=== PATIENT | male | born 1960 | race Caucasian/White ===

== ENCOUNTER → 2017-12-31 11:10 | Outpatient (POV) | payer OTHER, SELFPAY | PROVIDERS: Visit Provider Otolaryngology | DX: Z00.00 Encounter for general adult medical examination without abnormal findings (principal) ==

== ENCOUNTER → 2018-02-12 11:27 | Outpatient (CLI) | payer OTHER, SELFPAY ==
--- NOTE | 2018-02-12 11:32 | US_ITS ---
US abdomen limited History:Right upper quadrant pain with diarrhea Ordering Physician:Jerrell oRyal MD Patient Age: 57 years Comparison:None Findings: Pancreas:Unremarkable. No obvious mass or abnormal fluid collection. No ductal dilatation Liver:No focal liver lesions demonstrated. Homogeneous echogenicity. No intrahepatic biliary ductal dilatation evident Right Kidney:Unremarkable. Normal size and echogenicity. No hydronephrosis Gallbladder:No gallstones, gallbladder wall thickening, pericholecystic fluid, or biliary dilatation. Impression:Negative gallbladder/right upper quadrant ultrasound
== END ==
PROVIDERS: PCP Family Medicine; Visit Provider Family Medicine
DX: R10.11 Right upper quadrant pain (principal)
CPT/HCPCS: 76705

== ENCOUNTER → 2018-02-19 10:22 | Outpatient (CLI) | payer OTHER, SELFPAY ==
--- NOTE | 2018-02-19 10:26 | NM_ITS ---
NM hepatobiliary w pharm HISTORY: ITS.REASON: RUQ PAIN ORDERING PHYSICIAN: Jerrell Royal MD PATIENT AGE: 57 years COMPARISON: None DOSE: 8.25 MCI TC Choletec 2MCG CCK FINDINGS: Homogeneous activity is present within the hepatic parenchyma. Activity is present in the gallbladder by 10 minutes. Activity is present in the small bowel during CCK infusion. The gallbladder ejection fraction is calculated to be 92% The patient did not report pain or other symptoms during CCK infusion. IMPRESSION: Unremarkable hepatobiliary scan and gallbladder ejection fraction. No evidence of common or cystic duct obstruction with normal gallbladder ejection fraction
== END ==
PROVIDERS: PCP Family Medicine; Visit Provider Family Medicine
DX: R10.11 Right upper quadrant pain (principal)
CPT/HCPCS: 78227; A9537; J2805

== ENCOUNTER → 2020-05-16 16:15 | Outpatient (CLI) | payer OTHER, SELFPAY ==
--- NOTE | 2020-05-16 | XR_ITS ---
PROCEDURE: XR CHEST 2V CLINICAL HISTORY: Chest pain COMPARISON: CR CXR CHEST(2 VIEWS-NOT PORTABLE) from 04/20/2017 FINDINGS: The cardiomediastinal silhouette and pulmonary vascularity are within normal limits. The lungs are clear without infiltrates, suspicious nodules, or pleural effusions. No acute bony abnormalities. IMPRESSION: No acute findings. Dictated by: Eloy Gómez MD 05/16/2020 17:34 Eloy Gómez MD in [place] 05/16/2020 17:34
[2020-05-16 16:58] LABS: Basophils # 0.1 K/mm3 (0-0.2); Basophils % 0.5 % (0.1-2.0); Eosinophils # 0.3 K/mm3 (0.0-0.4); Eosinophils % 3.3 % (0.1-12.0); Hematocrit 41.1 % (42.0-52.0); Hemoglobin 14.5 g/dL (14.1-18.0); Lymphocytes # 2.6 K/mm3 (0.7-4.5); Lymphocytes % 28.6 % (10-50); Mean Corpuscular HGB Conc 35.2 g/dL (31.8-35.4); Mean Corpuscular Hemoglobin 29.3 pg (27.0-31.2); Mean Corpuscular Volume 83.3 fl (80-94); Mean Platelet Volume 7.5 fl (7.4-10.4); Monocytes # 0.4 K/mm3 (0.1-1.0); Monocytes % 4.9 % (1.7-9.3); Neutrophils # 5.7 K/mm3 (1.8-7.8); Neutrophils % 62.7 % (37.0-80.0); Platelet Count 295 K/mm3 (142-424); Red Blood Count 4.94 M/mm3 (4.60-6.20); Red Cell Distribution Width 14.3 % (11.5-17.5); White Blood Count 9.1 K/mm3 (4.8-10.8)
[2020-05-16 17:13] LABS: Chloride 102 mmol/L (98-107)
[2020-05-16 17:14] LABS: Potassium 4.2 mmoL/L (3.5-5.1); Sodium 134 mmol/L (136-145)
[2020-05-16 17:16] LABS: Alanine Aminotransferase 30 U/L (12-78); Alkaline Phosphatase 67 U/L (38-126); Anion Gap 8.2 mEq/L (5-15); Aspartate Amino Transferase 27 U/L (17-59); Bilirubin,Total 0.3 mg/dl (0.2-1.3); Blood Urea Nitrogen 20 mg/dl (9-20); Carbon Dioxide 28 mmol/L (22.0-30.0); Cholesterol 291 mg/dl (140-200); Estimated Glomerular Filt Rate 115 ml/min (>60); GFR (African American) 139 ML/MIN (>60)
[2020-05-16 17:17] LABS: Albumin Level 3.3 g/dl (3.5-5.0); Calcium 8.9 mg/dl (8.4-10.2); Chol/HDL Ratio 9.7 (1-3.5); Globulin 3.3 g/dL (1.3-3.2); Glucose 281 mg/dl (74-100); HDL Cholesterol 30 mg/dl (40-60); Magnesium 1.5 mg/dl (1.6-2.3); Total Protein,Serum 6.6 g/dl (6.3-8.2)
[2020-05-16 17:29] LABS: Troponin I 0.03 ng/ml (0.00-0.034)
[2020-05-16 17:32] LABS: Direct LDL Cholesterol < 30.00 mg/dL (100-129)
[2020-05-16 17:47] LABS: Thyroid Stimulating Hormone 1.89 uIU/mL (0.465-4.68)
[2020-05-16 17:58] LABS: Triglycerides 1861 mg/dl (30-150)
== END ==
PROVIDERS: PCP Nurse Practitioner Family; Visit Provider Nurse Practitioner Family
DX: R07.9 Chest pain, unspecified (principal)
CPT/HCPCS: 36415; 71046; 80053; 80061; 83735; 84443; 84484; 85025

== ENCOUNTER 2020-05-27 08:07 | Day surgery (SDC) | payer OTHER, SELFPAY ==
[2020-05-27] VITALS (10 sets, daily range): BP systolic 107–150; BP diastolic 65–104; PULSE 80–91; RESP 16–18; TEMP 36.8; O2SAT 90–97; BMI 37.4
--- NOTE | 2020-05-27 | CA_ITS ---
APPROVED REPORT EXAM: Comprehensive 2D, Doppler, and color-flow Echocardiogram Hoop Expander: Collette Junior, RT(R) Ht: 5 ft 4 in Wt: 218lbs BSA: 2.03 BP: 144/91 mmHg Indications: CP, COPD, smoker, edema, SOB, GUZMÁN, obesity, angina, ABN EKG 2D Dimensions LVOT 2.14 cm (M/F) 1.5-2.5 M-Mode Dimensions RVDd 1.95 cm (0.9-2.6) LVDd 6.41 cm (3.5-5.7) LVDs 5.22 cm (3.5-5.7) IVSd 0.81 cm (0.6-1.1) PWd 0.85 cm (0.6-1.1) EF (Teich) 37.60% FS 18.60% EDV (Teich) 209.30 mL ESV (Teich) 130.70 mL LV Diastology E/A Ratio 1.10 Aortic Valve LVOT Max 107.00 (70-110 cm/s) LVOT VTI 20.76 cm Mitral Valve MV A Velocity 94.00 (40-130 cm/s) Left Ventricle Left atrium is mildly enlarged, left ventricle is normal size, left ventricle wall thickness is upper limit of the normal, visually estimated ejection fraction 50% with no regional wall motion abnormality, diastolic parameters are inconclusive. Right Ventricle Right atrium and right ventricle are relatively normal size and function. Aortic Valve Aortic valve is thickened and calcified, leaflet continue to display mobility, Doppler is not indicated above significant aortic stenosis, there is no aortic insufficiency. Mitral Valve Mitral valve is minimally thickened, there is mild mitral regurgitation. Tricuspid Valve Tricuspid valve grossly normal, there is mild tricuspid regurgitation, tricuspid regurgitation jet velocity is inadequate for calculation of the right ventricular systolic pressure. Pulmonic Valve Pulmonic valve is poorly visualized. Great Vessels Aortic root is normal size. Pericardium No significant pericardial effusion noted. Conclusion 1. Left atrium is mildly enlarged, left ventricle is normal size, visually estimated ejection fraction 50% with no regional wall motion abnormality, diastolic parameters are inconclusive. 2. Thickened and calcified aortic valve without Doppler evidence of aortic stenosis or aortic insufficiency. 3. Mild mitral and tricuspid regurgitation. 4. No significant pericardial effusion noted. Electronically signed by : Elias Scanlon, 05/27/2020 13:45:02
--- NOTE | 2020-05-27 09:00 | IR_ITS ---
APPROVED REPORT Patient Location: Outpatient PROCEDURES Left heart catheterization Left ventriculogram Selective coronary angiogram INDICATION Unstable angina Informed consent was obtained prior to the procedure. COMPLICATIONS NONE Estimated Blood Loss: LESS THAN 10 ML TECHNIQUE One percent lidocaine used to anesthetize the right anterior aspect of the wrist. The right radial artery was accessed via the Seldinger technique. A 6 Vietnamese sheath was placed in the right radial artery. 2.5 mg of verapamil, 800 mcg of nitroglycerin, 1mg Lidocaine and 5000 U Heparin were given through the arterial sheath. The trap catheter was also used to perform left heart catheterization, left ventriculogram and selective coronary angiogram. At the end of the procedure the sheath was removed good hemostasis was achieved using Traclet band, patient was transferred to the postop holding area in stable condition. ANGIOGRAPHIC RESULTS The left main artery Has a distal concentric 50% stenosis The left anterior descending artery Has proximal 70 to 80% stenosis large first diagonal artery has a proximal 70% stenosis The circumflex artery Nondominant with mild luminal irregularities of 10% The right coronary artery Is a very large dominant vessel which supplies the apex and a portion of the anterior wall. This vessel has proximal 30% stenoses mid vessel 40% stenoses and then is subtotally occluded in its distal segment. The majority of the distal vessel fills via [id number] collaterals The GAXIOLA ventriculogram reveals Dilated ventricle ejection fraction 45% The left ventricular end-diastolic pressure 15 mmHg IMPRESSION Severe diffuse coronary disease as described above Dilated ventricle with reduced ejection fraction Mildly elevated LVEDP PLAN 1. Bisoprolol 10 mg daily will be started 2. Imdur 30 mg will be started 3. Patient will be referred to [facility] for bypass surgery 4. LDL less than 55 to be achieved with high intensity statin 5. Avoidance of all tobacco products Electronically signed by : Graham Royal, 05/27/2020 12:39:19
[2020-05-27 09:04] LABS: Chloride 103 mmol/L (98-107); Potassium 4.3 mmoL/L (3.5-5.1); Sodium 136 mmol/L (136-145)
[2020-05-27 09:05] LABS: Basophils % 0.5 % (0.1-2.0); Eosinophils # 0.3 K/mm3 (0.0-0.4); Eosinophils % 2.9 % (0.1-12.0); Hematocrit 44.3 % (42.0-52.0); Hemoglobin 15.4 g/dL (14.1-18.0); Lymphocytes # 2.2 K/mm3 (0.7-4.5); Lymphocytes % 24.6 % (10-50); Mean Corpuscular HGB Conc 34.7 g/dL (31.8-35.4); Mean Corpuscular Hemoglobin 28.8 pg (27.0-31.2); Mean Corpuscular Volume 82.9 fl (80-94); Mean Platelet Volume 7.1 fl (7.4-10.4); Monocytes # 0.5 K/mm3 (0.1-1.0); Monocytes % 5.2 % (1.7-9.3); Neutrophils # 6.1 K/mm3 (1.8-7.8); Neutrophils % 66.8 % (37.0-80.0); Platelet Count 292 K/mm3 (142-424); Red Blood Count 5.35 M/mm3 (4.60-6.20); Red Cell Distribution Width 14.5 % (11.5-17.5); White Blood Count 9.1 K/mm3 (4.8-10.8)
[2020-05-27 09:07] LABS: Anion Gap 10.3 mEq/L (5-15); Blood Urea Nitrogen 19 mg/dl (9-20); Calcium 8.6 mg/dl (8.4-10.2); Carbon Dioxide 27 mmol/L (22.0-30.0); Creatinine Clearance Estimated 157 mL/min (50-200); Estimated Glomerular Filt Rate 115 ml/min (>60); GFR (African American) 139 ML/MIN (>60); Glucose 211 mg/dl (74-100)
[2020-05-27 09:32] LABS: Coronavirus 19 IgG Antibody Negative (Negative); Coronavirus 19 IgM Antibody Negative (Negative)
== END 2020-05-27 13:56 | disposition home or self-care (01) ==
LOC: CATHLAB 08:08
PROVIDERS: PCP Nurse Practitioner Family; Visit Provider Internal Medicine
DX: I25.110 Atherosclerotic heart disease of native coronary artery with unstable angina pectoris (principal); R06.00 Dyspnea, unspecified; R94.31 Abnormal electrocardiogram [ECG] [EKG]; Z72.0 Tobacco use; Z82.49 Family history of ischemic heart disease and other diseases of the circulatory system
CPT/HCPCS: 80048; 85025; 86328; 93306; 93458; 99152; C1725; C1760; C1769; J1644; Q9967

== ENCOUNTER 2020-07-13 10:00 | Emergency (ER) | payer OTHER, SELFPAY ==
--- NOTE | 2020-07-13 10:03 | XR_ITS ---
PROCEDURE: XR HIP RT 2-3V W/PELVIS CLINICAL INDICATION: pain COMPARISON: No exams were available for comparison FINDINGS: No fracture or dislocation is evident. No significant degenerative change. No lytic or blastic change. Unremarkable soft tissues. There are 2 small calcifications or ossifications adjacent to the greater trochanter and calcific bursitis is a possibility though these could be posttraumatic in etiology as well. The SI joints and symphysis pubis appear normal. IMPRESSION: No acute findings. Dictated by: Dr. Andreas Uribe MD 07/13/2020 11:09 Dr. Andreas Uribe MD in [place] 07/13/2020 11:09
[2020-07-13 10:08] VITALS: BP 134/88; PULSE 82; RESP 16; TEMP 36.9; O2SAT 98; BMI 39.1
--- NOTE | 2020-07-13 10:10 | PC.NURSE ---
notified radiology of xray order, spoke with Gertrudis
--- NOTE | 2020-07-13 10:10 | HMH.EDEXTP ---
ED Disposition Clinical Impression: Iliotibial band syndrome, right leg Disposition: Home, Self-Care Condition on Discharge: Good Instructions: DI for Iliotibial Band Syndrome Prescriptions: Naproxen 500 mg PO BID PRN #20 tab PRN Reason: pain Transmission Status: Pending to [facility] Referrals: Cindy Diaz APRN [Primary Care Provider] - 3 days - Critical Care Critical Care Time: No Attestation: On , the high probability of a clinically significant, sudden or life threatening deterioration of the following system(s) required my full and direct attention, intervention and personal management. The time I documented below is in addition to time spent performing reported procedures but includes the following listed in this critical care notation. Medical Decision Making - Medical Records Medical records reviewed: Yes: I reviewed the patient's medical records. - Scott Inquiry Pt receiving controlled substance: No Vital Signs: 07/13/20 10:08 07/13/20 10:30 Temperature 98.4 F 98.4 F Temperature Source Oral Oral Pulse Rate 79 Pulse Rate [Right Brachial] 82 Respiratory Rate 16 17 Blood Pressure 138/95 H Blood Pressure [Right Arm] 134/88 Blood Pressure Mean [Right Arm] 103 Blood Pressure Source [Right Arm] Automatic Cuff Blood Pressure Position [Right Arm] Sitting 02 Sat by Pulse Oximetry 98 Oxygen Delivery Method Room Air Room Air Orders (Tests/Meds): ORDERS Category Date Time Status Hip XR right minimum 2 views [XR hip RT 2-3V w/pelvis] Exams 07/13/20 10:03 Taken Stat - Radiology Data #1 Image(s): Hip Image Reviewed: Yes I reviewed the patient's radiology image Preliminary Findings: Normal/NAD Medical Decision Narrative: Patient here with painful iliotibial band tract. X-ray shows no acute fracture or dislocation. No signs of septic joint, septic bursitis/joint, though a septic bursitis would be a consideration as well. I discussed this with the patient, in either case anti-inflammatories, stretching and physical therapy would be of assistance and we discussed these measures. Given prescription for naproxen and advised to follow-up outpatient with PCP. Extremity Problem HPI - General Stated complaint: rt hip pain, no ao Time Seen by Provider: 07/13/20 10:10 Source of Information: Patient Limitations: No Limitations - History of Present Illness HPI Narrative: This is a 60-year-old male who presents to the emergency department for 4 days of right hip pain. Patient states that he is about 1 month out from CABG and has been sitting on the couch a lot on his right hip. He states the pain is on the outside and radiates down the outside of his leg towards his knee. No back pain. No falls or trauma. No fevers. The only thing that makes it better is lying perfectly still. He has been using naproxen at home and this helps and he is requesting another prescription for naproxen. - Related Data Home Medications Medication Instructions Recorded Confirmed albuterol sulfate 90 mcg/actuation 1 puff INHALATION Q4-6H PRN 02/24/18 05/27/20 aerosol inhaler Previous Rx's Medication Instructions Recorded Naproxen 500 mg PO BID PRN #20 tab 07/13/20 Allergies Allergy/AdvReac Type Severity Reaction Status Date / Time No Known Allergies Allergy Verified 07/13/20 10:13 [facility] History - Hepatitis A Screen Attestation statement:: This patient has been screened for Hepatitis A risk factors. I have reviewed the patient's past medical history: Yes Medical History: Reports:: Coronary Artery Disease, Hyperlipidemia, Hypertension Denies:: Diabetes Mellitus Type 2 Other Surgeries: Yes: No Previous Surgery - Social History Smoking Status: Current every day smoker Tobacco Type: cigarettes # Packs/Day (cigarettes): 3 Alcohol Intake: never Occupational Status: employed Housing: house Household Members: spouse Family Hx:: Diabetes, Cor
[2020-07-13 10:30] VITALS: BP 138/95; PULSE 79; RESP 17; TEMP 36.9; O2SAT 98
== END 2020-07-13 10:36 | disposition home or self-care (01) ==
PROVIDERS: Emergency Provider Emergency Medicine; PCP Nurse Practitioner Family
DX: M76.31 Iliotibial band syndrome, right leg (principal); I10 Essential (primary) hypertension; E78.5 Hyperlipidemia, unspecified; I25.10 Atherosclerotic heart disease of native coronary artery without angina pectoris; F17.210 Nicotine dependence, cigarettes, uncomplicated
CPT/HCPCS: 73502; 99282

== ENCOUNTER → 2020-08-03 13:31 | Outpatient (CLI) | payer OTHER, SELFPAY ==
[2020-08-03 16:27] LABS: Anion Gap 11.9 mEq/L (5-15); Blood Urea Nitrogen 21 mg/dl (9-20); Calcium 9.4 mg/dl (8.4-10.2); Carbon Dioxide 29 mmol/L (22.0-30.0); Chloride 100 mmol/L (98-107); Estimated Glomerular Filt Rate 76 ml/min (>60); GFR (African American) 92 ML/MIN (>60); Glucose 103 mg/dl (74-100); Potassium 4.9 mmoL/L (3.5-5.1); Sodium 136 mmol/L (136-145)
== END ==
PROVIDERS: Visit Provider Nurse Practitioner Family
DX: I10 Essential (primary) hypertension (principal); E78.5 Hyperlipidemia, unspecified; I25.10 Atherosclerotic heart disease of native coronary artery without angina pectoris; F17.200 Nicotine dependence, unspecified, uncomplicated; Z95.1 Presence of aortocoronary bypass graft
CPT/HCPCS: 36415; 80048

== ENCOUNTER 2020-08-16 13:45 | Outpatient (RCR) | payer OTHER, SELFPAY | END 2020-11-16 13:51 | disposition home or self-care (01) | LOC: PT 13:45 | PROVIDERS: Visit Provider Nurse Practitioner Family | DX: I25.10 Atherosclerotic heart disease of native coronary artery without angina pectoris (principal) | CPT/HCPCS: 93798 ==

== ENCOUNTER → 2020-10-05 14:11 | Outpatient (CLI) | payer OTHER, SELFPAY ==
--- NOTE | 2020-10-05 14:11 | CA_ITS ---
APPROVED REPORT EXAM: Comprehensive 2D, Doppler, and color-flow Echocardiogram Prop Drawer: Laury King RCS, RVS Ht: 5 ft 4 in Wt: 205lbs BSA: 1.98 BP: 144/91 mmHg Indications: CAD s/p CABG x5-05/2020 follow up exam for work physical, COPD, HTN, HLD, smoker 2D Dimensions IVSd 0.91 cm LVEF (Visual) 56.60 % PWd 1.02 cm LVDd 4.85 cm LVDs 3.41 cm LVOT 2.01 cm (M/F) 1.5-2.5 M-Mode Dimensions RVDd 3.11 cm (0.9-2.6) LA Diam 3.37 cm (1.9-4.0) LVDd 4.96 cm (3.5-5.7) Ao Diam 3.48 cm (2.0-3.7) LVDs 3.50 cm (3.5-5.7) IVSd 1.29 cm (0.6-1.1) PWd 1.11 cm (0.6-1.1) EF (Teich) 55.60% EPSs 0.75 cm FS 29.10% EDV (Teich) 117.70 mL TAPSE 1.41 (<1.7) ESV (Teich) 52.30 mL LV Diastology E Decel Time 237.00 (160-240 msec) E/A Ratio 1.05 MED E' 6.90 (< 7 cm/sec) MED A' 10.90 cm/s E'/MED E' Ratio 11.54 (>14) LAT E' 14.30 (<10 cm/sec) LAT A' 10.50 cm/s E/LAT E' Ratio 5.57 (>14) Aortic Valve LVOT Max 101.00 (70-110 cm/s) LVOT VTI 17.39 cm AoV Peak Parveen. 217.00 (50-130 cm/s) AO Peak GR. 18.80 mmHg AO Mean GR. 10.10 (<5 mmHg) AO VTI 39.61 (18-25 cm) ALISON (VTI) 1.39 (2.5-4.5 cm2) Mitral Valve MV E Max Parveen. 80.00 (40-130 cm/s) MV A Velocity 75.00 (40-130 cm/s) E/A Ratio 1.05 MV Decel. Time 237.00 (160-240 ms) MV PHT 69.00 ms Pulmonary Valve PV Peak Velocity 118.00 (50-150 cm/s) NY End VMAX 206.00 cm/s Tricuspid Valve TR P. Velocity 192.00 cm/s RAP Estimate 10.00 mmHg RVSP 24.70 mmHg Left Ventricle Left atrium is mildly enlarged, left ventricle is normal size, mild concentric left ventricular hypertrophy, visually estimated ejection fraction 50% with no regional wall motion abnormality, grade 1 diastolic dysfunction seen without tissue Doppler evidence of raise left atrial pressure. Right Ventricle Right atrium and right ventricle are mildly enlarged with normal contractility. Aortic Valve Aortic valve is thickened and calcified leaflet chordae display mobility, mean gradient across valve is 18 mmHg, valve area 1.5 cm??? represents mild aortic stenosis, there is no significant aortic insufficiency. Mitral Valve Mitral valve is grossly normal, there is mild mitral regurgitation. Tricuspid Valve Tricuspid valve is grossly normal, there is mild tricuspid regurgitation, tricuspid regurgitation jet velocity is inadequate for calculation of the right ventricular systolic pressure. Pulmonic Valve Pulmonic valve is poorly visualized. Great Vessels Aortic root is normal size. Pericardium No significant pericardial effusion noted. Conclusion 1. Mild biatrial enlargement, normal left ventricular size, mild concentric left ventricular hypertrophy, visually estimated ejection fraction of 50% with no regional wall motion abnormality, grade 1 diastolic dysfunction seen without tissue Doppler evidence of raise left atrial pressure. 2. Mildly enlarged right ventricle with normal contractility. 3. Thickened and calcified aortic valve with mild aortic stenosis. 4. Mild mitral and tricuspid regurgitation. 5. No significant pericardial effusion noted. Electronically signed by : Elias Scanlon, 10/06/2020 15:52:39
== END ==
PROVIDERS: PCP Nurse Practitioner Family; Visit Provider Urology
DX: I25.10 Atherosclerotic heart disease of native coronary artery without angina pectoris (principal); I10 Essential (primary) hypertension; E78.5 Hyperlipidemia, unspecified; F17.200 Nicotine dependence, unspecified, uncomplicated; Z95.1 Presence of aortocoronary bypass graft
CPT/HCPCS: 93306

== ENCOUNTER → 2021-07-06 13:55 | Outpatient (CLI) | payer OTHER, SELFPAY ==
[2021-07-06 17:21] LABS: Alanine Aminotransferase 19 U/L (12-78); Albumin Level 3.6 g/dl (3.5-5.0); Alkaline Phosphatase 74 U/L (38-126); Aspartate Amino Transferase 26 U/L (17-59); Chol/HDL Ratio 7.9 (1-3.5); Cholesterol 181 mg/dl (140-200); HDL Cholesterol 23 mg/dl (40-60); Total Protein,Serum 6.4 g/dl (6.3-8.2)
[2021-07-06 17:32] LABS: Direct LDL Cholesterol 53.33 mg/dL (100-129)
[2021-07-06 17:47] LABS: Bilirubin,Total < 0.1 mg/dl (0.2-1.3); Triglycerides 683 mg/dl (30-150)
[2021-07-06 20:17] LABS: Bilirubin,Indirect 0.1 mg/dL (0.0-0.9)
== END ==
PROVIDERS: Visit Provider Physician Assistant
DX: E78.2 Mixed hyperlipidemia (principal); F17.200 Nicotine dependence, unspecified, uncomplicated; I10 Essential (primary) hypertension; I25.10 Atherosclerotic heart disease of native coronary artery without angina pectoris; Z95.1 Presence of aortocoronary bypass graft
CPT/HCPCS: 36415; 80061; 80076

== ENCOUNTER 2023-08-25 19:16 | Observation (INO) | payer OTHER, SELFPAY ==
[2023-08-25] VITALS (12 sets, daily range): BP systolic 131–175; BP diastolic 69–101; PULSE 90–110; RESP 16–30; TEMP 36.8–37.1; O2SAT 90–99; BMI 36.0
--- NOTE | 2023-08-25 19:23 | ECG_ITS ---
APPROVED REPORT Exam: Resting ECG HR:105 bpm ECG Measurements Heart Rate 105 AXES RI 177 P 73 QRSd 145 QRS -65 QT 361 T 83 QTc 422 Conclusion SINUS TACHYCARDIA LEFT AXIS DEVIATION [QRS AXIS < -30] RIGHT BUNDLE BRANCH BLOCK [120+ ms QRS DURATION, UPRIGHT V1, 40+ ms S IN I/aVL/V4/V5/V6] ABNORMAL ECG UNCONFIRMED REPORT Electronically signed by : Orion Abrams MD 08/26/2023 19:18:59
--- NOTE | 2023-08-25 19:30 | HMH.EDGENADL ---
Discharge Plan Disposition Patient Disposition: Admitted Clinical Impressions Clinical Impression: Acute exacerbation of chronic obstructive pulmonary disease, RUSH (acute kidney injury) Discharge ED Provider: Tejinder Moseley General Adult HPI General Chief complaint: Shortness of Breath/Dyspnea Stated complaint: trouble breathing Time Seen by Provider: 08/25/23 19:18 History of Present Illness HPI narrative: 63-year-old male, history of coronary artery disease status post CABG, hypertension, hyperlipidemia, COPD presents with worsening shortness of breath. He reports has been short of breath for the last month initially multiple doses of antibiotics with PCP without improvement. Reports shortness of breath has been worsening. He reports he has been taking high-dose Advil at home due to right-sided chest wall pain, worse with coughing. Denies fever at home. Reports he recently ran out of a inhaler and it has worsened his breathing. Related Data Home Medications Medication Instructions Recorded Confirmed metformin 500 mg tablet 500 mg PO BID 07/12/22 08/26/23 atorvastatin 80 mg tablet 80 mg PO HS 08/26/23 08/26/23 losartan 50 mg-hydrochlorothiazide 1 tab PO DAILY 08/26/23 08/26/23 12.5 mg tablet metoprolol tartrate 25 mg tablet 37.5 mg PO BID 08/26/23 08/26/23 Previous Rx's Medication Instructions Recorded aspirin 81 mg tablet,delayed 81 mg PO DAILY 30 days #30 tabs 07/15/23 release (Adult Low Dose Aspirin) albuterol sulfate 90 mcg/actuation 2 puff inhalation Q4-6H PRN 07/26/23 aerosol inhaler shortness of breath or wheezing 30 days #8.5 grams insulin degludec 100 unit/mL (3 10 unit (0.1 mL) SQ HS 30 days #3 07/26/23 mL) subcutaneous pen (Tresiba mL FlexTouch U-100 insulin) ipratropium 0.5 mg-albuterol 3 mg 3 ml inhalation Q6H PRN shortness 07/26/23 (2.5 mg base)/3 mL nebulization of breath or wheezing 30 days #360 soln mL pen needle, diabetic 32 gauge x #100 ea 07/26/23 3/16 (Comfort EZ Pen [place]) Allergies Allergy/AdvReac Type Severity Reaction Status Date / Time No Known Allergies Allergy Verified 07/26/23 09:24 [facility] Disclaimer: The information contained in this section may have been updated after the patient was seen, as this information can be updated by other users. Medical History Abnormal EKG Chest pain COPD (chronic obstructive pulmonary disease) Dyspnea Edema Family history of heart disease Tobacco dependence syndrome Unstable angina Surgical History History of open heart surgery Family History (Updated 08/26/23 @ 00:03 by Nicol Cabello RN) Mother CHF (congestive heart failure) Brother Lung nodules Social History (Updated 08/26/23 @ 00:05 by Nicol Cabello RN) Smoking Status: Current every day smoker tobacco type: cigarettes packs per day: 4 alcohol intake: never current occupational status: employed Travel in the last 8 weeks: Inside the [place] household members: spouse housing: house caffeine: Yes ROS Obtained: Yes All systems reviewed & no additional complaints except as documented Physical Exam General General appearance: alert and in no apparent distress Head Head exam: atraumatic and normocephalic Eye Eye exam: Present normal appearance, PERRL and EOMI ENT ENT exam: Present normal oropharynx and normal external ear exam Neck Neck exam: Present normal inspection and full ROM Chest Chest inspection: Present normal inspection, symmetric chest wall rise and tenderness (Right lateral chest wall tenderness) Respiratory Respiratory exam: Present respiratory distress (Tachypneic) and wheezes (Diffuse wheezing and prolonged expiratory phase) Cardiovascular Cardiovascular exam: Present normal rhythm and tachycardia Abdominal Exam Abdominal exam: Present soft; Absent distention, tenderness or guar
--- NOTE | 2023-08-25 19:52 | PC.NURSE ---
in room, talking with patient at this time.
--- NOTE | 2023-08-25 19:55 | XR_ITS ---
PROCEDURE INFORMATION: Exam: XR Chest Exam date and time: 08/25/2023 7:54 PM Age: 63 years old Clinical indication: Shortness of breath; Additional info: SOA, cough TECHNIQUE: Imaging protocol: Radiologic exam of the chest. Views: 1 view. COMPARISON: CR XR CHEST 2V 05/16/2020 4:25 PM FINDINGS: Lungs: Normal. Pleural spaces: Normal No pleural effusion. No pneumothorax. Heart/Mediastinum: Normal. No cardiomegaly. Vasculature: Tortuous atherosclerotic thoracic aorta. Bones/joints: Status post sternotomy. Moderate degenerative change of the bilateral acromioclavicular joints. IMPRESSION: No acute findings.
[2023-08-25 20:03] LABS: Basophils # 0.1 K/mm3 (0-0.2); Basophils % 0.7 % (0.1-2.0); Eosinophils # 1.1 K/mm3 (0.0-0.4); Eosinophils % 10.7 % (0.1-12.0); Hematocrit 38.7 % (42.0-52.0); Hemoglobin 12.8 g/dL (14.1-18.0); Lymphocytes # 2.2 K/mm3 (0.7-4.5); Lymphocytes % 21.8 % (10-50); Mean Corpuscular HGB Conc 33.1 g/dL (31.8-35.4); Mean Corpuscular Volume 84.8 fl (80-94); Mean Platelet Volume 7.5 fl (7.4-10.4); Monocytes # 0.4 K/mm3 (0.1-1.0); Monocytes % 4.3 % (1.7-9.3); Neutrophils # 6.5 K/mm3 (1.8-7.8); Neutrophils % 62.6 % (37.0-80.0); Platelet Count 362 K/mm3 (142-424); Red Blood Count 4.56 M/mm3 (4.60-6.20); Red Cell Distribution Width 14.6 % (11.5-17.5); White Blood Count 10.3 K/mm3 (4.8-10.8)
[2023-08-25 20:07] LABS: Alanine Aminotransferase 33 U/L (12-78); Albumin Level 4.1 g/dl (3.5-5.0); Albumin/Globulin Ratio 1.1 (1.1-1.8); Alkaline Phosphatase 65 U/L (38-126); Anion Gap 10.3 mEq/L (5-15); Aspartate Amino Transferase 38 U/L (17-59); Bilirubin,Total 0.3 mg/dl (0.2-1.3); Blood Urea Nitrogen 35 mg/dl (9-20); Calcium 7.9 mg/dl (8.4-10.2); Carbon Dioxide 24 mmol/L (22.0-30.0); Chloride 107 mmol/L (98-107); Creatinine Clearance Estimated 54 mL/min (50-200); Estimated Glomerular Filt Rate 36 ml/min (>60); GFR (African American) 44 ML/MIN (>60); Globulin 3.6 g/dL (1.3-3.2); Glucose 193 mg/dl (74-100); Potassium 4.3 mmoL/L (3.5-5.1); Sodium 137 mmol/L (136-145); Total Protein,Serum 7.7 g/dl (6.3-8.2)
[2023-08-25 20:12] LABS: D-Dimer 1.11 ug/mL (0.0-0.5)
[2023-08-25 20:20] LABS: NT Pro Brain Natriuretic Pep. 113 pg/mL (0-125); Troponin I 0.02 ng/ml (0.00-0.034)
--- NOTE | 2023-08-25 20:30 | CT_ITS ---
PROCEDURE INFORMATION: Exam: CTA Chest With Contrast Exam date and time: 08/25/2023 9:22 PM Age: 63 years old Clinical indication: Shortness of breath; Additional info: SOA, postive dimer, tachy TECHNIQUE: Imaging protocol: Computed tomographic angiography of the chest with contrast. Exam focused on the arteries. 3D rendering (Not supervised by radiologist): MIP and/or 3D reconstructed images were created by the technologist. Radiation optimization: All CT scans at this facility use at least one of these dose optimization techniques: automated exposure control; mA and/or kV adjustment per patient size (includes targeted exams where dose is matched to clinical indication); or iterative reconstruction. Contrast material: ISOVUE; Contrast volume: 70 ml; Contrast route: INTRAVENOUS (IV); REPORTING DATA: Count of CT and Cardiac NM exams in prior 12 months: This patient has received 0 known CTs and 0 known cardiac nuclear medicine studies in the 12 months prior to the current study. COMPARISON: CR XR CHEST PORTABLE 08/25/2023 7:54 PM FINDINGS: Limitations: Significant motion artifact could obscure segmental or subsegmental pulmonary emboli. Pulmonary arteries: Caliber pulmonary arteries. No visible pulmonary emboli. Aorta: Unremarkable. No aortic aneurysm. No aortic dissection. Other arteries: Mild atherosclerotic disease without aneurysm. Lungs: Focal opacity in the posterior left lower lobe is likely atelectasis but cannot exclude pneumonia. Minimal linear scar versus atelectasis in the lingula. Mild emphysema. Pleural spaces: Unremarkable. No pneumothorax. No pleural effusion. Heart: No cardiomegaly or pericardial effusion. Coronary arteries: Status post CABG. Lymph nodes: Unremarkable. No enlarged lymph nodes. Bones/joints: Status post sternotomy. Hupe-[id number] thoracic spine degenerative change. No acute fracture. Soft tissues: Unremarkable. IMPRESSION: 1. Significant motion artifact could obscure segmental or subsegmental pulmonary emboli. 2. No visible pulmonary emboli. 3. Focal opacity in the posterior left lower lobe is likely atelectasis but cannot exclude pneumonia.
--- NOTE | 2023-08-25 23:06 | PC.NURSE ---
Attempted to call report to received RN; did not answer will call back
--- NOTE | 2023-08-25 23:34 | PC.NURSE ---
pt being admitted, head of stretcher lowered for comfort no other needs
--- NOTE | 2023-08-25 23:48 | PC.NURSE ---
pt arrived to floor via wheelchair @23:47
[2023-08-26] VITALS (10 sets, daily range): BP systolic 136–160; BP diastolic 74–91; PULSE 70–98; RESP 16–20; TEMP 36.4–36.8; O2SAT 91–97; BMI 35.2
--- NOTE | 2023-08-26 00:15 | PC.NURSE ---
Pt arrives to floor via wheelchair at this time. Pt states he has been feeling SOA for the past month or so and has been to his PCP 2x since this started but has continued to feel bad despite finishing medications prescribed. Stated tonight he became very SOA so he decided to come to ER. Pt states he feels slightly SOA all the time but it becomes severe with exertion. Pt states he has had a severe cough, phlegm has been clear. Pt states he is a current smoker. He states he has smoked for 50 years and has smoked up to 4 packs/day for the majority of that time. Pt is a poor historian and only health hx he remembers at this time is HTN, COPD, and an open heart surgery 4 years ago.
[2023-08-26 00:34] LABS: Troponin I 0.02 ng/ml (0.00-0.034)
--- NOTE | 2023-08-26 00:54 | EXP.HP ---
History of Present Illness *Admission Date: 08/25/23 *Reason for visit:: Shortness of breath *History of present illness: This is a very pleasant 63-year-old male with a past medical history of CAD, hypertension, hyperlipidemia, T2DM, tobacco dependence who presents to the emergency department today with complaints of shortness of breath. He reports approximately 3 weeks of increased shortness of breath and mild cough. He denies any sick contacts otherwise. He reports having to increase his use of nebulizers. He saw his primary care doctor who prescribed him a steroid pack initially, with little relief. He returned back to his PCP and they gave him 10-day supply of antibiotics. He reports no improvement in symptoms. He denies chest pain, fever, productive sputum Emergency department workup notable for diffuse wheezing upon arrival with oxygen saturations in the 90s. He was medicated with steroids and nebulizers in the emergency department with minimal relief. Laboratory evaluation notable for an RUSH with a creatinine of 1.9 with baseline of 1.0. D-dimer elevated so CT of the chest was obtained and notable for possible left lower lobe pneumonia versus atelectasis. Negative for PE. Given his worsening shortness of breath and RUSH he was admitted to the hospital service for further evaluation. [facility] Disclaimer: The information contained in this section may have been updated after the patient was seen, as this information can be updated by other users. Medical History (Updated 08/26/23 @ 00:58 by INDIA Ryan) Abnormal EKG Chest pain COPD (chronic obstructive pulmonary disease) Dyspnea Edema Family history of heart disease Tobacco dependence syndrome Unstable angina Surgical History History of open heart surgery Family History (Updated 08/26/23 @ 00:03 by Nicol Cabello RN) Mother CHF (congestive heart failure) Brother Lung nodules Social History (Updated 08/26/23 @ 00:05 by Nicol Cabello RN) Smoking Status: Current every day smoker tobacco type: cigarettes packs per day: 4 alcohol intake: never current occupational status: employed Travel in the last 8 weeks: Inside the [place] household members: spouse housing: house caffeine: Yes Review of Systems Constitutional Constitutional: Reports system reviewed and no additional complaints, except as documented Eyes Eyes: Reports system reviewed and no additional complaints, except as documented ENT Ears, Nose, Mouth, and Throat: Reports system reviewed and no additional complaints, except as documented *Cardiovascular Cardiovascular: Reports system reviewed and no additional complaints, except as documented *Respiratory Respiratory: Reports system reviewed and no additional complaints, except as documented *Gastrointestinal Gastrointestinal: Reports system reviewed and no additional complaints, except as documented *Genitourinary Genitourinary: Reports system reviewed and no additional complaints, except as documented *Musculoskeletal Musculoskeletal: Reports system reviewed and no additional complaints, except as documented *Neurologic Neurologic: Reports system reviewed and no additional complaints, except as documented Meds Home Medications and Allergies Home Medications Medication Instructions Recorded Confirmed Type metformin 500 mg tablet 500 mg PO BID 07/12/22 08/26/23 History aspirin 81 mg tablet,delayed 81 mg PO DAILY 30 days #30 tabs 07/15/23 08/26/23 Rx release (Adult Low Dose Aspirin) albuterol sulfate 90 mcg/actuation 2 puff inhalation Q4-6H PRN 07/26/23 08/26/23 Rx aerosol inhaler shortness of breath or wheezing 30 days #8.5 grams insulin degludec 100 unit/mL (3 10 unit (0.1 mL) SQ HS 30 days #3 07/26/23 08/26/23 Rx mL) subcutaneous pen (Tresiba mL FlexTouch U-100 insulin) ipratropium 0.5 mg-albuterol 3 mg 3 ml inhalation Q6H PRN peter
--- NOTE | 2023-08-26 02:43 | PC.NURSE ---
Patient arrived to unit at 2347 from ED via wheelchair. Staff oriented patient to room, patient is alert and orient X4. Patient educated director medical economics light, bed controller and tv remote with a voice of understanding. Patient denies pain or SOB upon arrival to unit. Full assessment to follow.
[2023-08-26 06:00] LABS: Basophils % 0.4 % (0.1-2.0); Eosinophils # 0.1 K/mm3 (0.0-0.4); Eosinophils % 0.7 % (0.1-12.0); Hematocrit 37.9 % (42.0-52.0); Hemoglobin 12.3 g/dL (14.1-18.0); Lymphocytes % 8.7 % (10-50); Mean Corpuscular HGB Conc 32.6 g/dL (31.8-35.4); Mean Corpuscular Hemoglobin 28.2 pg (27.0-31.2); Mean Corpuscular Volume 86.7 fl (80-94); Mean Platelet Volume 7.8 fl (7.4-10.4); Monocytes # 0.2 K/mm3 (0.1-1.0); Monocytes % 1.6 % (1.7-9.3); Neutrophils # 9.8 K/mm3 (1.8-7.8); Neutrophils % 88.6 % (37.0-80.0); Platelet Count 352 K/mm3 (142-424); Red Blood Count 4.37 M/mm3 (4.60-6.20); Red Cell Distribution Width 14.6 % (11.5-17.5); White Blood Count 11.1 K/mm3 (4.8-10.8)
[2023-08-26 06:01] LABS: MANUAL DIFFERENTIAL MANUAL DIFFERENTIAL (MANUAL DIFF)
[2023-08-26 06:08] LABS: Chloride 107 mmol/L (98-107); Sodium 137 mmol/L (136-145)
[2023-08-26 06:09] LABS: Potassium 5.3 mmoL/L (3.5-5.1)
[2023-08-26 06:11] LABS: Blood Urea Nitrogen 33 mg/dl (9-20); Creatinine Clearance Estimated 53 mL/min (50-200); Estimated Glomerular Filt Rate 36 ml/min (>60); GFR (African American) 44 ML/MIN (>60)
[2023-08-26 06:12] LABS: Anion Gap 13.3 mEq/L (5-15); Calcium 8.1 mg/dl (8.4-10.2); Carbon Dioxide 22 mmol/L (22.0-30.0); Glucose 224 mg/dl (74-100)
[2023-08-26 06:18] LABS: Lymphocytes % 11 % (10-50); Monocytes % 3 % (2-9); Neutrophils % 86 % (42-76); Total Cells Counted 100
[2023-08-26 06:19] LABS: Platelet Estimate Normal; RBC Morphology Normal
[2023-08-26 07:15] LABS: POC Glucose,Bedside 216 (70-110)
[2023-08-26 07:27] LABS: Adenovirus,PCR Not Detected (NotDetected); Coronavirus 19, PCR Not Detected (NotDetected); Coronavirus 229E Not Detected (NotDetected); Coronavirus NL63 Not Detected (NotDetected); Coronavirus OC43 Not Detected (NotDetected); Coronovirus HKU1,PCR Not Detected (NotDetected); Human Metapneumovirus Not Detected (NotDetected); Influenza A, PCR Not Detected (NotDetected); Influenza AH1, 2009 Not Detected (NotDetected); Influenza AH1, PCR Not Detected (NotDetected); Influenza AH3,PCR Not Detected (NotDetected); Influenza B, PCR Not Detected (NotDetected); Parainfluenza 1, PCR Not Detected (NotDetected); Parainfluenza 2, PCR Not Detected (NotDetected); Parainfluenza 3, PCR Not Detected (NotDetected); Parainfluenza 4, PCR Not Detected (NotDetected); Respiratory Syncytial Virus Not Detected (NotDetected); Rhinovirus/Enterovirus Not Detected (NotDetected)
--- NOTE | 2023-08-26 07:44 | HMH.PHAINT1 ---
Pharmacy Intervention Comments: Med reconciliation completed using external fill history and patient interview. Mr Mcdowell states that he uses his metformin once daily rather than BID as stated on the Rx.
--- NOTE | 2023-08-26 11:16 | EXP.DC.SUM ---
General Admission date:: 08/25/23 Discharge date: 08/26/23 HPI HPI HPI: This is a very pleasant 63-year-old male with a past medical history of CAD, hypertension, hyperlipidemia, T2DM, tobacco dependence who presents to the emergency department today with complaints of shortness of breath. He reports approximately 3 weeks of increased shortness of breath and mild cough. He denies any sick contacts otherwise. He reports having to increase his use of nebulizers. He saw his primary care doctor who prescribed him a steroid pack initially, with little relief. He returned back to his PCP and they gave him 10-day supply of antibiotics. He reports no improvement in symptoms. He denies chest pain, fever, productive sputum Emergency department workup notable for diffuse wheezing upon arrival with oxygen saturations in the 90s. He was medicated with steroids and nebulizers in the emergency department with minimal relief. Laboratory evaluation notable for an RUHS with a creatinine of 1.9 with baseline of 1.0. D-dimer elevated so CT of the chest was obtained and notable for possible left lower lobe pneumonia versus atelectasis. Negative for PE. Given his worsening shortness of breath and RUSH he was admitted to the hospital service for further evaluation. Hospital Course Hospital Course Hospital Course: Patient was seen and evaluated at the bedside on the day of discharge. Patient is stable for discharge. Patient wishes to be discharged. All patient questions were answered and patient was given time to ask questions. Patient was discharged in stable condition. Patient understands that she can return to ER in case of any sudden changes in health. Total time spent on DC - 38 mins COPD exacerbation - improved, DC on PO prednisone and doxycyline RUSH s/p IV fluids, awaiting repeat BMP, patient wishes to go home - ordered 1L BOLUS AND repeat BMP before dc, hold lisinopril and HCTZ at DC and f/u with PCP T2DM - stable HLD Continue home statin medication CAD Continue home antiplatelets DVT PPx SQH Full code Exam Data for Last 24 hours Vital signs and Labs for Last 24 Hours: Temp Pulse Resp BP Pulse Ox O2 Del Method 97.9 F 85 18 156/80 H 93 L Room Air 08/26/23 07:37 08/26/23 07:37 08/26/23 07:37 08/26/23 07:37 08/26/23 07:37 08/26/23 09:00 Laboratory Results - last 24 hr 08/25/23 19:23: WBC 10.3, RBC 4.56 L, Hgb 12.8 L, Hct 38.7 L, MCV 84.8, MCH 28.0, MCHC 33.1, RDW 14.6, Plt Count 362, MPV 7.5, Neut % (Auto) 62.6, Lymph % (Auto) 21.8, [place] % (Auto) 4.3, Eos % (Auto) 10.7, Baso % (Auto) 0.7, Neut # (Auto) 6.5, Lymph # (Auto) 2.2, [place] # (Auto) 0.4, Eos # (Auto) 1.1 H, Baso # (Auto) 0.1, D-Dimer 1.11 H, Sodium 137, Potassium 4.3, Chloride 107, Carbon Dioxide 24, Anion Gap 10.3, BUN 35 H, Creatinine 1.90 H, Estimated Creat Clear 54, Estimated GFR 36 L, Est GFR ( Amer) 44 L, Glucose 193 H, Calcium 7.9 L, Total Bilirubin 0.3, AST 38, ALT 33, Alkaline Phosphatase 65, Troponin I 0.02, NT-Pro-B Natriuret Pep 113, Total Protein 7.7, Albumin 4.1, Globulin 3.6 H, Albumin/Globulin Ratio 1.1 08/25/23 23:35: Troponin I 0.02 08/26/23 05:19: WBC 11.1 H, RBC 4.37 L, Hgb 12.3 L, Hct 37.9 L, MCV 86.7, MCH 28.2, MCHC 32.6, RDW 14.6, Plt Count 352, MPV 7.8, Neut % (Auto) 88.6 H, Lymph % (Auto) 8.7 L, [place] % (Auto) 1.6 L, Eos % (Auto) 0.7, Baso % (Auto) 0.4, Neut # (Auto) 9.8 H, Lymph # (Auto) 1.0, [place] # (Auto) 0.2, Eos # (Auto) 0.1, Baso # (Auto) 0.0, Total Counted 100, Neutrophils % (Manual) 86 H, Lymphocytes % (Manual) 11, Monocytes % (Manual) 3, Platelet Estimate Normal, RBC Morphology Normal, Sodium 137, Potassium 5.3 H D, Chloride 107, Carbon Dioxide 22, Anion Gap 13.3, BUN 33 H, Creatinine 1.90 H, Estimated Creat Clear 53, Estimated GFR 36 L, Est GFR ( Amer) 44 L, Glucose 224 H, Calcium 8.1 L 08/26/23 06:52: POC Glucose 216 H 08/26/23 07:00: Chlamy pneumoniae PCR TNP, Adenovirus (PCR) Not detected, B. pertussis DNA (PCR) TNP,
[2023-08-26 13:07] LABS: Chloride 106 mmol/L (98-107); Sodium 135 mmol/L (136-145)
[2023-08-26 13:10] LABS: Blood Urea Nitrogen 34 mg/dl (9-20); Creatinine Clearance Estimated 53 mL/min (50-200); Estimated Glomerular Filt Rate 36 ml/min (>60); GFR (African American) 44 ML/MIN (>60)
[2023-08-26 13:11] LABS: Carbon Dioxide 20 mmol/L (22.0-30.0); Glucose 224 mg/dl (74-100)
--- NOTE | 2023-08-26 16:14 | PC.NURSE ---
No acute changes. Vitals signs stable, patient remained on room air. Patient remained alert and oriented times 4. Kidney function levels unchanged from admission, continuing to give iv fluids.
[2023-08-26 17:11] LABS: POC Glucose,Bedside 243 (70-110)
[2023-08-26 20:52] LABS: POC Glucose,Bedside 348 (70-110)
[2023-08-27] VITALS: BP 138/73; PULSE 83; RESP 20; TEMP 36.7; O2SAT 95
[2023-08-27 04:00] VITALS: BP 112/61; PULSE 66; RESP 18; TEMP 36.6; O2SAT 96; BMI 35.9
--- NOTE | 2023-08-27 05:15 | PC.NURSE ---
Patient has had a great night. Patient has been able to rest. Patient is independent and been up to the bathroom multiple times this shift with no issues. Patient is alittle swollen in the upper and lower extremities. Lung sounds were clear. No other issue noted
[2023-08-27 05:50] LABS: POC Glucose,Bedside 153 (70-110)
[2023-08-27 06:10] VITALS: PULSE 61; PULSE 66
[2023-08-27 06:20] LABS: Basophils % 0.2 % (0.1-2.0); Eosinophils # 0.1 K/mm3 (0.0-0.4); Eosinophils % 0.4 % (0.1-12.0); Hematocrit 33.2 % (42.0-52.0); Hemoglobin 11.1 g/dL (14.1-18.0); Lymphocytes % 13.3 % (10-50); Mean Corpuscular HGB Conc 33.4 g/dL (31.8-35.4); Mean Corpuscular Hemoglobin 28.3 pg (27.0-31.2); Mean Corpuscular Volume 84.6 fl (80-94); Mean Platelet Volume 7.3 fl (7.4-10.4); Monocytes # 0.7 K/mm3 (0.1-1.0); Monocytes % 4.5 % (1.7-9.3); Neutrophils % 81.6 % (37.0-80.0); Platelet Count 335 K/mm3 (142-424); Red Blood Count 3.93 M/mm3 (4.60-6.20); Red Cell Distribution Width 14.4 % (11.5-17.5); White Blood Count 14.7 K/mm3 (4.8-10.8)
[2023-08-27 06:24] LABS: Chloride 110 mmol/L (98-107); Potassium 4.7 mmoL/L (3.5-5.1); Sodium 137 mmol/L (136-145)
[2023-08-27 06:27] LABS: Anion Gap 9.7 mEq/L (5-15); Blood Urea Nitrogen 36 mg/dl (9-20); Carbon Dioxide 22 mmol/L (22.0-30.0); Creatinine Clearance Estimated 51 mL/min (50-200); Estimated Glomerular Filt Rate 34 ml/min (>60); GFR (African American) 41 ML/MIN (>60)
[2023-08-27 06:28] LABS: Glucose 145 mg/dl (74-100)
[2023-08-27 07:58] VITALS: BP 148/84; PULSE 72; RESP 20; TEMP 36.4; O2SAT 94
--- NOTE | 2023-08-27 08:13 | PC.NURSE ---
COURTESY NOTE: morning round completed on pt. pt denies needing assistance at this time. call stu within reach. Jade SRNA
--- NOTE | 2023-08-27 10:05 | PC.NURSE ---
Rounded on pt. He denied any questions or concerns at this time. Only request was a cup of coffee. Also verified that he did not want to utilize meds to beds. He stated he preferred to use his own pharmacy.
--- NOTE | 2023-08-27 10:38 | EXP.DC.SUM ---
General Admission date:: 08/25/23 Discharge date: 08/27/23 HPI HPI HPI: This is a very pleasant 63-year-old male with a past medical history of CAD, hypertension, hyperlipidemia, T2DM, tobacco dependence who presents to the emergency department today with complaints of shortness of breath. He reports approximately 3 weeks of increased shortness of breath and mild cough. He denies any sick contacts otherwise. He reports having to increase his use of nebulizers. He saw his primary care doctor who prescribed him a steroid pack initially, with little relief. He returned back to his PCP and they gave him 10-day supply of antibiotics. He reports no improvement in symptoms. He denies chest pain, fever, productive sputum Emergency department workup notable for diffuse wheezing upon arrival with oxygen saturations in the 90s. He was medicated with steroids and nebulizers in the emergency department with minimal relief. Laboratory evaluation notable for an RUSH with a creatinine of 1.9 with baseline of 1.0. D-dimer elevated so CT of the chest was obtained and notable for possible left lower lobe pneumonia versus atelectasis. Negative for PE. Given his worsening shortness of breath and RUSH he was admitted to the hospital service for further evaluation. Hospital Course Hospital Course Hospital Course: 63-year-old male admitted for COPD exacerbation. Showed improvement with symptomatic treatment. Stable for discharge home with close follow-up and repeat labs tomorrow to monitor kidney function. Problems addressed as follows: COPD exacerbation - improved, with symptomatic treatment, nebs, prednisone and doxycycline. Will complete 5 days of steroids and doxycycline. Stable on room air. RUSH: Creatinine elevated during admission. 2.0 on day of discharge. Making adequate urine however. In light of his urine output, adequate p.o. intake, and otherwise clinical stability, will discharge home with close follow-up and labs tomorrow. Recommend following up in 2 to 3 days for further management with his PCP. Hold lisinopril-HCTZ at time of discharge. T2DM - stable, continue home regimen HLD: Continue home statin medication CAD: Continue home antiplatelets, beta-rema, and aspirin Exam Data for Last 24 hours Vital signs and Labs for Last 24 Hours: Temp Pulse Resp BP Pulse Ox O2 Del Method 97.6 F 72 20 148/84 H 94 L Room Air 08/27/23 07:58 08/27/23 07:58 08/27/23 07:58 08/27/23 07:58 08/27/23 07:58 08/27/23 09:00 Laboratory Results - last 24 hr 08/26/23 12:46: Sodium 135 L, Potassium 5.0, Chloride 106, Carbon Dioxide 20 L, Anion Gap 14.0, BUN 34 H, Creatinine 1.90 H, Estimated Creat Clear 53, Estimated GFR 36 L, Est GFR ( Amer) 44 L, Glucose 224 H, Calcium 8.0 L 08/26/23 16:59: POC Glucose 243 H 08/26/23 20:19: POC Glucose 348 H* 08/27/23 05:38: WBC 14.7 H D, RBC 3.93 L, Hgb 11.1 L, Hct 33.2 L, MCV 84.6, MCH 28.3, MCHC 33.4, RDW 14.4, Plt Count 335, MPV 7.3 L, Neut % (Auto) 81.6 H, Lymph % (Auto) 13.3, [place] % (Auto) 4.5, Eos % (Auto) 0.4, Baso % (Auto) 0.2, Neut # (Auto) 12.0 H, Lymph # (Auto) 2.0, [place] # (Auto) 0.7, Eos # (Auto) 0.1, Baso # (Auto) 0.0, Sodium 137, Potassium 4.7, Chloride 110 H, Carbon Dioxide 22, Anion Gap 9.7, BUN 36 H, Creatinine 2.00 H, Estimated Creat Clear 51, Estimated GFR 34 L, Est GFR ( Amer) 41 L, Glucose 145 H D, POC Glucose 153 H, Calcium 8.0 L I & O for Last 24 hours: Intake & Output 08/24/23 08/25/23 08/26/23 08/27/23 23:59 23:59 23:59 23:59 Intake Total 2466 / 2616 630 / 630 Output Total 0 / 0 0 / 0 Balance 2466 / 2616 630 / 630 Weight 95.254 kg 93.39 kg 95.339 kg Constitutional Constitutional: no acute distress, obese and chronically ill appearing *Routine HEENT Exam Head: Present normocephalic Eye: Present EOMI and PERRL ENT: Present mucous membranes moist *Routine Neck Exam Neck: Present supple; Absent lymphadenopathy *Routine Respiratory Exam Respirat
[2023-08-27 10:59] LABS: POC Glucose,Bedside 172 (70-110)
[2023-08-27 11:19] VITALS: PULSE 77; PULSE 78
--- NOTE | 2023-08-27 11:58 | PC.NURSE ---
COURTESY NOTE: afternoon round completed on pt. pt denies needing assistance at this time. call stu within reach. Hiram SRNA
[2023-08-27 12:00] VITALS: BP 154/88; PULSE 59; RESP 20; TEMP 36.6; O2SAT 97
[2023-08-28 11:24] LABS: POC Glucose,Bedside 322 (70-110)
--- NOTE | 2023-08-29 12:50 | CARE MANAGER ---
Attempted to contact patient x2 related to hospital discharge. Left VM. DULCE Arias
== END 2023-08-27 13:05 | disposition home or self-care (01) ==
LOC: ER 21:59 → 2ND 22:50
PROVIDERS: Internal Medicine Adolescent Medicine; Nurse Practitioner Acute Care; Admitting Provider Internal Medicine; Emergency Provider Emergency Medicine; PCP Nurse Practitioner Family; Visit Provider Internal Medicine
DX: J44.1 Chronic obstructive pulmonary disease with (acute) exacerbation (principal); I25.110 Atherosclerotic heart disease of native coronary artery with unstable angina pectoris; I10 Essential (primary) hypertension; E78.2 Mixed hyperlipidemia; E11.9 Type 2 diabetes mellitus without complications; N17.9 Acute kidney failure, unspecified; F17.210 Nicotine dependence, cigarettes, uncomplicated; Z79.4 Long term (current) use of insulin; Z95.1 Presence of aortocoronary bypass graft; Z79.02 Long term (current) use of antithrombotics/antiplatelets
CPT/HCPCS: 36415; 71045; 71275; 80048; 80053; 82962; 83880; 84484; 85007; 85025; 85378; 87632; 87635; 93005; 94640; 99291; G0378; J3475; Q9967

== ENCOUNTER → 2023-08-28 08:59 | Outpatient (CLI) | payer OTHER, SELFPAY ==
[2023-08-28 10:20] LABS: Chloride 108 mmol/L (98-107); Sodium 138 mmol/L (136-145)
[2023-08-28 10:21] LABS: Potassium 4.5 mmoL/L (3.5-5.1)
[2023-08-28 10:23] LABS: Blood Urea Nitrogen 37 mg/dl (9-20); Estimated Glomerular Filt Rate 34 ml/min (>60); GFR (African American) 41 ML/MIN (>60)
[2023-08-28 10:24] LABS: Anion Gap 11.5 mEq/L (5-15); Calcium 8.1 mg/dl (8.4-10.2); Carbon Dioxide 23 mmol/L (22.0-30.0); Glucose 199 mg/dl (74-100)
== END ==
LOC: LAB 09:00
PROVIDERS: PCP Nurse Practitioner Family; Visit Provider Internal Medicine Adolescent Medicine
DX: N17.9 Acute kidney failure, unspecified (principal)
CPT/HCPCS: 36415; 80048

== ENCOUNTER → 2023-09-03 09:18 | Outpatient (CLI) | payer OTHER, SELFPAY ==
--- NOTE | 2023-09-03 09:22 | XR_ITS ---
FINAL REPORT TECHNIQUE: Chest PA & Lateral CLINICAL HISTORY: Acute cough, COPD exacerbation COMPARISON: 08/25/2023 FINDINGS: 2 views of the chest were performed. Mild cardiomegaly is present as well as sternotomy wires. The mediastinum is within normal limits. There is no acute cardiopulmonary process. There are no pleural effusions. There is no pneumothorax. The bony thorax appears intact. IMPRESSION: No acute cardiopulmonary process. Reviewed, Interpreted and Dictated by Yosef Mann MD Transcribed by Rosalva Obregon Authenticated and [facility]
[2023-09-03 11:27] LABS: Basophils # 0.1 K/mm3 (0-0.2); Basophils % 0.4 % (0.1-2.0); Eosinophils # 1.3 K/mm3 (0.0-0.4); Eosinophils % 9.4 % (0.1-12.0); Hematocrit 37.9 % (42.0-52.0); Hemoglobin 12.8 g/dL (14.1-18.0); Lymphocytes # 2.2 K/mm3 (0.7-4.5); Lymphocytes % 15.9 % (10-50); Mean Corpuscular HGB Conc 33.7 g/dL (31.8-35.4); Mean Corpuscular Hemoglobin 28.8 pg (27.0-31.2); Mean Corpuscular Volume 85.4 fl (80-94); Monocytes # 0.7 K/mm3 (0.1-1.0); Neutrophils # 9.7 K/mm3 (1.8-7.8); Neutrophils % 69.3 % (37.0-80.0); Platelet Count 347 K/mm3 (142-424); Red Blood Count 4.44 M/mm3 (4.60-6.20); Red Cell Distribution Width 14.4 % (11.5-17.5); White Blood Count 13.9 K/mm3 (4.8-10.8)
[2023-09-03 12:16] LABS: Chloride 104 mmol/L (98-107); Potassium 4.4 mmoL/L (3.5-5.1); Sodium 136 mmol/L (136-145)
[2023-09-03 12:19] LABS: Alanine Aminotransferase 32 U/L (12-78); Albumin Level 3.7 g/dl (3.5-5.0); Albumin/Globulin Ratio 1.3 (1.1-1.8); Alkaline Phosphatase 73 U/L (38-126); Anion Gap 15.4 mEq/L (5-15); Aspartate Amino Transferase 27 U/L (17-59); Bilirubin,Total 0.3 mg/dl (0.2-1.3); Blood Urea Nitrogen 41 mg/dl (9-20); Carbon Dioxide 21 mmol/L (22.0-30.0); Estimated Glomerular Filt Rate 32 ml/min (>60); GFR (African American) 39 ML/MIN (>60); Globulin 2.8 g/dL (1.3-3.2); Total Protein,Serum 6.5 g/dl (6.3-8.2)
[2023-09-03 12:20] LABS: Calcium 8.5 mg/dl (8.4-10.2); Glucose 188 mg/dl (74-100)
== END ==
PROVIDERS: PCP Nurse Practitioner Family; Visit Provider Nurse Practitioner Family
DX: J44.1 Chronic obstructive pulmonary disease with (acute) exacerbation (principal); R05.1 Acute cough; N17.9 Acute kidney failure, unspecified; B96.89 Other specified bacterial agents as the cause of diseases classified elsewhere
CPT/HCPCS: 71046; 80053; 85025; 87070; 87205

== ENCOUNTER 2023-09-18 13:19 | Outpatient (CLI) | payer OTHER, SELFPAY ==
[2023-09-18 12:54] LABS: Basophils # 0.1 K/mm3 (0-0.2); Basophils % 0.5 % (0.1-2.0); Eosinophils # 1.6 K/mm3 (0.0-0.4); Eosinophils % 12.5 % (0.1-12.0); Hematocrit 25.2 % (42.0-52.0); Hemoglobin 8.6 g/dL (14.1-18.0); Mean Corpuscular Hemoglobin 29.3 pg (27.0-31.2); Mean Corpuscular Volume 86.1 fl (80-94); Mean Platelet Volume 8.6 fl (7.4-10.4); Monocytes # 0.6 K/mm3 (0.1-1.0); Monocytes % 4.7 % (1.7-9.3); Neutrophils # 8.4 K/mm3 (1.8-7.8); Neutrophils % 66.3 % (37.0-80.0); Platelet Count 364 K/mm3 (142-424); Red Blood Count 2.93 M/mm3 (4.60-6.20); Red Cell Distribution Width 14.9 % (11.5-17.5); White Blood Count 12.7 K/mm3 (4.8-10.8)
[2023-09-18 13:23] LABS: Alanine Aminotransferase 17 U/L (12-78); Albumin Level 3.1 g/dl (3.5-5.0); Albumin/Globulin Ratio 1.3 (1.1-1.8); Alkaline Phosphatase 55 U/L (38-126); Anion Gap 14.6 mEq/L (5-15); Aspartate Amino Transferase 23 U/L (17-59); Bilirubin,Total 0.2 mg/dl (0.2-1.3); Blood Urea Nitrogen 76 mg/dl (9-20); Calcium 7.5 mg/dl (8.4-10.2); Carbon Dioxide 21 mmol/L (22.0-30.0); Chloride 103 mmol/L (98-107); Chol/HDL Ratio 9.9 (1-3.5); Cholesterol 207 mg/dl (140-200); Estimated Glomerular Filt Rate 24 ml/min (>60); GFR (African American) 29 ML/MIN (>60); Globulin 2.4 g/dL (1.3-3.2); Glucose 110 mg/dl (74-100); HDL Cholesterol 21 mg/dl (40-60); Potassium 4.6 mmoL/L (3.5-5.1); Sodium 134 mmol/L (136-145); Total Protein,Serum 5.5 g/dl (6.3-8.2)
[2023-09-18 13:28] LABS: NT Pro Brain Natriuretic Pep. 436 pg/mL (0-125); Troponin I 0.02 ng/ml (0.00-0.034)
[2023-09-18 13:31] LABS: Triglycerides 520 mg/dl (30-150)
[2023-09-18 13:43] LABS: Direct LDL Cholesterol 80.88 mg/dL (100-129)
== END 2023-09-18 23:59 ==
LOC: LAB.DROPOF 13:20
PROVIDERS: PCP Nurse Practitioner Family; Visit Provider Nurse Practitioner Family
DX: I11.9 Hypertensive heart disease without heart failure (principal); I25.10 Atherosclerotic heart disease of native coronary artery without angina pectoris; R06.02 Shortness of breath; R07.9 Chest pain, unspecified; E11.9 Type 2 diabetes mellitus without complications; R60.0 Localized edema; E78.5 Hyperlipidemia, unspecified; N17.9 Acute kidney failure, unspecified; Z79.4 Long term (current) use of insulin; Z79.84 Long term (current) use of oral hypoglycemic drugs
CPT/HCPCS: 80053; 80061; 83036; 83880; 84484; 85025

== ENCOUNTER 2023-09-20 03:27 | Observation (INO) | payer OTHER, SELFPAY ==
[2023-09-20] VITALS (29 sets, daily range): BP systolic 97–146; BP diastolic 57–96; PULSE 68–105; RESP 16–26; TEMP 36.4–37.1; O2SAT 94–100; BMI 36.8; BMI 36.5; BMI 36.6
--- NOTE | 2023-09-20 03:44 | XR_ITS ---
PROCEDURE INFORMATION: Exam: XR Chest Exam date and time: 09/20/2023 4:01 AM Age: 63 years old Clinical indication: Pain; Chest pressure; Additional info: Chest pain/soa TECHNIQUE: Imaging protocol: Radiologic exam of the chest. Views: 1 view. COMPARISON: CR XR CHEST 2V 09/03/2023 9:28 AM FINDINGS: Lungs: Unremarkable. No consolidation. Pleural spaces: Unremarkable. No pleural effusion. No pneumothorax. Heart/Mediastinum: Unremarkable. No cardiomegaly. Bones/joints: Prior median sternotomy. No acute bony abnormalities detected IMPRESSION: No active disease.
--- NOTE | 2023-09-20 03:49 | ECG_ITS ---
APPROVED REPORT Exam: Resting ECG HR:102 bpm ECG Measurements Heart Rate 102 AXES NE 167 P 72 QRSd 144 QRS -45 QT 373 T 75 QTc 432 Conclusion SINUS TACHYCARDIA WITH OCCASIONAL VENTRICULAR PREMATURE COMPLEXES LEFT AXIS DEVIATION [QRS AXIS < -30] RIGHT BUNDLE BRANCH BLOCK [120+ ms QRS DURATION, UPRIGHT V1, 40+ ms S IN I/aVL/V4/V5/V6] ABNORMAL ECG UNCONFIRMED REPORT Electronically signed by : Orion Abrams MD 09/21/2023 10:09:07
[2023-09-20 03:53] LABS: Basophils # 0.1 K/mm3 (0-0.2); Basophils % 0.4 % (0.1-2.0); Hematocrit 22.6 % (42.0-52.0); Hemoglobin 7.5 g/dL (14.1-18.0); Lymphocytes # 1.9 K/mm3 (0.7-4.5); Lymphocytes % 14.7 % (10-50); Mean Corpuscular HGB Conc 33.4 g/dL (31.8-35.4); Mean Corpuscular Hemoglobin 28.7 pg (27.0-31.2); Mean Corpuscular Volume 85.9 fl (80-94); Mean Platelet Volume 7.9 fl (7.4-10.4); Monocytes # 0.4 K/mm3 (0.1-1.0); Monocytes % 3.3 % (1.7-9.3); Neutrophils # 8.8 K/mm3 (1.8-7.8); Neutrophils % 66.6 % (37.0-80.0); Platelet Count 389 K/mm3 (142-424); Red Blood Count 2.63 M/mm3 (4.60-6.20); Red Cell Distribution Width 15.2 % (11.5-17.5); White Blood Count 13.2 K/mm3 (4.8-10.8)
--- NOTE | 2023-09-20 03:53 | ED_ITS ---
Discharge Plan Disposition Patient Disposition: Admitted Clinical Impressions Clinical Impression: RUSH (acute kidney injury), Anemia Discharge ED Provider: Joana Diane General Adult HPI General Chief complaint: Recheck/Abnormal Lab/Rx Stated complaint: Abnormal blood test,kidney problems Time Seen by Provider: 09/20/23 03:33 Mode of Arrival: Ambulatory Source of Information: Patient Limitations: No Limitations Description of Symptoms (Recalled from ER Triage Doc. by RN): Patient states that he had lab work drawn, and his dr office called him today and told him that he was on the verge of kidney failure. History of Present Illness HPI narrative: This patient is a 63-year-old male with a history of CAD, hypertension, hyperlipidemia, CKD, previous admission for RUSH on CKD, and type 2 diabetes presenting to the emergency department with concern for abnormal labs. According the patient, he saw his primary care provider 2 days ago at which point they kristy labs. They called him yesterday around 4 PM and told him to get to the ER right away because his kidneys were failing. 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 He states he has been feeling fine except for quite some time now he has had chest pain with exertion that radiates down his left arm. He also notes that he feels short of air with exertion, beyond his usual amount. He denies any history of blood clots, clotting disorders, leg swelling, calf pain, or other concerns. He also denies any nausea, vomiting, changes in urination, changes in bowel movements, or other concerns. He notes he is trying to drink plenty of water. Related Data Home Medications Medication Instructions Recorded Confirmed metformin 500 mg tablet 500 mg PO DAILY 07/12/22 09/20/23 losartan 50 mg-hydrochlorothiazide 1 tab PO DAILY 08/26/23 09/20/23 12.5 mg tablet Previous Rx's Medication Instructions Recorded aspirin 81 mg tablet,delayed 81 mg PO DAILY 30 days #30 tabs 07/15/23 release (Adult Low Dose Aspirin) insulin degludec 100 unit/mL (3 10 unit (0.1 mL) SQ HS 30 days #3 07/26/23 mL) subcutaneous pen (Tresiba mL FlexTouch U-100 insulin) pen needle, diabetic 32 gauge x #100 ea 11/10/23 3/16 (Comfort EZ Pen [place]) albuterol sulfate 90 mcg/actuation 2 puff inhalation Q6H PRN 08/26/23 aerosol inhaler shortness of breath or wheezing 30 days #8.5 grams ipratropium 0.5 mg-albuterol 3 mg 3 ml inhalation BID 30 days #180 mL 08/26/23 (2.5 mg base)/3 mL nebulization soln budesonide 160 mcg-glycopyr 9 2 inh inhalation BID #10.7 grams 08/27/23 mcg-formot 4.8 mcg/actuation HFA inhaler (Breztri Aerosphere) pravastatin 20 mg tablet 20 mg PO DAILY #30 tabs 09/03/23 metoprolol tartrate 25 mg tablet See Rx Instructions .Route 09/19/23 .COMPLEX #90 tabs Allergies Allergy/AdvReac Type Severity Reaction Status Date / Time No Known Allergies Allergy Verified 09/18/23 08:46 [facility] Disclaimer: The information contained in this section may have been updated after the patient was seen, as this information can be updated by other users. Medical History Abnormal EKG Acute bronchitis Acute exacerbation of chronic obstructive pulmonary disease Chest pain COPD (chronic obstructive pulmonary disease) Dyspnea Edema Family history of heart disease Iliotibial band syndrome, right leg Right upper quadrant abdominal pain Tobacco dependence syndrome Unstable angina Surgical History History of coronary artery bypass graft History of open heart surgery Family History Mother CHF (congestive heart failure) Brother Lung nodules Other Chest pain Social History (Updated 09/20/23 @ 05:02 by Chasity Hilario RN) Smoking Status: Former smoker tobacco type: cigarettes packs per day: 4 years smoked: 43 alcohol intake: never substance use type: denies use current occupational status: employed Travel in the last 8 weeks: Inside the [place] household members: spouse housing: house caffeine: Yes ROS Obtained: Yes All systems reviewed & no additional complaints except as documented Physical Exam General General appearance: alert, in no apparent distress and obese Head Head exam: atraumatic and normocephalic Eye Eye exam: Present normal appearance, PERRL and EOMI ENT ENT exam: Present normal oropharynx, mucous membranes dry and normal external ear exam Neck Neck exam: Present normal inspection, full ROM and trachea midline; Absent tenderness Chest Chest inspection: Present normal inspection and symmetric chest wall rise; Absent tenderness Respiratory Respiratory exam: Present normal lung sounds bilaterally; Absent respiratory distress, wheezes, stridor or accessory muscle use Cardiovascular Cardiovascular exam: Present normal rhythm and tachycardia Abdominal Exam Abdominal exam: Present soft; Absent distention, tenderness or guarding Extremities Exam Extremities exam: Present normal inspection, full ROM and normal capillary refill; Absent tenderness or edema Back Exam Back exam: Present normal inspection and full ROM; Absent tenderness Neurological Exam Neurological exam: Present alert, oriented X3, CN II-XII intact and normal gait; Absent motor sensory deficit Psychiatric Psychiatric exam: Present normal affect and normal mood Skin Skin exam: Present warm and dry Medical Decision Making Medical Records Medical records reviewed: Yes I reviewed the patient's medical records. Scott Inquiry Pt receiving controlled substance: No Vital Signs: 09/20/23 03:29 09/20/23 04:49 Temperature 98.8 F 98.0 F Temperature Source Oral Oral Pulse Rate 98 H Pulse Rate [Radial] 105 H Respiratory Rate 20 26 H Blood Pressure 133/63 Blood Pressure [Right Arm] 146/75 H Blood Pressure Mean [Right Arm] 98 Blood Pressure Source Automatic Cuff Blood Pressure Source [Right Arm] Automatic Cuff Blood Pressure Position [Right Arm] Sitting 02 Sat by Pulse Oximetry 96 Oxygen Delivery Method Room Air Room Air Lab Data Lab results reviewed: Yes I reviewed the patient's lab results. Lab Results 09/20/23 03:46: WBC 13.2 H, RBC 2.63 L, Hgb 7.5 L, Hct 22.6 L, MCV 85.9, MCH 28.7, MCHC 33.4, RDW 15.2, Plt Count 389, MPV 7.9, Neut % (Auto) 66.6, Lymph % (Auto) 14.7, [place] % (Auto) 3.3, Eos % (Auto) 15.0 H, Baso % (Auto) 0.4, Neut # (Auto) 8.8 H, Lymph # (Auto) 1.9, [place] # (Auto) 0.4, Eos # (Auto) 2.0 H, Baso # (Auto) 0.1, D-Dimer 0.41, Sodium 133 L, Potassium 4.3, Chloride 101, Carbon Dioxide 24, Anion Gap 12.3, BUN 74 H, Creatinine 2.40 H, Estimated Creat Clear 43, Estimated GFR 27 L, Est GFR ( Amer) 33 L, Glucose 257 H, Calcium 7.4 L, Phosphorus 4.4, Magnesium 2.2, Total Bilirubin 0.3, AST 26, ALT 20, Alkaline Phosphatase 49, Troponin I 0.01, NT-Pro-B Natriuret Pep 581 H, Total Protein 6.1 L, Albumin 3.2 L, Globulin 2.9, Albumin/Globulin Ratio 1.1 09/20/23 03:55: VBG pH 7.38, VBG pCO2 40.0, VBG pO2 149.4 H, VBG HCO3 23.1, VBG Total CO2 24.4, VBG O2 Saturation 99.1 H, VBG Base Excess -2.0 09/20/23 04:07: Urine Color Yellow, Urine Appearance Clear, Urine pH 6.0, Ur Specific [place] 1.015, Urine Protein 1+, Urine Glucose (UA) Trace, Urine Ketones Negative, Urine Blood Trace-i, Urine Nitrate Negative, Urine Bilirubin Negative, Urine Urobilinogen 0.2, Ur Leukocyte Esterase Negative, Urine RBC 3-5, Urine WBC None, Ur Squamous Epith Cells Occasional, Urine Bacteria Trace 09/20/23 03:46 09/20/23 03:46 Orders (Tests/Meds): ED MEDICATIONS Generic Name Dose Route Start Last Admin Trade Name Freq PRN Reason Stop Dose Admin Acetaminophen 650 mg 09/20/23 04:40 Acetaminophen 325mg Tab PO 10/20/23 04:39 Q4HP PRN Fever or Mild Pain (1-3) Heparin Sodium (Porcine) 5,000 unit 09/20/23 04:45 09/20/23 04:54 Heparin Sodium 5,000 Unit/Ml Vial SQ 10/20/23 04:44 5,000 unit Q8H BAUTISTA Administration Sodium Chloride 1,000 mls @ 50 mls/hr 09/20/23 04:45 09/20/23 04:54 Sod Chlor 0.9% 1000ml Bag IV 10/20/23 04:44 50 mls/hr .Q20H BAUTISTA Administration Morphine Sulfate 2 mg 09/20/23 04:40 Morphine 2mg/Ml Syringe IV 10/20/23 04:39 Q2HP PRN Severe Pain (7-10) Nicotine 21 mg 09/20/23 04:40 Nicotine 21mg/24hr Patch TD 10/20/23 04:39 DAILYP PRN Nicotine Cravings Ondansetron HCl 4 mg 09/20/23 04:40 Ondansetron 4mg/2ml Vial IV 10/20/23 04:39 Q8HP PRN Nausea Pantoprazole Sodium 40 mg 09/20/23 09:00 Pantoprazole 40mg Tablet PO 10/20/23 08:59 DAILY BAUTISTA ORDERS Category Date Time Status Type and Screen Stat BBK 09/20/23 04:40 Received CXR --portable [XR chest portable] Stat Exams 09/20/23 03:44 Taken Brain Natriuretic Peptide Stat Lab 09/20/23 03:46 Completed Complete Blood Count Auto Diff AMLAB Lab 09/20/23 06:00 Ordered Complete Blood Count Auto Diff Stat Lab 09/20/23 03:46 Completed Comprehensive Metabolic Panel AMLAB Lab 09/20/23 06:00 Ordered Comprehensive Metabolic Panel Stat Lab 09/20/23 03:46 Completed D-Dimer Stat Lab 09/20/23 03:46 Completed Magnesium AMLAB Lab 09/20/23 06:00 Ordered Magnesium Stat Lab 09/20/23 03:46 Completed Phosphorous Stat Lab 09/20/23 03:46 Completed Troponin I Q3H Lab 09/20/23 06:45 Ordered Troponin I Q3H Lab 09/20/23 09:45 Ordered Troponin I Stat Lab 09/20/23 03:46 Completed Urinalysis and Microscopic Stat Lab 09/20/23 04:07 Completed Venous Blood Gas Stat RT 09/20/23 03:55 Completed ECG initial [place] Routine Y 09/20/23 03:49 Completed ECG Data Tracing #1: I reviewed this ECG and interpreted as documented below: Sinus tachycardia with a ventricular rate of 102 bpm. No significant changes noted from prior EKG. Left axis deviation noted. Right bundle branch block. No acute ST changes concerning for ischemia. ECG initial impression date: 09/20/23 ECG initial impression time: 03:55 Medical Decision Narrative: In summary, this patient is a 63-year-old male presenting to the Emergency Department for evaluation of abnormal labs. He also notes that he has had dyspnea and chest pain on exertion. Differential diagnoses considered include but are not limited to RUSH on CKD, acute renal failure, electrolyte derangements, dehydration, urinary outflow obstruction, ACS, unstable angina, CHF exacerbation. Ruling out the most morbid conditions drove assessment. It should be noted patient's history includes CAD, hypertension, hyperlipidemia, COPD, type 2 diabetes, and CKD which may or may not be at goal therapy. This complicates all aspects of care by increasing patient's risk for morbidity. I reviewed patient's past medical records and noted his evaluation by his PCP 2 days ago and creatinine that is up to 2.7 from 2.0. On exam, the patient appears clinically dry with dry mucous membranes and delayed capillary refill. He also has mild sinus tachycardia. Exam is otherwise reassuring. Workup included broad lab evaluation including cardiac workup, metabolic workup, as well as chest x-ray and EKG. I independently interpreted x-ray prior to the radiologist read and noted no acute focal consolidation. Please see their read for final interpretation. Labs were obtained that demonstrated creatinine of 2.4, from baseline of around 2 but down from labs 2 days ago which was 2.7. He also has worsening anemia with a hemoglobin that is currently 7.5. He also has mild leukocytosis. Otherwise, workup does not demonstrate any acute concerns at this time.. Given patient's worsening kidney function and worsening anemia without obvious source, as patient denies melena or stool changes, I feel he would benefit from admission for further evaluation and management. I called and had an interactive discussion with the hospitalist who graciously admitted the patient. He was admitted in stable condition. Critical Care Critical Care Time Critical Care Time: No
[2023-09-20 03:57] LABS: Chloride 101 mmol/L (98-107)
[2023-09-20 03:58] LABS: Potassium 4.3 mmoL/L (3.5-5.1); Sodium 133 mmol/L (136-145)
[2023-09-20 04:00] LABS: Blood Urea Nitrogen 74 mg/dl (9-20); Creatinine Clearance Estimated 43 mL/min (50-200); Estimated Glomerular Filt Rate 27 ml/min (>60); GFR (African American) 33 ML/MIN (>60)
[2023-09-20 04:01] LABS: Alanine Aminotransferase 20 U/L (12-78); Albumin Level 3.2 g/dl (3.5-5.0); Albumin/Globulin Ratio 1.1 (1.1-1.8); Alkaline Phosphatase 49 U/L (38-126); Anion Gap 12.3 mEq/L (5-15); Aspartate Amino Transferase 26 U/L (17-59); Bilirubin,Total 0.3 mg/dl (0.2-1.3); Calcium 7.4 mg/dl (8.4-10.2); Carbon Dioxide 24 mmol/L (22.0-30.0); Globulin 2.9 g/dL (1.3-3.2); Glucose 257 mg/dl (74-100); Phosphorous 4.4 mg/dl (2.5-4.5); Total Protein,Serum 6.1 g/dl (6.3-8.2)
[2023-09-20 04:02] LABS: Magnesium 2.2 mg/dl (1.6-2.3)
[2023-09-20 04:05] LABS: VBG HCO3 23.1 mmol/L (23-30); VBG Oxygen Saturation 99.1 % (50-70); VBG PH 7.38 mmol/L (7.31-7.41); VBG PO2 149.4 mmol/L (28-40); VBG Total CO2 24.4 mmol/L (23-27)
[2023-09-20 04:10] LABS: NT Pro Brain Natriuretic Pep. 581 pg/mL (0-125)
[2023-09-20 04:11] LABS: Microscopic, Urine URINE MICROSCOPIC (MICROSCOPIC)
[2023-09-20 04:11] LABS: D-Dimer 0.41 ug/mL (0.0-0.5)
[2023-09-20 04:13] LABS: Appearance,Urine CLEAR (Clear); Bilirubin,Urine Negative (Negative); Blood, Urine TRACE-I (Negative); Color,Urine YELLOW (Yellow); Glucose,Urine (UA) TRACE (Negative); Ketones,Urine Negative (Negative); Leukocyte Esterase,Urine Negative (Negative); Nitrate,Urine Negative (Negative); Protein,Urine 1+ (Negative); Specific Gravity, Urine 1.015 (1.005-1.030); Urobilinogen,Urine 0.2 EU/dl (0.2)
[2023-09-20 04:14] LABS: Troponin I 0.01 ng/ml (0.00-0.034)
--- NOTE | 2023-09-20 04:33 | PC.NURSE ---
called housekeeper head for admission to hospitalist for RUSH and anemia.
--- NOTE | 2023-09-20 04:41 | PC.NURSE ---
report called to DULCE Quezada
--- NOTE | 2023-09-20 04:42 | P.HP_ITS ---
History of Present Illness *Admission Date: 09/20/23 *Reason for visit:: abnormal labs *History of present illness: This is a 63-year-old male with a history of CAD, hypertension, hyperlipidemia, CKD, previous admission for RUSH on CKD, and type 2 diabetes presenting to the emergency department with concern for abnormal labs. According the patient, he saw his primary care provider 2 days ago at which point they kristy labs. They called him yesterday around 4 PM and told him to get to the ER for abnormal kidneys function. 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 Patient also c/o chest pain with exertion that radiates down his left arm. He also notes that he feels short of air with exertion, beyond his usual amount. He denies any history of blood clots, clotting disorders, leg swelling, calf pain, or other concerns. He also denies any nausea, vomiting, changes in urination, changes in bowel movements, or other concerns. Admitted for further work up and management. [facility] Disclaimer: The information contained in this section may have been updated after the patient was seen, as this information can be updated by other users. Medical History (Updated 09/20/23 @ 09:47 by PERRY Song) Abnormal EKG Acute bronchitis Acute exacerbation of chronic obstructive pulmonary disease Chest pain COPD (chronic obstructive pulmonary disease) Dyspnea Edema Family history of heart disease Iliotibial band syndrome, right leg Right upper quadrant abdominal pain Tobacco dependence syndrome Unstable angina Surgical History (Updated 09/20/23 @ 09:47 by PERRY Song) History of coronary artery bypass graft History of open heart surgery Family History Mother CHF (congestive heart failure) Brother Lung nodules Other Chest pain Social History Smoking Status: Former smoker tobacco type: cigarettes packs per day: 4 years smoked: 43 alcohol intake: never substance use type: denies use current occupational status: employed Travel in the last 8 weeks: [place] household members: spouse housing: house caffeine: Yes Review of Systems Review of Systems Review of systems:: pertinent systems reviewed and negative unless documented below Meds Home Medications and Allergies Home Medications Medication Instructions Recorded Confirmed Type aspirin 81 mg tablet,delayed 81 mg PO DAILY 30 days #30 tabs 07/15/23 09/20/23 Rx release (Adult Low Dose Aspirin) insulin degludec 100 unit/mL (3 10 unit (0.1 mL) SQ HS 30 days #3 07/26/23 09/20/23 Rx mL) subcutaneous pen (Tresiba mL FlexTouch U-100 insulin) pen needle, diabetic 32 gauge x #100 ea 07/26/23 09/20/23 Rx 3/16 (Comfort EZ Pen [place]) ipratropium 0.5 mg-albuterol 3 mg 3 ml inhalation BID 30 days #180 mL 08/26/23 09/20/23 Rx (2.5 mg base)/3 mL nebulization soln losartan 50 mg-hydrochlorothiazide 1 tab PO DAILY 08/26/23 09/20/23 History 12.5 mg tablet budesonide 160 mcg-glycopyr 9 2 inh inhalation BID #10.7 grams 08/27/23 09/20/23 Rx mcg-formot 4.8 mcg/actuation HFA inhaler (Breztri Aerosphere) pravastatin 20 mg tablet 20 mg PO DAILY #30 tabs 09/03/23 09/20/23 Rx albuterol sulfate 90 mcg/actuation 2 puff inhalation Q6HP PRN 09/20/23 09/20/23 History aerosol inhaler Shortness of breath and Wheezing isosorbide mononitrate 60 mg 60 mg PO DAILY #30 tabs 09/20/23 Rx tablet,extended release 24 hr metformin 500 mg tablet 500 mg PO BID 30 days #60 tabs 09/20/23 09/20/23 Rx metoprolol tartrate 25 mg tablet 37.5 mg PO BID 09/20/23 09/20/23 History nitroglycerin 0.4 mg sublingual 0.4 mg sublingual Q5M PRN chest 09/20/23 Rx tablet pain #25 tabs New Prescriptions to Start Prescriptions: Allergies Allergy/AdvReac Type Severity Reaction Status Date / Time No Known Allergies Allergy Verified 09/18/23 08:46 Exam Data for Last 24 hours Vital signs and Labs for Last 24 Hours: Temp Pulse Resp BP Pulse Ox O2 Del Method 98.8 F 105 H 20 146/75 H 96 Room Air 09/20/23 03:29 09/20/23 03:29 09/20/23 03:29 09/20/23 03:29 09/20/23 03:29 09/20/23 03:29 Laboratory Results - last 24 hr 09/20/23 03:46: WBC 13.2 H, RBC 2.63 L, Hgb 7.5 L, Hct 22.6 L, MCV 85.9, MCH 28.7, MCHC 33.4, RDW 15.2, Plt Count 389, MPV 7.9, Neut % (Auto) 66.6, Lymph % (Auto) 14.7, [place] % (Auto) 3.3, Eos % (Auto) 15.0 H, Baso % (Auto) 0.4, Neut # (Auto) 8.8 H, Lymph # (Auto) 1.9, [place] # (Auto) 0.4, Eos # (Auto) 2.0 H, Baso # (Auto) 0.1, D-Dimer 0.41, Sodium 133 L, Potassium 4.3, Chloride 101, Carbon Dioxide 24, Anion Gap 12.3, BUN 74 H, Creatinine 2.40 H, Estimated Creat Clear 43, Estimated GFR 27 L, Est GFR ( Amer) 33 L, Glucose 257 H, Calcium 7.4 L, Phosphorus 4.4, Magnesium 2.2, Total Bilirubin 0.3, AST 26, ALT 20, Alkaline Phosphatase 49, Troponin I 0.01, NT-Pro-B Natriuret Pep 581 H, Total Protein 6.1 L, Albumin 3.2 L, Globulin 2.9, Albumin/Globulin Ratio 1.1 09/20/23 03:55: VBG pH 7.38, VBG pCO2 40.0, VBG pO2 149.4 H, VBG HCO3 23.1, VBG Total CO2 24.4, VBG O2 Saturation 99.1 H, VBG Base Excess -2.0 09/20/23 04:07: Urine Color Yellow, Urine Appearance Clear, Urine pH 6.0, Ur Specific [place] 1.015, Urine Protein 1+, Urine Glucose (UA) Trace, Urine Ketones Negative, Urine Blood Trace-i, Urine Nitrate Negative, Urine Bilirubin Negative, Urine Urobilinogen 0.2, Ur Leukocyte Esterase Negative I & O for Last 24 hours: Intake & Output 01/02/24 01/03/24 01/04/24 01/05/24 23:59 23:59 23:59 23:59 Weight 97.522 kg Constitutional Constitutional: no acute distress *Routine HEENT Exam Head: Present normocephalic Eye: Present EOMI and PERRL ENT: Present mucous membranes moist *Routine Neck Exam Neck: Present supple; Absent lymphadenopathy *Routine Respiratory Exam Respiratory: Present wheezes, crackles and normal respiratory effort *Routine Cardiovascular Exam Cardiovascular: Present RRR *Routine Abdominal Exam Abdominal: Present soft and normoactive bowel sounds; Absent tenderness *Routine Rectal Exam Rectal:: deferred *Routine Genitalia Exam Genitalia:: deferred *Routine Extremities Exam Extremities: Present edema and full ROM; Absent cyanosis or clubbing *Routine Skin Exam Skin: Present warm; Absent rash *Routine Neurological Exam Neurological: Present alert and oriented X3 H&P: Result Imaging and Cardiology EKG: Status: image reviewed by me and Preliminary report Chest x-ray: Status: image reviewed by me and Preliminary report Assessment and Plan *Assessment and plan (1) RUSH (acute kidney injury): Status: Acute Category: Medical Code(s): N17.9 - Acute kidney failure, unspecified (2) Chest pain: Status: Acute Qualifiers: Chest pain type: other chest pain Qualified Code(s): R07.89 - Other chest pain Category: Medical Code(s): R07.9 - Chest pain, unspecified (3) Edema of lower extremity: Status: Acute Category: Medical Code(s): R60.0 - Localized edema (4) Diabetes mellitus: Status: Acute Qualifiers: Diabetes mellitus complication status: with other specified complication Diabetes mellitus nursing home insulin use: with nursing home use Diabetes mellitus type: type 2 Qualified Code(s): E11.69 - Type 2 diabetes mellitus with other specified complication; Z79.4 - intermediate (current) use of insulin Category: Medical Code(s): E11.9 - Type 2 diabetes mellitus without complications (5) CAD (coronary artery disease): Status: Chronic Qualifiers: Associated angina: without angina Coronary Disease-Associated Artery/Lesion type: [place] artery [place] vs. transplanted heart: [place] heart Qualified Code(s): I25.10 - Atherosclerotic heart disease of [place] coronary artery without angina pectoris Category: Medical Code(s): I25.10 - Atherosclerotic heart disease of [place] coronary artery without angina pectoris (6) HTN (hypertension): Status: Chronic Qualifiers: Hypertension type: essential hypertension Qualified Code(s): I10 - Essential (primary) hypertension Category: Medical Code(s): I10 - Essential (primary) hypertension (7) HLD (hyperlipidemia): Status: Chronic Qualifiers: Hyperlipidemia type: mixed hyperlipidemia Qualified Code(s): E78.2 - Mixed hyperlipidemia Category: Medical Code(s): E78.5 - Hyperlipidemia, unspecified Plan 63-year-old male with a history of CAD, hypertension, hyperlipidemia, CKD, previous admission for RUSH on CKD, and type 2 diabetes presenting to the emergency department with concern for abnormal labs. According the patient, he saw his primary care provider 2 days ago at which point they kristy labs. On arrival patient presented slightly tachycardic. EKG was obtained and reviewed. right bundle block, with some PVCs. Labs was obtained. Grossly unremarkable. Troponins are negative. However creatinine is elevated but trending down from previous office visit. Findings discussed with the ER provider for admission. -Worsening acute kidney injury: We have started gentle hydration by brief fluid Monitor for fluid overload. Repeat CMP CBC Watch for electrolyte imbalance Encouraged to increase p.o. avoid nephrotoxic medication -Intermittent chest pain: Patient 1 no history of coronary artery disease Will get him on cardiac monitoring. EKGs showed right bundle branch block with some PVCs Cardiac consult Troponins are negative Monitor for heart rate chest pain and vital signs per unit -Insulin-dependent diabetes with hyperglycemia: Last A1c 8.0 Resume home insulin Hold metformin Sliding scale Accu-Chek before -CAD hypertension hyperlipidemia, COPD: Continue monitor Records review home meds. Patient on statin aspirin Albuterol Lovenox for DVT prophylaxis. On Protonix for GI bleeding Full code Attending attestation Patient was seen and evaluated at the bedside myself, agree with PERIANESTHESIA MANAGER note.
[2023-09-20 04:44] LABS: Bacteria,Urine Trace /lpf; Squamous Epithelial Cell,Urine Occasional #/hpf (0-5)
[2023-09-20] MEDS: 0.9 % SODIUM CHLORIDE 1000ML 1,000 ML 50 ML IV (04:54)
[2023-09-20] MEDS: HEPARIN SODIUM 5,000 UNIT/ML VIAL 5000 UNIT SQ ×3 (04:54→20:07)
[2023-09-20 06:53] LABS: Basophils % 0.4 % (0.1-2.0); Hematocrit 22.1 % (42.0-52.0); Hemoglobin 7.3 g/dL (14.1-18.0); Lymphocytes # 2.3 K/mm3 (0.7-4.5); Lymphocytes % 18.8 % (10-50); Mean Corpuscular Hemoglobin 28.4 pg (27.0-31.2); Mean Platelet Volume 7.4 fl (7.4-10.4); Monocytes # 0.5 K/mm3 (0.1-1.0); Monocytes % 3.9 % (1.7-9.3); Neutrophils # 7.5 K/mm3 (1.8-7.8); Neutrophils % 60.9 % (37.0-80.0); Platelet Count 385 K/mm3 (142-424); Red Blood Count 2.57 M/mm3 (4.60-6.20); Red Cell Distribution Width 15.1 % (11.5-17.5); White Blood Count 12.3 K/mm3 (4.8-10.8)
[2023-09-20 07:01] LABS: Alanine Aminotransferase 21 U/L (12-78); Alkaline Phosphatase 49 U/L (38-126); Anion Gap 9.9 mEq/L (5-15); Aspartate Amino Transferase 25 U/L (17-59); Bilirubin,Total 0.2 mg/dl (0.2-1.3); Blood Urea Nitrogen 65 mg/dl (9-20); Calcium 7.4 mg/dl (8.4-10.2); Carbon Dioxide 23 mmol/L (22.0-30.0); Chloride 104 mmol/L (98-107); Creatinine Clearance Estimated 42 mL/min (50-200); Estimated Glomerular Filt Rate 26 ml/min (>60); GFR (African American) 32 ML/MIN (>60); Globulin 2.9 g/dL (1.3-3.2); Glucose 152 mg/dl (74-100); Magnesium 2.3 mg/dl (1.6-2.3); Potassium 3.9 mmoL/L (3.5-5.1); Sodium 133 mmol/L (136-145); Total Protein,Serum 5.9 g/dl (6.3-8.2)
--- NOTE | 2023-09-20 07:11 | CA_ITS ---
APPROVED REPORT EXAM: Comprehensive 2D, Doppler, and color-flow Echocardiogram [employer] Maker: Collette Junior RT(R) Ht: 5 ft 4 in Wt: 215lbs BSA: 2.02 BP: 133/63 mmHg Indications: CP, CAD, CABG X 5, COPD, smoker, HTN, hyperlipidemia, SOB, anemia, RUSH, DM, mild . 2D Dimensions EF AP4 62.20 % GL Strain -14.5 % M-Mode Dimensions RVDd 3.65 cm (0.9-2.6) LA Diam 3.37 cm (1.9-4.0) LVDd 4.79 cm (3.5-5.7) LVDs 3.65 cm (3.5-5.7) IVSd 1.06 cm (0.6-1.1) PWd 1.02 cm (0.6-1.1) EF (Teich) 47.40% FS 23.80% EDV (Teich) 107.00 mL ESV (Teich) 56.30 mL LV Diastology E Decel Time 177 (160-240 msec) E/A Ratio 1.0 Aortic Valve ALISON Index 0.97 cm2/m2 AoV Peak Parveen. 296.0 (50-130 cm/s) AO Peak GR. 35.10 mmHg AO Mean GR. 17.20 (<5 mmHg) AO VTI 46.2 (18-25 cm) ALISON (VTI) 2.01 (2.5-4.5 cm2) Mitral Valve MV E Max Parveen. 97.0 (40-130 cm/s) MV A Velocity 102.0 (40-130 cm/s) E/A Ratio 0.96 MV PHT 52.0 ms Tricuspid Valve TR P. Velocity 159.00 cm/s RAP Estimate 10.00 mmHg RVSP 20.10 mmHg Left Ventricle The left ventricle is normal size. The left ventricular systolic function is normal. The left ventricular ejection fraction is within the normal range. There is increased LV wall thickness. There is normal LV segmental wall motion. The left ventricular diastolic function is normal. LVEF is 55%. Right Ventricle The right ventricle is mildly dilated. The right ventricular systolic function is normal. Atria The left atrium size is normal. The right atrium size is normal. There is no Doppler evidence of interatrial shunt. Aortic Valve The aortic valve is mildly thickened. Mild aortic stenosis. Peak velocity 2.8 m/s. Mean AV gradient 16 mmHg. Max AV gradient 33 mmHg. ALISON by continuity equation is 1.7 cm2. Trace aortic regurgitation. Mitral Valve The mitral valve is mildly thickened. No evidence of mitral valve stenosis. Mild mitral regurgitation. Tricuspid Valve The tricuspid valve leaflets are thin and pliable. Trace tricuspid regurgitation. There is insufficient TR jet to estimate RVSP. Pulmonic Valve The pulmonary valve is normal in structure. Trace pulmonic regurgitation. Great Vessels The aortic root is normal in size. The ascending aorta is normal in size. IVC is normal in size and collapses >50% with inspiration. Pericardium There is no pericardial effusion. Other Information Study Quality: Fair Conclusion Normal biventricular systolic function. Mild RV dilation. Mild . Mild MR. Compared to prior study from 2020, there are overall no significant changes. The severity of and the transaortic gradients are unchanged. Electronically signed by : Tasha Rosario MD 09/20/2023 13:38:11
[2023-09-20 07:14] LABS: Troponin I 0.02 ng/ml (0.00-0.034)
[2023-09-20] MEDS: AEROCHAMBER/OPTIHALER 1 UNIT MC (09:02)
[2023-09-20] MEDS: PRAVASTATIN 20MG TAB 20 MG PO (09:03)
[2023-09-20] MEDS: METOPROLOL TARTRATE 25MG TABLET 37.5 MG PO ×2 (09:03→20:07)
[2023-09-20] MEDS: ASPIRIN EC 81MG TABLET 81 MG PO (09:03)
[2023-09-20] MEDS: BREZTRI AEROSPHERE 2 EACH IH ×2 (09:04→18:45)
--- NOTE | 2023-09-20 09:40 | EXP.CARD.CON ---
History of Present Illness History of Present Illness Consult date: 09/20/23 Requesting physician: Ana Jacobs Chief complaint: RUSH Additional Medical History:: 1. CAD A. History of CABG in 2019 2. Diabetes mellitus A. On metformin and insulin 3. Hypertension A. Echocardiogram, 2020, mild biatrial enlargement, normal LV size, mild concentric LVH, EF 50% with no regional WMA. Grade 1 DD. Mild RV enlargement with normal contractility. Thickened and calcified aortic valve with mild stenosis. Mild MR and TR. 4. Hyperlipidemia A. Statin therapy 5. Obesity 6. Tobacco use x 45 years with history of up to 4 packs/day History of present illness: This is a 63-year-old male with a history of CAD, hypertension, hyperlipidemia, CKD, previous admission for RUSH on CKD, and type 2 diabetes presenting to the emergency department with concern for abnormal labs. According the patient, he saw his primary care provider 2 days ago at which point they kristy labs. They called him yesterday around 4 PM and told him to get to the ER for abnormal kidneys function. 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 Patient also c/o chest pain with exertion that radiates down his left arm. He also notes that he feels short of air with exertion, beyond his usual amount. He denies any history of blood clots, clotting disorders, leg swelling, calf pain, or other concerns. He also denies any nausea, vomiting, changes in urination, changes in bowel movements, or other concerns. Admitted for further work up and management. The above per Yariel Bradley APRN for the hospitalist service Events above confirmed with the patient. Patient relates exertional shortness of breath and chest discomfort recently for which she was anticipating coming to see us in the office next week for evaluation. Symptoms have been ongoing for several weeks now. Lab review reveals a drop in hemoglobin from 12.8 on 09/03/23 to 7.3 this admission. Baseline creatinine is 1.9-2.1 in August 2023 currently on this admission 2.7 down to 2.5 this morning. Patient denies any history of nausea, vomiting or diarrhea. Troponins this admission within normal limits. [facility] Disclaimer: The information contained in this section may have been updated after the patient was seen, as this information can be updated by other users. Medical History (Updated 09/20/23 @ 09:47 by PERRY Song) Abnormal EKG Acute bronchitis Acute exacerbation of chronic obstructive pulmonary disease Chest pain COPD (chronic obstructive pulmonary disease) Dyspnea Edema Family history of heart disease Iliotibial band syndrome, right leg Right upper quadrant abdominal pain Tobacco dependence syndrome Unstable angina Surgical History (Updated 09/20/23 @ 09:47 by PERRY Song) History of coronary artery bypass graft History of open heart surgery Family History Mother CHF (congestive heart failure) Brother Lung nodules Other Chest pain Social History Smoking Status: Former smoker tobacco type: cigarettes packs per day: 4 years smoked: 43 alcohol intake: never substance use type: denies use current occupational status: employed Travel in the last 8 weeks: Inside the [place] household members: spouse housing: house caffeine: Yes Review of Systems Review of Systems Review of systems:: pertinent systems reviewed and negative unless documented below *Cardiovascular Cardiovascular: Reports chest pain and Reports dyspnea on exertion *Respiratory Respiratory: Reports dyspnea on exertion Exam Data for Last 24 hours Vital signs and Labs for Last 24 Hours: Temp Pulse Resp BP Pulse Ox O2 Del Method 98.0 F 101 H 16 111/63 95 Room Air 09/20/23 08:00 09/20/23 08:00 09/20/23 08:00 09/20/23 08:00 09/20/23 08:00 09/20/23 08:00 Laboratory Results - last 24 hr 09/20/23 03:46: WBC 13.2 H, RBC 2.63 L, Hgb 7.5 L, Hct 22.6 L, MCV 85.9, MCH 28.7, MCHC 33.4, RDW 15.2, Plt Count 389, MPV 7.9, Neut % (Auto) 66.6, Lymph % (Auto) 14.7, [place] % (Auto) 3.3, Eos % (Auto) 15.0 H, Baso % (Auto) 0.4, Neut # (Auto) 8.8 H, Lymph # (Auto) 1.9, [place] # (Auto) 0.4, Eos # (Auto) 2.0 H, Baso # (Auto) 0.1, D-Dimer 0.41, Sodium 133 L, Potassium 4.3, Chloride 101, Carbon Dioxide 24, Anion Gap 12.3, BUN 74 H, Creatinine 2.40 H, Estimated Creat Clear 43, Estimated GFR 27 L, Est GFR ( Amer) 33 L, Glucose 257 H, Calcium 7.4 L, Phosphorus 4.4, Magnesium 2.2, Total Bilirubin 0.3, AST 26, ALT 20, Alkaline Phosphatase 49, Troponin I 0.01, NT-Pro-B Natriuret Pep 581 H, Total Protein 6.1 L, Albumin 3.2 L, Globulin 2.9, Albumin/Globulin Ratio 1.1 09/20/23 03:55: VBG pH 7.38, VBG pCO2 40.0, VBG pO2 149.4 H, VBG HCO3 23.1, VBG Total CO2 24.4, VBG O2 Saturation 99.1 H, VBG Base Excess -2.0 09/20/23 04:07: Urine Color Yellow, Urine Appearance Clear, Urine pH 6.0, Ur Specific [place] 1.015, Urine Protein 1+, Urine Glucose (UA) Trace, Urine Ketones Negative, Urine Blood Trace-i, Urine Nitrate Negative, Urine Bilirubin Negative, Urine Urobilinogen 0.2, Ur Leukocyte Esterase Negative, Urine RBC 3-5, Urine WBC None, Ur Squamous Epith Cells Occasional, Urine Bacteria Trace 09/20/23 04:40: Blood Type A Positive, Antibody Screen Negative 09/20/23 05:55: WBC 12.3 H, RBC 2.57 L, Hgb 7.3 L, Hct 22.1 L, MCV 86.0, MCH 28.4, MCHC 33.0, RDW 15.1, Plt Count 385, MPV 7.4, Neut % (Auto) 60.9, Lymph % (Auto) 18.8, [place] % (Auto) 3.9, Eos % (Auto) 16.0 H, Baso % (Auto) 0.4, Neut # (Auto) 7.5, Lymph # (Auto) 2.3, [place] # (Auto) 0.5, Eos # (Auto) 2.0 H, Baso # (Auto) 0.0, Sodium 133 L, Potassium 3.9, Chloride 104, Carbon Dioxide 23, Anion Gap 9.9, BUN 65 H, Creatinine 2.50 H, Estimated Creat Clear 42, Estimated GFR 26 L, Est GFR ( Amer) 32 L, Glucose 152 H D, Calcium 7.4 L, Magnesium 2.3, Total Bilirubin 0.2, AST 25, ALT 21, Alkaline Phosphatase 49, Troponin I 0.02, Total Protein 5.9 L, Albumin 3.0 L, Globulin 2.9, Albumin/Globulin Ratio 1.0 L I & O for Last 24 hours: Intake & Output 09/17/23 09/18/23 09/19/23 09/20/23 11:59 11:59 11:59 11:59 Intake Total 500 / 500 Balance 500 / 500 Weight 214 lb Constitutional Constitutional: no acute distress *Routine Respiratory Exam Respiratory: Present CTA bilaterally *Routine Cardiovascular Exam Cardiovascular: Present RRR; Absent murmur, gallop or rubs *Routine Extremities Exam Extremities: Absent edema *Routine Neurological Exam Neurological: Present alert, oriented X3 and CN II-XII intact Meds Home Medications and Allergies Home Medications Medication Instructions Recorded Confirmed Type aspirin 81 mg tablet,delayed 81 mg PO DAILY 30 days #30 tabs 07/15/23 09/20/23 Rx release (Adult Low Dose Aspirin) insulin degludec 100 unit/mL (3 10 unit (0.1 mL) SQ HS 30 days #3 07/26/23 09/20/23 Rx mL) subcutaneous pen (Tresiba mL FlexTouch U-100 insulin) pen needle, diabetic 32 gauge x #100 ea 07/26/23 09/20/23 Rx 3/16 (Comfort EZ Pen [place]) ipratropium 0.5 mg-albuterol 3 mg 3 ml inhalation BID 30 days #180 mL 08/26/23 09/20/23 Rx (2.5 mg base)/3 mL nebulization soln losartan 50 mg-hydrochlorothiazide 1 tab PO DAILY 08/26/23 09/20/23 History 12.5 mg tablet budesonide 160 mcg-glycopyr 9 2 inh inhalation BID #10.7 grams 08/27/23 09/20/23 Rx mcg-formot 4.8 mcg/actuation HFA inhaler (Breztri Aerosphere) pravastatin 20 mg tablet 20 mg PO DAILY #30 tabs 09/03/23 09/20/23 Rx albuterol sulfate 90 mcg/actuation 2 puff inhalation Q6HP PRN 09/20/23 09/20/23 History aerosol inhaler Shortness of breath and Wheezing isosorbide mononitrate 60 mg 60 mg PO DAILY #30 tabs 09/20/23 Rx tablet,extended release 24 hr metformin 500 mg tablet 500 mg PO BID 30 days #60 tabs 09/20/23 09/20/23 Rx metoprolol tartrate 25 mg tablet 37.5 mg PO BID 09/20/23 09/20/23 History nitroglycerin 0.4 mg sublingual 0.4 mg sublingual Q5M PRN chest 09/20/23 Rx tablet pain #25 tabs New Prescriptions to Start Prescriptions: Allergies Allergy/AdvReac Type Severity Reaction Status Date / Time No Known Allergies Allergy Verified 09/18/23 08:46 Assessment and Plan *Assessment and plan (1) Chest pain: Status: Acute Qualifiers: Chest pain type: other chest pain Qualified Code(s): R07.89 - Other chest pain Category: Medical Code(s): R07.9 - Chest pain, unspecified (2) RUSH (acute kidney injury): Status: Acute Category: Medical Code(s): N17.9 - Acute kidney failure, unspecified (3) Anemia: Status: Acute Qualifiers: Anemia type: unspecified type Qualified Code(s): D64.9 - Anemia, unspecified Category: Medical Code(s): D64.9 - Anemia, unspecified (4) Diabetes mellitus: Status: Acute Qualifiers: Diabetes mellitus complication status: with other specified complication Diabetes mellitus 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 transplanted heart: [place] heart Qualified Code(s): I25.10 - Atherosclerotic heart disease of [place] coronary artery without angina pectoris Category: Medical Code(s): I25.10 - Atherosclerotic heart disease of [place] coronary artery without angina pectoris (6) COPD exacerbation: Status: Acute Category: Medical Code(s): J44.1 - Chronic obstructive pulmonary disease with (acute) exacerbation (7) History of coronary artery bypass graft: Status: Acute Category: Surgical Code(s): Z95.1 - Presence of aortocoronary bypass graft Plan 1. Acute on chronic renal insufficiency -Slightly improved with gentle hydration 2. Anemia with recent drop from 12.8 down to 7.3 this admission -Recommend transfusion in light of patient's coronary artery disease and complaint of chest pain 3. CAD with history of CABG -Complaint of chest pain recently -Troponins normal -Likely secondary to anemia exacerbation 4. Hypertension, blood pressure controlled current -continue metoprolol -Holding losartan due to RUSH 5. Hyperlipidemia -continue statin therapy -LDL 80 last month 6. COPD with history of tobacco use 7. Diabetes mellitus type 2 -check Hgb A1c Unable to recommend cardiac catheterization due to acute on chronic renal insufficiency. Will add isosorbide 30 mg daily for complaint of chest pain. Recommend blood transfusion and further evaluation of anemia. Echo today is unchanged from 2020 with normal biventricular systolic function, mild RV dilatation, mild and mild MR.
--- NOTE | 2023-09-20 09:43 | HMH.PHAINT1 ---
Pharmacy Intervention Comments: Home med list verified with patient at bedside and with external pharmacy list.
[2023-09-20] MEDS: ISOSORBIDE MONO 30MG TAB.ER.24H 30 MG PO (10:18)
[2023-09-20] MEDS: PANTOPRAZOLE 40MG TABLET 40 MG PO (10:18)
[2023-09-20 10:26] LABS: Hemoglobin A1C 8.2 % (4.0-6.0)
[2023-09-20] MEDS: IPRATROPIUM/ALBUTEROL 3 ML NEB IH ×2 (10:40→18:25)
[2023-09-20 12:08] LABS: POC Glucose,Bedside 190 (70-110)
[2023-09-20 12:33] LABS: Troponin I 0.01 ng/ml (0.00-0.034)
--- NOTE | 2023-09-20 14:01 | P.PN_ITS ---
Subjective *Date: 09/20/23 *Time: 14:01 Interval history: seen at bedside, denied CP, SOB, N/V, he denied SOB Exam Data for Last 24 hours Vital signs and Labs for Last 24 Hours: Temp Pulse Resp BP Pulse Ox O2 Del Method 98.0 F 80 16 111/63 94 L Room Air 09/20/23 08:00 09/20/23 12:00 09/20/23 08:00 09/20/23 08:00 09/20/23 08:00 09/20/23 12:58 Laboratory Results - last 24 hr 09/20/23 03:46: WBC 13.2 H, RBC 2.63 L, Hgb 7.5 L, Hct 22.6 L, MCV 85.9, MCH 28.7, MCHC 33.4, RDW 15.2, Plt Count 389, MPV 7.9, Neut % (Auto) 66.6, Lymph % (Auto) 14.7, [place] % (Auto) 3.3, Eos % (Auto) 15.0 H, Baso % (Auto) 0.4, Neut # (Auto) 8.8 H, Lymph # (Auto) 1.9, [place] # (Auto) 0.4, Eos # (Auto) 2.0 H, Baso # (Auto) 0.1, D-Dimer 0.41, Sodium 133 L, Potassium 4.3, Chloride 101, Carbon Dioxide 24, Anion Gap 12.3, BUN 74 H, Creatinine 2.40 H, Estimated Creat Clear 43, Estimated GFR 27 L, Est GFR ( Amer) 33 L, Glucose 257 H, Calcium 7.4 L, Phosphorus 4.4, Magnesium 2.2, Total Bilirubin 0.3, AST 26, ALT 20, Alkaline Phosphatase 49, Troponin I 0.01, NT-Pro-B Natriuret Pep 581 H, Total Protein 6.1 L, Albumin 3.2 L, Globulin 2.9, Albumin/Globulin Ratio 1.1 09/20/23 03:55: VBG pH 7.38, VBG pCO2 40.0, VBG pO2 149.4 H, VBG HCO3 23.1, VBG Total CO2 24.4, VBG O2 Saturation 99.1 H, VBG Base Excess -2.0 09/20/23 04:07: Urine Color Yellow, Urine Appearance Clear, Urine pH 6.0, Ur Specific [place] 1.015, Urine Protein 1+, Urine Glucose (UA) Trace, Urine Ketones Negative, Urine Blood Trace-i, Urine Nitrate Negative, Urine Bilirubin Negative, Urine Urobilinogen 0.2, Ur Leukocyte Esterase Negative, Urine RBC 3-5, Urine WBC None, Ur Squamous Epith Cells Occasional, Urine Bacteria Trace 09/20/23 04:40: Blood Type A Positive, Antibody Screen Negative 09/20/23 05:55: WBC 12.3 H, RBC 2.57 L, Hgb 7.3 L, Hct 22.1 L, MCV 86.0, MCH 28.4, MCHC 33.0, RDW 15.1, Plt Count 385, MPV 7.4, Neut % (Auto) 60.9, Lymph % (Auto) 18.8, [place] % (Auto) 3.9, Eos % (Auto) 16.0 H, Baso % (Auto) 0.4, Neut # (Auto) 7.5, Lymph # (Auto) 2.3, [place] # (Auto) 0.5, Eos # (Auto) 2.0 H, Baso # (Auto) 0.0, Sodium 133 L, Potassium 3.9, Chloride 104, Carbon Dioxide 23, Anion Gap 9.9, BUN 65 H, Creatinine 2.50 H, Estimated Creat Clear 42, Estimated GFR 26 L, Est GFR ( Amer) 32 L, Glucose 152 H D, Calcium 7.4 L, Magnesium 2.3, Total Bilirubin 0.2, AST 25, ALT 21, Alkaline Phosphatase 49, Troponin I 0.02, Total Protein 5.9 L, Albumin 3.0 L, Globulin 2.9, Albumin/Globulin Ratio 1.0 L 09/20/23 09:52: Hemoglobin A1c 8.2 H 09/20/23 11:54: Troponin I 0.01 09/20/23 12:00: POC Glucose 190 H I & O for Last 24 hours: Intake & Output 09/17/23 09/18/23 09/19/23 09/20/23 23:59 23:59 23:59 23:59 Intake Total 980 / 980 Output Total 0 / 0 Balance 980 / 980 Weight 97.069 kg Constitutional Constitutional: no acute distress *Routine HEENT Exam Head: Present normocephalic Eye: Present EOMI and PERRL ENT: Present mucous membranes moist *Routine Neck Exam Neck: Present supple; Absent lymphadenopathy *Routine Respiratory Exam Respiratory: Present distant breath sounds and diminished air movement *Routine Cardiovascular Exam Cardiovascular: Present RRR *Routine Abdominal Exam Abdominal: Present soft and normoactive bowel sounds; Absent tenderness *Routine Extremities Exam Extremities: Absent cyanosis, clubbing or edema *Routine Skin Exam Skin: Present warm; Absent rash *Routine Neurological Exam Neurological: Present alert and oriented X3
[2023-09-20 16:51] LABS: POC Glucose,Bedside 153 (70-110)
[2023-09-20] MEDS: 0.9 % SODIUM CHLORIDE 250 ML 25 ML IV (20:06)
[2023-09-20] MEDS: INSULIN DEGLUDEC 100 UNIT/ML 10 EACH SQ (20:08)
[2023-09-20 20:50] LABS: POC Glucose,Bedside 296 (70-110)
[2023-09-20 21:53] LABS: POC Glucose,Bedside 171 (70-110)
[2023-09-20 23:41] LABS: Hematocrit 25.2 % (42.0-52.0)
[2023-09-20 23:47] LABS: Hemoglobin 8.5 g/dL (14.1-18.0)
[2023-09-21] VITALS (11 sets, daily range): BP systolic 109–128; BP diastolic 61–85; PULSE 60–90; RESP 16–18; TEMP 36.6–36.7; O2SAT 92–98; BMI 36.1
[2023-09-21] MEDS: 0.9 % SODIUM CHLORIDE 1000ML 1,000 ML 50 ML IV ×2 (04:11→20:00)
[2023-09-21] MEDS: HEPARIN SODIUM 5,000 UNIT/ML VIAL 5000 UNIT SQ ×3 (04:11→20:00)
[2023-09-21 06:19] LABS: POC Glucose,Bedside 114 (70-110)
[2023-09-21] MEDS: BREZTRI AEROSPHERE 2 EACH IH ×2 (06:20→18:53)
[2023-09-21] MEDS: IPRATROPIUM/ALBUTEROL 3 ML NEB IH ×2 (06:20→18:53)
[2023-09-21] MEDS: ISOSORBIDE MONO 30MG TAB.ER.24H 30 MG PO (08:26)
[2023-09-21] MEDS: PRAVASTATIN 20MG TAB 20 MG PO (08:26)
[2023-09-21] MEDS: METOPROLOL TARTRATE 25MG TABLET 37.5 MG PO ×2 (08:27→20:00)
[2023-09-21] MEDS: PANTOPRAZOLE 40MG TABLET 40 MG PO (08:27)
[2023-09-21] MEDS: ASPIRIN EC 81MG TABLET 81 MG PO (08:27)
[2023-09-21 10:21] LABS: Basophils % 0.2 % (0.1-2.0); Eosinophils # 2.1 K/mm3 (0.0-0.4); Eosinophils % 19.9 % (0.1-12.0); Hemoglobin 8.3 g/dL (14.1-18.0); Lymphocytes # 1.8 K/mm3 (0.7-4.5); Mean Corpuscular HGB Conc 34.5 g/dL (31.8-35.4); Mean Corpuscular Hemoglobin 29.4 pg (27.0-31.2); Mean Corpuscular Volume 85.3 fl (80-94); Mean Platelet Volume 6.4 fl (7.4-10.4); Monocytes # 0.4 K/mm3 (0.1-1.0); Monocytes % 3.8 % (1.7-9.3); Neutrophils # 6.3 K/mm3 (1.8-7.8); Neutrophils % 58.9 % (37.0-80.0); Platelet Count 328 K/mm3 (142-424); Red Blood Count 2.81 M/mm3 (4.60-6.20); Red Cell Distribution Width 15.2 % (11.5-17.5); White Blood Count 10.8 K/mm3 (4.8-10.8)
[2023-09-21 10:28] LABS: Chloride 105 mmol/L (98-107)
[2023-09-21 10:29] LABS: Potassium 4.7 mmoL/L (3.5-5.1); Sodium 136 mmol/L (136-145)
[2023-09-21 10:31] LABS: Blood Urea Nitrogen 54 mg/dl (9-20); Creatinine Clearance Estimated 51 mL/min (50-200); Estimated Glomerular Filt Rate 34 ml/min (>60); GFR (African American) 41 ML/MIN (>60)
[2023-09-21 10:32] LABS: Anion Gap 11.7 mEq/L (5-15); Calcium 7.8 mg/dl (8.4-10.2); Carbon Dioxide 24 mmol/L (22.0-30.0); Glucose 204 mg/dl (74-100)
--- NOTE | 2023-09-21 16:35 | P.PN_ITS ---
Subjective *Date: 09/21/23 *Time: 16:35 Interval history: patient was seen and evaluated at the bedside. No reported acute events overnight, denies chest pain, shortness of breath, nausea, vomiting, abdominal pain. Exam Data for Last 24 hours Vital signs and Labs for Last 24 Hours: Temp Pulse Resp BP Pulse Ox O2 Del Method 97.8 F 70 18 128/72 98 Room Air 09/21/23 15:18 09/21/23 16:00 09/21/23 15:18 09/21/23 15:18 09/21/23 16:00 09/21/23 16:00 Laboratory Results - last 24 hr 09/20/23 04:40: Blood Type A Positive, Antibody Screen Negative, Crossmatch (AHG) See Detail 09/20/23 05:54: POC Glucose 171 H 09/20/23 16:44: POC Glucose 153 H 09/20/23 20:06: POC Glucose 296 H 09/20/23 23:33: Hgb 8.5 L D, Hct 25.2 L 09/21/23 06:12: POC Glucose 114 H 09/21/23 09:55: WBC 10.8, RBC 2.81 L, Hgb 8.3 L, Hct 24.0 L, MCV 85.3, MCH 29.4, MCHC 34.5, RDW 15.2, Plt Count 328, MPV 6.4 L, Neut % (Auto) 58.9, Lymph % (Auto) 17.0, [place] % (Auto) 3.8, Eos % (Auto) 19.9 H, Baso % (Auto) 0.2, Neut # (Auto) 6.3, Lymph # (Auto) 1.8, [place] # (Auto) 0.4, Eos # (Auto) 2.1 H, Baso # (Auto) 0.0, Sodium 136, Potassium 4.7 D, Chloride 105, Carbon Dioxide 24, Anion Gap 11.7, BUN 54 H, Creatinine 2.00 H, Estimated Creat Clear 51, Estimated GFR 34 L, Est GFR ( Amer) 41 L D, Glucose 204 H, Calcium 7.8 L I & O for Last 24 hours: Intake & Output 09/18/23 09/19/23 09/20/23 09/21/23 23:59 23:59 23:59 23:59 Intake Total 0 / 2410 940 / 940 Output Total 0 / 0 0 / 0 Balance 0 / 2410 940 / 940 Weight 97.069 kg 96.18 kg Constitutional Constitutional: no acute distress *Routine HEENT Exam Head: Present normocephalic Eye: Present EOMI and PERRL ENT: Present mucous membranes moist *Routine Neck Exam Neck: Present supple; Absent lymphadenopathy *Routine Respiratory Exam Respiratory: Present CTA bilaterally *Routine Cardiovascular Exam Cardiovascular: Present RRR *Routine Abdominal Exam Abdominal: Present soft and normoactive bowel sounds; Absent tenderness *Routine Extremities Exam Extremities: Absent cyanosis, clubbing or edema *Routine Skin Exam Skin: Present warm; Absent rash *Routine Neurological Exam Neurological: Present alert and oriented X3 Assessment and Plan *Assessment and plan (1) RUSH (acute kidney injury): Status: Acute Category: Medical Code(s): N17.9 - Acute kidney failure, unspecified (2) Chest pain: Status: Acute Qualifiers: Chest pain type: other chest pain Qualified Code(s): R07.89 - Other chest pain Category: Medical Code(s): R07.9 - Chest pain, unspecified (3) Edema of lower extremity: Status: Acute Category: Medical Code(s): R60.0 - Localized edema (4) Diabetes mellitus: Status: Acute Qualifiers: Diabetes mellitus type: type 2 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 transplanted heart: [place] heart Associated angina: without angina Qualified Code(s): I25.10 - Atherosclerotic heart disease of [place] coronary artery without angina pectoris Category: Medical Code(s): I25.10 - Atherosclerotic heart disease of [place] coronary artery without angina pectoris (6) HTN (hypertension): Status: Chronic Qualifiers: Hypertension type: essential hypertension Qualified Code(s): I10 - Essential (primary) hypertension Category: Medical Code(s): I10 - Essential (primary) hypertension (7) HLD (hyperlipidemia): Status: Chronic Qualifiers: Hyperlipidemia type: mixed hyperlipidemia Qualified Code(s): E78.2 - Mixed hyperlipidemia Category: Medical Code(s): E78.5 - Hyperlipidemia, unspecified Plan 63-year-old male with a history of CAD, hypertension, hyperlipidemia, CKD, previous admission for RUSH on CKD, and type 2 diabetes presenting to the emergency department with concern for abnormal labs. According the patient, he saw his primary care provider 2 days ago at which point they kristy labs. On arrival patient presented slightly tachycardic. EKG was obtained and reviewed. right bundle block, with some PVCs. Labs was obtained. Grossly unremarkable. Troponins are negative. However creatinine is elevated but trending down from previous office visit. Findings discussed with the ER provider for admission. -acute kidney injury: imprpved monitor Encouraged to increase p.o. avoid nephrotoxic medication -Intermittent chest pain: Patient 1 no history of coronary artery disease Will get him on cardiac monitoring. EKGs showed right bundle branch block with some PVCs Cardiac consult - recs cardiac cath and PRBC before transfusion -Insulin-dependent diabetes with hyperglycemia: ISS monitor -CAD hypertension hyperlipidemia COPD: Continue monitor Records review home meds. Patient on statin aspirin Albuterol Lovenox for DVT prophylaxis. On Protonix for GI bleeding Full code PRBC per cardiology before cardiac cath, Echo reviewed, cards recs noted
[2023-09-21 16:56] LABS: POC Glucose,Bedside 169 (70-110)
--- NOTE | 2023-09-21 17:03 | PC.NURSE ---
Pt has napped periodically this shift. when not lying in bed he is noted to be sitting on the side of the bed, using his cell phone. pt lung sounds are clear throughout. bowel sounds are active in all quads. pt states that he has had 3 small bm this shift. pt crea noted to have improved since previous draw. pt h/h remains stable following transfusion of 2 units PRBC's on previous day. nad noted.
[2023-09-21] MEDS: INSULIN DEGLUDEC 100 UNIT/ML 10 EACH SQ (19:59)
[2023-09-21 20:11] LABS: POC Glucose,Bedside 223 (70-110)
[2023-09-22] VITALS (10 sets, daily range): BP systolic 98–153; BP diastolic 46–85; PULSE 65–81; RESP 16–18; TEMP 36.6–36.8; O2SAT 92–100; BMI 36.6
[2023-09-22] MEDS: HEPARIN SODIUM 5,000 UNIT/ML VIAL 5000 UNIT SQ ×3 (05:52→20:50)
[2023-09-22] MEDS: BREZTRI AEROSPHERE 2 EACH IH ×2 (06:05→20:25)
[2023-09-22] MEDS: IPRATROPIUM/ALBUTEROL 3 ML NEB IH (06:05)
[2023-09-22 06:33] LABS: POC Glucose,Bedside 130 (70-110)
--- NOTE | 2023-09-22 06:38 | PC.NURSE ---
Shift summary: Pt AOx4, awake for most of shift, independent. VSS, RA, NS @ 50 mL/hr infusing. No acute events or issues overnight. Call light within reach, fall precautions in place.
[2023-09-22 07:30] LABS: Anion Gap 8.6 mEq/L (5-15); Blood Urea Nitrogen 40 mg/dl (9-20); Calcium 7.9 mg/dl (8.4-10.2); Carbon Dioxide 23 mmol/L (22.0-30.0); Chloride 108 mmol/L (98-107); Creatinine Clearance Estimated 55 mL/min (50-200); Estimated Glomerular Filt Rate 36 ml/min (>60); GFR (African American) 44 ML/MIN (>60); Glucose 116 mg/dl (74-100); Potassium 4.6 mmoL/L (3.5-5.1); Sodium 135 mmol/L (136-145)
[2023-09-22 07:33] LABS: Basophils % 0.3 % (0.1-2.0); Eosinophils # 1.9 K/mm3 (0.0-0.4); Hematocrit 26.5 % (42.0-52.0); Hemoglobin 8.8 g/dL (14.1-18.0); Lymphocytes # 2.5 K/mm3 (0.7-4.5); Lymphocytes % 22.5 % (10-50); Mean Corpuscular HGB Conc 33.4 g/dL (31.8-35.4); Mean Corpuscular Hemoglobin 28.6 pg (27.0-31.2); Mean Corpuscular Volume 85.6 fl (80-94); Mean Platelet Volume 7.7 fl (7.4-10.4); Monocytes # 0.5 K/mm3 (0.1-1.0); Monocytes % 4.7 % (1.7-9.3); Neutrophils # 6.2 K/mm3 (1.8-7.8); Neutrophils % 55.5 % (37.0-80.0); Platelet Count 408 K/mm3 (142-424); Red Blood Count 3.09 M/mm3 (4.60-6.20); Red Cell Distribution Width 15.5 % (11.5-17.5); White Blood Count 11.2 K/mm3 (4.8-10.8)
[2023-09-22] MEDS: ASPIRIN EC 81MG TABLET 81 MG PO (08:05)
[2023-09-22] MEDS: ISOSORBIDE MONO 30MG TAB.ER.24H 30 MG PO (08:05)
[2023-09-22] MEDS: PANTOPRAZOLE 40MG TABLET 40 MG PO (08:05)
[2023-09-22] MEDS: PRAVASTATIN 20MG TAB 20 MG PO (08:06)
[2023-09-22] MEDS: METOPROLOL TARTRATE 25MG TABLET 37.5 MG PO ×2 (08:06→20:50)
[2023-09-22 12:24] LABS: POC Glucose,Bedside 197 (70-110)
--- NOTE | 2023-09-22 17:03 | EXP.PN ---
Subjective *Date: 09/22/23 *Time: 17:03 Interval history: patient was seen and evaluated at the bedside. No reported acute events overnight, denies chest pain, shortness of breath, nausea, vomiting, abdominal pain. Exam Data for Last 24 hours Vital signs and Labs for Last 24 Hours: Temp Pulse Resp BP Pulse Ox O2 Del Method 98.2 F 65 17 98/46 L 97 Room Air 09/22/23 15:49 09/22/23 16:00 09/22/23 15:49 09/22/23 15:49 09/22/23 15:49 09/22/23 15:49 Laboratory Results - last 24 hr 09/20/23 04:40: Crossmatch (AHG) See Detail 09/21/23 19:56: POC Glucose 223 H 09/22/23 05:52: POC Glucose 130 H 09/22/23 06:40: WBC 11.2 H, RBC 3.09 L, Hgb 8.8 L, Hct 26.5 L, MCV 85.6, MCH 28.6, MCHC 33.4, RDW 15.5, Plt Count 408, MPV 7.7, Neut % (Auto) 55.5, Lymph % (Auto) 22.5, [place] % (Auto) 4.7, Eos % (Auto) 17.0 H, Baso % (Auto) 0.3, Neut # (Auto) 6.2, Lymph # (Auto) 2.5, [place] # (Auto) 0.5, Eos # (Auto) 1.9 H, Baso # (Auto) 0.0, Sodium 135 L, Potassium 4.6, Chloride 108 H, Carbon Dioxide 23, Anion Gap 8.6, BUN 40 H D, Creatinine 1.90 H, Estimated Creat Clear 55, Estimated GFR 36 L, Est GFR ( Amer) 44 L, Glucose 116 H D, Calcium 7.9 L 09/22/23 11:33: POC Glucose 197 H I & O for Last 24 hours: Intake & Output 09/19/23 09/20/23 09/21/23 09/22/23 23:59 23:59 23:59 23:59 Intake Total 2410 / 2410 1410 / 2648 2178 / 2178 Output Total 0 / 0 0 / 0 0 / 0 Balance 2410 / 2410 1410 / 2648 2178 / 2178 Weight 97.069 kg 96.18 kg 97.341 kg Assessment and Plan *Assessment and plan (1) RUSH (acute kidney injury): Status: Acute Category: Medical Code(s): N17.9 - Acute kidney failure, unspecified (2) Chest pain: Status: Acute Qualifiers: Chest pain type: other chest pain Qualified Code(s): R07.89 - Other chest pain Category: Medical Code(s): R07.9 - Chest pain, unspecified (3) Edema of lower extremity: Status: Acute Category: Medical Code(s): R60.0 - Localized edema (4) Diabetes mellitus: Status: Acute Qualifiers: Diabetes mellitus type: type 2 Diabetes mellitus intermediate manager insulin use: with intermediate manager use Diabetes mellitus complication status: with other specified complication Qualified Code(s): E11.69 - Type 2 diabetes mellitus with other specified complication; Z79.4 - terminal carman (current) use of insulin Category: Medical Code(s): E11.9 - Type 2 diabetes mellitus without complications (5) CAD (coronary artery disease): Status: Chronic Qualifiers: Coronary Disease-Associated Artery/Lesion type: [place] artery [place] vs. transplanted heart: [place] heart Associated angina: without angina Qualified Code(s): I25.10 - Atherosclerotic heart disease of [place] coronary artery without angina pectoris Category: Medical Code(s): I25.10 - Atherosclerotic heart disease of [place] coronary artery without angina pectoris (6) HTN (hypertension): Status: Chronic Qualifiers: Hypertension type: essential hypertension Qualified Code(s): I10 - Essential (primary) hypertension Category: Medical Code(s): I10 - Essential (primary) hypertension (7) HLD (hyperlipidemia): Status: Chronic Qualifiers: Hyperlipidemia type: mixed hyperlipidemia Qualified Code(s): E78.2 - Mixed hyperlipidemia Category: Medical Code(s): E78.5 - Hyperlipidemia, unspecified Plan 63-year-old male with a history of CAD, hypertension, hyperlipidemia, CKD, previous admission for RUSH on CKD, and type 2 diabetes presenting to the emergency department with concern for abnormal labs. According the patient, he saw his primary care provider 2 days ago at which point they kristy labs. On arrival patient presented slightly tachycardic. EKG was obtained and reviewed. right bundle block, with some PVCs. Labs was obtained. Grossly unremarkable. Troponins are negative. However creatinine is elevated but trending down from previous office visit. Findings discussed with the ER provider for admission. -acute kidney injury: improved monitor Encouraged to increase p.o. avoid nephrotoxic medication -Intermittent chest pain: Patient 1 no history of coronary artery disease Will get him on cardiac monitoring. EKGs showed right bundle branch block with some PVCs Cardiac consult - recs cardiac cath and PRBC before transfusion -Insulin-dependent diabetes with hyperglycemia: ISS monitor -CAD hypertension hyperlipidemia COPD: Continue monitor Records review home meds. Patient on statin aspirin Albuterol Lovenox for DVT prophylaxis. On Protonix for GI bleeding Full code PRBC per cardiology before cardiac cath, Echo reviewed, cards recs noted, NPO after MN, possible cardiac cath tomorrow AM
[2023-09-22 17:46] LABS: POC Glucose,Bedside 237 (70-110)
[2023-09-22] MEDS: INSULIN DEGLUDEC 100 UNIT/ML 10 EACH SQ (20:50)
[2023-09-22 22:15] LABS: POC Glucose,Bedside 216 (70-110)
[2023-09-23] VITALS (19 sets, daily range): BP systolic 98–133; BP diastolic 45–75; PULSE 60–84; RESP 16–20; TEMP 36.3–36.7; O2SAT 94–98; BMI 36.6
[2023-09-23 06:02] LABS: POC Glucose,Bedside 124 (70-110)
[2023-09-23] MEDS: HEPARIN SODIUM 5,000 UNIT/ML VIAL 5000 UNIT SQ ×2 (06:13→21:16)
[2023-09-23] MEDS: IPRATROPIUM/ALBUTEROL 3 ML NEB IH ×2 (06:27→18:20)
[2023-09-23] MEDS: BREZTRI AEROSPHERE 2 EACH IH ×2 (06:27→21:15)
[2023-09-23 07:01] LABS: Basophils % 0.4 % (0.1-2.0); Eosinophils # 1.8 K/mm3 (0.0-0.4); Eosinophils % 17.1 % (0.1-12.0); Hematocrit 25.8 % (42.0-52.0); Hemoglobin 8.6 g/dL (14.1-18.0); Lymphocytes # 2.2 K/mm3 (0.7-4.5); Lymphocytes % 21.7 % (10-50); Mean Corpuscular HGB Conc 33.5 g/dL (31.8-35.4); Mean Corpuscular Hemoglobin 28.6 pg (27.0-31.2); Mean Corpuscular Volume 85.6 fl (80-94); Mean Platelet Volume 7.6 fl (7.4-10.4); Monocytes # 0.4 K/mm3 (0.1-1.0); Monocytes % 3.8 % (1.7-9.3); Neutrophils # 5.8 K/mm3 (1.8-7.8); Neutrophils % 57.1 % (37.0-80.0); Platelet Count 434 K/mm3 (142-424); Red Blood Count 3.01 M/mm3 (4.60-6.20); Red Cell Distribution Width 15.4 % (11.5-17.5); White Blood Count 10.2 K/mm3 (4.8-10.8)
[2023-09-23 07:11] LABS: Anion Gap 5.5 mEq/L (5-15); Blood Urea Nitrogen 31 mg/dl (9-20); Calcium 8.3 mg/dl (8.4-10.2); Carbon Dioxide 25 mmol/L (22.0-30.0); Chloride 109 mmol/L (98-107); Creatinine Clearance Estimated 52 mL/min (50-200); Estimated Glomerular Filt Rate 34 ml/min (>60); GFR (African American) 41 ML/MIN (>60); Glucose 113 mg/dl (74-100); Potassium 4.5 mmoL/L (3.5-5.1); Sodium 135 mmol/L (136-145)
[2023-09-23] MEDS: METOPROLOL TARTRATE 25MG TABLET 37.5 MG PO ×2 (08:24→21:17)
[2023-09-23] MEDS: PRAVASTATIN 20MG TAB 20 MG PO ×2 (08:24→21:21)
[2023-09-23] MEDS: PANTOPRAZOLE 40MG TABLET 40 MG PO (08:25)
[2023-09-23] MEDS: ASPIRIN EC 81MG TABLET 81 MG PO (08:25)
[2023-09-23] MEDS: ISOSORBIDE MONO 30MG TAB.ER.24H 30 MG PO (08:25)
--- NOTE | 2023-09-23 12:39 | P.CONS_ITS ---
History of Present Illness *Admission Date: 09/20/23 *Reason for visit:: Acute anemia, concern GI bleed *History of present illness: Patient is a 63-year-old male from [facility] with history of coronary artery disease status post previous CABG, hypertension, hyperlipidemia, chronic kidney disease, type 2 diabetes, COPD, prior history of heavy tobacco use. He had smoked until relatively recently. He has been trying to quit over a couple of months. He had admission several weeks ago for COPD exacerbation and was treated medically including with steroids and antibiotics for some time. He was apparently seen by his primary care provider on 09/18/2022. Outpatient blood work was drawn. When this returned there was abnormality and apparent concern for progressive renal insufficiency as well as anemia. He was instructed to go to the emergency department. 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 He has described symptoms of chest pain with exertion, shortness of air with exertion. Evaluation in the emergency department revealed a hemoglobin of 7.5 with hematocrit 22.6. BUN 74 with creatinine of 2.4. Baseline hemoglobin in August prior to admission is greater than 12. He had been treated for iron deficiency anemia with iron supplementation previously as an outpatient. He did notice dark tarry stools while on oral iron supplementation. After patient was seen in the emergency department on 09/20/2023 the patient was admitted to the hospitalist service on for inpatient management. He was transfused a couple units of packed red blood cells with suboptimal posttransfusion hemoglobin in the mid 8 range. Patient was seen by cardiology. Transfusion was recommended by cardiology as previously stated given his history of coronary disease. Patient was started on proton pump inhibitors. Cardiology is apparently planning heart catheterization. Patient likely may need anticoagulation foll owing heart catheterization. Cardiology ordered General surgery consultation today for acute anemia/concern for GI bleed. [facility] Disclaimer: The information contained in this section may have been updated after the patient was seen, as this information can be updated by other users. Medical History (Updated 09/20/23 @ 09:47 by PERRY Song) Abnormal EKG Acute bronchitis Acute exacerbation of chronic obstructive pulmonary disease Chest pain COPD (chronic obstructive pulmonary disease) Dyspnea Edema Family history of heart disease Iliotibial band syndrome, right leg Right upper quadrant abdominal pain Tobacco dependence syndrome Unstable angina Surgical History (Updated 09/20/23 @ 09:47 by PERRY Song) History of coronary artery bypass graft History of open heart surgery Family History Mother CHF (congestive heart failure) Brother Lung nodules Other Chest pain Social History Smoking Status: Former smoker tobacco type: cigarettes packs per day: 4 years smoked: 43 alcohol intake: never substance use type: denies use current occupational status: employed Travel in the last 8 weeks: [place] the [place] household members: spouse housing: house caffeine: Yes Meds Home Medications and Allergies Home Medications Medication Instructions Recorded Confirmed Type aspirin 81 mg tablet,delayed 81 mg PO DAILY 30 days #30 tabs 07/15/23 09/20/23 Rx release (Adult Low Dose Aspirin) insulin degludec 100 unit/mL (3 10 unit (0.1 mL) SQ HS 30 days #3 07/26/23 09/20/23 Rx mL) subcutaneous pen (Tresiba mL FlexTouch U-100 insulin) pen needle, diabetic 32 gauge x #100 ea 07/26/23 09/20/23 Rx 3/16 (Comfort EZ Pen [place]) ipratropium 0.5 mg-albuterol 3 mg 3 ml inhalation BID 30 days #180 mL 08/26/23 09/20/23 Rx (2.5 mg base)/3 mL nebulization soln losartan 50 mg-hydrochlorothiazide 1 tab PO DAILY 08/26/23 09/20/23 History 12.5 mg tablet budesonide 160 mcg-glycopyr 9 2 inh inhalation BID #10.7 grams 08/27/23 09/20/23 Rx mcg-formot 4.8 mcg/actuation HFA inhaler (Breztri Aerosphere) pravastatin 20 mg tablet 20 mg PO DAILY #30 tabs 09/03/23 09/20/23 Rx albuterol sulfate 90 mcg/actuation 2 puff inhalation Q6HP PRN 09/20/23 09/20/23 History aerosol inhaler Shortness of breath and Wheezing isosorbide mononitrate 60 mg 60 mg PO DAILY #30 tabs 09/20/23 Rx tablet,extended release 24 hr metformin 500 mg tablet 500 mg PO BID 30 days #60 tabs 09/20/23 09/20/23 Rx metoprolol tartrate 25 mg tablet 37.5 mg PO BID 09/20/23 09/20/23 History nitroglycerin 0.4 mg sublingual 0.4 mg sublingual Q5M PRN chest 09/20/23 Rx tablet pain #25 tabs New Prescriptions to Start Prescriptions: Allergies Allergy/AdvReac Type Severity Reaction Status Date / Time No Known Allergies Allergy Verified 09/18/23 08:46 Exam (Inpt) Vital signs and Labs for Last 24 Hours: Temp Pulse Resp BP Pulse Ox O2 Del Method 97.9 F 75 17 102/60 L 94 L Room Air 09/23/23 08:00 09/23/23 08:00 09/23/23 08:00 09/23/23 08:00 09/23/23 08:00 09/23/23 11:00 Laboratory Results - last 24 hr 09/22/23 16:47: POC Glucose 237 H 09/22/23 20:25: POC Glucose 216 H 09/23/23 05:56: WBC 10.2, RBC 3.01 L, Hgb 8.6 L, Hct 25.8 L, MCV 85.6, MCH 28.6, MCHC 33.5, RDW 15.4, Plt Count 434 H, MPV 7.6, Neut % (Auto) 57.1, Lymph % (Auto) 21.7, [place] % (Auto) 3.8, Eos % (Auto) 17.1 H, Baso % (Auto) 0.4, Neut # (Auto) 5.8, Lymph # (Auto) 2.2, [place] # (Auto) 0.4, Eos # (Auto) 1.8 H, Baso # (Auto) 0.0, Sodium 135 L, Potassium 4.5, Chloride 109 H, Carbon Dioxide 25, Anion Gap 5.5, BUN 31 H, Creatinine 2.00 H, Estimated Creat Clear 52, Estimated GFR 34 L, Est GFR ( Amer) 41 L, Glucose 113 H, POC Glucose 124 H, Calcium 8.3 L I & O for Labs for Last 24 Hours: Intake & Output 09/21/23 09/22/23 09/23/23 09/24/23 11:59 11:59 11:59 11:59 Intake Total 2380 / 2380 2648 / 2648 710 / 710 Output Total 0 / 0 0 / 0 0 / 0 Balance 2380 / 2380 2648 / 2648 710 / 710 Weight 212 lb 0.649 oz 214 lb 9.6 oz 214 lb 9.603 oz Constitutional: no acute distress Head: Present normocephalic GI: Present soft; Absent tenderness Results Labs 09/23/23 05:56 09/23/23 05:56 Labs: Laboratory Results - last 24 hr 09/22/23 16:47: POC Glucose 237 H 09/22/23 20:25: POC Glucose 216 H 09/23/23 05:56: WBC 10.2, RBC 3.01 L, Hgb 8.6 L, Hct 25.8 L, MCV 85.6, MCH 28.6, MCHC 33.5, RDW 15.4, Plt Count 434 H, MPV 7.6, Neut % (Auto) 57.1, Lymph % (Auto) 21.7, [place] % (Auto) 3.8, Eos % (Auto) 17.1 H, Baso % (Auto) 0.4, Neut # (Auto) 5.8, Lymph # (Auto) 2.2, [place] # (Auto) 0.4, Eos # (Auto) 1.8 H, Baso # (Auto) 0.0, Sodium 135 L, Potassium 4.5, Chloride 109 H, Carbon Dioxide 25, Anio n Gap 5.5, BUN 31 H, Creatinine 2.00 H, Estimated Creat Clear 52, Estimated GFR 34 L, Est GFR ( Amer) 41 L, Glucose 113 H, POC Glucose 124 H, Calcium 8.3 L Assessment and Plan *Assessment and plan (1) Anemia: Status: Acute Qualifiers: Anemia type: unspecified type Qualified Code(s): D64.9 - Anemia, unspecified Category: Medical Code(s): D64.9 - Anemia, unspecified Plan Patient does have risk factors for upper GI blood loss. Clinical history concerning for potential upper GI blood loss. Plan will be to proceed with upper endoscopy.
--- NOTE | 2023-09-23 12:46 | EXP.PN ---
Subjective *Date: 09/23/23 *Time: 12:46 Interval history: patient was seen and evaluated at the bedside. no complaints today, No reported acute events overnight, denies chest pain, shortness of breath, nausea, vomiting, abdominal pain. Exam Data for Last 24 hours Vital signs and Labs for Last 24 Hours: Temp Pulse Resp BP Pulse Ox O2 Del Method 97.9 F 75 17 102/60 L 94 L Room Air 09/23/23 08:00 09/23/23 08:00 09/23/23 08:00 09/23/23 08:00 09/23/23 08:00 09/23/23 11:00 Laboratory Results - last 24 hr 09/22/23 16:47: POC Glucose 237 H 09/22/23 20:25: POC Glucose 216 H 09/23/23 05:56: WBC 10.2, RBC 3.01 L, Hgb 8.6 L, Hct 25.8 L, MCV 85.6, MCH 28.6, MCHC 33.5, RDW 15.4, Plt Count 434 H, MPV 7.6, Neut % (Auto) 57.1, Lymph % (Auto) 21.7, [place] % (Auto) 3.8, Eos % (Auto) 17.1 H, Baso % (Auto) 0.4, Neut # (Auto) 5.8, Lymph # (Auto) 2.2, [place] # (Auto) 0.4, Eos # (Auto) 1.8 H, Baso # (Auto) 0.0, Sodium 135 L, Potassium 4.5, Chloride 109 H, Carbon Dioxide 25, Anion Gap 5.5, BUN 31 H, Creatinine 2.00 H, Estimated Creat Clear 52, Estimated GFR 34 L, Est GFR ( Amer) 41 L, Glucose 113 H, POC Glucose 124 H, Calcium 8.3 L I & O for Last 24 hours: Intake & Output 09/20/23 09/21/23 09/22/23 09/23/23 23:59 23:59 23:59 23:59 Intake Total 2409 / 2410 1410 / 2648 2417 / 241 Output Total 0 / 0 0 / 0 0 / 0 0 / 0 Balance 2409 / 2409 1410 / 2648 2417 0 / 0 Weight 97.34 kg 96.18 kg 97.341 kg 97.341 kg Constitutional Constitutional: no acute distress *Routine HEENT Exam Head: Present normocephalic Eye: Present EOMI and PERRL ENT: Present mucous membranes moist *Routine Neck Exam Neck: Present supple; Absent lymphadenopathy *Routine Respiratory Exam Respiratory: Present CTA bilaterally *Routine Cardiovascular Exam Cardiovascular: Present RRR *Routine Abdominal Exam Abdominal: Present soft and normoactive bowel sounds; Absent tenderness *Routine Extremities Exam Extremities: Absent cyanosis, clubbing or edema *Routine Skin Exam Skin: Present warm; Absent rash *Routine Neurological Exam Neurological: Present alert and oriented X3 Assessment and Plan *Assessment and plan (1) RUSH (acute kidney injury): Status: Acute Category: Medical Code(s): N17.9 - Acute kidney failure, unspecified (2) Chest pain: Status: Acute Qualifiers: Chest pain type: other chest pain Qualified Code(s): R07.89 - Other chest pain Category: Medical Code(s): R07.9 - Chest pain, unspecified (3) Edema of lower extremity: Status: Acute Category: Medical Code(s): R60.0 - Localized edema (4) Diabetes mellitus: Status: Acute Qualifiers: Diabetes mellitus type: type 2 Diabetes mellitus terminal gauger insulin use: with terminal gauger use Diabetes mellitus complication status: with other specified complication Qualified Code(s): E11.69 - Type 2 diabetes mellitus with other specified complication; Z79.4 - correction (current) use of insulin Category: Medical Code(s): E11.9 - Type 2 diabetes mellitus without complications (5) CAD (coronary artery disease): Status: Chronic Qualifiers: Coronary Disease-Associated Artery/Lesion type: [place] artery [place] vs. transplanted heart: [place] heart Associated angina: without angina Qualified Code(s): I25.10 - Atherosclerotic heart disease of [place] coronary artery without angina pectoris Category: Medical Code(s): I25.10 - Atherosclerotic heart disease of [place] coronary artery without angina pectoris (6) HTN (hypertension): Status: Chronic Qualifiers: Hypertension type: essential hypertension Qualified Code(s): I10 - Essential (primary) hypertension Category: Medical Code(s): I10 - Essential (primary) hypertension (7) HLD (hyperlipidemia): Status: Chronic Qualifiers: Hyperlipidemia type: mixed hyperlipidemia Qualified Code(s): E78.2 - Mixed hyperlipidemia Category: Medical Code(s): E78.5 - Hyperlipidemia, unspecified Plan 63-year-old male with a history of CAD, hypertension, hyperlipidemia, CKD, previous admission for RUSH on CKD, and type 2 diabetes presenting to the emergency department with concern for abnormal labs. According the patient, he saw his primary care provider 2 days ago at which point they kristy labs. On arrival patient presented slightly tachycardic. EKG was obtained and reviewed. right bundle block, with some PVCs. Labs was obtained. Grossly unremarkable. Troponins are negative. However creatinine is elevated but trending down from previous office visit. Findings discussed with the ER provider for admission. -acute kidney injury: improved monitor Encouraged to increase p.o. avoid nephrotoxic medication -Intermittent chest pain: Patient 1 no history of coronary artery disease Will get him on cardiac monitoring. EKGs showed right bundle branch block with some PVCs Cardiac consult - recs cardiac cath and PRBC before transfusion -Insulin-dependent diabetes with hyperglycemia: ISS monitor -CAD hypertension hyperlipidemia COPD: Continue monitor Records review home meds. Patient on statin aspirin Albuterol Lovenox for DVT prophylaxis. On Protonix for GI bleeding Full code possible cardiac cath today and then DC
--- NOTE | 2023-09-23 13:20 | EXP.ANES.CKL ---
[facility] Disclaimer: The information contained in this section may have been updated after the patient was seen, as this information can be updated by other users. Medical History (Updated 09/20/23 @ 09:47 by PERRY Song) Abnormal EKG Acute bronchitis Acute exacerbation of chronic obstructive pulmonary disease Chest pain COPD (chronic obstructive pulmonary disease) Dyspnea Edema Family history of heart disease Iliotibial band syndrome, right leg Right upper quadrant abdominal pain Tobacco dependence syndrome Unstable angina Surgical History (Updated 09/20/23 @ 09:47 by PERRY Song) History of coronary artery bypass graft History of open heart surgery Family History Mother CHF (congestive heart failure) Brother Lung nodules Other Chest pain Social History Smoking Status: Former smoker tobacco type: cigarettes packs per day: 4 years smoked: 43 alcohol intake: never substance use type: denies use current occupational status: employed Travel in the last 8 weeks: Inside the [employer] [place] household members: spouse housing: house caffeine: Yes [facility] Anesthesia Checklist Patient Identification Patient Identification: Arm Band and Verbal (Name & ) Structural Data Admitted From: Inpatient (RM 200) Planned Operative Procedure/s: EGD Consent for Planned Operative Procedure(s) Verified: Yes Verified Documents: Surgical Consent and History and Physical NPO Status Verified Time NPO: 00:00 Chart Verification Results Verified: CBC, BMP, ECG and Chest Xray Additional verifications Fingerstick Blood Glucose: 124 Patient : No Anesthesia Reactions: No Cardiovascular Assessment Heart Sounds: S1 & S2 Pulse Rhythm: Irregular Peripheral Edema: Yes (2+ PHILLIP LE) Airway Assessment Mallampati Score:: Class II C-Spine Mobility Assessed: Yes (FROM) TMJ Mobility Assessed: Yes Dentition: Poor Dentition (Severely carried. Many missing. Nothing loose per pt.) Neurological Assessment Level of Consciousness: Awake, Alert, Appropriate and Follows Commands Hx Seizures: No Numbness or tingling in extremities: No Anesthesia Plan Anesthesia Risk discussed: Yes Anesthesia Plan: Verified ASA Class: III Anesthesia Type: MAC
--- NOTE | 2023-09-23 13:25 | P.PN_ITS ---
Subjective Subjective Date: 09/23/23 Time: 10:30 Principal diagnosis: angina, CAD, acute blood loss anemia Interval history: The patient reports feeling pretty well over the weekend. He denies any chest pain or pressure this morning. He does complain of shortness of breath with exertion. He states that this improves with rest. He does report when he is working he continues to have chest pain but since being in the hospital and not really exerting himself the chest pain has resolved. He denies any bilateral lower extremity edema. He denies any fever, chills, nausea, vomiting, diarrhea, PND or orthopnea. The patient was anemic on admission with a hemoglobin of 7.5. Status post 2 units packed red blood cells this admission and his hemoglobin is 8.6 today. He does have acute anemia and were concerned that he may have a GI bleed. The patient does need an ischemic evaluation because he does have a high pretest likelihood for worsening of his coronary artery disease. But we do not want to subject the patient to dual antiplatelet therapy while he is currently anemic until we have ruled out a GI bleed. Exam Data for Last 24 hours Vital signs and Labs for Last 24 Hours: Temp Pulse Resp BP Pulse Ox O2 Del Method 97.9 F 75 17 102/60 L 94 L Room Air 09/23/23 08:00 09/23/23 08:00 09/23/23 08:00 09/23/23 08:00 09/23/23 08:00 09/23/23 11:00 Laboratory Results - last 24 hr 09/22/23 16:47: POC Glucose 237 H 09/22/23 20:25: POC Glucose 216 H 09/23/23 05:56: WBC 10.2, RBC 3.01 L, Hgb 8.6 L, Hct 25.8 L, MCV 85.6, MCH 28.6, MCHC 33.5, RDW 15.4, Plt Count 434 H, MPV 7.6, Neut % (Auto) 57.1, Lymph % (Auto) 21.7, [place] % (Auto) 3.8, Eos % (Auto) 17.1 H, Baso % (Auto) 0.4, Neut # (Auto) 5.8, Lymph # (Auto) 2.2, [place] # (Auto) 0.4, Eos # (Auto) 1.8 H, Baso # (Auto) 0.0, Sodium 135 L, Potassium 4.5, Chloride 109 H, Carbon Dioxide 25, Anion Gap 5.5, BUN 31 H, Creatinine 2.00 H, Estimated Creat Clear 52, Estimated GFR 34 L, Est GFR ( Amer) 41 L, Glucose 113 H, POC Glucose 124 H, Calcium 8.3 L I & O for Last 24 hours: Intake & Output 09/20/23 09/21/23 09/22/23 09/23/23 23:59 23:59 23:59 23:59 Intake Total 2409 / 2410 1410 / 2648 2417 Output Total 0 / 0 0 / 0 0 / 0 0 / 0 Balance 2409 1410 / 2648 2417 0 / 0 Weight 214 lb 9.567 oz 212 lb 0.649 oz 214 lb 9.6 oz 214 lb 9.603 oz Constitutional Constitutional: no acute distress and average body habitus *Routine HEENT Exam Head: Present normocephalic and atraumatic ENT: Present mucous membranes moist *Routine Neck Exam Neck: Present supple, full ROM and normal carotid upstroke; Absent JVD, carotid bruit or lymphadenopathy *Routine Respiratory Exam Respiratory: Present CTA bilaterally, normal respiratory effort, able to speak in complete sentences and symmetric chest movement *Routine Cardiovascular Exam Cardiovascular: Present RRR, Normal S1 and Normal S2; Absent murmur or gallop *Routine Abdominal Exam Abdominal: Present soft and normoactive bowel sounds; Absent tenderness, distended or organomegaly *Routine Extremities Exam Extremities: Present full ROM, pulses intact and normal capillary refill; Absent cyanosis, clubbing or edema *Routine Skin Exam Skin: Present intact and warm; Absent erythema *Routine Neurological Exam Neurological: Present alert, oriented X3 and CN II-XII intact; Absent sensory deficit or motor deficit Routine Psychiatric Exam Psychiatric: Present normal affect Progress Note: A&P Assessment and plan (1) Angina pectoris: Status: Acute (2) Anemia: Status: Acute (3) CAD (coronary artery disease): Status: Chronic (4) HTN (hypertension): Status: Chronic (5) HLD (hyperlipidemia): Status: Chronic (6) Diabetes mellitus type 2, controlled, without complications: Status: Acute (7) RUSH (acute kidney injury): Status: Acute (8) Shortness of breath: Status: Acute (9) History of coronary artery bypass graft: Status: Acute Assessment and Plan Assessment and Plan for All Diagnoses:: Plan: 1. Coronary artery disease is present. The patient did rule out for an AL. He has had chest pain recently while working with exertion. It does improve with rest. The patient does have a high pretest likelihood for worsening of his coronary artery disease. He should undergo left cardiac catheterization in the near future but his anemia needs to be further evaluated before we subject him to dual antiplatelet therapy. 2. His blood pressure is well-controlled. 3. His LDL goal is less than 55. Will get a lipid panel in the morning. On a statin. 4. For near the patient does have acute anemia. His hemoglobin was down to 7.5 and after 2 units of packed red blood cells his hemoglobin is 8.6. We are concerned that he may have a GI bleed. We do recommend a surgery consult at this time to further evaluation of his anemia. 5. He would benefit from hematology consult on an outpatient basis as well. 6. The patient also has acute on chronic renal insufficiency. His creatinine was elevated on admission. It still remains elevated at 2.0 which is closer to his baseline. 7. The patient does have a history of COPD. Will defer management this to the hospitalist. 8. The patient is diabetic. He will need aggressive control of his diabetes. Will defer management this to the hospitalist. 9. Continue isosorbide for his angina. 10. Once the patient has been evaluated by general surgery for a GI bleed then we will consider proceeding with left cardiac catheterization at that time. 11. Further recommendations will be made pending the patient's response to treatment. Thank you for the opportunity to help participate in the care of this patient. All recommendations and orders are per Dr. Rosario.
--- NOTE | 2023-09-23 13:50 | P.PCN_ITS ---
Procedure: Date: 09/23/23 Patient Date of :: 1960 Procedure Performed:: Esophagogastroduodenoscopy Indications:: Patient is a 63-year-old male from [facility] with history of coronary artery disease status post previous CABG, hypertension, hyperlipidemia, chronic kidney disease, type 2 diabetes, COPD, prior history of heavy tobacco use. He had smoked until relatively recently. He has been trying to quit over a couple of months. He had admission several weeks ago for COPD exacerbation and was treated medically including with steroids and antibiotics for some time. He was apparently seen by his primary care provider on 09/18/2022. Outpatient blood work was drawn. When this returned there was abnormality and apparent concern for progressive renal insufficiency as well as anemia. He was instructed to go to the emergency department. 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 He has described symptoms of chest pain with exertion, shortness of air with exertion. Evaluation in the emergency department revealed a hemoglobin of 7.5 with hematocrit 22.6. BUN 74 with creatinine of 2.4. Baseline hemoglobin in August prior to admission is greater than 12. He had been treated for iron deficiency anemia with iron supplementation previously as an outpatient. He did notice dark tarry stools while on oral iron supplementation. After patient was seen in the emergency department on 09/20/2023 the patient was admitted to the hospitalist service on for inpatient management. He was transfused a couple units of packed red blood cells with suboptimal posttransfusion hemoglobin in the mid 8 range. Patient was seen by cardiology. Patient was started on proton pump inhibitors. Cardiology is apparently planning heart catheterization. Patient likely may need anticoagulation following heart catheterization. Cardiology ordered General surgery consultation today for acute anemia/concern for GI bleed. Performing Provider:: Sage Butts MD Referring Provider:: . Sedation:: MAC sedation Procedure:: Patient history was obtained and appropriate physical examination was performed. Patient's medications and allergies were reviewed. Informed consent was obtained after explaining the benefits, alternatives, and risks of the procedure including, but not limited to, bleeding, perforation, missed lesions, and adverse reaction to anesthesia medications. Patient was transported to endoscopy procedure room. Patient was connected to monitoring devices. Throughout the procedure the patient's blood pressure, pulse, and oxygen saturations were monitored continuously. Patient identification and planned procedure were verified by the staff. Patient was positioned in lateral decubitus position. After adequate intr avenous sedation Olympus endoscope was inserted via the oropharynx. Esophagus was cannulated. There was a possible minuscule island of Bonds's esophagus at approximately 20 cm. There is some minor tortuosity to the esophagus with very minimal chronic nonerosive esophagitis. At the gastroesophageal junction at approximately 38 cm there was possible focal Bonds's esophagus. Biopsy was not obtained due to the patient's anemia and uncertain GI etiology. Stomach was cannulated and insufflated. There is some diffuse moderate to gastropathy/gastritis. Retroflexion revealed no evidence of any hiatal hernia. In the antrum there is some linear gastritis but this appeared nonerosive with no evidence of recent bleeding. Pylorus was traversed. Duodenal bulb and duodenal sweep including second and third portions of the duodenum were carefully inspected and appeared unremarkable. Additional prolonged surveillance was carried out to identify any obscure ulcer of which none was noted. Stomach was desufflated and the endoscope was withdrawn. Findings:: Mild esophageal dysmotility Possible Bonds's esophagus Gastroesophageal junction at 38 cm Mild to moderate nonerosive gastropathy/gastritis Recommendations:: No source for potential acute GI blood loss on upper endoscopy. Patient may ultimately require thorough GI evaluation including possible small bowel capsule endoscopy and colonoscopy in the near future. I will send a stool Hemoccult. Complications:: None immediately apparent Estimated blood obtained (mL): 0 Colonoscopy Component Colonoscopy Component Was a colonoscopy performed during today's procedure?: No
--- NOTE | 2023-09-23 14:00 | EXP.ANES.I ---
[facility] Anesthesia Record Part I Anesthesia Record I Intake, IV Amount: 300 Hydration: Adequate Estimated blood loss (mL): 0 Urine output (mL): 0 Blood Products used (#): none Blood Pressure: 105/56 SaO2: 96 Pulse Rate: 68 Airway Patency: Patent Respiratory Rate: 18 Temperature: 97.4 F Patient is:: Awake (Talking) and Stable
--- NOTE | 2023-09-23 15:37 | P.PN_ITS ---
Subjective *Date: 09/23/23 *Time: 15:37 Interval history: patient was seen and evaluated at the bedside. no complaints today, No reported acute events overnight, denies chest pain, shortness of breath, nausea, vomiting, abdominal pain. Exam Data for Last 24 hours Vital signs and Labs for Last 24 Hours: Temp Pulse Resp BP Pulse Ox O2 Del Method O2 Flow Rate 97.4 F L 66 20 110/70 95 Room Air 4 09/23/23 14:01 09/23/23 15:00 09/23/23 15:00 09/23/23 15:00 09/23/23 15:00 09/23/23 15:00 09/23/23 13:39 Laboratory Results - last 24 hr 09/22/23 16:47: POC Glucose 237 H 09/22/23 20:25: POC Glucose 216 H 09/23/23 05:56: WBC 10.2, RBC 3.01 L, Hgb 8.6 L, Hct 25.8 L, MCV 85.6, MCH 28.6, MCHC 33.5, RDW 15.4, Plt Count 434 H, MPV 7.6, Neut % (Auto) 57.1, Lymph % (Auto) 21.7, [place] % (Auto) 3.8, Eos % (Auto) 17.1 H, Baso % (Auto) 0.4, Neut # (Auto) 5.8, Lymph # (Auto) 2.2, [place] # (Auto) 0.4, Eos # (Auto) 1.8 H, Baso # (Auto) 0.0, Sodium 135 L, Potassium 4.5, Chloride 109 H, Carbon Dioxide 25, Anion Gap 5.5, BUN 31 H, Creatinine 2.00 H, Estimated Creat Clear 52, Estimated GFR 34 L, Est GFR ( Amer) 41 L, Glucose 113 H, POC Glucose 124 H, Calcium 8.3 L I & O for Last 24 hours: Intake & Output 09/20/23 09/21/23 09/22/23 09/23/23 23:59 23:59 23:59 23:59 Intake Total 2410 / 2410 1410 / 2648 2418 / 2418 300 / 300 Output Total 0 / 0 0 / 0 0 / 0 0 / 0 Balance 2410 / 2410 1410 / 2648 2418 / 2418 300 / 300 Weight 97.34 kg 96.18 kg 97.341 kg 97.341 kg Constitutional Constitutional: no acute distress *Routine HEENT Exam Head: Present normocephalic Eye: Present EOMI and PERRL ENT: Present mucous membranes moist *Routine Neck Exam Neck: Present supple; Absent lymphadenopathy *Routine Respiratory Exam Respiratory: Present CTA bilaterally *Routine Cardiovascular Exam Cardiovascular: Present RRR *Routine Abdominal Exam Abdominal: Present soft and normoactive bowel sounds; Absent tenderness *Routine Extremities Exam Extremities: Absent cyanosis, clubbing or edema *Routine Skin Exam Skin: Present warm; Absent rash *Routine Neurological Exam Neurological: Present alert and oriented X3 Assessment and Plan *Assessment and plan (1) RUSH (acute kidney injury): Status: Acute Category: Medical Code(s): N17.9 - Acute kidney failure, unspecified (2) Chest pain: Status: Acute Qualifiers: Chest pain type: other chest pain Qualified Code(s): R07.89 - Other chest pain Category: Medical Code(s): R07.9 - Chest pain, unspecified (3) Edema of lower extremity: Status: Acute Category: Medical Code(s): R60.0 - Localized edema (4) Diabetes mellitus: Status: Acute Qualifiers: Diabetes mellitus type: type 2 Diabetes mellitus jail insulin use: with joint terminal attack controller use Diabetes mellitus complication status: with other specified complication Qualified Code(s): E11.69 - Type 2 diabetes mellitus with other specified complication; Z79.4 - shelter (current) use of insulin Category: Medical Code(s): E11.9 - Type 2 diabetes mellitus without complications (5) CAD (coronary artery disease): Status: Chronic Qualifiers: Coronary Disease-Associated Artery/Lesion type: [place] artery [place] vs. transplanted heart: [place] heart Associated angina: without angina Qualified Code(s): I25.10 - Atherosclerotic heart disease of [place] coronary artery without angina pectoris Category: Medical Code(s): I25.10 - Atherosclerotic heart disease of [place] coronary artery without angina pectoris (6) HTN (hypertension): Status: Chronic Qualifiers: Hypertension type: essential hypertension Qualified Code(s): I10 - Essential (primary) hypertension Category: Medical Code(s): I10 - Essential (primary) hypertension (7) HLD (hyperlipidemia): Status: Chronic Qualifiers: Hyperlipidemia type: mixed hyperlipidemia Qualified Code(s): E78.2 - Mixed hyperlipidemia Category: Medical Code(s): E78.5 - Hyperlipidemia, unspecified Plan 63-year-old male with a history of CAD, hypertension, hyperlipidemia, CKD, previous admission for RUSH on CKD, and type 2 diabetes presenting to the emergency department with concern for abnormal labs. According the patient, he saw his primary care provider 2 days ago at which point they kristy labs. On arrival patient presented slightly tachycardic. EKG was obtained and reviewed. right bundle block, with some PVCs. Labs was obtained. Grossly unremarkable. Troponins are negative. However creatinine is elevated but trending down from previous office visit. Findings discussed with the ER provider for admission. -acute kidney injury: improved monitor Encouraged to increase p.o. avoid nephrotoxic medication -Intermittent chest pain: Patient 1 no history of coronary artery disease Will get him on cardiac monitoring. EKGs showed right bundle branch block with some PVCs Cardiac consult - recs cardiac cath and PRBC before transfusion -Insulin-dependent diabetes with hyperglycemia: ISS monitor Anemia s/p PRBC to keep HB >8 per cardiology GS consulted per cardiology to r/o GIB, none noted stool occult sent -CAD hypertension hyperlipidemia COPD: Continue monitor Records review home meds. Patient on statin aspirin Albuterol Lovenox for DVT prophylaxis. On Protonix for GI bleeding Full code possible cardiac cath today and then DC, await final cardiology recs
[2023-09-23 16:43] LABS: POC Glucose,Bedside 120 (70-110)
[2023-09-23 17:58] LABS: POC Glucose,Bedside 106 (70-110)
[2023-09-23 21:00] LABS: POC Glucose,Bedside 275 (70-110)
[2023-09-23] MEDS: INSULIN DEGLUDEC 100 UNIT/ML 10 EACH SQ (21:27)
[2023-09-24] VITALS (24 sets, daily range): BP systolic 107–145; BP diastolic 48–83; PULSE 54–87; RESP 16–20; TEMP 36.5–36.9; O2SAT 90–99; BMI 35.6
--- NOTE | 2023-09-24 | IR_ITS ---
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) PROCEDURES Left heart catheterization Left ventriculogram Selective coronary angiogram Left internal mammary angiography Selective engagement of the saphenous vein graft to the right coronary artery Selective engagement of the saphenous vein graft to the obtuse marginal artery Bilateral selective renal angiography Drug-eluting stent deployment to the ostial proximal left renal artery with additional stenting of a bifurcating left renal artery off the main left renal artery INDICATION Coronary artery disease, Unstable angina, History of coronary bypass surgery, Chronic renal failure, Renovascular hypertension, Renal artery stenosis, Informed consent was obtained prior to the procedure. COMPLICATIONS None Estimated Blood Loss: Less than 10 mls TECHNIQUE One percent lidocaine used to anesthetize the right groin. The right femoral artery was accessed via the Seldinger technique and a 5 [place] sheath was placed in the right femoral artery. A JL 4, JR4 catheter were used to perform left heart catheterization, left ventriculogram selective coronary angiography as well as selective engagement of the 2 vein grafts and the left internal mammary artery. Patient had chronic renal failure with a creatinine of 2.0 and had extensive vascular disease identified on cardiac catheterization. Because of this the JR4 catheter was used to perform bilateral selective renal angiography. At the end the diagnostic angiogram therapeutic heparin was administered giving a therapeutic ACT and the 4 [place] sheath was exchanged for a 6 [place] sheath. A JR4 guide catheter was placed in the left renal artery followed by Choice PT extra-support wire. A 5 mm x 18 mm [place] frontier stent was placed in the ostial proximal and mid renal artery and deployed at 24 abigail reducing the stenosis to 0%. There was a large branch which also had a severe stenosis and was jailed by the drug-eluting stent therefore the wire was pulled back and placed into this branch and a 3 mm balloon was used to predilate and open the struts. Following this a 3.5 x 12 mm [place] frontier stent was deployed at 20 abigail reducing the stenosis to 0%. Excellent angiographic results were obtained. Drug-eluting stents were used due to the anticipated bifurcation required to completely revascularize the left kidney. Bare-metal stents would increase the likelihood of in-stent restenosis. After achieving excellent angiographic results the apparatus was removed the groin is reprepped closure change sheath was removed good hemostasis was achieved using Perclose device patient was transferred to the postop holding area in stable condition ANGIOGRAPHIC RESULTS The left main artery Has an ostial 30% stenosis and a distal 30% stenosis The left anterior descending artery Is proximally occluded The circumflex artery Gives rise to a small to moderate ramus intermedius which has an 80% proximal stenosis followed by mid vessel 40% concentric stenosis. The circumflex artery itself is occluded The right coronary artery Is dominant and has mid vessel subtotal occlusion with distal occlusion The GAXIOLA ventriculogram reveals Dilated ventricle global hypokinesis estimate ejection fraction 30 to 35% The left ventricular end-diastolic pressure 20 mmHg LARA to LAD patent Saphenous to OM patent Saphenous to PDA patent Right renal artery singular and has a proximal 10 to 20% stenosis Left renal artery singular and has an 80% stenosis which extends into a bifurcating vessel. The main vessel supplies 60% of the kidneys and is 5 mm in diameter and has an 80% stenosis while a superior branch supplying 40% of the kidney has an ostial 80% stenosis IMPRESSION Coronary disease as described above with a patent LARA to LAD and patent saphenous vein graft to posterior descending artery and patent saphenous vein graft to circumflex artery obtuse marginal artery Left ventricular dysfunction Elevated LVEDP Severe bifurcating renal artery stenosis as described above with successful stenting reducing the hemodynamically severe stenoses to 0% with 2 cardiac drug-eluting stents placed in a bifurcating manner as described above PLAN 1. Dual antiplatelet therapy while treating the renal artery stents as if the stents were placed in the coronary arteries 2. Standard therapy for systolic heart failure 3. Standard therapy for ischemic heart disease 4. Check chemistry in the morning monitor for possible contrast nephropathy Electronically signed by : Graham Royal MD 09/24/2023 16:35:11
[2023-09-24 00:54] LABS: Occult Blood,Stool Negative (Negative)
[2023-09-24] MEDS: HEPARIN SODIUM 5,000 UNIT/ML VIAL 5000 UNIT SQ ×2 (04:28→21:38)
[2023-09-24] MEDS: BREZTRI AEROSPHERE 2 EACH IH ×2 (05:53→21:55)
[2023-09-24] MEDS: IPRATROPIUM/ALBUTEROL 3 ML NEB IH ×2 (05:53→18:19)
[2023-09-24 06:12] LABS: POC Glucose,Bedside 113 (70-110)
--- NOTE | 2023-09-24 06:33 | PC.NURSE ---
Pt A&Ox4. Pt has had no complaints this shift. Rested well through the night. Pt showered and clipped. Ambulates in the room independently.
[2023-09-24 06:57] LABS: Basophils # 0.1 K/mm3 (0-0.2); Basophils % 0.6 % (0.1-2.0); Eosinophils # 1.4 K/mm3 (0.0-0.4); Hematocrit 25.2 % (42.0-52.0); Hemoglobin 8.8 g/dL (14.1-18.0); Lymphocytes # 2.3 K/mm3 (0.7-4.5); Lymphocytes % 25.6 % (10-50); Mean Corpuscular HGB Conc 34.9 g/dL (31.8-35.4); Mean Corpuscular Hemoglobin 30.1 pg (27.0-31.2); Mean Corpuscular Volume 86.4 fl (80-94); Mean Platelet Volume 7.4 fl (7.4-10.4); Monocytes # 0.3 K/mm3 (0.1-1.0); Monocytes % 3.5 % (1.7-9.3); Neutrophils # 4.8 K/mm3 (1.8-7.8); Neutrophils % 54.3 % (37.0-80.0); Platelet Count 411 K/mm3 (142-424); Red Blood Count 2.92 M/mm3 (4.60-6.20); Red Cell Distribution Width 15.5 % (11.5-17.5); White Blood Count 8.9 K/mm3 (4.8-10.8)
[2023-09-24 07:04] LABS: Alanine Aminotransferase 30 U/L (12-78); Albumin Level 3.2 g/dl (3.5-5.0); Alkaline Phosphatase 49 U/L (38-126); Aspartate Amino Transferase 40 U/L (17-59); Bilirubin,Direct 0.3 mg/dl (0.0-0.4); Bilirubin,Indirect 0.1 mg/dL (0.0-0.9); Bilirubin,Total 0.4 mg/dl (0.2-1.3); Bilirubin,Unconjugated 0.2 mg/dL (0.0-1.1); Chol/HDL Ratio 7.8 (1-3.5); Cholesterol 186 mg/dl (140-200); HDL Cholesterol 24 mg/dl (40-60); Total Protein,Serum 6.3 g/dl (6.3-8.2); Triglycerides 259 mg/dl (30-150); VLDL Cholesterol 52 mg/dL (0-40)
[2023-09-24 07:05] LABS: Anion Gap 10.6 mEq/L (5-15); Blood Urea Nitrogen 24 mg/dl (9-20); Calcium 8.4 mg/dl (8.4-10.2); Carbon Dioxide 24 mmol/L (22.0-30.0); Chloride 106 mmol/L (98-107); Creatinine Clearance Estimated 56 mL/min (50-200); Estimated Glomerular Filt Rate 38 ml/min (>60); GFR (African American) 46 ML/MIN (>60); Glucose 112 mg/dl (74-100); Potassium 4.6 mmoL/L (3.5-5.1); Sodium 136 mmol/L (136-145)
[2023-09-24 07:15] LABS: Direct LDL Cholesterol 94.66 mg/dL (100-129)
[2023-09-24] MEDS: ISOSORBIDE MONO 30MG TAB.ER.24H 30 MG PO (08:42)
[2023-09-24] MEDS: ASPIRIN EC 81MG TABLET 81 MG PO (08:42)
[2023-09-24] MEDS: METOPROLOL TARTRATE 25MG TABLET 37.5 MG PO ×2 (08:42→21:38)
[2023-09-24] MEDS: PANTOPRAZOLE 40MG TABLET 40 MG PO (08:42)
[2023-09-24 11:48] LABS: POC Glucose,Bedside 113 (70-110)
[2023-09-24 12:11] LABS: Basophils % 0.4 % (0.1-2.0); Eosinophils # 1.5 K/mm3 (0.0-0.4); Eosinophils % 16.8 % (0.1-12.0); Hematocrit 26.5 % (42.0-52.0); Hemoglobin 8.9 g/dL (14.1-18.0); Lymphocytes # 1.9 K/mm3 (0.7-4.5); Lymphocytes % 21.5 % (10-50); Mean Corpuscular HGB Conc 33.5 g/dL (31.8-35.4); Mean Corpuscular Hemoglobin 28.9 pg (27.0-31.2); Mean Platelet Volume 7.7 fl (7.4-10.4); Monocytes # 0.4 K/mm3 (0.1-1.0); Monocytes % 4.7 % (1.7-9.3); Neutrophils # 4.9 K/mm3 (1.8-7.8); Neutrophils % 56.7 % (37.0-80.0); Platelet Count 479 K/mm3 (142-424); Red Blood Count 3.09 M/mm3 (4.60-6.20); Red Cell Distribution Width 15.4 % (11.5-17.5); White Blood Count 8.7 K/mm3 (4.8-10.8)
[2023-09-24 12:16] LABS: Chloride 107 mmol/L (98-107)
[2023-09-24 12:17] LABS: Potassium 4.9 mmoL/L (3.5-5.1); Sodium 139 mmol/L (136-145)
[2023-09-24 12:19] LABS: Blood Urea Nitrogen 27 mg/dl (9-20); Creatinine Clearance Estimated 51 mL/min (50-200); Estimated Glomerular Filt Rate 34 ml/min (>60); GFR (African American) 41 ML/MIN (>60)
[2023-09-24 12:20] LABS: Anion Gap 11.9 mEq/L (5-15); Calcium 8.7 mg/dl (8.4-10.2); Carbon Dioxide 25 mmol/L (22.0-30.0); Glucose 107 mg/dl (74-100)
[2023-09-24] MEDS: HEPARIN 1,000 UNITS/500ML NS (CATH LAB) 3000 UNIT IV (13:31)
[2023-09-24] MEDS: LIDOCAINE 1% 10ML MDV 20 ML IJ (13:32)
[2023-09-24] MEDS: 0.9 % SODIUM CHLORIDE 500 ML 25 ML IV (13:32)
[2023-09-24] MEDS: diphenhydrAMINE 50MG/ML VIAL 50 MG IV (13:32)
[2023-09-24] MEDS: FENTANYL 100MCG/2ML VIAL 50 MCG IV (13:52)
[2023-09-24] MEDS: MIDAZOLAM HCL 1MG/1ML 5ML VIAL 1 MG IV (13:52)
--- NOTE | 2023-09-24 13:55 | P.PN_ITS ---
Subjective Subjective Date: 09/24/23 Time: 08:30 Principal diagnosis: angina, CAD, acute blood loss anemia Interval history: This is a 63-year-old white gentleman who was admitted to the hospital due to abnormal labs. The patient was found to be anemic and did get 2 units of packed red blood cells. He also underwent EGD yesterday which showed no active signs of bleeding. He was Hemoccult stool negative. The patient had been having an latanya with exertion. He states that anytime he exerts himself he is having pressure in his chest and associated shortness of breath. He states that while he is at rest he has no chest pain. Still having shortness of breath with exertion at this time. He denies any lower extremity edema. He denies any fever, chills, nausea, vomiting, diarrhea, PND or orthopnea. Exam Data for Last 24 hours Vital signs and Labs for Last 24 Hours: Temp Pulse Resp BP Pulse Ox O2 Del Method O2 Flow Rate 98.5 F 65 18 118/73 95 Room Air 4 09/24/23 11:37 09/24/23 11:37 09/24/23 11:37 09/24/23 11:37 09/24/23 11:37 09/24/23 11:37 09/23/23 13:39 Laboratory Results - last 24 hr 09/23/23 11:05: POC Glucose 120 H 09/23/23 17:49: POC Glucose 106 09/23/23 19:44: POC Glucose 275 H 09/23/23 22:50: Stool Occult Blood Negative 09/24/23 06:02: POC Glucose 113 H 09/24/23 06:43: WBC 8.9, RBC 2.92 L, Hgb 8.8 L, Hct 25.2 L, MCV 86.4, MCH 30.1, MCHC 34.9, RDW 15.5, Plt Count 411, MPV 7.4, Neut % (Auto) 54.3, Lymph % (Auto) 25.6, [place] % (Auto) 3.5, Eos % (Auto) 16.0 H, Baso % (Auto) 0.6, Neut # (Auto) 4.8, Lymph # (Auto) 2.3, [place] # (Auto) 0.3, Eos # (Auto) 1.4 H, Baso # (Auto) 0.1, Sodium 136, Potassium 4.6, Chloride 106, Carbon Dioxide 24, Anion Gap 10.6, BUN 24 H, Creatinine 1.80 H, Estimated Creat Clear 56, Estimated GFR 38 L, Est GFR ( Amer) 46 L, Glucose 112 H, Calcium 8.4, Total Bilirubin 0.4, Direct Bilirubin 0.3, Conjugated Bilirubin 0.0, Indirect Bilirubin 0.1, Unconjugated Bilirubin 0.2, AST 40, ALT 30, Alkaline Phosphatase 49, Total Protein 6.3, Albumin 3.2 L, Triglycerides 259 H, Cholesterol 186, LDL Cholesterol Direct 94.66 L, VLDL Cholesterol 52 H, HDL Cholesterol 24 L, Cholesterol/HDL Ratio 7.8 H 09/24/23 11:32: WBC 8.7, RBC 3.09 L, Hgb 8.9 L, Hct 26.5 L, MCV 86.0, MCH 28.9, MCHC 33.5, RDW 15.4, Plt Count 479 H, MPV 7.7, Neut % (Auto) 56.7, Lymph % (Auto) 21.5, [place] % (Auto) 4.7, Eos % (Auto) 16.8 H, Baso % (Auto) 0.4, Neut # (Auto) 4.9, Lymph # (Auto) 1.9, [place] # (Auto) 0.4, Eos # (Auto) 1.5 H, Baso # (Auto) 0.0, Sodium 139, Potassium 4.9, Chloride 107, Carbon Dioxide 25, Anion Gap 11.9, BUN 27 H, Creatinine 2.00 H, Estimated Creat Clear 51, Estimated GFR 34 L, Est GFR ( Amer) 41 L, Glucose 107 H, Calcium 8.7 09/24/23 11:42: POC Glucose 113 H I & O for Last 24 hours: Intake & Output 09/21/23 09/22/23 09/23/23 09/24/23 23:59 23:59 23:59 23:59 Intake Total 14098 2417 300 / 300 Output Total 0 / 0 0 / 0 0 / 0 0 / 0 Balance 1409 300 / 300 0 / 0 Weight 212 lb 0.649 oz 214 lb 9.6 oz 214 lb 9.603 oz 208 lb 6 oz Constitutional Constitutional: no acute distress and average body habitus *Routine HEENT Exam Head: Present normocephalic and atraumatic ENT: Present mucous membranes moist *Routine Neck Exam Neck: Present supple, full ROM and normal carotid upstroke; Absent JVD, carotid bruit or lymphadenopathy *Routine Respiratory Exam Respiratory: Present CTA bilaterally, normal respiratory effort, able to speak in complete sentences and symmetric chest movement *Routine Cardiovascular Exam Cardiovascular: Present RRR, Normal S1 and Normal S2; Absent murmur or gallop *Routine Abdominal Exam Abdominal: Present soft and normoactive bowel sounds; Absent tenderness, distended or organomegaly *Routine Extremities Exam Extremities: Present full ROM, pulses intact and normal capillary refill; Absent cyanosis, clubbing or edema *Routine Skin Exam Skin: Present intact and warm; Absent erythema *Routine Neurological Exam Neurological: Present alert, oriented X3 and CN II-XII intact; Absent sensory deficit or motor deficit Routine Psychiatric Exam Psychiatric: Present normal affect Progress Note: A&P Assessment and plan (1) Angina pectoris: Status: Acute (2) CAD (coronary artery disease): Status: Chronic (3) Diabetes mellitus: Status: Acute (4) HTN (hypertension): Status: Chronic (5) HLD (hyperlipidemia): Status: Chronic (6) History of coronary artery bypass graft: Status: Acute (7) COPD (chronic obstructive pulmonary disease): Status: Acute (8) RUSH (acute kidney injury): Status: Acute Assessment and Plan Assessment and Plan for All Diagnoses:: Plan: 1. The patient presented to the emergency department and was admitted to the hospital for abnormal labs. The patient was anemic with a hemoglobin of 7.5. He is status post 2 units of packed red blood cells and his hemoglobin is up to 8.8 today. We do recommend that the patient see hematology on an outpatient basis. Will defer management of his anemia to the hospitalist. 2. The patient does have angina and has been having angina with any amount of exertion that he is doing. The patient has a history of coronary artery disease and is status post coronary artery bypass grafting. Due to his angina and high pretest likelihood for worsening coronary artery disease we will plan to proceed with left cardiac catheterization today to evaluate his coronary artery disease. 3. The patient has been educated the risk and benefits of proceeding with left cardiac catheterization. The patient verbalizes understanding and is agreeable in proceeding with the procedure. 4. The patient will be n.p.o. in preparation for left cardiac catheterization. 5. Coronary artery disease is present. 6. His blood pressure is well-controlled. 7. His LDL goal is less than 55. His LDL is 94. Will stop Pravachol and start Lipitor 80 mg p.o. nightly. 8. The patient did have a general surgery consult. He underwent EGD which showed no active signs of bleeding. His Hemoccult stool was negative. General surgery does recommend a colonoscopy and capsule small bowel follow-through as an outpatient. 9. The patient does have a history of COPD. Will defer management this to the hospitalist. 10. The patient is diabetic. He needs aggressive control of his diabetes. Will defer to the hospitalist. 11. Continue isosorbide for his angina. 12. Further recommendations will be made pending the patient's response to treatment. Thank you for the opportunity to participate in the care of this patient. All recommendations and orders are per Dr. Rosario.
[2023-09-24] MEDS: HEPARIN 1,000 UNITS/ML 10ML VIAL (CATH LAB) 10000 UNIT IV (14:20)
[2023-09-24] MEDS: CLOPIDOGREL 300MG TABLET 600 MG PO (14:20)
--- NOTE | 2023-09-24 14:20 | P.PN_ITS ---
Subjective *Date: 09/24/23 *Time: 14:20 Interval history: Patient has no chest pain this morning. Stable on her mare function stable, creatinine 1.8. Cardiology evaluating for possible cath today. No nausea or vomiting. Medical Exam Vital signs and Labs for Last 24 Hours: Vital Signs Temp Pulse Pulse Resp BP Pulse Ox O2 Del Method 09/24/23 11:00 Room Air 09/24/23 11:37 98.5 F 65 18 118/73 95 Room Air 09/24/23 08:00 70 09/24/23 08:00 98.0 F 76 16 126/72 96 Room Air 09/24/23 06:47 Room Air 09/24/23 05:00 Room Air 09/24/23 05:53 61 09/24/23 05:53 64 09/24/23 04:00 60 09/24/23 04:00 98.4 F 65 18 110/61 99 09/24/23 03:00 Room Air 09/24/23 01:00 Room Air 09/24/23 00:00 54 L 09/23/23 20:00 84 09/24/23 00:00 97.7 F 64 18 143/83 H 97 Room Air 09/23/23 23:00 Room Air 09/23/23 21:00 Room Air 09/23/23 20:00 Room Air 09/23/23 20:00 98.0 F 81 16 132/74 96 09/23/23 18:34 Room Air 09/23/23 18:21 65 09/23/23 18:21 66 09/23/23 18:21 97 Room Air 09/23/23 17:00 Room Air 09/23/23 17:15 61 20 124/75 98 Room Air 09/23/23 16:00 62 09/23/23 16:00 Room Air 09/23/23 16:15 63 18 122/70 95 Room Air 09/23/23 15:45 62 18 101/72 L 96 Room Air 09/23/23 15:15 60 20 98/67 L 96 Room Air 09/23/23 15:00 66 20 110/70 95 Room Air 09/23/23 14:50 Room Air 09/23/23 14:45 60 16 100/58 L 96 Room Air 09/23/23 14:30 65 18 119/59 L 97 Room Air Intake and Output 09/23/23 09/24/23 09/24/23 23:59 07:59 15:59 Output Total 0 / 0 0 / 0 Balance 0 / 300 0 / 0 Output: Output, Urine Amount 0 / 0 0 / 0 Other: Number of Unmeasured Voids 1 1 Number of Bowel Movements 1 Weight 94.517 kg Patient Weight 09/24/23 23:59 Weight 94.517 kg Laboratory Results - last 24 hr 09/23/23 11:05: POC Glucose 120 H 09/23/23 17:49: POC Glucose 106 09/23/23 19:44: POC Glucose 275 H 09/23/23 22:50: Stool Occult Blood Negative 09/24/23 06:02: POC Glucose 113 H 09/24/23 06:43: WBC 8.9, RBC 2.92 L, Hgb 8.8 L, Hct 25.2 L, MCV 86.4, MCH 30.1, MCHC 34.9, RDW 15.5, Plt Count 411, MPV 7.4, Neut % (Auto) 54.3, Lymph % (Auto) 25.6, [place] % (Auto) 3.5, Eos % (Auto) 16.0 H, Baso % (Auto) 0.6, Neut # (Auto) 4.8, Lymph # (Auto) 2.3, [place] # (Auto) 0.3, Eos # (Auto) 1.4 H, Baso # (Auto) 0.1, Sodium 136, Potassium 4.6, Chloride 106, Carbon Dioxide 24, Anion Gap 10.6, BUN 24 H, Creatinine 1.80 H, Estimated Creat Clear 56, Estimated GFR 38 L, Est GFR ( Amer) 46 L, Glucose 112 H, Calcium 8.4, Total Bilirubin 0.4, Direct Bilirubin 0.3, Conjugated Bilirubin 0.0, Indirect Bilirubin 0.1, Unconjugated Bilirubin 0.2, AST 40, ALT 30, Alkaline Phosphatase 49, Total Protein 6.3, Albumin 3.2 L, Triglycerides 259 H, Cholesterol 186, LDL Cholesterol Direct 94.66 L, VLDL Cholesterol 52 H, HDL Cholesterol 24 L, Cholesterol/HDL Ratio 7.8 H 09/24/23 11:32: WBC 8.7, RBC 3.09 L, Hgb 8.9 L, Hct 26.5 L, MCV 86.0, MCH 28.9, MCHC 33.5, RDW 15.4, Plt Count 479 H, MPV 7.7, Neut % (Auto) 56.7, Lymph % (Auto) 21.5, [place] % (Auto) 4.7, Eos % (Auto) 16.8 H, Baso % (Auto) 0.4, Neut # (Auto) 4.9, Lymph # (Auto) 1.9, [place] # (Auto) 0.4, Eos # (Auto) 1.5 H, Baso # (Auto) 0.0, Sodium 139, Potassium 4.9, Chloride 107, Carbon Dioxide 25, Anion Gap 11.9, BUN 27 H, Creatinine 2.00 H, Estimated Creat Clear 51, Estimated GFR 34 L, Est GFR ( Amer) 41 L, Glucose 107 H, Calcium 8.7 09/24/23 11:42: POC Glucose 113 H I & O for Labs for Last 24 Hours: Intake & Output 09/21/23 09/22/23 09/23/23 09/24/23 23:59 23:59 23:59 23:59 Intake Total 1410 / 2648 2418 / 2418 300 / 300 Output Total 0 / 0 0 / 0 0 / 0 0 / 0 Balance 1410 / 2648 2418 / 2418 300 / 300 0 / 0 Weight 96.18 kg 97.341 kg 97.341 kg 94.517 kg Constitutional: Present no acute distress, obese and chronically ill appearing Head: Present atraumatic and normocephalic ENT: Present normal exam Respiratory: Present normal respiratory effort; Absent rhonchi, wheezes or crackles Cardiac: Present Reg Rate and Rhythm GI: Present normal bowel sounds; Absent tenderness Extremities: Present normal inspection and full ROM Skin: Present intact; Absent erythema Neuro: Present Grossly Intact, alert, awake, oriented x 3 and moves all extremities Assessment and Plan *Assessment and plan (1) RUSH (acute kidney injury): Status: Acute Category: Medical Code(s): N17.9 - Acute kidney failure, unspecified (2) Chest pain: Status: Acute Qualifiers: Chest pain type: other chest pain Qualified Code(s): R07.89 - Other chest pain Category: Medical Code(s): R07.9 - Chest pain, unspecified (3) Edema of lower extremity: Status: Acute Category: Medical Code(s): R60.0 - Localized edema (4) Diabetes mellitus: Status: Acute Qualifiers: Diabetes mellitus type: type 2 Diabetes mellitus prison insulin use: with prison use Diabetes mellitus complication status: with other specified complication Qualified Code(s): E11.69 - Type 2 diabetes mellitus with other specified complication; 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 transplanted heart: [place] heart Associated angina: without angina Qualified Code(s): I25.10 - Atherosclerotic heart disease of [place] coronary artery without angina pectoris Category: Medical Code(s): I25.10 - Atherosclerotic heart disease of [place] coronary artery without angina pectoris (6) HTN (hypertension): Status: Chronic Qualifiers: Hypertension type: essential hypertension Qualified Code(s): I10 - Essential (primary) hypertension Category: Medical Code(s): I10 - Essential (primary) hypertension (7) HLD (hyperlipidemia): Status: Chronic Qualifiers: Hyperlipidemia type: mixed hyperlipidemia Qualified Code(s): E78.2 - Mixed hyperlipidemia Category: Medical Code(s): E78.5 - Hyperlipidemia, unspecified Plan 63-year-old male with a history of CAD, hypertension, hyperlipidemia, CKD, previous admission for RUSH on CKD, and type 2 diabetes presenting to the emergency department with concern for abnormal labs. According the patient, he saw his primary care provider 2 days ago at which point they kristy labs. On arrival patient presented slightly tachycardic. EKG was obtained and reviewed. right bundle block, with some PVCs. Labs was obtained. Grossly unremarkable. Troponins are negative. However creatinine is elevated but trending down from previous office visit. Findings discussed with the ER provider for admission. Creatinine has remained stable, 1.8 this morning. Suspect this is likely his baseline. Hemoglobin stable but persistently anemic. Cardiology consulted and assisting with care. Taken for left heart cath today, appreciate their recommendations. Problems addressed as follows: -Intermittent chest pain: - CAD -Hypertension -Hyperlipidemia Cardiology consulted, appreciate recommendations. EKG with right bundle branch block and some PVCs. Planning for left heart cath today. Discussed case with cardiology, further recommendations pending findings during cath. Evaluated by surgery because of anemia, no overt signs of bleeding. Okay to proceed with heart cath Loaded with Plavix 600 mg x 1, continue isosorbide mononitrate 30 mg daily, continue metoprolol 37.5 mg twice daily. Continue aspirin 81 mg daily, continue Lipitor 80 mg nightly -Insulin-dependent diabetes with hyperglycemia: Continue fingersticks ACHS sliding insulin with his, continue insulin degludec 10 units nightly RUSH over CKD -Creatinine 1.8, BUN 24. Suspect kidney function is at baseline for patient and likely CKD 3-4. Will monitor overnight with repeat CMP and magnesium in the morning given contrast load above with heart cath Anemia Hemoglobin 8.8 this morning. No overt signs of bleeding. GS consulted per cardiology to r/o GIB, none noted Repeat CBC ordered for the morning Lovenox for DVT prophylaxis. On Protonix for GI bleeding Full code
[2023-09-24] MEDS: IOPAMIDOL-370 (76%);100ML BOTTLE 90 ML IV (14:41)
[2023-09-24 14:42] LABS: CATHL Activated Clotting Time 251 SEC (74-125)
[2023-09-24 17:10] LABS: POC Glucose,Bedside 171 (70-110)
--- NOTE | 2023-09-24 18:58 | PC.NURSE ---
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 Patient got 2 renal stents. Patient has had no c/o pain and vss.
[2023-09-24] MEDS: ATORVASTATIN 40MG TABLET 80 MG PO (21:38)
[2023-09-24] MEDS: INSULIN DEGLUDEC 100 UNIT/ML 10 EACH SQ (21:39)
[2023-09-25] VITALS: BP 138/95; PULSE 68; PULSE 69; RESP 18; TEMP 36.5; O2SAT 95
[2023-09-25 04:00] VITALS: BP 109/58; PULSE 64; RESP 16; TEMP 36.9; O2SAT 94; BMI 35.0
[2023-09-25] MEDS: HEPARIN SODIUM 5,000 UNIT/ML VIAL 5000 UNIT SQ (05:39)
[2023-09-25 05:48] LABS: POC Glucose,Bedside 134 (70-110)
[2023-09-25] MEDS: BREZTRI AEROSPHERE 2 EACH IH (06:23)
[2023-09-25] MEDS: IPRATROPIUM/ALBUTEROL 3 ML NEB IH (06:23)
[2023-09-25 06:24] VITALS: PULSE 71; PULSE 72; O2SAT 96
[2023-09-25 06:45] LABS: Alanine Aminotransferase 35 U/L (12-78); Albumin Level 3.1 g/dl (3.5-5.0); Alkaline Phosphatase 50 U/L (38-126); Anion Gap 7.9 mEq/L (5-15); Aspartate Amino Transferase 45 U/L (17-59); Basophils # 0.1 K/mm3 (0-0.2); Basophils % 0.6 % (0.1-2.0); Bilirubin,Total 0.2 mg/dl (0.2-1.3); Blood Urea Nitrogen 24 mg/dl (9-20); Calcium 8.5 mg/dl (8.4-10.2); Carbon Dioxide 26 mmol/L (22.0-30.0); Chloride 107 mmol/L (98-107); Creatinine Clearance Estimated 47 mL/min (50-200); Eosinophils % 12.6 % (0.1-12.0); Estimated Glomerular Filt Rate 32 ml/min (>60); GFR (African American) 39 ML/MIN (>60); Globulin 3.1 g/dL (1.3-3.2); Glucose 102 mg/dl (74-100); Hematocrit 27.4 % (42.0-52.0); Hemoglobin 8.9 g/dL (14.1-18.0); Lymphocytes # 1.9 K/mm3 (0.7-4.5); Lymphocytes % 22.8 % (10-50); Mean Corpuscular HGB Conc 32.5 g/dL (31.8-35.4); Mean Corpuscular Hemoglobin 28.1 pg (27.0-31.2); Mean Corpuscular Volume 86.5 fl (80-94); Mean Platelet Volume 7.7 fl (7.4-10.4); Monocytes # 0.3 K/mm3 (0.1-1.0); Monocytes % 3.7 % (1.7-9.3); Neutrophils # 4.9 K/mm3 (1.8-7.8); Neutrophils % 60.4 % (37.0-80.0); Platelet Count 440 K/mm3 (142-424); Potassium 4.9 mmoL/L (3.5-5.1); Red Blood Count 3.16 M/mm3 (4.60-6.20); Red Cell Distribution Width 15.4 % (11.5-17.5); Sodium 136 mmol/L (136-145); Total Protein,Serum 6.2 g/dl (6.3-8.2); White Blood Count 8.2 K/mm3 (4.8-10.8)
--- NOTE | 2023-09-25 07:39 | P.DS_ITS ---
General Admission date:: 09/20/23 Discharge date: 09/25/23 HPI HPI HPI: Patient is a 63-year-old male from [facility] with history of coronary artery disease status post previous CABG, hypertension, hyperlipidemia, chronic kidney disease, type 2 diabetes, COPD, prior history of heavy tobacco use. He had smoked until relatively recently. He has been trying to quit over a couple of months. He had admission several weeks ago for COPD exacerbation and was treated medically including with steroids and antibiotics for some time. He was apparently seen by his primary care provider on 09/18/2022. Outpatient blood work was drawn. When this returned there was abnormality and apparent concern for progressive renal insufficiency as well as anemia. He was instructed to go to the emergency department. He went to the emergency department and was seen and evaluated in the very research animal attendant hours of 09/20/2023. He has described symptoms of chest pain with exertion, shortness of air with exertion. Evaluat ion in the emergency department revealed a hemoglobin of 7.5 with hematocrit 22.6. BUN 74 with creatinine of 2.4. Baseline hemoglobin in August prior to admission is greater than 12. He had been treated for iron deficiency anemia with iron supplementation previously as an outpatient. He did notice dark tarry stools while on oral iron supplementation. After patient was seen in the emergency department on 09/20/2023 the patient was admitted to the hospitalist service on for inpatient management. He was transfused a couple units of packed red blood cells with suboptimal posttransfusion hemoglobin in the mid 8 range. Patient was seen by cardiology. Transfusion was recommended by cardiology as previously stated given his history of coronary disease. Patient was started on proton pump inhibitors. Cardiology is apparently planning heart catheterization. Patient likely may need anticoagulation following heart catheterization. Cardiology ordered General surgery consultation today for acute anemia/concern for GI bleed. Hospital Course Hospital Course Hospital Course: 63-year-old male with a history of CAD, hypertension, hyperlipidemia, CKD, previous admission for RUSH on CKD, and type 2 diabetes presenting to the emergency department with concern for abnormal labs. According the patient, he saw his primary care provider 2 days ago at which point they kristy labs. On arrival patient presented slightly tachycardic. EKG was obtained and reviewed. right bundle block, with some PVCs. Labs was obtained. Grossly unremarkable. Troponins are negative. Given his extensive disease, cardiology was consulted and he was taken for left heart cath. Coronaries found to be patent but renal angiogram showed severe stenosis. Problems addressed as follows below. Stable for discharge home. Follow-up with cardiology as an outpatient. -Intermittent chest pain: - CAD -Hypertension -Hyperlipidemia The patient did have angina and underwent left cardiac catheterization yesterday. His coronary artery disease is patent and no percutaneous intervention was required. During the left cardiac catheterization yesterday a renal angiogram was also performed. The patient was found to have severe left renal artery stenosis. He underwent bifurcating stents to the left renal artery. Cardiac stents were used. He will need to be on dual antiplatelet therapy with Plavix and aspirin for 1 year. His blood pressure is well- controlled. No further recommendations at this time from a cardiac standpoint. The patient will need to follow-up in cardiology clinic in 1 to 2 weeks on an outpatient basis. Continue Lipitor 80 mg daily, Plavix 75 mg daily, isosorbide 30 mg daily, aspirin 81 mg daily, and resume home losartan/HCTZ along with metoprolol 37.5 mg BID. Insulin-dependent diabetes with hyperglycemia: Managed with long acting and SSI during admission. Resume home regimen on discharge. A1c 8.2 on admission. CKD: Creatinine 1.8-2.1 during admisson with BUN in the 20s. consistent with CKD 3-4. stable after cath. making adequate urine. Anemia: Hemoglobin 7.5 on admission, received 2 units transfusion. Surgery was consulted to rule out GI bleed. No active signs of bleeding. CBC stable after transfusion. 8.9 on day of discharge. Initiated on pantoprazole 40 mg daily. Spent 30 minutes in discharge counseling, documentation, chart review, and direct care with patient. Exam Data for Last 24 hours Vital signs and Labs for Last 24 Hours: Temp Pulse Resp BP Pulse Ox O2 Del Method O2 Flow Rate 98.4 F 72 16 109/58 L 96 Room Air 4 09/25/23 04:00 09/25/23 06:24 09/25/23 04:00 09/25/23 04:00 09/25/23 06:24 09/25/23 06:48 09/23/23 13:39 Laboratory Results - last 24 hr 09/24/23 11:32: WBC 8.7, RBC 3.09 L, Hgb 8.9 L, Hct 26.5 L, MCV 86.0, MCH 28.9, MCHC 33.5, RDW 15.4, Plt Count 479 H, MPV 7.7, Neut % (Auto) 56.7, Lymph % (Auto) 21.5, [place] % (Auto) 4.7, Eos % (Auto) 16.8 H, Baso % (Auto) 0.4, Neut # (Auto) 4.9, Lymph # (Auto) 1.9, [place] # (Auto) 0.4, Eos # (Auto) 1.5 H, Baso # (Auto) 0.0, Sodium 139, Potassium 4.9, Chloride 107, Carbon Dioxide 25, Anion Gap 11.9, BUN 27 H, Creatinine 2.00 H, Estimated Creat Clear 51, Estimated GFR 34 L, Est GFR ( Amer) 41 L, Glucose 107 H, Calcium 8.7 09/24/23 11:42: POC Glucose 113 H 09/24/23 14:46: Activated Clotting Time 251 H* 09/24/23 17:03: POC Glucose 171 H 09/25/23 05:31: WBC 8.2, RBC 3.16 L, Hgb 8.9 L, Hct 27.4 L, MCV 86.5, MCH 28.1, MCHC 32.5, RDW 15.4, Plt Count 440 H, MPV 7.7, Neut % (Auto) 60.4, Lymph % (Auto) 22.8, [place] % (Auto) 3.7, Eos % (Auto) 12.6 H, Baso % (Auto) 0.6, Neut # (Auto) 4.9, Lymph # (Auto) 1.9, [place] # (Auto) 0.3, Eos # (Auto) 1.0 H, Baso # (Auto) 0.1, Sodium 136, Potassium 4.9, Chloride 107, Carbon Dioxide 26, Anion Gap 7.9, BUN 24 H, Creatinine 2.10 H, Estimated Creat Clear 47, Estimated GFR 32 L, Est GFR ( Amer) 39 L, Glucose 102 H, Calcium 8.5, Magnesium 2.0, Total Bilirubin 0.2, AST 45, ALT 35, Alkaline Phosphatase 50, Total Protein 6.2 L, Albumin 3.1 L, Globulin 3.1, Albumin/Globulin Ratio 1.0 L 09/25/23 05:39: POC Glucose 134 H I & O for Last 24 hours: Intake & Output 09/22/23 09/23/23 09/24/23 09/25/23 23:59 23:59 23:59 23:59 Intake Total 2418 / 2418 300 / 300 240 / 240 Output Total 0 / 0 0 / 0 600 / 600 0 / 0 Balance 2418 / 2418 300 / 300 -360 / -360 0 / 0 Weight 97.341 kg 97.341 kg 94.517 kg 93.168 kg Constitutional Constitutional: no acute distress, obese and chronically ill appearing *Routine HEENT Exam Head: Present normocephalic Eye: Present EOMI and PERRL ENT: Present mucous membranes moist *Routine Neck Exam Neck: Present supple; Absent lymphadenopathy *Routine Respiratory Exam Respiratory: Present CTA bilaterally *Routine Cardiovascular Exam Cardiovascular: Present RRR *Routine Abdominal Exam Abdominal: Present soft and normoactive bowel sounds; Absent tenderness *Routine Extremities Exam Extremities: Present edema (trace); Absent cyanosis or clubbing *Routine Skin Exam Skin: Present warm; Absent rash *Routine Neurological Exam Neurological: Present alert, oriented X3 and moving all extremities; Absent altered mental status Results Data Completed and Pending Labs on day of discharge: Labs from last 24 hours 09/25/23 09/25/23 09/24/23 05:39 05:31 17:03 WBC 8.2 RBC 3.16 L Hgb 8.9 L Hct 27.4 L MCV 86.5 MCH 28.1 MCHC 32.5 RDW 15.4 Plt Count 440 H MPV 7.7 Neut % (Auto) 60.4 Lymph % (Auto) 22.8 [place] % (Auto) 3.7 Eos % (Auto) 12.6 H Baso % (Auto) 0.6 Neut # (Auto) 4.9 Lymph # (Auto) 1.9 [place] # (Auto) 0.3 Eos # (Auto) 1.0 H Baso # (Auto) 0.1 Activated Clotting Time Sodium 136 Potassium 4.9 Chloride 107 Carbon Dioxide 26 Anion Gap 7.9 BUN 24 H Creatinine 2.10 H Estimated Creat Clear 47 Estimated GFR 32 L Est GFR ( Amer) 39 L Glucose 102 H POC Glucose 134 H 171 H Calcium 8.5 Magnesium 2.0 Total Bilirubin 0.2 AST 45 ALT 35 Alkaline Phosphatase 50 Total Protein 6.2 L Albumin 3.1 L Globulin 3.1 Albumin/Globulin Ratio 1.0 L 09/24/23 09/24/23 09/24/23 14:46 11:42 11:32 WBC 8.7 RBC 3.09 L Hgb 8.9 L Hct 26.5 L MCV 86.0 MCH 28.9 MCHC 33.5 RDW 15.4 Plt Count 479 H MPV 7.7 Neut % (Auto) 56.7 Lymph % (Auto) 21.5 [place] % (Auto) 4.7 Eos % (Auto) 16.8 H Baso % (Auto) 0.4 Neut # (Auto) 4.9 Lymph # (Auto) 1.9 [place] # (Auto) 0.4 Eos # (Auto) 1.5 H Baso # (Auto) 0.0 Activated Clotting Time 251 H* Sodium 139 Potassium 4.9 Chloride 107 Carbon Dioxide 25 Anion Gap 11.9 BUN 27 H Creatinine 2.00 H Estimated Creat Clear 51 Estimated GFR 34 L Est GFR ( Amer) 41 L Glucose 107 H POC Glucose 113 H Calcium 8.7 Magnesium Total Bilirubin AST ALT Alkaline Phosphatase Total Protein Albumin Globulin Albumin/Globulin Ratio DS: Diagnosis Discharge Diagnosis (1) RUSH (acute kidney injury): Status: Acute Code(s): N17.9 - Acute kidney failure, unspecified (2) Chest pain: Status: Resolved Code(s): R07.9 - Chest pain, unspecified Qualifiers: Chest pain type: other chest pain Qualified Code(s): R07.89 - Other chest pain (3) Edema of lower extremity: Status: Acute Code(s): R60.0 - Localized edema (4) Diabetes mellitus: Status: Acute Code(s): E11.9 - Type 2 diabetes mellitus without complications Qualifiers: Diabetes mellitus complication status: with other specified complication Diabetes mellitus manager digital insulin use: with manager digital use Diabetes mellitus type: type 2 Qualified Code(s): E11.69 - Type 2 diabetes mellitus with other specified complication; Z79.4 - care home (current) use of insulin (5) CAD (coronary artery disease): Status: Chronic Code(s): I25.10 - Atherosclerotic heart disease of [place] coronary artery without angina pectoris Qualifiers: Associated angina: without angina Coronary Disease-Associated Artery/Lesion type: [place] artery [place] vs. transplanted heart: [place] heart Qualified Code(s): I25.10 - Atherosclerotic heart disease of [place] coronary artery without angina pectoris (6) HTN (hypertension): Status: Chronic Code(s): I10 - Essential (primary) hypertension Qualifiers: Hypertension type: essential hypertension Qualified Code(s): I10 - Essential (primary) hypertension (7) HLD (hyperlipidemia): Status: Chronic Code(s): E78.5 - Hyperlipidemia, unspecified Qualifiers: Hyperlipidemia type: mixed hyperlipidemia Qualified Code(s): E78.2 - Mixed hyperlipidemia Meds Home Medications and Allergies Home Medications Medication Instructions Recorded Confirmed Type aspirin 81 mg tablet,delayed 81 mg PO DAILY 30 days #30 tabs 07/15/23 09/20/23 Rx release (Adult Low Dose Aspirin) insulin degludec 100 unit/mL (3 10 unit (0.1 mL) SQ HS 30 days #3 07/26/23 09/20/23 Rx mL) subcutaneous pen (Tresiba mL FlexTouch U-100 insulin) pen needle, diabetic 32 gauge x #100 ea 07/26/23 09/20/23 Rx 3/16 (Comfort EZ Pen Beeson) ipratropium 0.5 mg-albuterol 3 mg 3 ml inhalation BID 30 days #180 mL 08/26/23 09/20/23 Rx (2.5 mg base)/3 mL nebulization soln losartan 50 mg-hydrochlorothiazide 1 tab PO DAILY 08/26/23 09/20/23 History 12.5 mg tablet budesonide 160 mcg-glycopyr 9 2 inh inhalation BID #10.7 grams 08/27/23 09/20/23 Rx mcg-formot 4.8 mcg/actuation HFA inhaler (Breztri Aerosphere) albuterol sulfate 90 mcg/actuation 2 puff inhalation Q6HP PRN 09/20/23 09/20/23 History aerosol inhaler Shortness of breath and Wheezing metformin 500 mg tablet 500 mg PO BID 30 days #60 tabs 09/20/23 09/20/23 Rx metoprolol tartrate 25 mg tablet 37.5 mg PO BID 09/20/23 09/20/23 History nitroglycerin 0.4 mg sublingual 0.4 mg sublingual Q5M PRN chest 09/20/23 Rx tablet pain #25 tabs atorvastatin 80 mg tablet (Lipitor) 80 mg PO HS 30 days #30 tabs 09/25/23 Rx clopidogrel 75 mg tablet 75 mg PO DAILY 30 days #30 tabs 09/25/23 Rx isosorbide mononitrate 30 mg 30 mg PO DAILY 30 days #30 tabs 09/25/23 Rx tablet,extended release 24 hr pantoprazole 40 mg tablet,delayed 40 mg PO DAILY 30 days #30 tabs 09/25/23 Rx release New Prescriptions to Start Prescriptions: atorvastatin [Lipitor] Saqib Tucker clopidogrel Garrett,Saqib isosorbide mononitrate Saqib Tucker pantoprazole Saqib Tucker Allergies Allergy/AdvReac Type Severity Reaction Status Date / Time No Known Allergies Allergy Verified 09/18/23 08:46 Discharge Plan Disposition Patient Disposition: Home, Self-Care Condition: Fair Follow up Plan Follow up with: Sage Butts MD [Staff Physician] - 10/10/23 9:45 am Cindy Diaz APRN [Primary Care Provider] - 10/02/23 10:00 am Georges Rosario MD [Staff Physician] - 10/02/23 2:15 pm Prescriptions/Medication Reconciliation: New atorvastatin [Lipitor] 80 mg tablet 80 mg PO HS 30 Days Qty: 30 0RF isosorbide mononitrate 30 mg Tablet Extended Release 24 Hr 30 mg PO DAILY 30 Days Qty: 30 0RF clopidogrel 75 mg Tablet 75 mg PO DAILY 30 Days Qty: 30 0RF pantoprazole 40 mg Tablet,Delayed Release (Dr/Ec) 40 mg PO DAILY 30 Days Qty: 30 0RF Continued aspirin [Adult Low Dose Aspirin] 81 mg tablet,delayed release (DR/EC) 81 mg PO DAILY 30 Days Qty: 30 11RF Tresiba FlexTouch U-100 100 unit/mL (3 mL) insulin pen 10 unit SQ HS 30 Days Qty: 3 6RF (DME) pen needle, diabetic [Comfort EZ Pen Beeson] 32 gauge x 3/16 needle See Rx Instructions .Route Qty: 100 0RF Rx Instructions: As directed metformin 500 mg tablet 500 mg PO BID 30 Days Qty: 60 2RF nitroglycerin 0.4 mg tablet, sublingual 0.4 mg sublingual Q5M PRN (Reason: chest pain) Qty: 25 0RF Rx Instructions: do not exceed 3 doses per episode losartan-hydrochlorothiazide 50-12.5 mg tablet 1 tab PO DAILY Hold Instructions: Resume on 08/29/23. Resume after 3 days and follow up with your primary care for blood care ipratropium-albuterol 0.5 mg-3 mg(2.5 mg base)/3 mL solution for nebulization 3 ml inhalation BID 30 Days Qty: 180 0RF Breztri Aerosphere 160-9-4.8 mcg/actuation HFA aerosol inhaler 2 inh inhalation BID Qty: 10.7 0RF albuterol sulfate 90 mcg/actuation HFA aerosol inhaler 2 puff INHALATION Q6HP PRN (Reason: Shortness of breath and Wheezing) metoprolol tartrate 25 mg tablet 37.5 mg PO BID Discontinued pravastatin 20 mg tablet 20 mg PO DAILY Qty: 30 2RF isosorbide mononitrate 60 mg tablet extended release 24 hr 60 mg PO DAILY Qty: 30 3RF Problem Reconciliation Problems Reviewed?: Yes Patient Discharge Instructions ACTIVITY: Continue current activity DIET: continue same diet Stand Alone Forms: [facility] Work Release Patient Instructions: Anemia, Calorie-Counting Diet, DI for Surgical Site Infection, DI for Chest Pain, DI for Acute Kidney Injury Providers Primary Care Provider: Cindy Diaz Admit Provider: Ana Jacobs Attending Provider: Ana Jacobs
[2023-09-25 08:00] VITALS: BP 146/76; PULSE 70; PULSE 77; RESP 18; TEMP 36.6; O2SAT 97
[2023-09-25] MEDS: METOPROLOL TARTRATE 25MG TABLET 37.5 MG PO (08:02)
[2023-09-25] MEDS: ISOSORBIDE MONO 30MG TAB.ER.24H 30 MG PO (08:02)
[2023-09-25] MEDS: ASPIRIN EC 81MG TABLET 81 MG PO (08:02)
[2023-09-25] MEDS: PANTOPRAZOLE 40MG TABLET 40 MG PO (08:03)
[2023-09-25] MEDS: CLOPIDOGREL 75MG TAB 75 MG PO (08:05)
--- NOTE | 2023-09-25 09:51 | EXP.CARD.PN ---
Subjective Subjective Date: 09/25/23 Time: 08:30 Principal diagnosis: angina, CAD, acute blood loss anemia Interval history: This is a 63-year-old white gentleman who presented to the hospital with abnormal labs. Patient was found to be anemic and did get 2 units of packed red blood cells. He also underwent EGD which showed no active signs of bleeding and he was Hemoccult stool negative. The patient also underwent left cardiac catheterization during this hospitalization. He had stenting to the left renal artery. His coronary artery disease was patent. Today he denies any chest pain or pressure. He denies any shortness of breath or edema. He denies any fever, chills, nausea, vomiting, diarrhea, PND or orthopnea. His anemia is now stable. Exam Data for Last 24 hours Vital signs and Labs for Last 24 Hours: Temp Pulse Resp BP Pulse Ox O2 Del Method O2 Flow Rate 97.8 F 77 18 146/76 H 97 Room Air 4 09/25/23 08:00 09/25/23 08:00 09/25/23 08:00 09/25/23 08:00 09/25/23 08:00 09/25/23 08:45 09/23/23 13:39 Laboratory Results - last 24 hr 09/24/23 11:32: WBC 8.7, RBC 3.09 L, Hgb 8.9 L, Hct 26.5 L, MCV 86.0, MCH 28.9, MCHC 33.5, RDW 15.4, Plt Count 479 H, MPV 7.7, Neut % (Auto) 56.7, Lymph % (Auto) 21.5, [place] % (Auto) 4.7, Eos % (Auto) 16.8 H, Baso % (Auto) 0.4, Neut # (Auto) 4.9, Lymph # (Auto) 1.9, [place] # (Auto) 0.4, Eos # (Auto) 1.5 H, Baso # (Auto) 0.0, Sodium 139, Potassium 4.9, Chloride 107, Carbon Dioxide 25, Anion Gap 11.9, BUN 27 H, Creatinine 2.00 H, Estimated Creat Clear 51, Estimated GFR 34 L, Est GFR ( Amer) 41 L, Glucose 107 H, Calcium 8.7 09/24/23 11:42: POC Glucose 113 H 09/24/23 14:46: Activated Clotting Time 251 H* 09/24/23 17:03: POC Glucose 171 H 09/25/23 05:31: WBC 8.2, RBC 3.16 L, Hgb 8.9 L, Hct 27.4 L, MCV 86.5, MCH 28.1, MCHC 32.5, RDW 15.4, Plt Count 440 H, MPV 7.7, Neut % (Auto) 60.4, Lymph % (Auto) 22.8, [place] % (Auto) 3.7, Eos % (Auto) 12.6 H, Baso % (Auto) 0.6, Neut # (Auto) 4.9, Lymph # (Auto) 1.9, [place] # (Auto) 0.3, Eos # (Auto) 1.0 H, Baso # (Auto) 0.1, Sodium 136, Potassium 4.9, Chloride 107, Carbon Dioxide 26, Anion Gap 7.9, BUN 24 H, Creatinine 2.10 H, Estimated Creat Clear 47, Estimated GFR 32 L, Est GFR ( Amer) 39 L, Glucose 102 H, Calcium 8.5, Magnesium 2.0, Total Bilirubin 0.2, AST 45, ALT 35, Alkaline Phosphatase 50, Total Protein 6.2 L, Albumin 3.1 L, Globulin 3.1, Albumin/Globulin Ratio 1.0 L 09/25/23 05:39: POC Glucose 134 H I & O for Last 24 hours: Intake & Output 09/22/23 09/23/23 09/24/23 09/25/23 23:59 23:59 23:59 23:59 Intake Total 2418 / 2418 300 / 300 240 / 240 540 / 540 Output Total 0 / 0 0 / 0 600 / 600 0 / 0 Balance 2418 / 2418 300 / 300 -360 / -360 540 / 540 Weight 214 lb 9.6 oz 214 lb 9.603 oz 208 lb 6 oz 205 lb 6.4 oz Constitutional Constitutional: no acute distress and average body habitus *Routine HEENT Exam Head: Present normocephalic and atraumatic ENT: Present mucous membranes moist *Routine Neck Exam Neck: Present supple, full ROM and normal carotid upstroke; Absent JVD, carotid bruit or lymphadenopathy *Routine Respiratory Exam Respiratory: Present CTA bilaterally, normal respiratory effort, able to speak in complete sentences and symmetric chest movement *Routine Cardiovascular Exam Cardiovascular: Present RRR, Normal S1 and Normal S2; Absent murmur or gallop *Routine Abdominal Exam Abdominal: Present soft and normoactive bowel sounds; Absent tenderness, distended or organomegaly *Routine Extremities Exam Extremities: Present full ROM, pulses intact and normal capillary refill; Absent cyanosis, clubbing or edema *Routine Skin Exam Skin: Present intact and warm; Absent erythema *Routine Neurological Exam Neurological: Present alert, oriented X3 and CN II-XII intact; Absent sensory deficit or motor deficit Routine Psychiatric Exam Psychiatric: Present normal affect Progress Note: A&P Assessment and plan (1) CAD (coronary artery disease): Status: Chronic (2) RUSH (acute kidney injury): Status: Acute (3) Diabetes mellitus: Status: Acute (4) HTN (hypertension): Status: Chronic (5) HLD (hyperlipidemia): Status: Chronic (6) History of coronary artery bypass graft: Status: Acute (7) COPD (chronic obstructive pulmonary disease): Status: Acute (8) Renal artery stenosis: Status: Acute Assessment and Plan Assessment and Plan for All Diagnoses:: Plan: 1. The patient presented to the emergency department for abnormal labs. He had a hemoglobin of 7.5. He is status post 2 units of packed red blood cells. His hemoglobin today is 8.9. He has maintained a hemoglobin above 8 since being transfused. We do recommend that the patient see hematology on an outpatient basis. 2. The patient did have angina and underwent left cardiac catheterization yesterday. His coronary artery disease is patent and no percutaneous intervention was required. Continue isosorbide. 3. During the left cardiac catheterization yesterday a renal angiogram was also performed. The patient was found to have severe left renal artery stenosis. He underwent bifurcating stents to the left renal artery. Cardiac stents were used. He will need to be on dual antiplatelet therapy with Plavix and aspirin for 1 year. 4. His blood pressure is well-controlled. 5. His LDL goal is less than 55. He is on a statin. 6. The patient did have a general surgery consult. He underwent EGD which showed no active signs of bleeding. Hemoccult stool was negative. He will proceed with colonoscopy and capsule small bowel follow-through as an outpatient. 7. The patient does have COPD. This will be deferred to the hospitalist. 8. The patient will need aggressive control of his diabetes. Will defer this to the hospital as well. 9. No further recommendations at this time from a cardiac standpoint. The patient is stable for discharge home today from a cardiac standpoint. The patient will need to follow-up in cardiology clinic in 1 to 2 weeks on an outpatient basis. Thank you for the opportunity to help participate in the care of this patient. All recommendations and orders are per Dr. Rosario.
[2023-09-27 02:19] LABS: POC Glucose,Bedside 231 (70-110)
--- NOTE | 2023-09-27 14:36 | CARE MANAGER ---
Attempted to contact patient x2 related to hospital discharge. Left VM message. DULCE Arias
== END 2023-09-25 11:30 | disposition home or self-care (01) ==
LOC: ER 04:30 → 2ND 05:17
PROVIDERS: Internal Medicine; Internal Medicine Adolescent Medicine; Nurse Practitioner Family; Physician Assistant; Surgery; Admitting Provider Internal Medicine; Emergency Provider Emergency Medicine; PCP Nurse Practitioner Family; Visit Provider Internal Medicine
PROC: 0DJ08ZZ Inspection of Upper Intestinal Tract, Via Natural or Artificial Opening Endoscopic (ICD-10-PCS; CPT 43235; principal; 2023-09-23 14:00)
DX: N17.9 Acute kidney failure, unspecified (principal); I25.110 Atherosclerotic heart disease of native coronary artery with unstable angina pectoris; I70.1 Atherosclerosis of renal artery; N18.9 Chronic kidney disease, unspecified; Z95.1 Presence of aortocoronary bypass graft; E78.5 Hyperlipidemia, unspecified; J44.9 Chronic obstructive pulmonary disease, unspecified; I77.1 Stricture of artery; I12.9 Hypertensive chronic kidney disease with stage 1 through stage 4 chronic kidney disease, or unspecified chronic kidney disease; E11.22 Type 2 diabetes mellitus with diabetic chronic kidney disease; K22.70 Barrett's esophagus without dysplasia; K29.60 Other gastritis without bleeding; D64.9 Anemia, unspecified
CPT/HCPCS: 43235; 36415; 36430; 37236; 71045; 80048; 80053; 80061; 80076; 81001; 82272; 82803; 82962; 83036; 83735; 83880; 84100; 84484; 85014; 85018; 85025; 85347; 85378; 86850; 93005; 93306; 93459; 94640; 99152; 99153; 99285; C1725; C1760; C1769; C1876; C1894; G0328; G0378; J1644; P9016; Q9967

== ENCOUNTER 2023-10-02 13:15 | Outpatient (CLI) | payer OTHER, SELFPAY ==
[2023-10-02 13:29] LABS: Basophils # 0.1 K/mm3 (0-0.2); Basophils % 0.7 % (0.1-2.0); Eosinophils # 0.9 K/mm3 (0.0-0.4); Eosinophils % 11.9 % (0.1-12.0); Hematocrit 29.8 % (42.0-52.0); Lymphocytes # 2.2 K/mm3 (0.7-4.5); Lymphocytes % 28.5 % (10-50); Mean Corpuscular HGB Conc 33.5 g/dL (31.8-35.4); Mean Corpuscular Hemoglobin 28.9 pg (27.0-31.2); Mean Corpuscular Volume 86.1 fl (80-94); Mean Platelet Volume 8.3 fl (7.4-10.4); Monocytes # 0.4 K/mm3 (0.1-1.0); Monocytes % 5.7 % (1.7-9.3); Neutrophils # 4.1 K/mm3 (1.8-7.8); Neutrophils % 53.1 % (37.0-80.0); Platelet Count 500 K/mm3 (142-424); Red Blood Count 3.46 M/mm3 (4.60-6.20); Red Cell Distribution Width 15.4 % (11.5-17.5); White Blood Count 7.7 K/mm3 (4.8-10.8)
[2023-10-02 14:00] LABS: Alanine Aminotransferase 29 U/L (12-78); Albumin Level 3.8 g/dl (3.5-5.0); Albumin/Globulin Ratio 1.5 (1.1-1.8); Alkaline Phosphatase 52 U/L (38-126); Anion Gap 12.1 mEq/L (5-15); Aspartate Amino Transferase 27 U/L (17-59); Bilirubin,Total 0.2 mg/dl (0.2-1.3); Blood Urea Nitrogen 36 mg/dl (9-20); Carbon Dioxide 23 mmol/L (22.0-30.0); Chloride 106 mmol/L (98-107); Estimated Glomerular Filt Rate 25 ml/min (>60); GFR (African American) 30 ML/MIN (>60); Globulin 2.5 g/dL (1.3-3.2); Glucose 93 mg/dl (74-100); Potassium 5.1 mmoL/L (3.5-5.1); Sodium 136 mmol/L (136-145); Total Protein,Serum 6.3 g/dl (6.3-8.2)
[2023-10-02 17:07] LABS: Ferritin 22.4 ng/ml (17.9-464)
== END 2023-10-02 23:59 ==
LOC: LAB.DROPOF 13:16
PROVIDERS: PCP Nurse Practitioner Family; Visit Provider Nurse Practitioner Family
DX: E11.9 Type 2 diabetes mellitus without complications (principal); D50.9 Iron deficiency anemia, unspecified; I70.1 Atherosclerosis of renal artery; Z79.4 Long term (current) use of insulin; Z79.84 Long term (current) use of oral hypoglycemic drugs; Z87.891 Personal history of nicotine dependence
CPT/HCPCS: 80053; 82728; 85025

== ENCOUNTER 2023-10-16 13:52 | Outpatient (CLI) | payer OTHER, SELFPAY ==
[2023-10-16 14:55] LABS: Basophils # 0.1 K/mm3 (0-0.2); Basophils % 0.7 % (0.1-2.0); Eosinophils # 1.2 K/mm3 (0.0-0.4); Hematocrit 33.6 % (42.0-52.0); Hemoglobin 11.2 g/dL (14.1-18.0); Lymphocytes # 2.1 K/mm3 (0.7-4.5); Lymphocytes % 23.3 % (10-50); Mean Corpuscular HGB Conc 33.3 g/dL (31.8-35.4); Mean Corpuscular Hemoglobin 28.5 pg (27.0-31.2); Mean Corpuscular Volume 85.4 fl (80-94); Mean Platelet Volume 7.5 fl (7.4-10.4); Monocytes # 0.5 K/mm3 (0.1-1.0); Neutrophils # 5.2 K/mm3 (1.8-7.8); Platelet Count 376 K/mm3 (142-424); Red Blood Count 3.93 M/mm3 (4.60-6.20); Red Cell Distribution Width 15.2 % (11.5-17.5); White Blood Count 9.1 K/mm3 (4.8-10.8)
[2023-10-16 15:28] LABS: Alanine Aminotransferase 20 U/L (12-78); Albumin/Globulin Ratio 1.5 (1.1-1.8); Alkaline Phosphatase 57 U/L (38-126); Anion Gap 13.8 mEq/L (5-15); Aspartate Amino Transferase 24 U/L (17-59); Bilirubin,Total 0.2 mg/dl (0.2-1.3); Blood Urea Nitrogen 38 mg/dl (9-20); Calcium 9.8 mg/dl (8.4-10.2); Carbon Dioxide 21 mmol/L (22.0-30.0); Chloride 109 mmol/L (98-107); Estimated Glomerular Filt Rate 32 ml/min (>60); GFR (African American) 39 ML/MIN (>60); Globulin 2.7 g/dL (1.3-3.2); Glucose 100 mg/dl (74-100); Potassium 4.8 mmoL/L (3.5-5.1); Sodium 139 mmol/L (136-145); Total Protein,Serum 6.7 g/dl (6.3-8.2)
== END 2023-10-16 23:59 ==
LOC: LAB.DROPOF 13:52
PROVIDERS: PCP Internal Medicine; Visit Provider Internal Medicine
DX: N18.30 Chronic kidney disease, stage 3 unspecified (principal); D63.1 Anemia in chronic kidney disease; Z79.899 Other long term (current) drug therapy
CPT/HCPCS: 80053; 85025

== ENCOUNTER 2024-01-15 14:28 | Outpatient (CLI) | payer OTHER, SELFPAY ==
[2024-01-15 15:30] LABS: Basophils # 0.1 K/mm3 (0-0.2); Basophils % 0.7 % (0.1-2.0); Eosinophils # 0.7 K/mm3 (0.0-0.4); Eosinophils % 6.6 % (0.1-12.0); Hematocrit 39.4 % (42.0-52.0); Lymphocytes # 2.3 K/mm3 (0.7-4.5); Lymphocytes % 22.6 % (10-50); Mean Corpuscular HGB Conc 33.1 g/dL (31.8-35.4); Mean Corpuscular Hemoglobin 27.7 pg (27.0-31.2); Mean Corpuscular Volume 83.8 fl (80-94); Mean Platelet Volume 7.4 fl (7.4-10.4); Monocytes # 0.5 K/mm3 (0.1-1.0); Monocytes % 5.2 % (1.7-9.3); Neutrophils # 6.5 K/mm3 (1.8-7.8); Neutrophils % 64.9 % (37.0-80.0); Platelet Count 344 K/mm3 (142-424); Red Cell Distribution Width 15.6 % (11.5-17.5)
[2024-01-15 15:38] LABS: Alanine Aminotransferase 25 U/L (12-78); Albumin Level 3.9 g/dl (3.5-5.0); Alkaline Phosphatase 65 U/L (38-126); Anion Gap 12.9 mEq/L (5-15); Aspartate Amino Transferase 28 U/L (17-59); Bilirubin,Direct 0.2 mg/dl (0.0-0.4); Bilirubin,Indirect 0.2 mg/dL (0.0-0.9); Bilirubin,Total 0.4 mg/dl (0.2-1.3); Bilirubin,Unconjugated 0.2 mg/dL (0.0-1.1); Blood Urea Nitrogen 36 mg/dl (9-20); Calcium 9.9 mg/dl (8.4-10.2); Carbon Dioxide 23 mmol/L (22.0-30.0); Chloride 107 mmol/L (98-107); Estimated Glomerular Filt Rate 32 ml/min (>60); GFR (African American) 39 ML/MIN (>60); Glucose 172 mg/dl (74-100); HDL Cholesterol 33 mg/dl (40-60); Potassium 4.9 mmoL/L (3.5-5.1); Sodium 138 mmol/L (136-145); Total Protein,Serum 6.7 g/dl (6.3-8.2)
[2024-01-15 15:50] LABS: Direct LDL Cholesterol 78.02 mg/dL (100-129)
[2024-01-15 15:51] LABS: Cholesterol 363 mg/dl (140-200); Triglycerides 1120 mg/dl (30-150)
[2024-01-15 15:55] LABS: Free T4 (Free Thyroxine) 0.74 ng/dl (0.78-2.19)
[2024-01-15 18:57] LABS: Hemoglobin A1C 8.3 % (4.0-6.0)
== END 2024-01-15 23:59 | disposition home or self-care (01) ==
LOC: LAB 14:28
PROVIDERS: PCP Nurse Practitioner Family; Visit Provider Physician Assistant
DX: I11.9 Hypertensive heart disease without heart failure (principal); R06.00 Dyspnea, unspecified; D64.9 Anemia, unspecified; Z95.1 Presence of aortocoronary bypass graft; E78.2 Mixed hyperlipidemia; I25.10 Atherosclerotic heart disease of native coronary artery without angina pectoris; K21.9 Gastro-esophageal reflux disease without esophagitis; E11.9 Type 2 diabetes mellitus without complications; Z79.4 Long term (current) use of insulin
CPT/HCPCS: 36415; 80048; 80061; 80076; 83036; 84439; 84443; 85025

== ENCOUNTER 2024-03-11 09:48 | Outpatient (CLI) | payer OTHER, SELFPAY ==
[2024-03-11 09:58] LABS: Microscopic, Urine URINE MICROSCOPIC (MICROSCOPIC)
[2024-03-11 10:22] LABS: Hematocrit 37.5 % (42.0-52.0); Hemoglobin 12.6 g/dL (14.1-18.0); Mean Corpuscular HGB Conc 33.5 g/dL (31.8-35.4); Mean Corpuscular Hemoglobin 27.9 pg (27.0-31.2); Mean Corpuscular Volume 83.4 fl (80-94); Platelet Count 379 K/mm3 (142-424); Red Cell Distribution Width 15.7 % (11.5-17.5); White Blood Count 7.9 K/mm3 (4.8-10.8)
[2024-03-11 10:23] LABS: Appearance,Urine CLEAR (Clear); Bilirubin,Urine Negative (Negative); Blood, Urine TRACE-I (Negative); Color,Urine YELLOW (Yellow); Glucose,Urine (UA) 3+ (Negative); Ketones,Urine Negative (Negative); Leukocyte Esterase,Urine Negative (Negative); Nitrate,Urine Negative (Negative); Protein,Urine 2+ (Negative); Urobilinogen,Urine 0.2 EU/dl (0.2)
[2024-03-11 10:39] LABS: Creatinine,Urine Random 46 mg/dL (Not Estab.)
[2024-03-11 10:46] LABS: Albumin Level 3.7 g/dl (3.5-5.0); Anion Gap 17.6 mEq/L (5-15); Blood Urea Nitrogen 42 mg/dl (9-20); Calcium 9.1 mg/dl (8.4-10.2); Carbon Dioxide 20 mmol/L (22.0-30.0); Chloride 100 mmol/L (98-107); Estimated Glomerular Filt Rate 30 ml/min (>60); GFR (African American) 37 ML/MIN (>60); Glucose 253 mg/dl (74-100); Phosphorous 4.6 mg/dl (2.5-4.5); Potassium 4.6 mmoL/L (3.5-5.1); Sodium 133 mmol/L (136-145)
[2024-03-11 10:48] LABS: Bacteria,Urine Trace /lpf; Squamous Epithelial Cell,Urine Occasional #/hpf (0-5)
[2024-03-11 10:59] LABS: Intact Parathyroid Hormone 256.4 pg/mL (7.5-53.5)
[2024-03-11 11:03] LABS: 25-OH Vitamin D, Total 17.7 ng/mL (30-100)
== END 2024-03-11 23:59 | disposition home or self-care (01) ==
LOC: LAB 09:48
PROVIDERS: PCP Nurse Practitioner Family; Visit Provider Internal Medicine Nephrology
DX: N18.4 Chronic kidney disease, stage 4 (severe) (principal); I13.0 Hypertensive heart and chronic kidney disease with heart failure and stage 1 through stage 4 chronic kidney disease, or unspecified chronic kidney disease; E11.22 Type 2 diabetes mellitus with diabetic chronic kidney disease
CPT/HCPCS: 36415; 80069; 81001; 82306; 82570; 83970; 84156; 85014; 85018; 85048; 85049

== ENCOUNTER 2024-03-18 09:59 | Outpatient (CLI) | payer OTHER, SELFPAY ==
[2024-03-18] MEDS: INCLISIRAN SODIUM 284 MG/1.5 ML SYRINGE SQ (10:10)
[2024-03-18 10:25] VITALS: BP 151/79; PULSE 78; RESP 18; O2SAT 95
== END 2024-03-18 10:25 | disposition home or self-care (01) ==
LOC: INF 10:00
PROVIDERS: PCP Nurse Practitioner Family; Visit Provider Physician Assistant
DX: E78.5 Hyperlipidemia, unspecified (principal)
CPT/HCPCS: 96372; J1306

== ENCOUNTER 2024-03-30 10:30 | Outpatient (CLI) | payer OTHER, SELFPAY ==
[2024-03-30 11:24] LABS: Hemoglobin A1C 9.5 % (4.0-6.0)
[2024-03-30 11:40] LABS: Alanine Aminotransferase 32 U/L (12-78); Alkaline Phosphatase 81 U/L (38-126); Anion Gap 13.6 mEq/L (5-15); Aspartate Amino Transferase 31 U/L (17-59); Bilirubin,Indirect 0.4 mg/dL (0.0-0.9); Bilirubin,Total 0.4 mg/dl (0.2-1.3); Bilirubin,Unconjugated 0.4 mg/dL (0.0-1.1); Blood Urea Nitrogen 50 mg/dl (9-20); Calcium 9.5 mg/dl (8.4-10.2); Carbon Dioxide 24 mmol/L (22.0-30.0); Chloride 101 mmol/L (98-107); Chol/HDL Ratio 8.6 (1-3.5); Cholesterol 267 mg/dl (140-200); Estimated Glomerular Filt Rate 29 ml/min (>60); GFR (African American) 35 ML/MIN (>60); Glucose 304 mg/dl (74-100); HDL Cholesterol 31 mg/dl (40-60); Potassium 4.6 mmoL/L (3.5-5.1); Sodium 134 mmol/L (136-145); Total Protein,Serum 7.2 g/dl (6.3-8.2)
[2024-03-30 11:50] LABS: NT Pro Brain Natriuretic Pep. 219 pg/mL (0-125)
[2024-03-30 11:52] LABS: Direct LDL Cholesterol 31.39 mg/dL (100-129)
[2024-03-30 11:54] LABS: Triglycerides 1144 mg/dl (30-150)
[2024-03-30 11:55] LABS: Basophils # 0.1 K/mm3 (0-0.2); Basophils % 0.6 % (0.1-2.0); Eosinophils # 0.3 K/mm3 (0.0-0.4); Eosinophils % 3.1 % (0.1-12.0); Hematocrit 38.3 % (42.0-52.0); Hemoglobin 12.8 g/dL (14.1-18.0); Lymphocytes # 1.6 K/mm3 (0.7-4.5); Lymphocytes % 17.4 % (10-50); Mean Corpuscular HGB Conc 33.4 g/dL (31.8-35.4); Mean Corpuscular Hemoglobin 28.1 pg (27.0-31.2); Mean Corpuscular Volume 84.1 fl (80-94); Monocytes # 0.5 K/mm3 (0.1-1.0); Monocytes % 5.2 % (1.7-9.3); Neutrophils # 6.8 K/mm3 (1.8-7.8); Neutrophils % 73.7 % (37.0-80.0); Platelet Count 330 K/mm3 (142-424); Red Blood Count 4.56 M/mm3 (4.60-6.20); Red Cell Distribution Width 15.5 % (11.5-17.5); White Blood Count 9.2 K/mm3 (4.8-10.8)
[2024-03-30 12:01] LABS: Free T4 (Free Thyroxine) 0.92 ng/dl (0.78-2.19)
[2024-03-30 12:11] LABS: Thyroid Stimulating Hormone 1.29 uIU/mL (0.465-4.68)
== END 2024-03-30 23:59 | disposition home or self-care (01) ==
LOC: LAB 10:31
PROVIDERS: PCP Nurse Practitioner Family; Visit Provider Physician Assistant
DX: I11.0 Hypertensive heart disease with heart failure (principal); I25.10 Atherosclerotic heart disease of native coronary artery without angina pectoris; I50.9 Heart failure, unspecified; R06.00 Dyspnea, unspecified; Z95.1 Presence of aortocoronary bypass graft; D64.9 Anemia, unspecified; E11.9 Type 2 diabetes mellitus without complications; Z79.4 Long term (current) use of insulin; Z79.84 Long term (current) use of oral hypoglycemic drugs; Z87.891 Personal history of nicotine dependence
CPT/HCPCS: 36415; 80048; 80061; 80076; 83036; 83880; 84439; 84443; 85025

== ENCOUNTER 2024-04-27 22:15 | Emergency (ER) | payer OTHER, SELFPAY ==
[2024-04-27 22:16] VITALS: BP 152/91; PULSE 88; RESP 20; TEMP 36.8; O2SAT 97; BMI 36.0
--- NOTE | 2024-04-27 22:20 | ED_ITS ---
<Statement entered by Joana Diane DO - 04/27/24 23:34> I was consulted by the SINTIA, and we discussed the complexity of the problems being addressed. I approved the treatment and management plan for this patient's care in the emergency department, thus performing a substantive portion of the medical decision making. Joana Diane DO Discharge Plan Disposition Patient Disposition: Home, Self-Care Prescriptions Prescriptions: New clotrimazole 1 % cream 1 applic topical BID 14 Days Qty: 45 0RF sulfamethoxazole-trimethoprim 800-160 mg tablet 1 tab PO BID 7 Days Qty: 14 0RF No Action Tresiba FlexTouch U-100 100 unit/mL (3 mL) insulin pen 10 unit SQ HS 30 Days Qty: 3 6RF (DME) pen needle, diabetic [Comfort EZ Pen [place]] 32 gauge x 3/16 needle See Rx Instructions .Route Qty: 100 0RF Rx Instructions: As directed clopidogrel 75 mg tablet 75 mg PO DAILY Qty: 30 11RF aspirin [Adult Low Dose Aspirin] 81 mg tablet,delayed release (DR/EC) 81 mg PO DAILY Qty: 30 11RF metoprolol tartrate 25 mg tablet 37.5 mg PO BID Qty: 60 5RF isosorbide mononitrate 30 mg tablet extended release 24 hr 30 mg PO DAILY Qty: 30 5RF losartan-hydrochlorothiazide 50-12.5 mg tablet 1 tab PO DAILY Qty: 30 5RF icosapent ethyl [Vascepa] 1 gram capsule 2 g PO BID Qty: 120 2RF Leqvio 284 mg/1.5 mL syringe 284 mg SQ [id number] Qty: 1.5 2RF nitroglycerin 0.4 mg tablet, sublingual 0.4 mg sublingual Q5M PRN (Reason: chest pain) Qty: 25 0RF Rx Instructions: do not exceed 3 doses per episode metformin 500 mg tablet See Rx Instructions .ROUTE .COMPLEX Qty: 60 0RF Dose Instruction: TAKE ONE TABLET BY MOUTH 2 TIMES A DAY WITH MEALS Rx Instructions: TAKE ONE TABLET BY MOUTH 2 TIMES A DAY WITH MEALS Pro Fe 180 mg iron capsule See Rx Instructions .ROUTE .COMPLEX Qty: 30 0RF Dose Instruction: TAKE 1 CAPSULE BY MOUTH ONCE A DAY Rx Instructions: TAKE 1 CAPSULE BY MOUTH ONCE A DAY Jardiance 10 mg tablet 10 mg PO DAILY Qty: 30 5RF ipratropium-albuterol 0.5 mg-3 mg(2.5 mg base)/3 mL solution for nebulization 3 ml inhalation BID 30 Days Qty: 180 0RF albuterol sulfate 90 mcg/actuation HFA aerosol inhaler 2 puff INHALATION Q6HP PRN (Reason: Shortness of breath and Wheezing) Referrals Follow up/Referrals: Cindy Diaz APRN [Primary Care Provider] - See instructions Activity Restrictions/Add. Instructions Additional Instructions/Restrictions: Recommend discontinuing the Jardiance as I am worried it could be causing your penile symptoms. Please call and follow-up with your PCP as soon as possible for management of your sugar. Please use the cream and take the antibiotics as prescribed for treatment of possible yeast/bacterial infection of the penis and urine. Clinical Impressions Clinical Impression: Acute hyperglycemia, Candidal balanitis, Pseudohyponatremia Instructions Patient Instructions: DI for Hyperglycemia -- Adult Print Language Print Language: Indonesian Discharge ED Provider: Tejinder Moseley General Adult HPI <PERRY Reynaga - Last Filed: 04/27/24 23:24> General Chief complaint: Hyper/Hypoglycemia Stated complaint: blood sugar above 600 Time Seen by Provider: 04/27/24 22:20 History of Present Illness HPI narrative: Patient presents for evaluation of hyperglycemia. Patient states that his meter at home has been reading greater than 500 all day today. Patient also reports not feeling great but denies polyuria polydipsia. He actually took a increased dose of his long-acting insulin and attempt to treat it. Initially he told his evaluating nurse that he had no other complaints but at the time of my exam I asked him if he had any thing that might be infected and he mentioned that he had been treating infection with yeast in his groin for at least a month. He denies chest pain fever chills hemoptysis hematochezia melena nausea vomiting diarrhea Related Data Home Medications ?Medication ?Instructions ?Recorded ?Confirmed albuterol sulfate 90 mcg/actuation 2 puff inhalation Q6HP PRN 09/20/23 03/31/24 aerosol inhaler Shortness of breath and Wheezing Previous Rx's ?Medication ?Instructions ?Recorded insulin degludec 100 unit/mL (3 10 unit (0.1 mL) SQ HS 30 days #3 07/26/23 mL) subcutaneous pen (Tresiba mL FlexTouch U-100 insulin) pen needle, diabetic 32 gauge x #100 ea 07/26/23 3/16 (Comfort EZ Pen [place]) ipratropium 0.5 mg-albuterol 3 mg 3 ml inhalation BID 30 days #180 mL 08/26/23 (2.5 mg base)/3 mL nebulization soln nitroglycerin 0.4 mg sublingual 0.4 mg sublingual Q5M PRN chest 09/20/23 tablet pain #25 tabs aspirin 81 mg tablet,delayed 81 mg PO DAILY #30 tabs 10/02/23 release (Adult Low Dose Aspirin) clopidogrel 75 mg tablet 75 mg PO DAILY #30 tabs 10/02/23 isosorbide mononitrate 30 mg 30 mg PO DAILY #30 tabs 10/02/23 tablet,extended release 24 hr losartan 50 mg-hydrochlorothiazide 1 tab PO DAILY #30 tabs 10/02/23 12.5 mg tablet metoprolol tartrate 25 mg tablet 37.5 mg (1.5 x 25 mg) PO BID #60 10/02/23 tabs inclisiran 284 mg/1.5 mL 284 mg (1.5 mL) SQ [id number] #1.5 mL 02/04/24 subcutaneous syringe (Leqvio) metformin 500 mg tablet See Rx Instructions .Route 02/11/24 .COMPLEX #60 tabs polysaccharide iron complex 180 mg See Rx Instructions .Route 02/11/24 iron capsule (Pro Fe) .COMPLEX #30 caps icosapent ethyl 1 gram capsule 2 g (2 x 1 gram) PO BID #120 caps 03/31/24 (Vascepa) empagliflozin 10 mg tablet 10 mg PO DAILY #30 tabs 04/27/24 (Jardiance) clotrimazole 1 % topical cream 1 applic topical BID 14 days #45 04/28/24 grams sulfamethoxazole 800 1 tab PO BID 7 days #14 tabs 04/28/24 mg-trimethoprim 160 mg tablet Allergies Allergy/AdvReac Type Severity Reaction Status Date / Time [id number] Reductase AdvReac Severe Verified 03/31/24 09:47 Inhibitor [facility] <PERRY Reynaga - Last Filed: 04/27/24 23:24> [facility] Disclaimer: The information contained in this section may have been updated after the patient was seen, as this information can be updated by other users. Medical History Renal artery stenosis Angina pectoris COPD (chronic obstructive pulmonary disease) Acute exacerbation of chronic obstructive pulmonary disease Acute bronchitis Edema Iliotibial band syndrome, right leg Unstable angina Family history of heart disease Tobacco dependence syndrome Dyspnea Abnormal EKG Chest pain Right upper quadrant abdominal pain Surgical History History of open heart surgery History of coronary artery bypass graft Family History Mother CHF (congestive heart failure) Brother Lung nodules Other Chest pain Social History Smoking Status: Current every day smoker tobacco type: cigarettes packs per day: 4 years smoked: 43 alcohol intake: never substance use type: denies use current occupational status: employed Travel in the last 8 weeks: Inside the [place] household members: spouse housing: house caffeine: Yes <PERRY Reynaga - Last Filed: 04/27/24 23:24> ROS Obtained: Yes Systems reviewed as appropriate & no additional complaints except as documented Physical Exam <PERRY Reynaga - Last Filed: 04/27/24 23:24> General General appearance: alert and in no apparent distress Respiratory Respiratory exam: Present normal lung sounds bilaterally Cardiovascular Cardiovascular exam: Present regular rate and normal rhythm exam: Absent circumcised Expanded Exam exam: Present erythema, balanitis and other (Patient has erythema of the foreskin along with edema maceration and cracks all along the foreskin. I cannot retract the foreskin over the glans but the visible portion of the glans does not show any erythema or skin breakdown) Neurological Exam Neurological exam: Present alert and oriented X3 Medical Decision Making <PERRY Reynaga - Last Filed: 04/27/24 23:24> Medical Records Medical records reviewed: Yes I reviewed the patient's medical records. Scott Inquiry Pt receiving controlled substance: No Vital Signs: 04/27/24 22:16 Temperature 98.2 F Temperature Source Oral Pulse Rate [Left Radial] 88 Respiratory Rate 20 Blood Pressure [Right Arm] 152/91 H Blood Pressure Mean [Right Arm] 111 Blood Pressure Source [Right Arm] Automatic Cuff Blood Pressure Position [Right Arm] Sitting 02 Sat by Pulse Oximetry 97 Oxygen Delivery Method Room Air Lab Data Lab results reviewed: Yes I reviewed the patient's lab results. Lab Results 04/27/24 22:55: WBC 8.6, RBC 4.43 L, Hgb 12.5 L, Hct 38.1 L, MCV 86.0, MCH 28.1, MCHC 32.7, RDW 15.2, Plt Count 321, MPV 7.9, Neut % (Auto) 71.8, Lymph % (Auto) 19.8, [place] % (Auto) 4.3, Eos % (Auto) 3.4, Baso % (Auto) 0.7, Neut # (Auto) 6.2, Lymph # (Auto) 1.7, [place] # (Auto) 0.4, Eos # (Auto) 0.3, Baso # (Auto) 0.1, S odium 124 L, Potassium 4.5, Chloride 96 L, Carbon Dioxide 22, Anion Gap 10.5, B UN 47 H, Creatinine 2.20 H, Estimated Creat Clear 46, Estimated GFR 30 L, Est GFR ( Amer) 37 L, Glucose 549 H*, Hemoglobin A1c 13.5 H D, Calcium 8.6, Magnesium 1.9, Total Bilirubin 0.5, AST 26, ALT 24, Alkaline Phosphatase 90, Total Protein 7.2, Albumin 3.8, Globulin 3.4 H, Albumin/Globulin Ratio 1.1, Acetone Level None detected 04/28/24 00:18: Urine Color Yellow, Urine Appearance Clear, Urine pH 6.0, Ur Specific [place] 1.015, Urine Protein 2+, Urine Glucose (UA) Negative, Urine Ketones Negative, Urine Blood 1+, Urine Nitrate Negative, Urine Bilirubin Negative, Urine Urobilinogen 0.2, Ur Leukocyte Esterase Negative, Urine RBC 5- 10, Urine WBC 20-50, Ur Squamous Epith Cells Occasional, Urine Bacteria None 04/27/24 22:55 04/27/24 22:55 Orders (Tests/Meds): ED MEDICATIONS Generic Name Dose Route Start Last Admin Trade Name Freq PRN Reason Stop Dose Admin Clotrimazole 15 gm 04/28/24 09:00 Clotrimazole 1% Cream 15gm Tube TP 05/28/24 08:59 TID BAUTISTA Discontinued Medications Generic Name Dose Route Start Last Admin Trade Name Taryn PRN Reason Stop Dose Admin Acetaminophen 1,000 mg 04/27/24 22:37 04/27/24 23:01 Acetaminophen 1,000mg/100ml Vial IV 04/27/24 22:38 1,000 mg ONCE ONE Administration Sodium Chloride 1,000 mls @ 999 mls/hr 04/27/24 22:37 04/27/24 23:01 Sod Chlor 0.9% 1000ml Bag IV 04/27/24 23:37 999 mls/hr .Q1H1M ONE Administration Insulin Human Lispro 10 unit 04/28/24 01:05 04/28/24 01:15 Humalog 100 Units/Ml 10ml Vial (Ssi) SQ 04/28/24 01:06 10 unit ONCE ONE Administration Ketorolac Tromethamine 15 mg 04/27/24 22:42 04/27/24 23:00 Ketorolac 30mg/Ml Vial IV 04/27/24 22:43 15 mg ONCE ONE Administration Ondansetron HCl 4 mg 04/27/24 22:42 04/27/24 23:01 Ondansetron 4mg/2ml Vial IV 04/27/24 22:43 4 mg ONCE ONE Administration Trimethoprim/Sulfamethoxazole 1 each 04/28/24 01:05 04/28/24 01:16 Sulfa/Trimethoprim 1 Tablet PO 04/28/24 01:06 1 each ONCE ONE Administration ORDERS Category Date Time Status Acetone, Serum (Rapid) Stat Lab 04/27/24 22:55 Completed CBC w/Auto Diff [Complete Blood Count Auto Diff] Stat Lab 04/27/24 22:55 Completed CMP [Comprehensive Metabolic Panel] Stat Lab 04/27/24 22:55 Completed Hemoglobin A1C Stat Lab 04/27/24 22:55 Completed Magnesium Stat Lab 04/27/24 22:55 Completed UA [Urinalysis and Microscopic] Stat Lab 04/28/24 00:18 Completed Urine Culture Stat Micro 04/28/24 00:18 Received Medical Decision Narrative: In summary patient is a 63-year-old male who presents to the emergency department for evaluation of high blood sugar. Patient is hemodynamically stable upon arrival, afebrile. Patient is a insulin-dependent type 2 diabetic he gives a history of for skin infection for at least a month. I am not exactly sure what he has been doing to treat it however when he noticed that his blood sugar was high and feeling poorly he attempted to correct it with additional dose of long-acting insulin that unfortunately did not work. On arrival patient has a physical exam that is remarkable for foreskin edema erythema cracked macerated skin and swollen to the point that I cannot comfortably expose the glans for fear of further injury.. Differential diagnosis includes DKA versus sepsis versus balanitis versus uncontrolled hyper glycemia etc. Initial workup will be conducted with hematologic labs. Initial interventions include crystalloid bolus acetaminophen Toradol oral Diflucan and topical clotrimazole. Initial workup started and pending at the time of handoff to Dr. Moseley at 2300 hrs. <Tejinder Moseley MD - Last Filed: 04/28/24 01:38> Vital Signs: 04/27/24 22:16 Temperature 98.2 F Temperature Source Oral Pulse Rate [Left Radial] 88 Respiratory Rate 20 Blood Pressure [Right Arm] 152/91 H Blood Pressure Mean [Right Arm] 111 Blood Pressure Source [Right Arm] Automatic Cuff Blood Pressure Position [Right Arm] Sitting 02 Sat by Pulse Oximetry 97 Oxygen Delivery Method Room Air Lab Data Lab Results 04/27/24 22:55: WBC 8.6, RBC 4.43 L, Hgb 12.5 L, Hct 38.1 L, MCV 86.0, MCH 28.1, MCHC 32.7, RDW 15.2, Plt Count 321, MPV 7.9, Neut % (Auto) 71.8, Lymph % (Auto) 19.8, [place] % (Auto) 4.3, Eos % (Auto) 3.4, Baso % (Auto) 0.7, Neut # (Auto) 6.2, Lymph # (Auto) 1.7, [place] # (Auto) 0.4, Eos # (Auto) 0.3, Baso # (Auto) 0.1, S odium 124 L, Potassium 4.5, Chloride 96 L, Carbon Dioxide 22, Anion Gap 10.5, B UN 47 H, Creatinine 2.20 H, Estimated Creat Clear 46, Estimated GFR 30 L, Est GFR ( Amer) 37 L, Glucose 549 H*, Hemoglobin A1c 13.5 H D, Calcium 8.6, Magnesium 1.9, Total Bilirubin 0.5, AST 26, ALT 24, Alkaline Phosphatase 90, Total Protein 7.2, Albumin 3.8, Globulin 3.4 H, Albumin/Globulin Ratio 1.1, Acetone Level None detected 04/28/24 00:18: Urine Color Yellow, Urine Appearance Clear, Urine pH 6.0, Ur Specific [place] 1.015, Urine Protein 2+, Urine Glucose (UA) Negative, Urine Ketones Negative, Urine Blood 1+, Urine Nitrate Negative, Urine Bilirubin Negative, Urine Urobilinogen 0.2, Ur Leukocyte Esterase Negative, Urine RBC 5- 10, Urine WBC 20-50, Ur Squamous Epith Cells Occasional, Urine Bacteria None Orders (Tests/Meds): ED MEDICATIONS Generic Name Dose Route Start Last Admin Trade Name Freq PRN Reason Stop Dose Admin Clotrimazole 15 gm 04/28/24 09:00 Clotrimazole 1% Cream 15gm Tube TP 05/28/24 08:59 TID BAUTISTA Discontinued Medications Generic Name Dose Route Start Last Admin Trade Name Freq PRN Reason Stop Dose Admin Acetaminophen 1,000 mg 04/27/24 22:37 04/27/24 23:01 Acetaminophen 1,000mg/100ml Vial IV 04/27/24 22:38 1,000 mg ONCE ONE Administration Sodium Chloride 1,000 mls @ 999 mls/hr 04/27/24 22:37 04/27/24 23:01 Sod Chlor 0.9% 1000ml Bag IV 04/27/24 23:37 999 mls/hr .Q1H1M ONE Administration Insulin Human Lispro 10 unit 04/28/24 01:05 04/28/24 01:15 Humalog 100 Units/Ml 10ml Vial (Ssi) SQ 04/28/24 01:06 10 unit ONCE ONE Administration Ketorolac Tromethamine 15 mg 04/27/24 22:42 04/27/24 23:00 Ketorolac 30mg/Ml Vial IV 04/27/24 22:43 15 mg ONCE ONE Administration Ondansetron HCl 4 mg 04/27/24 22:42 04/27/24 23:01 Ondansetron 4mg/2ml Vial IV 04/27/24 22:43 4 mg ONCE ONE Administration Trimethoprim/Sulfamethoxazole 1 each 04/28/24 01:05 04/28/24 01:16 Sulfa/Trimethoprim 1 Tablet PO 04/28/24 01:06 1 each ONCE ONE Administration ORDERS Category Date Time Status Acetone, Serum (Rapid) Stat Lab 04/27/24 22:55 Completed CBC w/Auto Diff [Complete Blood Count Auto Diff] Stat Lab 04/27/24 22:55 Completed CMP [Comprehensive Metabolic Panel] Stat Lab 04/27/24 22:55 Completed Hemoglobin A1C Stat Lab 04/27/24 22:55 Completed Magnesium Stat Lab 04/27/24 22:55 Completed UA [Urinalysis and Microscopic] Stat Lab 04/28/24 00:18 Completed Urine Culture Stat Micro 04/28/24 00:18 Received Medical Decision Narrative: In summary patient is a 63-year-old male who presents to the emergency department for evaluation of high blood sugar. Patient is hemodynamically stable upon arrival, afebrile. Patient is a insulin-dependent type 2 diabetic he gives a history of for skin infection for at least a month. I am not exactly sure what he has been doing to treat it however when he noticed that his blood sugar was high and feeling poorly he attempted to correct it with additional dose of long-acting insulin that unfortunately did not work. On arrival patient has a physical exam that is remarkable for foreskin edema erythema cracked macerated skin and swollen to the point that I cannot comfortably expose the glans for fear of further injury.. Differential diagnosis includes DKA versus sepsis versus balanitis versus uncontrolled hyper glycemia etc. Initial workup will be conducted with hematologic labs. Initial interventions include crystalloid bolus acetaminophen Toradol oral Diflucan and topical clotrimazole. Initial workup started and pending at the time of handoff to Dr. Moseley at 2300 hrs. Pradip MARRERO: I assumed care of the patient at the time of handoff from the prior provider. On reassessment patient remains asymptomatic. No evidence of DKA or HHS on blood work. Does show pseudohyponatremia. Corrected sodium is essentially normal when hyperglycemia taken into account. Urinalysis shows 20-30 WBCs which is concerning for UTI. Potentially reactive in the setting of candidal balanitis. After 1 L fluid bolus patient's blood sugar remains about 500. Patient was given 10 units of subcu insulin. I had extensive discussion with patient regarding his presentation. He reports that his penile symptoms started after he began taking Jardiance. This medication is almost certainly the cause of his symptoms. His balanitis/UTI may now be causing his hyperglycemia. I recommended he discontinue the Jardiance and call his primary care doctor in the morning as adjustments may be made to his medication regimen to treat his hyperglycemia. He reports he will call them first thing. I discharged him with Bactrim for treatment of possible urinary tract infection as well as topical antifungal cream to take for the next 2 weeks. I was consulted by the SINTIA, and we discussed the complexity of the problems being addressed. I approved the treatment and management plan for this patient?s care in the Emergency Department, thus performing a substantive portion of the medical decision making. Tejinder Moseley MD Critical Care <PERRY Reynaga - Last Filed: 04/27/24 23:24> Critical Care Time Critical Care Time: No
--- NOTE | 2024-04-27 22:23 | PC.NURSE ---
583 mL/dL BGL level
[2024-04-27] MEDS: KETOROLAC 30MG/ML VIAL 15 MG IV (23:00)
[2024-04-27] MEDS: ONDANSETRON 4MG/2ML VIAL 4 MG IV (23:01)
[2024-04-27] MEDS: ACETAMINOPHEN 1,000MG/100ML VIAL 1000 MG IV (23:01)
[2024-04-27] MEDS: 0.9 % SODIUM CHLORIDE 1000ML 1,000 ML 999 ML IV (23:01)
[2024-04-27 23:06] LABS: Basophils # 0.1 K/mm3 (0-0.2); Basophils % 0.7 % (0.1-2.0); Eosinophils # 0.3 K/mm3 (0.0-0.4); Eosinophils % 3.4 % (0.1-12.0); Hematocrit 38.1 % (42.0-52.0); Hemoglobin 12.5 g/dL (14.1-18.0); Lymphocytes # 1.7 K/mm3 (0.7-4.5); Lymphocytes % 19.8 % (10-50); Mean Corpuscular HGB Conc 32.7 g/dL (31.8-35.4); Mean Corpuscular Hemoglobin 28.1 pg (27.0-31.2); Mean Platelet Volume 7.9 fl (7.4-10.4); Monocytes # 0.4 K/mm3 (0.1-1.0); Monocytes % 4.3 % (1.7-9.3); Neutrophils # 6.2 K/mm3 (1.8-7.8); Neutrophils % 71.8 % (37.0-80.0); Platelet Count 321 K/mm3 (142-424); Red Blood Count 4.43 M/mm3 (4.60-6.20); Red Cell Distribution Width 15.2 % (11.5-17.5); White Blood Count 8.6 K/mm3 (4.8-10.8)
[2024-04-27 23:14] LABS: Albumin Level 3.8 g/dl (3.5-5.0); Chloride 96 mmol/L (98-107); Sodium 124 mmol/L (136-145)
[2024-04-27 23:15] LABS: Potassium 4.5 mmoL/L (3.5-5.1)
[2024-04-27 23:17] LABS: Alanine Aminotransferase 24 U/L (12-78); Albumin/Globulin Ratio 1.1 (1.1-1.8); Alkaline Phosphatase 90 U/L (38-126); Anion Gap 10.5 mEq/L (5-15); Aspartate Amino Transferase 26 U/L (17-59); Bilirubin,Total 0.5 mg/dl (0.2-1.3); Blood Urea Nitrogen 47 mg/dl (9-20); Carbon Dioxide 22 mmol/L (22.0-30.0); Creatinine Clearance Estimated 46 mL/min (50-200); Estimated Glomerular Filt Rate 30 ml/min (>60); GFR (African American) 37 ML/MIN (>60); Globulin 3.4 g/dL (1.3-3.2); Total Protein,Serum 7.2 g/dl (6.3-8.2)
[2024-04-27 23:18] LABS: Calcium 8.6 mg/dl (8.4-10.2); Magnesium 1.9 mg/dl (1.6-2.3)
[2024-04-27 23:19] LABS: Glucose 549 mg/dl (74-100); Hemoglobin A1C 13.5 % (4.0-6.0)
[2024-04-27 23:51] LABS: Acetone, Serum (Rapid) None Detected (None Detect)
[2024-04-28 00:22] LABS: Microscopic, Urine URINE MICROSCOPIC (MICROSCOPIC)
[2024-04-28 00:29] LABS: Appearance,Urine Clear (Clear); Bilirubin,Urine Negative (Negative); Blood, Urine 1+ (Negative); Color,Urine Yellow (Yellow); Glucose,Urine (UA) Negative (Negative); Ketones,Urine Negative (Negative); Nitrate,Urine Negative (Negative); Protein,Urine 2+ (Negative); Specific Gravity, Urine 1.015 (1.005-1.030); Urobilinogen,Urine 0.2 EU/dl (0.2)
[2024-04-28 00:30] LABS: Leukocyte Esterase,Urine Negative (Negative)
[2024-04-28 00:38] LABS: WBC,Urine 20-50 #/hpf (0-3)
[2024-04-28 00:39] LABS: Squamous Epithelial Cell,Urine Occasional #/hpf (0-5)
--- NOTE | 2024-04-28 00:48 | PC.NURSE ---
pt blood glucose 521 at this time
[2024-04-28] MEDS: humaLOG 100 UNITS/ML 10ML VIAL (SSI) 10 UNIT SQ (01:15)
[2024-04-28] MEDS: SULFA/TRIMETHOPRIM 1 TABLET 1 EACH PO (01:16)
[2024-04-28 01:33] VITALS: BP 120/67; PULSE 70; RESP 18; TEMP 36.8; O2SAT 95
== END 2024-04-28 01:38 | disposition home or self-care (01) ==
PROVIDERS: Physician Assistant; Emergency Provider Emergency Medicine; PCP Nurse Practitioner Family
DX: E11.65 Type 2 diabetes mellitus with hyperglycemia (principal); B37.42 Candidal balanitis; E87.1 Hypo-osmolality and hyponatremia; F17.210 Nicotine dependence, cigarettes, uncomplicated; J44.9 Chronic obstructive pulmonary disease, unspecified; I10 Essential (primary) hypertension; I20.9 Angina pectoris, unspecified; Z79.4 Long term (current) use of insulin; Z79.84 Long term (current) use of oral hypoglycemic drugs
CPT/HCPCS: 80053; 81001; 82009; 83036; 83735; 85025; 87086; 96361; 96374; 96375; 99284; J0131; J1885; J2405

== ENCOUNTER 2024-05-06 11:48 | Outpatient (CLI) | payer OTHER, SELFPAY | END 2024-05-06 23:59 | disposition home or self-care (01) | LOC: LAB.DROPOF 05-07 11:48 | PROVIDERS: PCP Nurse Practitioner Family; Visit Provider Nurse Practitioner Family | DX: E11.9 Type 2 diabetes mellitus without complications (principal); Z79.4 Long term (current) use of insulin | CPT/HCPCS: 87086 ==

== ENCOUNTER 2024-06-18 10:14 | Outpatient (CLI) | payer OTHER, SELFPAY ==
[2024-06-18 10:26] VITALS: BP 149/83; PULSE 71; RESP 17; O2SAT 96
[2024-06-18] MEDS: INCLISIRAN SODIUM 284 MG/1.5 ML SYRINGE SQ (10:26)
== END 2024-06-18 10:40 | disposition home or self-care (01) ==
LOC: INF 10:15
PROVIDERS: PCP Nurse Practitioner Family; Visit Provider Physician Assistant
DX: E78.5 Hyperlipidemia, unspecified (principal)
CPT/HCPCS: 96372; J1306

== ENCOUNTER 2024-06-24 09:55 | Outpatient (CLI) | payer OTHER, SELFPAY ==
[2024-06-24 10:03] LABS: Microscopic, Urine URINE MICROSCOPIC (MICROSCOPIC)
[2024-06-24 10:24] LABS: Basophils # 0.1 K/mm3 (0-0.2); Basophils % 1.3 % (0.1-2.0); Eosinophils # 0.4 K/mm3 (0.0-0.4); Eosinophils % 3.9 % (0.1-12.0); Hematocrit 39.9 % (42.0-52.0); Hemoglobin 13.3 g/dL (14.1-18.0); Lymphocytes # 1.8 K/mm3 (0.7-4.5); Lymphocytes % 20.4 % (10-50); Mean Corpuscular HGB Conc 33.4 g/dL (31.8-35.4); Mean Corpuscular Hemoglobin 27.3 pg (27.0-31.2); Mean Corpuscular Volume 81.6 fl (80-94); Mean Platelet Volume 6.8 fl (7.4-10.4); Monocytes # 0.6 K/mm3 (0.1-1.0); Monocytes % 6.2 % (1.7-9.3); Neutrophils # 6.2 K/mm3 (1.8-7.8); Neutrophils % 68.3 % (37.0-80.0); Platelet Count 385 K/mm3 (142-424); Red Blood Count 4.88 M/mm3 (4.60-6.20); Red Cell Distribution Width 15.4 % (11.5-17.5)
[2024-06-24 10:48] LABS: Albumin Level 3.9 g/dl (3.5-5.0); Chloride 102 mmol/L (98-107)
[2024-06-24 10:49] LABS: Potassium 4.8 mmoL/L (3.5-5.1); Sodium 136 mmol/L (136-145)
[2024-06-24 10:51] LABS: Alanine Aminotransferase 21 U/L (12-78); Albumin/Globulin Ratio 1.3 (1.1-1.8); Alkaline Phosphatase 55 U/L (38-126); Anion Gap 13.8 mEq/L (5-15); Aspartate Amino Transferase 24 U/L (17-59); Bilirubin,Total 0.4 mg/dl (0.2-1.3); Blood Urea Nitrogen 43 mg/dl (9-20); Carbon Dioxide 25 mmol/L (22.0-30.0); Cholesterol 222 mg/dl (140-200); Estimated Glomerular Filt Rate 30 ml/min (>60); GFR (African American) 37 ML/MIN (>60); Total Protein,Serum 6.9 g/dl (6.3-8.2)
[2024-06-24 10:52] LABS: Calcium 9.5 mg/dl (8.4-10.2); Chol/HDL Ratio 9.3 (1-3.5); Glucose 150 mg/dl (74-100); HDL Cholesterol 24 mg/dl (40-60); Magnesium 1.8 mg/dl (1.6-2.3)
[2024-06-24 11:03] LABS: Direct LDL Cholesterol 32.61 mg/dL (100-129)
[2024-06-24 11:09] LABS: 25-OH Vitamin D, Total 23.1 ng/mL (30-100)
[2024-06-24 11:19] LABS: Appearance,Urine CLEAR (Clear); Bilirubin,Urine Negative (Negative); Blood, Urine TRACE-I (Negative); Color,Urine YELLOW (Yellow); Glucose,Urine (UA) TRACE (Negative); Ketones,Urine Negative (Negative); Leukocyte Esterase,Urine Negative (Negative); Nitrate,Urine Negative (Negative); Protein,Urine 2+ (Negative); Specific Gravity, Urine 1.025 (1.005-1.030); Urobilinogen,Urine 0.2 EU/dl (0.2)
[2024-06-24 11:23] LABS: Thyroid Stimulating Hormone 1.67 uIU/mL (0.465-4.68)
[2024-06-24 11:29] LABS: Ferritin 18.2 ng/ml (17.9-464)
[2024-06-24 11:44] LABS: Hemoglobin A1C 9.3 % (4.0-6.0)
[2024-06-24 11:55] LABS: RBC,Urine Occasional #/hpf (0-3); Squamous Epithelial Cell,Urine Occasional #/hpf (0-5)
[2024-06-24 12:16] LABS: Triglycerides 1152 mg/dl (30-150)
[2024-06-24 12:57] LABS: Vitamin B12 971 pg/mL (239-931)
[2024-06-25 08:19] LABS: DHEA-Sulfate 64.9 ug/dL (48.9-344.2)
[2024-07-03 00:08] LABS: Free Testosterone (Direct) 4.6 pg/mL (6.6-18.1); Testosterone, Total, LC/MS 215.7 ng/dL (264.0-916.0)
== END 2024-06-24 23:59 | disposition home or self-care (01) ==
LOC: LAB 09:56
PROVIDERS: PCP Nurse Practitioner Family; Visit Provider Nurse Practitioner Family
DX: E11.69 Type 2 diabetes mellitus with other specified complication (principal); Z79.4 Long term (current) use of insulin; I10 Essential (primary) hypertension; E78.2 Mixed hyperlipidemia; I25.10 Atherosclerotic heart disease of native coronary artery without angina pectoris; I70.1 Atherosclerosis of renal artery; N18.30 Chronic kidney disease, stage 3 unspecified; D50.9 Iron deficiency anemia, unspecified; R53.83 Other fatigue; D64.9 Anemia, unspecified; R79.89 Other specified abnormal findings of blood chemistry
CPT/HCPCS: 36415; 80050; 80053; 80061; 81001; 82306; 82607; 82626; 82728; 83036; 83735; 84443; 85025

== ENCOUNTER 2024-10-06 13:30 | Outpatient (CLI) | payer OTHER, SELFPAY ==
[2024-10-06 13:22] LABS: Basophils # 0.1 K/mm3 (0-0.2); Basophils % 0.8 % (0.1-2.0); Eosinophils # 0.3 K/mm3 (0.0-0.4); Eosinophils % 3.1 % (0.1-12.0); Hematocrit 44.6 % (42.0-52.0); Lymphocytes # 1.9 K/mm3 (0.7-4.5); Lymphocytes % 17.7 % (10-50); Mean Corpuscular HGB Conc 31.4 g/dL (31.8-35.4); Mean Corpuscular Hemoglobin 26.4 pg (27.0-31.2); Mean Platelet Volume 8.8 fl (7.4-10.4); Monocytes # 0.6 K/mm3 (0.1-1.0); Monocytes % 5.8 % (1.7-9.3); Neutrophils # 7.7 K/mm3 (1.8-7.8); Platelet Count 379 K/mm3 (142-424); Red Blood Count 5.31 M/mm3 (4.60-6.20); Red Cell Distribution Width 14.9 % (11.5-17.5); White Blood Count 10.7 K/mm3 (4.8-10.8)
[2024-10-06 13:35] LABS: Albumin Level 4.3 g/dl (3.5-5.0); Chloride 103 mmol/L (98-107); Potassium 5.5 mmoL/L (3.5-5.1); Sodium 134 mmol/L (136-145)
[2024-10-06 13:37] LABS: Blood Urea Nitrogen 50 mg/dl (9-20); Estimated Glomerular Filt Rate 32 ml/min (>60); GFR (African American) 39 ML/MIN (>60)
[2024-10-06 13:38] LABS: Alanine Aminotransferase 33 U/L (12-78); Albumin/Globulin Ratio 1.5 (1.1-1.8); Alkaline Phosphatase 66 U/L (38-126); Anion Gap 15.5 mEq/L (5-15); Aspartate Amino Transferase 37 U/L (17-59); Bilirubin,Total 0.3 mg/dl (0.2-1.3); Calcium 9.2 mg/dl (8.4-10.2); Carbon Dioxide 21 mmol/L (22.0-30.0); Cholesterol 240 mg/dl (140-200); Globulin 2.9 g/dL (1.3-3.2); Glucose 155 mg/dl (74-100); Magnesium 1.9 mg/dl (1.6-2.3); Total Protein,Serum 7.2 g/dl (6.3-8.2)
[2024-10-06 13:39] LABS: Chol/HDL Ratio 10.9 (1-3.5); HDL Cholesterol 22 mg/dl (40-60)
[2024-10-06 13:46] LABS: Triglycerides 1157 mg/dl (30-150)
[2024-10-06 13:49] LABS: Direct LDL Cholesterol 34.72 mg/dL (100-129)
[2024-10-06 14:13] LABS: Ferritin 29.3 ng/ml (17.9-464)
[2024-10-06 14:36] LABS: Hemoglobin A1C 7.4 % (4.0-6.0)
[2024-10-06 18:31] LABS: Creatinine,Urine Random 59 mg/dL (Not Estab.)
[2024-10-06 19:52] LABS: Microalbumin/Creatinine Ratio 2043.5
== END 2024-10-06 23:59 | disposition home or self-care (01) ==
LOC: LAB.DROPOF 13:30
PROVIDERS: PCP Nurse Practitioner Family; Visit Provider Nurse Practitioner Family
DX: D64.9 Anemia, unspecified (principal); I10 Essential (primary) hypertension; E78.2 Mixed hyperlipidemia; N18.30 Chronic kidney disease, stage 3 unspecified; E11.69 Type 2 diabetes mellitus with other specified complication; Z79.4 Long term (current) use of insulin
CPT/HCPCS: 80053; 80061; 82043; 82570; 82728; 83036; 83735; 85025

== ENCOUNTER 2024-10-16 13:03 | Outpatient (CLI) | payer OTHER, SELFPAY ==
[2024-10-16 17:55] LABS: Anion Gap 19.9 mEq/L (5-15); Blood Urea Nitrogen 57 mg/dl (9-20); Calcium 9.4 mg/dl (8.4-10.2); Carbon Dioxide 21 mmol/L (22.0-30.0); Chloride 103 mmol/L (98-107); Estimated Glomerular Filt Rate 29 ml/min (>60); GFR (African American) 35 ML/MIN (>60); Glucose 184 mg/dl (74-100); Potassium 5.9 mmoL/L (3.5-5.1); Sodium 138 mmol/L (136-145)
== END 2024-10-16 23:59 | disposition home or self-care (01) ==
LOC: LAB.DROPOF 10-17 08:58
PROVIDERS: PCP Nurse Practitioner Family; Visit Provider Nurse Practitioner Family
DX: E87.5 Hyperkalemia (principal)
CPT/HCPCS: 80048

== ENCOUNTER 2024-12-17 09:53 | Outpatient (CLI) | payer OTHER, SELFPAY ==
[2024-12-17] MEDS: INCLISIRAN SODIUM 284 MG/1.5 ML SYRINGE SUBCUT (10:00)
[2024-12-17 10:02] VITALS: BP 151/79; PULSE 69; RESP 18; O2SAT 100
== END 2024-12-17 10:02 ==
LOC: INF 09:53
PROVIDERS: PCP Nurse Practitioner Family; Visit Provider Physician Assistant
DX: E78.5 Hyperlipidemia, unspecified (principal)
CPT/HCPCS: 96372; J1306

== ENCOUNTER 2025-01-12 13:45 | Observation (INO) | payer OTHER, SELFPAY ==
[2025-01-12] VITALS (21 sets, daily range): BP systolic 98–147; BP diastolic 63–92; PULSE 60–100; RESP 16–20; TEMP 36.7–36.9; O2SAT 93–100; BMI 36.0
--- NOTE | 2025-01-12 07:03 | IR_ITS ---
APPROVED REPORT Patient Location: Outpatient PROCEDURES Left heart catheterization Selective coronary angiogram Left internal mammary angiography Selective engagement of the saphenous vein graft to the obtuse marginal artery Selective engagement of saphenous vein graft to the right coronary Intravascular lithotripsy to the proximal dominant right coronary Drug-eluting stent deployment to a chronically occluded right coronary artery into a posterior descending artery Drug-eluting stent deployment into a chronically occluded posterior descending artery INDICATION Coronary artery disease, History of coronary bypass surgery, Chronic occlusion of the right coronary artery, Dense calcification of the right coronary Informed consent was obtained prior to the procedure. COMPLICATIONS NONE Estimated Blood Loss: LESS THAN 10 ML TECHNIQUE One percent lidocaine used to anesthetize the right groin. The right femoral artery was accessed via the Seldinger technique and a 5 Polish sheath was placed in the right femoral artery. A JL 4, JR4 catheter were used to perform left heart catheterization, left ventriculogram selective coronary angiography as well as selective engagement of the 2 vein grafts and the left internal mammary artery. At the end of the diagnostic angiogram therapeutic heparin was administered giving a therapeutic ACT and the 5 Polish sheath was exchanged for a 6 Polish sheath. A 3 DRC guide catheter was placed in the right coronary artery followed by Choice PT extra-support wire placed distally in the right coronary artery. A 3 mm x 12 mm lithotripsy balloon was deployed at 3, 4 and then 5 abigail with a total of 40 pulsations delivered. This was followed by 3.5 x 15 mm balloon used to further dilate. Following this a 3.5 x 38 mm Murdock frontier stent was placed in the proximal to mid right coronary and deployed at 20 abigail reducing the stenosis. An additional 3.5 mm x 22 mm Murdock frontier stent was placed proximal to this and then deployed at 20 abigail. The wire was used to push through the chronic occlusion into the posterior descending artery and a 2.5 mm balloon was used to dilate the stenosis. A 2.25 x 22 mm Murdock frontier stent was deployed at 20 abigail in the posterior descending artery extending back into the right coronary artery. Following this a 3 mm x 18 mm Bryan frontier stent was placed distal to the 3.5 mm stent and into the proximal portion of the 2.25 mm stent and deployed at 20 abigail. The balloon was brought back and deployed at 24 abigail throughout the mid and proximal ostial segment. A guide liner was used for support in order to push through the occlusion. At the end of the procedure the apparatus was removed the groin is reprepped closure change sheath was removed and hemostasis was achieved using TR banding patient was transferred to the postop putting in stable condition ANGIOGRAPHIC RESULTS The left main artery Patent The left anterior descending artery Has a proximal 90% stenosis immediately proximal to a bifurcating medium sized 1st and 2nd diagonal artery. Both diagonal arteries have ostial 80% stenosis. The LAD gives rise to a large septal figure refinisher and repairer which is patent and then collateralizes the chronically occluded right coronary The circumflex artery Is proximally occluded The right coronary artery Is dominant and has proximal concentric greater than 90% stenosis and then occluded. The posterior lateral branch is chronically occluded The GAXIOLA ventriculogram reveals Not performed The left ventricular end-diastolic pressure 25 mmHg LARA to LAD is patent and the LAD then occludes throughout the mid and distal segment and then reconstitutes distally at the apical level via scant left to left collaterals Saphenous to circumflex artery ostially occluded Saphenous to right coronary artery ostially occluded IMPRESSION Interval loss of the saphenous vein graft to the circumflex artery and saphenous vein graft to the right coronary artery since last cardiac catheterization Patent LARA to a chronically occluded mid and distal LAD which fills scantly via left to left collaterals Chronically occluded right coronary artery which fills via [id number] collaterals through a large septal figure refinisher and repairer Successful opening of a chronically occluded right coronary artery 100% occlusion reduced to 0% with 3 drug-eluting stents in the right coronary artery followed by an additional drug-eluting stent extending into the posterior descending artery Successful opening of a chronically occluded posterior descending artery PLAN 1. Plavix and aspirin 2. Absolute tobacco cessation 3. Patient has triglycerides over 1000 and needs tighter diabetes control and compliance 4. Limited echo to determine if ejection fraction is less than 35%. If so patient should be considered for a LifeVest 5. Reevaluate ejection fraction in 90 days and consider AICD placement 6. Cardiac rehabilitation 7. GDMT for heart failure 8. GDMT for ischemic heart disease 9. Patient requires admission due to the complexity of the procedure and the chronic renal failure with a creatinine of 2.3. Patient needs to be given IV fluids monitored for heart failure as well as given fluids to reduce the risk of contrast nephropathy 10. Check labs in the morning Electronically signed by : Graham Royal MD 01/12/2025 14:01:56
[2025-01-12 08:41] LABS: Basophils # 0.1 K/mm3 (0-0.2); Basophils % 0.7 % (0.1-2.0); Eosinophils # 0.3 Kmm3 (0.0-0.4); Eosinophils % 3.1 % (0.1-12.0); Hematocrit 43.6 % (42.0-52.0); Hemoglobin 14.1 g/dL (14.1-18.0); Lymphocytes # 2.4 K/mm3 (0.7-4.5); Lymphocytes % 21.6 % (10-50); Mean Corpuscular HGB Conc 32.3 g/dL (31.8-35.4); Mean Corpuscular Hemoglobin 27.1 pg (27.0-31.2); Mean Corpuscular Volume 83.8 fl (80-94); Mean Platelet Volume 8.5 fl (7.4-10.4); Monocytes # 0.7 K/mm3 (0.1-1.0); Monocytes % 6.7 % (1.7-9.3); Neutrophils # 7.4 K/mm3 (1.8-7.8); Neutrophils % 67.2 % (37.0-80.0); Nucleated Red Blood Cells # 0 10^3/uL; Nucleated Red Blood Cells % 0 %; Platelet Count 348 K/mm3 (142-424); Red Cell Distribution Width 14.4 % (11.5-17.5)
[2025-01-12 09:03] LABS: Anion Gap 15.3 mEq/L (5-15); Blood Urea Nitrogen 45 mg/dl (9-20); Calcium 8.7 mg/dl (8.4-10.2); Carbon Dioxide 23 mmol/L (22.0-30.0); Chloride 106 mmol/L (98-107); Creatinine Clearance Estimated 44 mL/min (50-200); Estimated Glomerular Filt Rate 29 ml/min (>60); GFR (African American) 35 ML/MIN (>60); Glucose 177 mg/dl (74-100); Potassium 4.3 mmoL/L (3.5-5.1); Sodium 140 mmol/L (136-145)
[2025-01-12] MEDS: LIDOCAINE 1% 10ML MDV 10 ML IJ (11:10)
[2025-01-12] MEDS: HEPARIN 1,000 UNITS/500ML NS (CATH LAB) 3000 UNIT IV (11:10)
[2025-01-12] MEDS: 0.9 % SODIUM CHLORIDE 500 ML 25 ML IV (11:10)
[2025-01-12] MEDS: diphenhydrAMINE 50MG/ML VIAL 50 MG IV (11:10)
[2025-01-12] MEDS: MIDAZOLAM HCL 1MG/ML 5ML VIAL 1 MG IV (12:16)
[2025-01-12] MEDS: FENTANYL 100MCG/2ML VIAL 50 MCG IV (12:17)
[2025-01-12] MEDS: HEPARIN 1,000 UNITS/ML 10ML VIAL (CATH LAB) 5000 UNIT IV (12:17)
[2025-01-12] MEDS: CLOPIDOGREL 75MG TAB 75 MG PO (12:48)
--- NOTE | 2025-01-12 13:55 | CA_ITS ---
APPROVED REPORT EXAM: Comprehensive 2D, Doppler, and color-flow Echocardiogram [employer] Brand Ambassador: Deidra Hwang RVT Ht: 5 ft 4 in Wt: 210lbs BSA: 2.00 BP: 111/81 mmHg Indications: CAD,MILD ,COPD,ANGINA,CABG,EDEMA,DM 2D Dimensions IVSd 1.48 cm M: 0.6-1.2 LVEF (Visual) 43.70 % PWd 1.19 cm M: 0.6 - 1.2 LA Volume 25.20 mL LVDd 4.76 cm M: 4.2 - 5.9 LA Volume Index 12.60 mL/m2 (M/F) 16-34 LVDs 3.73 cm M: 2.5 - 4.0 M-Mode Dimensions LA Diam 3.21 cm (1.9-4.0) TAPSE 1.70 (<1.7) LV Diastology E Decel Time 150 (160-240 msec) E/A Ratio 0.8 Aortic Valve ALISON Index 0.70 cm2/m2 AoV Peak Parveen. 189.0 (50-130 cm/s) AO Peak GR. 14.40 mmHg AO Mean GR. 7.50 (<5 mmHg) AO VTI 34.8 (18-25 cm) ALISON (VTI) 1.43 (2.5-4.5 cm2) Mitral Valve MV E Max Parveen. 62.0 (40-130 cm/s) MV A Velocity 73.0 (40-130 cm/s) E/A Ratio 0.85 MV PHT 44.0 ms Pulmonary Valve PV Peak Velocity 82.0 (50-150 cm/s) Tricuspid Valve TR P. Velocity 213.00 cm/s RVSP 18.20 mmHg Left Ventricle The left ventricle is normal size. Left ventricular systolic function is mildly decreased. There is increased LV wall thickness. There is mild global hypokinesis present. The septum is asynchronous. Diastolic function is indeterminate. LVEF is 40-45%. Right Ventricle Right ventricle is mildly dilated. Right ventricle is mildly hypokinetic. Atria The left atrium size is normal. The right atrium size is normal. There is no Doppler evidence of interatrial shunt. Aortic Valve Aortic valve is mildly thickened. Mild aortic stenosis is present. Peak velocity 2.0 m/s. Mean AV gradient 10 mmHg. Max AV gradient 16 mmHg. ALISON by continuity equation is 1.6 cm???. Trace aortic regurgitation. Mitral Valve The mitral valve is normal in structure. No evidence of mitral valve stenosis. Trace mitral regurgitation. Tricuspid Valve Tricuspid valve is grossly normal in structure and function. Trace tricuspid regurgitation. There is insufficient TR jet to estimate RVSP. Pulmonic Valve The pulmonary valve is normal in structure. Trace pulmonic regurgitation. Great Vessels The aortic root is normal in size. IVC is normal in size and collapses >50% with inspiration. Pericardium There is no pericardial effusion. Other Information Study Quality: Fair Conclusion Mildly reduced LV systolic function (LVEF 40-45%). Mild RV dilation with mild in RV function. Mild (Peak velocity 2.0 m/s. Mean AV gradient 10 mmHg. Max AV gradient 16 mmHg. ALISON by continuity equation is 1.6 cm???). Compared to prior study from 09/20/2023, the reduction in LV systolic function is new. Electronically signed by : Tasha Rosario MD 01/12/2025 15:41:00
--- NOTE | 2025-01-12 13:56 | P.HP_ITS ---
History of Present Illness *Admission Date: 01/12/25 *Reason for visit:: Status post heart cath, RUSH/CKD *History of present illness: Mr. Mcdowell is a 64-year-old male with history of CAD status post CABG, CKD, hypertriglyceridemia, mild AI, diabetes, tobacco use disorder, and hypertension. He was brought in for elective heart cath today due to worsening anginal symptoms with referred symptoms to his neck and arm. During his heart cath, EF concern for being around 30%. Additionally noted to have creatinine above his baseline. Cardiology requested admission for monitoring of kidney function and further management of his heart failure with repeat echo and initiation of goal-directed therapy. On evaluation after arriving to the floor, patient denies any chest pain. Feels some mild discomfort in his right groin. Stable on room air. No nausea or vomiting. [facility] Disclaimer: The information contained in this section may have been updated after the patient was seen, as this information can be updated by other users. Medical History CHF (congestive heart failure) Renal artery stenosis Angina pectoris COPD (chronic obstructive pulmonary disease) Acute exacerbation of chronic obstructive pulmonary disease Diabetes mellitus type 2, controlled, without complications Acute bronchitis Edema Iliotibial band syndrome, right leg Unstable angina Family history of heart disease Tobacco dependence syndrome Dyspnea Abnormal EKG Chest pain Right upper quadrant abdominal pain Surgical History History of open heart surgery History of coronary artery bypass graft Family History Mother CHF (congestive heart failure) Brother Lung nodules Other Chest pain Social History Smoking Status: Current every day smoker tobacco type: cigarettes packs per day: 1 years smoked: 43 quit status: considering quitting alcohol intake: never substance use type: denies use current occupational status: employed Travel in the last 8 weeks?: Inside the [place] household members: spouse housing: house caffeine: Yes Have you lived/traveled outside US in past 30 days?: No Contact w/someone who lives/traveled outside US past 30 days?: No Exposure to someone with infectious disease in past 14 days?: No Do you have a fever (greater than 100.4 F or 38 C)?: No Have you tested positive for COVID-19?: No Exposed to someone with COVID-19 in past 14 days?: No Do you have a sore throat?: No Do you have a cough?: No Do you have any weakness?: No Are you experiencing any nausea/vomitting?: No Do you have any diarrhea?: No Are you experiencing any unusual bleeding?: No Do you have any muscle aches/pain?: No Do you have any abdominal pain?: No Are you experiencing loss of taste or smell?: No Other Medical History Have you received the Flu Vaccine for this season: No Have you received the Pneumonia Vaccine: No Review of Systems Review of Systems Review of systems (narrative): 14 point review of systems performed, pertinent positives and negatives as per [facility] Meds Home Medications and Allergies Home Medications ?Medication ?Instructions ?Recorded ?Confirmed ?Type ipratropium 0.5 mg-albuterol 3 mg 3 ml inhalation BID 30 days #180 mL 08/26/23 01/04/25 Rx (2.5 mg base)/3 mL nebulization soln albuterol sulfate 90 mcg/actuation 2 puff inhalation Q6HP PRN 09/20/23 01/04/25 History aerosol inhaler Shortness of breath and Wheezing nitroglycerin 0.4 mg sublingual 0.4 mg sublingual Q5M PRN chest 09/20/23 01/04/25 Rx tablet pain #25 tabs aspirin 81 mg tablet,delayed 81 mg PO DAILY #30 tabs 10/02/23 01/04/25 Rx release (Adult Low Dose Aspirin) insulin degludec 100 unit/mL (3 16 unit (0.16 mL) SQ HS 30 days 05/20/24 01/04/25 Rx mL) subcutaneous pen (Tresiba #4.8 mL FlexTouch U-100 insulin) pen needle, diabetic 32 gauge x #100 ea 07/28/24 01/04/25 Rx /32 (BD Philomena 2nd Gen Pen Needle) syringe with needle 3 mL 23 gauge #100 ea 10/06/24 01/04/25 History x 1 1/2 (BD Luer-Doron Syringe) clopidogrel 75 mg tablet 75 mg PO DAILY #30 tabs 10/19/24 01/04/25 Rx losartan 50 mg-hydrochlorothiazide 1 tab PO DAILY #30 tabs 02/03/25 04/21/25 Rx 12.5 mg tablet metoprolol tartrate 25 mg tablet 37.5 mg (1.5 x 25 mg) PO BID #60 10/19/24 01/04/25 Rx tabs aspirin 325 mg tablet 325 mg PO DAILY 01/04/25 01/04/25 History inclisiran 284 mg/1.5 mL 284 mg (1.5 mL) SQ [id number] #1.5 mL 01/04/25 01/04/25 Rx subcutaneous syringe (Leqvio) isosorbide mononitrate 60 mg 60 mg PO DAILY #30 tabs 01/04/25 01/04/25 Rx tablet,extended release 24 hr dapagliflozin propanediol 10 mg 10 mg PO DAILY 01/12/25 History tablet (Farxiga) metformin 500 mg tablet 500 mg PO BIDWMEAL 01/12/25 History New Prescriptions to Start Prescriptions: Allergies Allergy/AdvReac Type Severity Reaction Status Date / Time Ebdcspn-FHT-CsG Reductase AdvReac Severe Unknown Verified 01/12/25 08:36 Inhibitor allergy reaction Exam Data for Last 24 hours Vital signs and Labs for Last 24 Hours: Temp Pulse Resp BP Pulse Ox O2 Del Method 98.4 F 60 18 107/63 L 95 Room Air 01/12/25 08:41 01/12/25 13:55 01/12/25 13:55 01/12/25 13:55 01/12/25 13:55 01/12/25 13:55 Laboratory Results - last 24 hr 01/12/25 08:35: WBC 11.0 H, RBC 5.20, Hgb 14.1, Hct 43.6, MCV 83.8, MCH 27.1, MCHC 32.3, RDW 14.4, Plt Count 348, MPV 8.5, Neut % (Auto) 67.2, Lymph % (Auto) 21.6, [place] % (Auto) 6.7, Eos % (Auto) 3.1, Baso % (Auto) 0.7, Neut # (Auto) 7.4, Lymph # (Auto) 2.4, [place] # (Auto) 0.7, Eos # (Auto) 0.3, Baso # (Auto) 0.1, Sodium 140, Potassium 4.3, Chloride 106, Carbon Dioxide 23, Anion Gap 15.3 H, BUN 45 H, Creatinine 2.30 H, Estimated Creat Clear 44, Estimated GFR 29 L, Est GFR ( Amer) 35 L, Glucose 177 H, Calcium 8.7 I & O for Last 24 hours: Intake & Output 01/09/25 01/10/25 01/11/25 01/12/25 23:59 23:59 23:59 23:59 Weight 95.254 kg Constitutional Constitutional: no acute distress *Routine HEENT Exam Head: Present normocephalic Eye: Present EOMI and PERRL ENT: Present mucous membranes moist *Routine Neck Exam Neck: Present supple; Absent lymphadenopathy *Routine Respiratory Exam Respiratory: Present wheezes, crackles and normal respiratory effort *Routine Cardiovascular Exam Cardiovascular: Present RRR *Routine Abdominal Exam Abdominal: Present soft and normoactive bowel sounds; Absent tenderness *Routine Rectal Exam Rectal:: deferred *Routine Genitalia Exam Genitalia:: deferred *Routine Extremities Exam Extremities: Present edema and full ROM; Absent cyanosis or clubbing *Routine Skin Exam Skin: Present warm; Absent rash *Routine Neurological Exam Neurological: Present alert, oriented X3 and moving all extremities; Absent altered mental status Assessment and Plan *Assessment and plan (1) CAD (coronary artery disease): Status: Chronic Qualifiers: Coronary Disease-Associated Artery/Lesion type: [place] artery [place] vs. transplanted heart: [place] heart Associated angina: without angina Qualified Code(s): I25.10 - Atherosclerotic heart disease of [place] coronary artery without angina pectoris Category: Medical Code(s): I25.10 - Atherosclerotic heart disease of [place] coronary artery without angina pectoris (2) HTN (hypertension): Status: Chronic Qualifiers: Hypertension type: essential hypertension Qualified Code(s): I10 - Essential (primary) hypertension Category: Medical Code(s): I10 - Essential (primary) hypertension (3) Heart failure with reduced ejection fraction: Status: Acute Category: Medical Code(s): I50.20 - Unspecified systolic (congestive) heart failure (4) Type 2 diabetes, uncontrolled, with renal manifestation: Status: Acute Category: Medical (5) CKD (chronic kidney disease) stage 3, GFR 30-59 ml/min: Status: Acute Category: Medical Code(s): N18.30 - Chronic kidney disease, stage 3 unspecified (6) HLD (hyperlipidemia): Status: Chronic Qualifiers: Hyperlipidemia type: mixed hyperlipidemia Qualified Code(s): E78.2 - Mixed hyperlipidemia Category: Medical Code(s): E78.5 - Hyperlipidemia, unspecified (7) COPD (chronic obstructive pulmonary disease): Status: Acute Category: Medical Code(s): J44.9 - Chronic obstructive pulmonary disease, unspecified (8) History of coronary artery bypass graft: Status: Acute Category: Surgical Code(s): Z95.1 - Presence of aortocoronary bypass graft Plan 64-year-old male who presented for elective heart cath. Found to have 2 saphenous vein grafts that have gone down since last heart cath. In conjunction with his CKD, significant contrast, worsening EF on heart cath, cardiology requested admission for further management. Medicine agreed to admit for further care. Continue goal-directed therapy with anticoagulation. Echo pending. Problems addressed as follows: Coronary artery disease History of CABG Hypertension HFrEF, suspected new onset - Left heart cath that shows interval loss of saphenous vein graft to circumflex and saphenous graft to RCA. LARA patent. Chronically occluded mid and distal LAD. Successful stenting of chronically occluded RCA with 3 drug-eluting stents. Additional PATEL extended into the posterior descending artery. - Continue aspirin 81 mg daily and Plavix 75 mg daily. - echo pending, preliminary EF approximately 45%.; If EF less than 35% on formal read, will consider LifeVest - Continue metoprolol tartrate 37.5 mg twice daily - Initiate Entresto 24/26 mg twice daily - Initiate Aldactone 25 mg daily - Continue Jardiance 10 mg daily CKD 3:Kidney function at baseline with BUN 45, creatinine 2.3. Potassium 4.3. Repeat CBC, CMP, magnesium ordered for the morning Hemoglobin A1c at 7.4 in September, repeat level pending. TSH normal historically, 1.6 in September Hyperlipidemia Hypertriglyceridemia - Triglycerides 1157, HDL 22, and LDL in the 30s back in September. Repeat t riglyceride and direct LDL level ordered for the morning. - Continue Leqvio - Patient is awaiting referral to to see lipidologist Full code Diabetic diet Heparinized and
--- NOTE | 2025-01-12 14:02 | PC.NURSE ---
arrived by stefaner from [facility]
--- NOTE | 2025-01-12 15:36 | EXP.CARD.CON ---
History of Present Illness History of Present Illness Consult date: 01/12/25 Requesting physician: Saqib Tucker Chief complaint: New onset HFrEF, CAD History of present illness: This is a 64-year-old white male with past medical history of coronary artery disease status post CABG, chronic kidney disease with baseline creatinine of 2.2, hypertriglyceridemia, mild aortic stenosis, diabetes mellitus and tobacco user who was admitted after left heart catheterization today with stenting. Patient has had ongoing episodes of worsening chest tightness radiating to the left neck and down left arm for the past couple of months. Patient was set up for a left heart catheterization today and received 3 PATEL to RCA and a successful opening of a chronically occluded posterior descending artery. Please see cath report below for additional information. On left heart catheterization ejection fraction looked to be around 30%. Patient was admitted due to the complexity of the left heart catheterization procedure in the setting of chronic renal failure for monitoring of labs as well as further evaluation for suspected new onset cardiomyopathy. Preliminary echo report shows an ejection fraction of 45%. Left heart catheterization 01/12/2025: IMPRESSION Interval loss of the saphenous vein graft to the circumflex artery and saphenous vein graft to the right coronary artery since last cardiac catheterization Patent LARA to a chronically occluded mid and distal LAD which fills scantly via left to left collaterals Chronically occluded right coronary artery which fills via [id number] collaterals through a large septal technology sales representative Successful opening of a chronically occluded right coronary artery 100% occlusion reduced to 0% with 3 drug-eluting stents in the right coronary artery followed by an additional drug-eluting stent extending into the posterior descending artery Successful opening of a chronically occluded posterior descending artery PLAN 1. Plavix and aspirin 2. Absolute tobacco cessation 3. Patient has triglycerides over 1000 and needs tighter diabetes control and compliance 4. Limited echo to determine if ejection fraction is less than 35%. If so patient should be considered for a LifeVest 5. Reevaluate ejection fraction in 90 days and consider AICD placement 6. Cardiac rehabilitation 7. GDMT for heart failure 8. GDMT for ischemic heart disease 9. Patient requires admission due to the complexity of the procedure and the chronic renal failure with a creatinine of 2.3. Patient needs to be given IV fluids monitored for heart failure as well as given fluids to reduce the risk of contrast nephropathy 10. Check labs in the morning [facility] Disclaimer: The information contained in this section may have been updated after the patient was seen, as this information can be updated by other users. Medical History (Updated 01/12/25 @ 15:50 by Susu Michelle APRN) CHF (congestive heart failure) Renal artery stenosis Angina pectoris COPD (chronic obstructive pulmonary disease) Acute exacerbation of chronic obstructive pulmonary disease Diabetes mellitus type 2, controlled, without complications Acute bronchitis Edema Iliotibial band syndrome, right leg Unstable angina Family history of heart disease Tobacco dependence syndrome Dyspnea Abnormal EKG Chest pain Right upper quadrant abdominal pain Surgical History History of open heart surgery History of coronary artery bypass graft Family History Mother CHF (congestive heart failure) Brother Lung nodules Other Chest pain Social History (Updated 01/12/25 @ 14:42 by Sabrina Isaacs, DULCE) Smoking Status: Current every day smoker tobacco type: cigarettes packs per day: 1 years smoked: 43 quit status: considering quitting alcohol intake: never substance use type: denies use current occupational status: employed Travel in the last 8 weeks?: Inside the [place] household members: spouse housing: house caffeine: Yes Have you lived/traveled outside US in past 30 days?: No Contact w/someone who lives/traveled outside [place] past 30 days?: No Exposure to someone with infectious disease in past 14 days?: No Do you have a fever (greater than 100.4 F or 38 C)?: No Have you tested positive for COVID-19?: No Exposed to someone with COVID-19 in past 14 days?: No Do you have a sore throat?: No Do you have a cough?: No Do you have any weakness?: No Are you experiencing any nausea/vomitting?: No Do you have any diarrhea?: No Are you experiencing any unusual bleeding?: No Do you have any muscle aches/pain?: No Do you have any abdominal pain?: No Are you experiencing loss of taste or smell?: No Review of Systems Review of Systems Review of systems:: pertinent systems reviewed and negative unless documented below *Cardiovascular Cardiovascular: Reports chest pain Exam Data for Last 24 hours Vital signs and Labs for Last 24 Hours: Temp Pulse Resp BP Pulse Ox O2 Del Method 98.2 F 70 17 136/71 96 Room Air 01/12/25 14:15 01/12/25 14:26 01/12/25 14:15 01/12/25 14:15 01/12/25 14:15 01/12/25 14:55 Laboratory Results - last 24 hr 01/12/25 08:35: WBC 11.0 H, RBC 5.20, Hgb 14.1, Hct 43.6, MCV 83.8, MCH 27.1, MCHC 32.3, RDW 14.4, Plt Count 348, MPV 8.5, Neut % (Auto) 67.2, Lymph % (Auto) 21.6, [place] % (Auto) 6.7, Eos % (Auto) 3.1, Baso % (Auto) 0.7, Neut # (Auto) 7.4, Lymph # (Auto) 2.4, [place] # (Auto) 0.7, Eos # (Auto) 0.3, Baso # (Auto) 0.1, Sodium 140, Potassium 4.3, Chloride 106, Carbon Dioxide 23, Anion Gap 15.3 H, BUN 45 H, Creatinine 2.30 H, Estimated Creat Clear 44, Estimated GFR 29 L, Est GFR ( Amer) 35 L, Glucose 177 H, Calcium 8.7 I & O for Last 24 hours: Intake & Output 01/09/25 01/10/25 01/11/25 01/12/25 23:59 23:59 23:59 23:59 Weight 210 lb Constitutional Constitutional: no acute distress *Routine Respiratory Exam Respiratory: Present CTA bilaterally and symmetric chest movement *Routine Cardiovascular Exam Cardiovascular: Present RRR, Normal S1 and Normal S2 *Routine Abdominal Exam Abdominal: Present soft and normoactive bowel sounds; Absent tenderness *Routine Extremities Exam Extremities: Present full ROM and normal capillary refill; Absent edema *Routine Skin Exam Skin: Present intact, dry and warm Detailed Neck Exam: Thyroids Thyroid: Absent bruit Meds Home Medications and Allergies Home Medications ?Medication ?Instructions ?Recorded ?Confirmed ?Type ipratropium 0.5 mg-albuterol 3 mg 3 ml inhalation BID 30 days #180 mL 08/26/23 01/04/25 Rx (2.5 mg base)/3 mL nebulization soln albuterol sulfate 90 mcg/actuation 2 puff inhalation Q6HP PRN 09/20/23 01/04/25 History aerosol inhaler Shortness of breath and Wheezing nitroglycerin 0.4 mg sublingual 0.4 mg sublingual Q5M PRN chest 09/20/23 01/04/25 Rx tablet pain #25 tabs aspirin 81 mg tablet,delayed 81 mg PO DAILY #30 tabs 10/02/23 01/04/25 Rx release (Adult Low Dose Aspirin) insulin degludec 100 unit/mL (3 16 unit (0.16 mL) SQ HS 30 days 05/20/24 01/04/25 Rx mL) subcutaneous pen (Tresiba #4.8 mL FlexTouch U-100 insulin) pen needle, diabetic 32 gauge x #100 ea 07/28/24 01/04/25 Rx /32 (BD Philomena 2nd Gen Pen Needle) syringe with needle 3 mL 23 gauge #100 ea 10/06/24 01/04/25 History x 1 1/2 (BD Luer-Doron Syringe) clopidogrel 75 mg tablet 75 mg PO DAILY #30 tabs 10/19/24 01/04/25 Rx losartan 50 mg-hydrochlorothiazide 1 tab PO DAILY #30 tabs 10/19/24 01/04/25 Rx 12.5 mg tablet metoprolol tartrate 25 mg tablet 37.5 mg (1.5 x 25 mg) PO BID #60 10/19/24 01/04/25 Rx tabs metformin 500 mg tablet See Rx Instructions .Route 12/21/24 01/04/25 Rx .COMPLEX #60 tabs aspirin 325 mg tablet 325 mg PO DAILY 01/04/25 01/04/25 History inclisiran 284 mg/1.5 mL 284 mg (1.5 mL) SQ [id number] #1.5 mL 01/04/25 01/04/25 Rx subcutaneous syringe (Leqvio) isosorbide mononitrate 60 mg 60 mg PO DAILY #30 tabs 01/04/25 01/04/25 Rx tablet,extended release 24 hr dapagliflozin propanediol 10 mg See Rx Instructions .Route 01/11/25 Rx tablet (Farxiga) .COMPLEX #30 tabs New Prescriptions to Start Prescriptions: Allergies Allergy/AdvReac Type Severity Reaction Status Date / Time [id number] Reductase AdvReac Severe Unknown Verified 01/12/25 08:36 Inhibitor allergy reaction Assessment and Plan *Assessment and plan (1) CAD (coronary artery disease): Status: Chronic Qualifiers: Coronary Disease-Associated Artery/Lesion type: [place] artery [place] vs. transplanted heart: [place] heart Associated angina: without angina Qualified Code(s): I25.10 - Atherosclerotic heart disease of [place] coronary artery without angina pectoris Category: Medical Code(s): I25.10 - Atherosclerotic heart disease of [place] coronary artery without angina pectoris (2) HTN (hypertension): Status: Chronic Qualifiers: Hypertension type: essential hypertension Qualified Code(s): I10 - Essential (primary) hypertension Category: Medical Code(s): I10 - Essential (primary) hypertension (3) Heart failure with reduced ejection fraction: Status: Acute Category: Medical Code(s): I50.20 - Unspecified systolic (congestive) heart failure Plan Coronary artery disease s/p CABG Left heart cath 01/12/2025 shows interval loss of the saphenous vein graft to the circumflex artery and right coronary artery since last heart cath. Chronically occluded mid and distal LAD and RCA. Successful opening of a chronically occluded RCA with 3 PATEL followed by an additional PATEL to posterior descending artery. Successful opening of chronically occluded PDA Continue aspirin and Plavix Statin intolerant New onset HFrEF Mild Ejection fraction 40 to 45% Stop losartan and start Entresto 24/26 mg p.o. twice daily Continue Jardiance 10 mg p.o. daily Continue metoprolol tartrate 37.5 mg p.o. twice daily Add Aldactone 25 mg p.o. daily Chronic kidney disease Baseline creatinine 2.2, monitor Hyperlipidemia Hypertriglyceridemia LDL September 2024 34, triglycerides over 1000 Continue Leqvio Previously usually noncompliant with Vascepa Patient is awaiting referral to [facility] to see lipidologist Hypertension Stop losartan hydrochlorothiazide and start Entresto 24/26 mg p.o. twice daily and continue metoprolol tartrate 37.5 mg p.o. twice daily CV summary 01/12/2025: Ejection fraction 40 to 45%. Please see medications as outlined below Cardiac meds Aspirin 81 mg p.o. daily Plavix 75 mg p.o. daily Entresto 24/26 mg p.o. twice daily Jardiance 10 mg p.o. daily Metoprolol tartrate 37.5 mg p.o. twice daily Aldactone 25 mg p.o. daily
[2025-01-12 16:04] LABS: POC Glucose,Bedside 101 (70-110)
[2025-01-12] MEDS: IOPAMIDOL-370 (76%);100ML BOTTLE 110 ML IV (16:29)
[2025-01-12 16:32] LABS: CATHL Activated Clotting Time 248 SEC (74-125)
[2025-01-12] MEDS: SACUBITRIL/VALSARTAN 24-26MG TABLET 1 EACH PO (20:46)
[2025-01-12] MEDS: METOPROLOL TARTRATE 25MG TABLET 37.5 MG PO (20:46)
[2025-01-12] MEDS: humaLOG 100 UNITS/ML 10ML VIAL (SSI) SUBCUT (20:47)
[2025-01-12] MEDS: INSULIN GLARGINE 100 UNITS/ML 3ML FLEXPEN 15 UNIT SUBCUT (20:47)
[2025-01-13] VITALS: PULSE 60
[2025-01-13 03:33] LABS: POC Glucose,Bedside 187 (70-110)
[2025-01-13 04:00] VITALS: BP 107/60; PULSE 70; PULSE 74; RESP 16; TEMP 36.7; O2SAT 95; BMI 34.9
[2025-01-13 06:04] LABS: POC Glucose,Bedside 132 (70-110)
[2025-01-13 06:15] LABS: Basophils # 0.1 K/mm3 (0-0.2); Basophils % 0.5 % (0.1-2.0); Eosinophils # 0.3 Kmm3 (0.0-0.4); Hematocrit 40.9 % (42.0-52.0); Hemoglobin 13.2 g/dL (14.1-18.0); Lymphocytes # 1.3 K/mm3 (0.7-4.5); Lymphocytes % 13.1 % (10-50); Mean Corpuscular HGB Conc 32.3 g/dL (31.8-35.4); Mean Corpuscular Hemoglobin 26.9 pg (27.0-31.2); Mean Corpuscular Volume 83.5 fl (80-94); Mean Platelet Volume 8.5 fl (7.4-10.4); Monocytes # 0.6 K/mm3 (0.1-1.0); Monocytes % 6.4 % (1.7-9.3); Neutrophils # 7.5 K/mm3 (1.8-7.8); Neutrophils % 76.5 % (37.0-80.0); Nucleated Red Blood Cells # 0 10^3/uL; Nucleated Red Blood Cells % 0 %; Platelet Count 296 K/mm3 (142-424); Red Cell Distribution Width 14.1 % (11.5-17.5); Red Cell Distribution Width-SD 42.8 fL; White Blood Count 9.7 K/mm3 (4.8-10.8)
[2025-01-13 06:25] LABS: Chloride 106 mmol/L (98-107)
[2025-01-13 06:26] LABS: Potassium 4.5 mmoL/L (3.5-5.1); Sodium 135 mmol/L (136-145)
[2025-01-13 06:29] LABS: Anion Gap 8.5 mEq/L (5-15); Blood Urea Nitrogen 36 mg/dl (9-20); Calcium 8.8 mg/dl (8.4-10.2); Carbon Dioxide 25 mmol/L (22.0-30.0); Creatinine Clearance Estimated 47 mL/min (50-200); Estimated Glomerular Filt Rate 32 ml/min (>60); GFR (African American) 39 ML/MIN (>60); Glucose 129 mg/dl (74-100)
[2025-01-13 06:51] LABS: Direct LDL Cholesterol 34.97 mg/dL (100-129)
[2025-01-13 06:58] LABS: Hemoglobin A1C 7.7 % (4.0-6.0)
[2025-01-13 07:05] LABS: Triglycerides 851 mg/dl (30-150)
[2025-01-13 07:11] LABS: Thyroid Stimulating Hormone 0.64 uIU/mL (0.465-4.68)
--- NOTE | 2025-01-13 07:20 | P.DS_ITS ---
General Admission date:: 01/12/25 Discharge date: 01/13/25 HPI HPI HPI: Mr. Mcdowell is a 64-year-old male with history of CAD status post CABG, CKD, hypertriglyceridemia, mild AI, diabetes, tobacco use disorder, and hypertension. He was brought in for elective heart cath today due to worsening anginal symptoms with referred symptoms to his neck and arm. During his heart cath, EF concern for being around 30%. Additionally noted to have creatinine above his baseline. Cardiology requested admission for monitoring of kidney function and further management of his heart failure with repeat echo and initiation of goal- directed therapy. On evaluation after arriving to the floor, patient denies any chest pain. Feels some mild discomfort in his right groin. Stable on room air. No nausea or vomiting. Exam Data for Last 24 hours Vital signs and Labs for Last 24 Hours: Temp Pulse Resp BP Pulse Ox O2 Del Method 98.1 F 74 16 107/60 L 95 Room Air 01/13/25 04:00 01/13/25 04:00 01/13/25 04:00 01/13/25 04:00 01/13/25 04:00 01/13/25 06:25 Laboratory Results - last 24 hr 01/12/25 08:35: WBC 11.0 H, RBC 5.20, Hgb 14.1, Hct 43.6, MCV 83.8, MCH 27.1, MCHC 32.3, RDW 14.4, Plt Count 348, MPV 8.5, Neut % (Auto) 67.2, Lymph % (Auto) 21.6, [place] % (Auto) 6.7, Eos % (Auto) 3.1, Baso % (Auto) 0.7, Neut # (Auto) 7.4, Lymph # (Auto) 2.4, [place] # (Auto) 0.7, Eos # (Auto) 0.3, Baso # (Auto) 0.1, Sodium 140, Potassium 4.3, Chloride 106, Carbon Dioxide 23, Anion Gap 15.3 H, BUN 45 H, Creatinine 2.30 H, Estimated Creat Clear 44, Estimated GFR 29 L, Est GFR ( Amer) 35 L, Glucose 177 H, Calcium 8.7 01/12/25 12:16: Activated Clotting Time 248 H* 01/12/25 15:56: POC Glucose 101 01/12/25 20:03: POC Glucose 187 H 01/13/25 05:56: WBC 9.7, RBC 4.90, Hgb 13.2 L, Hct 40.9 L, MCV 83.5, MCH 26.9 L, MCHC 32.3, RDW 14.1, Plt Count 296, MPV 8.5, Neut % (Auto) 76.5, Lymph % (Auto) 13.1, [place] % (Auto) 6.4, Eos % (Auto) 3.0, Baso % (Auto) 0.5, Neut # (Auto) 7.5, Lymph # (Auto) 1.3, [place] # (Auto) 0.6, Eos # (Auto) 0.3, Baso # (Auto) 0.1, Sodium 135 L, Potassium 4.5, Chloride 106, Carbon Dioxide 25, Anion Gap 8.5, BUN 36 H, Creatinine 2.10 H, Estimated Creat Clear 47, Estimated GFR 32 L, Est GFR ( Amer) 39 L, Glucose 129 H D, POC Glucose 132 H, Hemoglobin A1c 7.7 H, Calcium 8.8, Triglycerides 851 H, LDL Cholesterol Direct 34.97 L I & O for Last 24 hours: Intake & Output 01/10/25 01/11/25 01/12/25 01/13/25 23:59 23:59 23:59 23:59 Intake Total 750 / 990 240 / 240 Output Total 650 / 650 0 / 0 Balance 100 / 340 240 / 240 Weight 95.254 kg 92.941 kg Results Data Completed and Pending Labs on day of discharge: Labs from last 24 hours 01/13/25 01/12/25 01/12/25 05:56 20:03 15:56 WBC 9.7 RBC 4.90 Hgb 13.2 L Hct 40.9 L MCV 83.5 MCH 26.9 L MCHC 32.3 RDW 14.1 Plt Count 296 MPV 8.5 Neut % (Auto) 76.5 Lymph % (Auto) 13.1 [place] % (Auto) 6.4 Eos % (Auto) 3.0 Baso % (Auto) 0.5 Neut # (Auto) 7.5 Lymph # (Auto) 1.3 [place] # (Auto) 0.6 Eos # (Auto) 0.3 Baso # (Auto) 0.1 Activated Clotting Time Sodium 135 L Potassium 4.5 Chloride 106 Carbon Dioxide 25 Anion Gap 8.5 BUN 36 H Creatinine 2.10 H Estimated Creat Clear 47 Estimated GFR 32 L Est GFR ( Amer) 39 L Glucose 129 H D POC Glucose 132 H 187 H 101 Hemoglobin A1c 7.7 H Calcium 8.8 Triglycerides 851 H LDL Cholesterol Direct 34.97 L 01/12/25 01/12/25 12:16 08:35 WBC 11.0 H RBC 5.20 Hgb 14.1 Hct 43.6 MCV 83.8 MCH 27.1 MCHC 32.3 RDW 14.4 Plt Count 348 MPV 8.5 Neut % (Auto) 67.2 Lymph % (Auto) 21.6 [place] % (Auto) 6.7 Eos % (Auto) 3.1 Baso % (Auto) 0.7 Neut # (Auto) 7.4 Lymph # (Auto) 2.4 [place] # (Auto) 0.7 Eos # (Auto) 0.3 Baso # (Auto) 0.1 Activated Clotting Time 248 H* Sodium 140 Potassium 4.3 Chloride 106 Carbon Dioxide 23 Anion Gap 15.3 H BUN 45 H Creatinine 2.30 H Estimated Creat Clear 44 Estimated GFR 29 L Est GFR ( Amer) 35 L Glucose 177 H POC Glucose Hemoglobin A1c Calcium 8.7 Triglycerides LDL Cholesterol Direct DS: Diagnosis Discharge Diagnosis (1) CAD (coronary artery disease): Status: Chronic Code(s): I25.10 - Atherosclerotic heart disease of [place] coronary artery without angina pectoris Qualifiers: Associated angina: without angina Coronary Disease-Associated Artery/Lesion type: [place] artery [place] vs. transplanted heart: [place] heart Qualified Code(s): I25.10 - Atherosclerotic heart disease of [place] coronary artery without angina pectoris (2) HTN (hypertension): Status: Chronic Code(s): I10 - Essential (primary) hypertension Qualifiers: Hypertension type: essential hypertension Qualified Code(s): I10 - Essential (primary) hypertension (3) Heart failure with reduced ejection fraction: Status: Acute Code(s): I50.20 - Unspecified systolic (congestive) heart failure (4) Type 2 diabetes, uncontrolled, with renal manifestation: Status: Acute (5) CKD (chronic kidney disease) stage 3, GFR 30-59 ml/min: Status: Acute Code(s): N18.30 - Chronic kidney disease, stage 3 unspecified (6) HLD (hyperlipidemia): Status: Chronic Code(s): E78.5 - Hyperlipidemia, unspecified Qualifiers: Hyperlipidemia type: mixed hyperlipidemia Qualified Code(s): E78.2 - Mixed hyperlipidemia (7) COPD (chronic obstructive pulmonary disease): Status: Acute Code(s): J44.9 - Chronic obstructive pulmonary disease, unspecified (8) History of coronary artery bypass graft: Status: Acute Code(s): Z95.1 - Presence of aortocoronary bypass graft Meds Home Medications and Allergies Home Medications ?Medication ?Instructions ?Recorded ?Confirmed ?Type albuterol sulfate 90 mcg/actuation 2 puff inhalation Q6HP PRN 09/20/23 01/13/25 History aerosol inhaler Shortness of breath and Wheezing nitroglycerin 0.4 mg sublingual 0.4 mg sublingual Q5M PRN chest 09/20/23 01/13/25 Rx tablet pain #25 tabs aspirin 81 mg tablet,delayed 81 mg PO DAILY #30 tabs 10/02/23 01/13/25 Rx release (Adult Low Dose Aspirin) insulin degludec 100 unit/mL (3 16 unit (0.16 mL) SQ HS 30 days 05/20/24 01/13/25 Rx mL) subcutaneous pen (Tresiba #4.8 mL FlexTouch U-100 insulin) pen needle, diabetic 32 gauge x #100 ea 07/28/24 01/13/25 Rx 5/32 (BD Philomena 2nd Gen Pen Needle) syringe with needle 3 mL 23 gauge #100 ea 10/06/24 01/13/25 History x 1 1/2 (BD Luer-Doron Syringe) clopidogrel 75 mg tablet 75 mg PO DAILY #30 tabs 10/19/24 01/13/25 Rx metoprolol tartrate 25 mg tablet 37.5 mg (1.5 x 25 mg) PO BID #60 10/19/24 01/13/25 Rx tabs inclisiran 284 mg/1.5 mL 284 mg (1.5 mL) SQ [id number] #1.5 mL 01/04/25 01/13/25 Rx subcutaneous syringe (Leqvio) isosorbide mononitrate 60 mg 60 mg PO DAILY #30 tabs 01/04/25 01/13/25 Rx tablet,extended release 24 hr metformin 500 mg tablet 500 mg PO BIDWMEAL 01/12/25 01/13/25 History dapagliflozin propanediol 10 mg 10 mg PO DAILY #30 tabs 01/13/25 Rx tablet (Farxiga) sacubitril 24 mg-valsartan 26 mg 1 tab PO BID 30 days #60 tabs 01/13/25 Rx tablet (Entresto) spironolactone 25 mg tablet 25 mg PO DAILY 30 days #30 tabs 01/13/25 Rx New Prescriptions to Start Prescriptions: dapagliflozin propanediol [Farxiga] Saqib Tucker sacubitril-valsartan [Entresto] Saqib Tucker spironolactone Saqib Tucker Allergies Allergy/AdvReac Type Severity Reaction Status Date / Time [id number] Reductase AdvReac Severe Unknown Verified 01/12/25 08:36 Inhibitor allergy reaction Discharge Plan Disposition Patient Disposition: Home, Self-Care Condition: Fair Follow up Plan Follow up with: Cindy Diaz APRN [Primary Care Provider] - 01/22/25 8:30 am Graham Royal MD [Staff Physician] - 01/20/25 10:15 am Prescriptions/Medication Reconciliation: New spironolactone 25 mg Tablet 25 mg PO DAILY 30 Days Qty: 30 0RF Entresto 24-26 mg Tablet 1 tab PO BID 30 Days Qty: 60 0RF dapagliflozin propanediol [Farxiga] 10 mg tablet 10 mg PO DAILY Qty: 30 0RF Continued aspirin [Adult Low Dose Aspirin] 81 mg tablet,delayed release (DR/EC) 81 mg PO DAILY Qty: 30 11RF Tresiba FlexTouch U-100 100 unit/mL (3 mL) insulin pen 16 unit SQ HS 30 Days Qty: 4.8 6RF Leqvio 284 mg/1.5 mL syringe 284 mg SQ [id number] Qty: 1.5 2RF Rx Instructions: initial 240 mg injection now, repeat 240 mg at 3 months, then repeat 240 mg every 6 months isosorbide mononitrate 60 mg tablet extended release 24 hr 60 mg PO DAILY Qty: 30 2RF (DME) syringe with needle [BD Luer-Doron Syringe] 3 mL 23 gauge x 1 1/2 syringe See Rx Instructions .ROUTE .MEDSUPPLY Qty: 100 Rx Instructions: As directed nitroglycerin 0.4 mg tablet, sublingual 0.4 mg sublingual Q5M PRN (Reason: chest pain) Qty: 25 0RF Rx Instructions: do not exceed 3 doses per episode (DME) pen needle, diabetic [BD Philomena 2nd Gen Pen Needle] 32 gauge x 5/32 needle See Rx Instructions .ROUTE .COMPLEX Qty: 100 1RF Dose Instruction: USE DIRECTED Rx Instructions: USE DIRECTED clopidogrel 75 mg tablet 75 mg PO DAILY Qty: 30 11RF metoprolol tartrate 25 mg tablet 37.5 mg PO BID Qty: 60 5RF metformin 500 mg tablet 500 mg PO BIDWMEAL albuterol sulfate 90 mcg/actuation HFA aerosol inhaler 2 puff INHALATION Q6HP PRN (Reason: Shortness of breath and Wheezing) Discontinued losartan-hydrochlorothiazide 50-12.5 mg tablet 1 tab PO DAILY Qty: 30 5RF Rx Instructions: 50/12.5MG dapagliflozin propanediol [Farxiga] 10 mg tablet 10 mg PO DAILY Problem Reconciliation Problems Reviewed?: Yes Patient Discharge Instructions ACTIVITY: Continue current activity DIET: continue same diet, diabetic diet and low fat, low cholesterol Stand Alone Forms: [facility] Work Release Patient Instructions: DI for Cardiac Catheterization, DI for Coronary Stenting, DI for Surgical Site Infection, DI for Moderate Sedation, Stop Light COPD, Stop Light Heart Failure Print Language: [place] Providers Primary Care Provider: Cindy Diaz Admit Provider: Saqib Tucker Attending Provider: Saqib Tucker
[2025-01-13 08:00] VITALS: BP 146/95; PULSE 80; PULSE 82; RESP 18; TEMP 36.6; O2SAT 95
[2025-01-13] MEDS: ASPIRIN EC 81MG TABLET 81 MG PO (09:01)
[2025-01-13] MEDS: EMPAGLIFLOZIN 25MG TABLET 25 MG PO (09:01)
[2025-01-13] MEDS: ISOSORBIDE MONO 60MG TAB.ER.24H 60 MG PO (09:01)
[2025-01-13] MEDS: METOPROLOL TARTRATE 25MG TABLET 37.5 MG PO (09:01)
[2025-01-13] MEDS: SACUBITRIL/VALSARTAN 24-26MG TABLET 1 EACH PO (09:01)
[2025-01-13] MEDS: SPIRONOLACTONE 25MG TABLET 25 MG PO (09:02)
[2025-01-13] MEDS: CLOPIDOGREL 75MG TAB 75 MG PO (09:04)
[2025-01-13 10:04] LABS: POC Glucose,Bedside 251 (70-110)
[2025-01-13] MEDS: humaLOG 100 UNITS/ML 10ML VIAL (SSI) SUBCUT (10:07)
--- NOTE | 2025-01-13 11:36 | P.PN_ITS ---
Subjective Subjective Date: 01/13/25 Time: 08:00 Principal diagnosis: CAD and HFrEF Interval history: Doing well this morning. Denies chest pain or soa. Vitals are stable. Morning labs reviewed, creatinine improved. Exam Data for Last 24 hours Vital signs and Labs for Last 24 Hours: Temp Pulse Resp BP Pulse Ox O2 Del Method 97.9 F 82 18 146/95 H 95 Room Air 01/13/25 08:00 01/13/25 08:00 01/13/25 08:00 01/13/25 08:00 01/13/25 08:00 01/13/25 10:00 Laboratory Results - last 24 hr 01/12/25 12:16: Activated Clotting Time 248 H* 01/12/25 15:56: POC Glucose 101 01/12/25 20:03: POC Glucose 187 H 01/13/25 05:56: WBC 9.7, RBC 4.90, Hgb 13.2 L, Hct 40.9 L, MCV 83.5, MCH 26.9 L, MCHC 32.3, RDW 14.1, Plt Count 296, MPV 8.5, Neut % (Auto) 76.5, Lymph % (Auto) 13.1, [place] % (Auto) 6.4, Eos % (Auto) 3.0, Baso % (Auto) 0.5, Neut # (Auto) 7.5, Lymph # (Auto) 1.3, [place] # (Auto) 0.6, Eos # (Auto) 0.3, Baso # (Auto) 0.1, Sodium 135 L, Potassium 4.5, Chloride 106, Carbon Dioxide 25, Anion Gap 8.5, BUN 36 H, Creatinine 2.10 H, Estimated Creat Clear 47, Estimated GFR 32 L, Est GFR ( Amer) 39 L, Glucose 129 H D, POC Glucose 132 H, Hemoglobin A1c 7.7 H, Calcium 8.8, Triglycerides 851 H, LDL Cholesterol Direct 34.97 L, TSH 0.64 01/13/25 09:57: POC Glucose 251 H I & O for Last 24 hours: Intake & Output 01/10/25 01/11/25 01/12/25 01/13/25 23:59 23:59 23:59 23:59 Intake Total 750 / 990 960 / 960 Output Total 650 / 650 0 / 0 Balance 100 / 340 960 / 960 Weight 210 lb 204 lb 14.4 oz Constitutional Constitutional: no acute distress *Routine Respiratory Exam Respiratory: Present CTA bilaterally and symmetric chest movement *Routine Cardiovascular Exam Cardiovascular: Present RRR, Normal S1 and Normal S2 *Routine Abdominal Exam Abdominal: Present soft and normoactive bowel sounds; Absent tenderness *Routine Extremities Exam Extremities: Present full ROM and normal capillary refill; Absent edema Comments: Right femoral access- no obvious swelling or bruising. Dressing dry and intact. Leg is pink and warm with strong pulses present. *Routine Skin Exam Skin: Present intact, dry and warm Detailed Neck Exam: Thyroids Thyroid: Absent bruit Progress Note: A&P Assessment and plan (1) CAD (coronary artery disease): Status: Chronic (2) HTN (hypertension): Status: Chronic (3) Heart failure with reduced ejection fraction: Status: Acute (4) Type 2 diabetes, uncontrolled, with renal manifestation: Status: Acute (5) CKD (chronic kidney disease) stage 3, GFR 30-59 ml/min: Status: Acute (6) HLD (hyperlipidemia): Status: Chronic (7) COPD (chronic obstructive pulmonary disease): Status: Acute (8) History of coronary artery bypass graft: Status: Acute Assessment and Plan Assessment and Plan for All Diagnoses:: Coronary artery disease s/p CABG Left heart cath 01/12/2025 shows interval loss of the saphenous vein graft to the circumflex artery and right coronary artery since last heart cath. Chronically occluded mid and distal LAD and RCA. Successful opening of a chronically occluded RCA with 3 PATEL followed by an additional PATEL to posterior descending artery. Successful opening of chronically occluded PDA Continue aspirin and Plavix Statin intolerant on Leqvio New onset HFrEF Mild Ejection fraction 40 to 45% Continue Entresto 24/26 mg p.o. twice daily Continue Jardiance 10 mg p.o. daily Continue metoprolol tartrate 37.5 mg p.o. twice daily Conetine Aldactone 25 mg p.o. daily Chronic kidney disease Baseline creatinine 2.2, monitor Hyperlipidemia Hypertriglyceridemia LDL September 2024 34, triglycerides over 1000 Continue Leqvio Previously usually noncompliant with Vascepa Patient is awaiting referral to [facility] to see lipidologist Hypertension Continue Entresto 24/26 mg p.o. twice daily and continue metoprolol tartrate 37.5 mg p.o. twice daily CV summary 01/13/2025: Patient is CV stable for discharge home. Please have patient continue below listed cardiac meds and follow-up in cardiology clinic in 1 week for reevaluation. Cardiac meds Aspirin 81 mg p.o. daily Plavix 75 mg p.o. daily Entresto 24/26 mg p.o. twice daily Jardiance 10 mg p.o. daily Metoprolol tartrate 37.5 mg p.o. twice daily Aldactone 25 mg p.o. daily
[2025-01-13 12:00] VITALS: PULSE 90
--- NOTE | 2025-01-14 11:17 | SW/DCPLANNER ---
Spoke with patient on the phone. Patient stated that he is doing well. Patient stated that he is aware of her upcoming appointments. Patient stated that he is going here in a bit to get his new medicine. Patient stated that he has no questions or concerns at this time. Vamshi Christianson
== END 2025-01-13 12:43 | disposition home or self-care (01) ==
LOC: 2ND 13:46
PROVIDERS: Internal Medicine; Admitting Provider Internal Medicine Adolescent Medicine; PCP Nurse Practitioner Family; Visit Provider Internal Medicine Adolescent Medicine
DX: I25.118 Atherosclerotic heart disease of native coronary artery with other forms of angina pectoris (principal); I50.20 Unspecified systolic (congestive) heart failure; I13.0 Hypertensive heart and chronic kidney disease with heart failure and stage 1 through stage 4 chronic kidney disease, or unspecified chronic kidney disease; N18.30 Chronic kidney disease, stage 3 unspecified; Z95.1 Presence of aortocoronary bypass graft; I25.82 Chronic total occlusion of coronary artery; I77.1 Stricture of artery; E11.22 Type 2 diabetes mellitus with diabetic chronic kidney disease; Z79.51 Long term (current) use of inhaled steroids; Z79.4 Long term (current) use of insulin; Z79.899 Other long term (current) drug therapy; Z82.49 Family history of ischemic heart disease and other diseases of the circulatory system; I70.1 Atherosclerosis of renal artery; F17.210 Nicotine dependence, cigarettes, uncomplicated; I35.0 Nonrheumatic aortic (valve) stenosis
CPT/HCPCS: 36415; 80048; 82962; 83036; 83722; 84443; 84478; 85025; 85347; 92929; 92943; 92972; 93306; 93459; 99152; 99153; C1725; C1760; C1761; C1769; C1874; C1894; C9601; C9607; G0378; J1200; J1644; J3010; Q9967

== ENCOUNTER 2025-01-22 09:11 | Outpatient (CLI) | payer OTHER, SELFPAY ==
[2025-01-22 15:18] LABS: Alanine Aminotransferase 24 U/L (12-78); Albumin Level 4.1 g/dl (3.5-5.0); Albumin/Globulin Ratio 1.5 (1.1-1.8); Alkaline Phosphatase 62 U/L (38-126); Anion Gap 11.6 mEq/L (5-15); Aspartate Amino Transferase 28 U/L (17-59); Bilirubin,Total 0.3 mg/dl (0.2-1.3); Blood Urea Nitrogen 33 mg/dl (9-20); Calcium 8.7 mg/dl (8.4-10.2); Carbon Dioxide 23 mmol/L (22.0-30.0); Chloride 109 mmol/L (98-107); Chol/HDL Ratio 7.5 (1-3.5); Cholesterol 173 mg/dl (140-200); Estimated Glomerular Filt Rate 36 ml/min (>60); GFR (African American) 43 ML/MIN (>60); Globulin 2.7 g/dL (1.3-3.2); Glucose 102 mg/dl (74-100); HDL Cholesterol 23 mg/dl (40-60); Potassium 5.6 mmoL/L (3.5-5.1); Sodium 138 mmol/L (136-145); Total Protein,Serum 6.8 g/dl (6.3-8.2)
[2025-01-22 15:27] LABS: NT Pro Brain Natriuretic Pep. 1700 pg/mL (0-125)
[2025-01-22 15:29] LABS: Triglycerides 977 mg/dl (30-150)
[2025-01-22 15:36] LABS: Direct LDL Cholesterol < 30.00 mg/dL (100-129)
== END 2025-01-22 23:59 | disposition home or self-care (01) ==
LOC: LAB.DROPOF 01-25 10:40
PROVIDERS: PCP Nurse Practitioner Family; Visit Provider Nurse Practitioner Family
DX: E78.2 Mixed hyperlipidemia (principal); I11.0 Hypertensive heart disease with heart failure; I50.20 Unspecified systolic (congestive) heart failure
CPT/HCPCS: 80053; 80061; 83880

== ENCOUNTER 2025-02-01 12:43 | Outpatient (CLI) | payer OTHER, SELFPAY ==
[2025-02-01 13:51] LABS: Chloride 109 mmol/L (98-107); Sodium 137 mmol/L (136-145)
[2025-02-01 13:52] LABS: Potassium 5.1 mmoL/L (3.5-5.1)
[2025-02-01 13:54] LABS: Alanine Aminotransferase 23 U/L (12-78); Albumin/Globulin Ratio 1.6 (1.1-1.8); Alkaline Phosphatase 65 U/L (38-126); Anion Gap 13.1 mEq/L (5-15); Aspartate Amino Transferase 26 U/L (17-59); Blood Urea Nitrogen 39 mg/dl (9-20); Carbon Dioxide 20 mmol/L (22.0-30.0); Estimated Glomerular Filt Rate 32 ml/min (>60); GFR (African American) 39 ML/MIN (>60); Globulin 2.5 g/dL (1.3-3.2); Total Protein,Serum 6.5 g/dl (6.3-8.2)
[2025-02-01 13:55] LABS: Calcium 8.9 mg/dl (8.4-10.2); Cholesterol 188 mg/dl (140-200); Glucose 268 mg/dl (74-100); HDL Cholesterol 27 mg/dl (40-60)
[2025-02-01 14:05] LABS: NT Pro Brain Natriuretic Pep. 1380 pg/mL (0-125)
[2025-02-01 14:12] LABS: Bilirubin,Total 0.1 mg/dl (0.2-1.3); Direct LDL Cholesterol < 30.00 mg/dL (100-129); Triglycerides 829 mg/dl (30-150)
== END 2025-02-01 23:59 | disposition home or self-care (01) ==
LOC: LAB.DROPOF 20:21
PROVIDERS: Nurse Practitioner Family; PCP Physician Assistant; Visit Provider Physician Assistant
DX: I11.0 Hypertensive heart disease with heart failure (principal); I25.10 Atherosclerotic heart disease of native coronary artery without angina pectoris; E78.5 Hyperlipidemia, unspecified; R79.89 Other specified abnormal findings of blood chemistry; I50.20 Unspecified systolic (congestive) heart failure; F17.210 Nicotine dependence, cigarettes, uncomplicated
CPT/HCPCS: 80053; 80061; 83880

== ENCOUNTER 2025-02-03 13:24 | Outpatient (CLI) | payer OTHER, SELFPAY ==
--- NOTE | 2025-02-03 13:30 | CA_ITS ---
FINAL REPORT CLINICAL HISTORY: HTN, HLD, DM, Smoker, CABG, Stent FINDINGS: RIGHT CAROTID: CCA PSV -69 cm/sec ICA PSV -124 cm/sec ICA/CCA PSV ratio -2.2. Comments: Mild plaque disease is noted. LEFTCAROTID: CCA PSV -85. cm/sec ICA PSV -88. cm/sec ICA/CCA PSV ratio -1.7. Comments: Mild plaque disease is noted. Antegrade flow is seen within the vertebral arteries. IMPRESSION: Carotid stenosis classified less than 50% Reviewed, Interpreted and Dictated by Amari Duncan MD Transcribed by Martina Hager Authenticated and [facility]
== END 2025-02-03 23:59 | disposition home or self-care (01) ==
LOC: RT 13:25
PROVIDERS: PCP Nurse Practitioner Family; Visit Provider Physician Assistant
DX: I65.23 Occlusion and stenosis of bilateral carotid arteries (principal); I25.119 Atherosclerotic heart disease of native coronary artery with unspecified angina pectoris; I10 Essential (primary) hypertension; E78.5 Hyperlipidemia, unspecified; E11.9 Type 2 diabetes mellitus without complications; F17.200 Nicotine dependence, unspecified, uncomplicated; Z95.1 Presence of aortocoronary bypass graft
CPT/HCPCS: 93880

== ENCOUNTER 2025-02-09 11:00 | Outpatient (CLI) | payer OTHER, SELFPAY ==
[2025-02-09 12:14] LABS: PHA INR Fingerstick 1.1 (0.9-1.1)
== END 2025-02-09 13:49 ==
LOC: ACC 11:01
PROVIDERS: PCP Nurse Practitioner Family; Visit Provider Physician Assistant
DX: I48.91 Unspecified atrial fibrillation (principal)
CPT/HCPCS: 85610; 99211; G0463

== ENCOUNTER 2025-02-12 10:48 | Outpatient (CLI) | payer OTHER, SELFPAY ==
[2025-02-12 13:33] LABS: PHA INR Fingerstick 1.1 (0.9-1.1)
== END 2025-02-12 13:45 ==
LOC: ACC 10:50
PROVIDERS: PCP Nurse Practitioner Family; Visit Provider Physician Assistant
DX: Z79.01 Long term (current) use of anticoagulants (principal); I48.91 Unspecified atrial fibrillation
CPT/HCPCS: 85610; 99211; G0463

== ENCOUNTER 2025-02-17 10:53 | Outpatient (CLI) | payer OTHER, SELFPAY ==
[2025-02-17 13:54] LABS: PHA INR Fingerstick 1.5 (0.9-1.1)
== END 2025-02-17 14:04 ==
LOC: ACC 10:53
PROVIDERS: PCP Nurse Practitioner Family; Visit Provider Physician Assistant
DX: I48.91 Unspecified atrial fibrillation (principal)
CPT/HCPCS: 85610; 99211; G0463

== ENCOUNTER 2025-02-26 11:01 | Outpatient (CLI) | payer OTHER, SELFPAY ==
--- OUTSIDE RECORDS SUMMARY | 2025-02-26 11:05 | XMS_ITS | Clinical Summary ---
Author Organization [facility] Address [facility] [address] [address] Care Team Providers Care Executive Wellness Programs Director Name Role Phone Unavailable Primary Care Provider Unavailabl e Social History Tobacco Use Types Packs/Day Years Used Date Smoking Tobacco: Never Assessed Sex and Gender Information Value Date Recorded Sex Assigned at Not on file Legal Sex Male 10:35 PM EDT Gender Identity Not on file Sexual Orientation Not on file Plan of Treatment Health Maintenance Due Date Last Done Comments Hepatitis C Screening 1960 DTap,Tdap,and Td (1 - Tdap) 1971 Colonoscopy 2005 PSA YEARLY 2010 Pneumococcal 50+ (1 of 1 - PCV) 2010 Shingrix (#1) 2010 Influenza Vaccine (Season Ended) 2025 RSV Vaccine (60+ or ) (1 - 1-dose 75+ series) 2035 HPV Aged Out No longer eligi ble based on patient's age to complete this topic Meningococcal conjugate joanne nt 4 (MCV4) Aged Out No longer eligible b ased on patient's age to complete this topic RSV Immunization (<20 months) Aged Out No longer eligible based on patient's age to complete this topic
--- OUTSIDE RECORDS SUMMARY | 2025-02-26 11:05 | XMS_ITS | Clinical Summary ---
Author Organization [facility] Address [address] [place] [address] Care Team Providers Care Hub Borer Name Role Phone DiazNaomiradha Baetman APRN Primary Care Provider [phone] Allergies Active Allergy Reactions Criticality Noted Date Comments Cholesterol Other - please docum ent in the comment field Low 03/16/2024 Unable to urinate Medications Aspirin Buf,CaCarb-MgCa rb-MgO, 81 MG tablet Take 1 tablet by mouth 1 (one) time each day. 0 Active albuterol 108 (90 Base) MCG/ACT inhaler Inhale 2 puffs 4 (four) times a day. Active BUDESON-GLYCOPY RROL-FORMOTEROL IN Inhale. Active clopidogrel (Plavix) 75 MG tablet Take 1 tablet (75 mg) by mouth 1 (one) time each day. Active insulin degludec (Tresiba) 100 UNIT/ML injection vial Inject 10 Units under the skin every night. Active ipratropium-alb uterol (Duo-Neb) 0.5-2.5 mg/3 mL nebulizer solution Take 3 mL by nebulization every 6 (six) hours if needed for wheezing. Active isosorbide mononitrate ER (Imdur) 30 MG 24 hr tablet Take 1 tablet (30 mg) by mouth 1 (one) time each day. Do not crush or chew. Active losartan-hydroC HLOROthiazide (Hyzaar) 50-12.5 MG tablet Take 1 tablet by mouth 1 (one) time each day. Active metFORMIN (Glucophage) 500 MG tablet Take 1 tablet (500 mg) by mouth 2 (two) times a day with meals. Active Metoprolol Tartrate 37.5 MG tablet Take by mouth 2 (two) times a day. Active nitroglycerin (Nitrostat) 0.[address] 1 tablet (0.4 mg) under the tongue every 5 (five) minutes if needed for chest pain. Active pantoprazole (Protonix) 40 MG EC tablet Take 1 tablet (40 mg) by mouth 1 (one) time each day. Do not crush, chew, or split. Active Jardiance 10 MG Take 1 tablet (10 mg) by mouth 1 (one) time each day. Active Active Problems No known active problems Encounters Date Type Department Care Team Description 01/05/2025 Orders Only [facility] [address] [place] [address] Jaylene Santo RN Mixed hyperlipidemia (Primary Dx) from Last 3 Months Immunizations Immunization Administration Dates Next Due Influenza, injectable, quadrivalent, preservativ e free 09/12/2021 Pneumococcal Polysaccharide PPV23 06/15/2020 TD (adult), 2 Lf tetanus tox oid, preservative free, adsorbed 11/18/1996 Family History Medical History Relation Name Comments Conversions - Other Father Accident Coronary artery disease Mother Other cancer Sister Relation Name Status Comments Father Mother Sister Social History Tobacco Use Types Packs/Day Years Used Date Smoking Tobacco: Former Cigarettes Smokeless Tobacco: Former Snuff Alcohol Use Standard Drinks/Week Comments Never 0 (1 standard drink = 0.6 oz pur e alcohol) Sex and Gender Information Value Date Recorded Sex Assigned at Not on file Legal Sex Male 7:56 PM EDT Gender Identity Not on file Sexual Orientation Not on file Last Filed Vital Signs Vital Sign Reading Time Taken Comments Blood Pressure 141/70 03/16/2024 12:30 PM EDT Pulse 96 03/16/2024 12:30 PM EDT Temperature - - Respiratory Rate - - Oxygen Saturation 94% 03/16/2024 12:30 PM EDT Inhaled Oxygen Concentration - - Weight 98.9 kg (218 lb) 03/16/2024 12:30 PM EDT Height 162.6 cm (5' 4 ) 03/16/2024 12:30 PM EDT Body Mass Index 37.42 03/16/2024 12:30 PM EDT Plan of Treatment Upcoming Encounters Date Type Department Care Team (Late st Contact Info) Description 03/24/2025 10:40 AM EDT Office Visit [facility] [place] [address], [address] [place] [address] Health Maintenance Due Date Last Done Comments [facility]-Depression Screening 1960 [facility]-HIV Screening 1960 [facility]-Hepatitis C Screening 1960 [facility]-/Child/Adol SDOH Screenings 1960 Diabetes: Dental Exam 1970 [facility]- SDOH Screenings 1978 [facility]-Adult SDOH Screenings 1978 [facility]-DTaP,Tdap,and Td Vaccine s (1 - Tdap) 11/19/1996 11/18/1996 CT Colonography 2005 Colonoscopy 2005 FIT-DNA 2005 FIT 2005 FOBT 2005 Sigmoidoscopy 2005 [facility]-Colorectal Cancer Screening 2005 [facility]-Zoster Vaccines (1 of 2) 2010 [facility]-RSV Vaccine: 60+ Years o r (1 - Risk 60-74 years 1-dose series) 2020 [facility]-Diabetes: Hemoglobin A1C 12/09/2020, 06/02/2020 [facility]-Pneumococcal Vaccine: 50 + Years (2 of 2 - PCV) 06/15/2021 06/15/2020 [id number] Vaccine ( - 2023- season) 2024 09/12/2021, 02/25/2021, 02/04/2021 [facility]-Influenza Vaccine ([place] n Ended) 2025 09/12/2021 [facility]-Obesity Intervention Completed 03/16/2024 HPV Vaccines Aged Out No longer eligi ble based on patient's age to complete this topic [facility]-HIB Vaccines Aged Out No longer e ligible based on patient's age to complete this topic [facility]-Hepatitis A Vaccines Aged Out No longer eligible based on patient's age to complete this topic [facility]-IPV Vaccines Aged Out No longer e ligible based on patient's age to complete this topic [facility]-Rotavirus Vaccines Aged Out No lo nger eligible based on patient's age to complete this topic Procedures Procedure Name Priority Date/Time Associated Diagnosis Comments HEMOGLOBIN A1C Routine 06/11/2020 12:31 AM EDT from Last 3 Months or Most Recently Relevant to Health Maintenance Results * (ABNORMAL) Hemoglobin A1c (06/11/2020 12:31 AM EDT) Hemoglobin A1c 9.6(H) 4.7 - 6.0 % [facility] Comment: Glycohemoglobin Reference Range, 0 years and up: 4.7 to 6.0% . HA1C Interpretive Data: Diagnosis of Diabetes: Diabetic > or = 6.5% Pre-diabetic 5.7 to 6.4% Non-diabetic < or = 5.6% . Glycemic Targets for Type I and Type II Diabetics: Non- Adults <7.0% Adults <6.0% Children and Adolescents <7.5% . Source: [place] [employer]. Standards of medical care in diabetes, 2017. Diabetes Care.2017:40 (suppl 1):S1-S135. . HbA1c assay performed by an ion-exchange chromatography method that is certified traceable to the DCCT. 06/11/2020 12:3 1 AM EDT 06/11/2020 12:50 AM EDT Leobardo Crow MD LAB BLOOD ORDERABLES Final R esult [facility]QUEST from Last 3 Months or Most Recently Relevant to Health Maintenance Insurance [facility] Care Teams Hub Borer Relationship Specialty Start Date End Date Cindy Diaz APRN [address] [place] [address] PCP - General 01/27/21
--- OUTSIDE RECORDS SUMMARY | 2025-02-26 11:05 | XMS_ITS | Encounter Summary ---
Author Organization Healthcare Address [address] [place] [address] Care Team Providers Care Facing Cutting Machine Operator Name Role Phone DiazCindy brooks Bhavana MCCRACKEN Primary Care Provider +1- [phone] Reason for Referral * Consultation (Routine) - Authorized Specialty Diagnoses / Procedures Referred By Contac t Referred To Contact Cardiology Diagnoses Mixed hyperlipidemia Jeff Martinez MD [address] [place] [address] Phone: tel: fax: Referral ID Status Reason Start Date Expiration Date Visits Requested Visits Authorized [id number] Authorized Specialty Services Required 01/05/2025 07/07/2026 1 1 Scheduling Instructions General Cardiology Lipid Management Encounter Details Date Type Department Care Team (Late st Contact Info) Description 01/05/2025 Orders Only [facility] [place] [address] [place] [address] Jaylene Santo RN [facility] - 6 [facility] Mixed hyperlipidemia (Primary Dx) Social History Tobacco Use Types Packs/Day Years Used Date Smoking Tobacco: Former Cigarettes Smokeless Tobacco: Former Snuff Alcohol Use Standard Drinks/Week Comments Never 0 (1 standard drink = 0.6 oz pur e alcohol) Sex and Gender Information Value Date Recorded Sex Assigned at Not on file Legal Sex Male 7:56 PM EDT Gender Identity Not on file Sexual Orientation Not on file documented as of this encounter Plan of Treatment Upcoming Encounters Date Type Department Care Team (Late st Contact Info) Description 03/24/2025 10:40 AM EDT Office Visit [facility] [place] [address] [facility], [address] [place] [address] Scheduled Referrals Name Type Priority Associated Diagnoses Orde r Schedule Ambulatory referral to Cardiology Outpatient Referral Routine Mixed hyperlipidemia Expected: 01/05/2025 (Approximate), Expires: 07/07/2026 documented as of this encounter Visit Diagnoses Diagnosis Mixed hyperlipidemia- Primary documented in this encounter Additional Health Concerns Assessment Noted Time A Body Mass Index follow-up plan has been documented for the patient 03/17/2024 2:50 PM EDT documented as of this encounter Care Teams Facing Cutting Machine Operator Relationship Specialty Start Date End Date Cindy Diaz APRN [address] [place] [address] PCP - General 01/27/21 documented as of this encounter
--- OUTSIDE RECORDS SUMMARY | 2025-02-26 11:05 | XMS_ITS | Referral Summary ---
Author Organization [facility] Address [address] [place] [address] [place] [address] Care Team Providers Care Tape Keller Operator Name Role Phone Unavailable Primary Care Provider Unavailabl e Social History Tobacco Use Types Packs/Day Years Used Date Smoking Tobacco: Never Assessed Sex and Gender Information Value Date Recorded Sex Assigned at Not on file Legal Sex Male 10:35 PM EDT Gender Identity Not on file Sexual Orientation Not on file Plan of Treatment Not on file
[2025-02-26 12:39] LABS: PHA INR Fingerstick 1.4 (0.9-1.1)
== END 2025-02-26 12:40 ==
LOC: ACC 11:02
PROVIDERS: PCP Nurse Practitioner Family; Visit Provider Physician Assistant
DX: I48.91 Unspecified atrial fibrillation (principal)
CPT/HCPCS: 85610; 99211; G0463

== ENCOUNTER 2025-03-12 11:02 | Outpatient (CLI) | payer OTHER, SELFPAY ==
--- OUTSIDE RECORDS SUMMARY | 2025-03-12 11:05 | XMS_ITS | Clinical Summary ---
Author Organization [facility] Address [facility] [place] [address] Care Team Providers Care Car Sander Name Role Phone Unavailable Primary Care Provider [...]
--- OUTSIDE RECORDS SUMMARY | 2025-03-12 11:06 | XMS_ITS | Referral Summary ---
Author Organization [facility] Address [address] [place] [address] [place] [address] Care Team Providers Care Fitting Room Associate Name Role Phone Unavailable Primary Care Provider [...]
--- OUTSIDE RECORDS SUMMARY | 2025-03-12 11:06 | XMS_ITS | Clinical Summary ---
Author Organization [facility] Address [address] [place] [address] Care Team Providers Care Geomorphology Teacher Name Role Phone Diaz Cindyradha Bateman APRN Primary Care Provider +1- [phone] Allergies Active Allergy Reactions Criticality Noted Date [...] Department Care Team Description 01/05/2025 Orders Only [facility] [place] [address] [place] [address] Jaylene Santo RN Mixed hyperlipidemia (Primary Dx) [...] Description 03/24/2025 10:40 AM EDT Office Visit [facility] [address] [facility], [address] [place] [address] Health Maintenance Due Date Last [...] (2 of 2 - PCV) 06/15/2021 06/15/2020 [id number] Vaccine ( - 2023- season) 2024 09/12/2021, [...] <6.0% Children and Adolescents <7.5% . Source: [place] [employer]. Standards of medical care in diabetes, 2017. Diabetes Care.2017:40 (suppl 1):S1-S135. . HbA1c assay performed by an ion-exchange chromatography method that is certified traceable to the DCCT. 06/11/2020 12:3 1 AM EDT 06/11/2020 12:50 AM EDT Leobardo Crow MD LAB BLOOD ORDERABLES Final R esult SUNQUEST from Last 3 Months or Most Recently Relevant to Health Maintenance Insurance [facility] DENTAL CLAIMS Care Teams Geomorphology Teacher Relationship Specialty Start Date End Date Cindy Diaz APRN [address] [place] [address] PCP - General 01/27/21
[2025-03-12 11:52] LABS: PHA INR Fingerstick 1.4 (0.9-1.1)
== END 2025-03-12 11:55 ==
LOC: ACC 11:03
PROVIDERS: PCP Nurse Practitioner Family; Visit Provider Physician Assistant
DX: I48.91 Unspecified atrial fibrillation (principal)
CPT/HCPCS: 85610; 99211; G0463

== ENCOUNTER 2025-03-24 13:11 | Outpatient (CLI) | payer OTHER, SELFPAY ==
--- OUTSIDE RECORDS SUMMARY | 2025-03-24 10:40 | XMS_ITS | Encounter Summary ---
Author Organization Healthcare Address [address] [place] [address] Care Team Providers Care Precision Grinder External Name Role Phone Cindy Diaz APRN Primary Care Provider +1- [phone] Reason for Referral * Consultation (Routine) - Authorized Specialty Diagnoses / Procedures Referred By Colton romo Referred To Contact Diagnoses Essential hypertension Maximo Guzman MD [address] [place] [address] Phone: tel: fax: Referral ID Status Reason Start Date Expiration Date V isits Requested Visits Authorized [id number] Authorized 03/24/2025 09/23/2026 1 1 Reason for Visit * Consultation (Routine) - Closed Specialty Diagnoses / Procedures Referred By Colton romo Referred To Contact Cardiology Diagnoses Mixed hyperlipidemia Jeff Martinez MD [address] [place] [address] Phone: tel: fax: Referral ID Status Reason Start Date Expiration Date V isits Requested Visits Authorized [id number] Closed Specialty Services Required 01/05/2025 07/07/2026 1 1 Encounter Details Date Type Department Care Team ([facility] st Contact Info) Description 03/24/2025 10:40 AM EDT Office Visit [facility] [place] [address], [address] [place] [address] Essential hypertension (Primary Dx) Social History Tobacco Use Types Packs/Day Years Used Date Smoking Tobacco: Former Cigarettes Smokeless Tobacco: Former Snuff Tobacco Cessation:Counseling Given: Not Answered Alcohol Use Standard Drinks/Week Comments Never 0 [...] down Not at all 03/24/2025 10:53 AM EDCathleen Wang Trouble concentrating on thi ngs, such as [...] Cathleen Topete documented as of this encounter Plan of Treatment Upcoming Encounters Date Type Department Care Team (Late st Contact Info) Description 06/30/2025 10:40 AM EDT Office Visit [facility] [place] [address], [address] [place] [address] Scheduled Orders Name Type Priority Associated Diagnoses [...] documented as of this encounter Care Teams Precision Grinder External Relationship Specialty Start Date End Date Cindy Diaz APRN [address] [place] [address] PCP - General 01/27/21 documented as of this encounter
--- OUTSIDE RECORDS SUMMARY | 2025-03-24 13:18 | XMS_ITS | Clinical Summary ---
Author Organization [facility] Address [facility] [place] [address] Care Team Providers Care Ballet Company Member Name Role Phone Unavailable Primary Care Provider [...]
--- OUTSIDE RECORDS SUMMARY | 2025-03-24 13:18 | XMS_ITS | Referral Summary ---
Author Organization [facility] Address [address] [place] [address] [place] [address] Care Team Providers Care Clinical Operations Manager Name Role Phone Unavailable Primary Care Provider [...]
--- OUTSIDE RECORDS SUMMARY | 2025-03-24 13:18 | XMS_ITS | Encounter Summary ---
Author Organization [facility] Address [address] [place] [address] Care Team Providers Care Traffic Engineering Technician Name Role Phone Cindy Diaz NAWAF Primary Care Provider +1- [phone] Encounter Details Date Type Department Care Team (Latest Contact Info) Description 03/24/2025 Travel Social History Tobacco Use Types Packs/Day Years [...] on file documented as of this encounter Functional Status * Over the [...] much Not at all 03/24/2025 10:53 AM [place] Topete Feeling tired or having porsche le [...] Description 06/30/2025 10:40 AM EDT Office Visit [facility] [place] [address], [address] [place] [address] documented as of this encounter Visit Diagnoses Not on filedocumented in this encounter Additional Health Concerns Assessment Noted Time PHQ-9 Depression Total Score: 0 03/24/20 25 10:53 AM EDT A fall risk assessment has been complete d for the patient 03/24/2025 10:53 AM EDT A Body Mass Index follow-up plan has been documented for the patient 03/24/2025 11:40 AM EDT documented as of this encounter Care Teams Traffic Engineering Technician Relationship Specialty Start Date End Date Cindy Diaz APRN [address] [place] [address] PCP - General 01/27/21 documented as of this encounter
--- OUTSIDE RECORDS SUMMARY | 2025-03-24 13:18 | XMS_ITS | Encounter Summary ---
Author Organization [facility] Address [address] [place] [address] Care Team Providers Care Clinical Mental Health Counselor Name Role Phone Cindy Diaz NAWAF Primary Care Provider +1- [phone] Encounter Details Date Type Department Care Team ([facility] Contact Info) Description 03/23/2025 Telephone [facility] [place] [address], [address] [place] [address] Darlene Benitez Social History Tobacco Use Types Packs/Day Years [...] Upcoming Encounters Date Type Department Care Team ([facility] Contact Info) Description 06/30/2025 10:40 AM EDT Office Visit [facility] [place] [facility] [employer] [address], [address] [place] [address] documented as of this encounter Visit Diagnoses Not on filedocumented in this encounter Additional Health Concerns Assessment Noted Time A Body Mass Index follow-up plan has been documented for the patient 03/17/2024 2:50 PM EDT documented as of this encounter Care Teams Clinical Mental Health Counselor Relationship Specialty Start Date End Date Cindy Diaz APRN [address] [place] [address] PCP - General 01/27/21 documented as of this encounter
--- OUTSIDE RECORDS SUMMARY | 2025-03-24 13:18 | XMS_ITS | Clinical Summary ---
Author Organization [facility] Address [address] [place] [address] Care Team Providers Care Fine Jewelry Sales Associate Name Role Phone DiazCindy brooks Bhavana MCCRACKEN Primary Care Provider +1- [phone] Allergies Active Allergy Reactions Criticality Noted Date Comments Cholesterol Other - please docum ent in the comment field Low 03/16/2024 Unable to urinate Statins Other - please docum ent in the comment field Low 03/24/2025 Pt cannot urinate Medications Aspirin Buf,CaCarb-MgCa rb-MgO, 81 MG [...] by mouth 1 (one) time each day. 4 Active warfarin (Coumadin) 7.5 MG tablet Take 1 tablet by mouth daily. Take as directed per After Visit Summary. Active warfarin (Coumadin) 10 MG tablet Take 1 tablet by mouth daily. Take as directed per After Visit Summary. Active Active Problems No known active problems Encounters Date Type Department Care Team Description 03/24/2025 10:40 AM EDT Office Visit [facility] [address], [address] [place] [address] Essential hypertension (Primary Dx) 03/24/2025 Travel 03/23/2025 Telephone [facility] [address], [address] [place] [address] Darlene Benitez 03/17/2025 Telephone [facility] [address] [place] [address] Chapis Eubanks 01/05/2025 Orders Only [facility] [address] [place] [address] Jaylene Santo RN Mixed hyperlipidemia (Primary Dx) [...] Mass Index 36.1 03/24/2025 10:47 AM EDT Plan of Treatment Upcoming Encounters Date Type Department Care Team ([facility] st Contact Info) Description 06/30/2025 10:40 AM EDT Office Visit [facility] [place] [place] [address], [address] [place] [address] Health Maintenance Due Date Last Done Comments [facility]-HIV Screening 1960 [facility]-Hepatitis C Screening 1960 [facility]-Infant/Child/Adol SDOH Screenings 1960 [facility]- SDOH Screenings 1978 [facility]-Adult SDOH Screenings 1978 [facility]-DTaP,Tdap,and Td Vaccine s (1 - Tdap) 11/19/1996 11/18/1996 CT Colonography 2005 Colonoscopy 2005 FIT-DNA 2005 FIT 2005 FOBT 2005 Sigmoidoscopy 2005 [facility]-Colorectal Cancer Screening 2005 [facility]-Zoster Vaccines (1 of 2) 2010 [facility]-Pneumococcal Vaccine: 50 + Years (2 of 2 - PCV) 06/15/2021 06/15/2020 [id number] Vaccine (4 - 2023- season) 2024 09/12/2021, 02/25/2021, 02/04/2021 [facility]-Influenza Vaccine (#1) 2025 09/12/2021 [facility]-Depression Screening 03/24/2026 025, 03/24/2025 [facility]-RSV Vaccine: 60+ Years o r (1 - 1-dose 75+ series) 2035 [facility]-Diabetes: Hemoglobin A1C Discontinued , 06/02/2020 [facility]-Obesity Intervention Completed 025, 03/16/2024 HPV Vaccines Aged Out No longer [...] <6.0% Children and Adolescents <7.5% . Source: [place] [employer]. Standards of medical care in diabetes, 2017. Diabetes Care.2017:40 (suppl 1):S1-S135. . HbA1c assay performed by an ion-exchange chromatography method that is certified traceable to the DCCT. 06/11/2020 12:3 1 AM EDT 06/11/2020 12:50 AM EDT us Leobardo Crow MD LAB BLOOD ORDERABLES Final R esult SUNQUEST from Last 3 Months or Most Recently Relevant to Health Maintenance Insurance [facility] DENTAL CLAIMS Care Teams Fine Jewelry Sales Associate Relationship Specialty Start Date End Date Cindy Diaz APRN [address] [place] [address] PCP - General 01/27/21
--- OUTSIDE RECORDS SUMMARY | 2025-03-24 13:18 | XMS_ITS | Encounter Summary ---
Author Organization [facility] Address [address] [place] [address] Care Team Providers Care Senior Microsoft Net Developer Name Role Phone DiazCindy brooks NAWAF Primary Care Provider +1- [phone] Encounter Details Date Type Department Care Team (Late st Contact Info) Description 03/17/2025 Telephone [facility] [place] [address] [place] [address] [place] [address] Social History Tobacco Use Types Packs/Day Years [...] on file documented as of this encounter Miscellaneous Notes * Telephone Encounter - Chapis Eubanks - 03/17/2025 12:25 PM EDT Patient Name: Rik Mcdowell :1960 Date:03/17/2025 Affiliate site:[place] Referring Physician:Bryce Michelle Education/ Information provided: This Nurse Liaison spoke with Rik Mcdowell prior to an appointment on 03/24/2025. Explained nurse liaison services offered through [facility]. Discussed appointment necessity, and subspecialty clinic the pt will be seeing. Patient verbalizes understanding. Patient denied any barriers to arriving to clinic visit. All questions answered. Provided patient with liaison contact information and encouraged patient to call with any questions, concerns or assistance needs. Will follow up with patient after appointment. Chapis Eubanks [facility] Nurse Liaison [phone] documented in this encounter Plan of Treatment Upcoming Encounters Date Type Department Care Team ([facility] st Contact Info) Description 06/30/2025 10:40 AM EDT Office Visit [facility] [place] [address], [address] [place] [address] documented as of this encounter Visit Diagnoses Not on filedocumented in this encounter Additional Health Concerns Assessment Noted Time A Body Mass Index follow-up plan has been documented for the patient 03/17/2024 2:50 PM EDT documented as of this encounter Care Teams Senior Microsoft Net Developer Relationship Specialty Start Date End Date Cindy Diaz APRN [address] [place] [address] PCP - General 01/27/21 documented as of this encounter
[2025-03-24 14:34] LABS: Chloride 106 mmol/L (98-107); Sodium 137 mmol/L (136-145)
[2025-03-24 14:35] LABS: Potassium 5.0 mmoL/L (3.5-5.1)
[2025-03-24 14:37] LABS: Blood Urea Nitrogen 40 mg/dl (9-20); Creatinine,Serum 2.10 mg/dl (0.66-1.25); Estimated Glomerular Filt Rate 32 ml/min (>60); GFR (African American) 39 ML/MIN (>60)
[2025-03-24 14:38] LABS: Anion Gap 15.0 mEq/L (5-15); Calcium 8.7 mg/dl (8.4-10.2); Carbon Dioxide 21 mmol/L (22.0-30.0); Glucose 133 mg/dl (74-100)
== END 2025-03-24 23:59 | disposition home or self-care (01) ==
LOC: LAB 13:12
PROVIDERS: PCP Nurse Practitioner Family; Visit Provider Internal Medicine
DX: I10 Essential (primary) hypertension (principal)
CPT/HCPCS: 36415; 80048

== ENCOUNTER 2025-03-26 15:15 | Outpatient (CLI) | payer OTHER, SELFPAY ==
--- OUTSIDE RECORDS SUMMARY | 2025-03-24 10:40 | XMS_ITS | Encounter Summary ---
Author Organization Healthcare Address [address] [place] [address] Care Team Providers Care Tipping Machine Operator Name Role Phone Cindy Diaz APRN Primary Care Provider +1- [phone] Reason for Referral * Consultation (Routine) - Authorized Specialty Diagnoses / Procedures Referred By Colton romo Referred To Contact Diagnoses Essential hypertension Maximo Guzman MD [address] [place] [address] Phone: tel: fax: Referral ID Status Reason Start Date Expiration Date V isits Requested Visits Authorized [id number] Authorized 03/24/2025 09/23/2026 1 1 Reason for Visit * Consultation (Routine) - Closed Specialty Diagnoses / Procedures Referred By Colton romo Referred To Contact Cardiology Diagnoses Mixed hyperlipidemia Jeff Martinez MD [address] [place] [address] Phone: tel: fax: Referral ID Status Reason Start Date Expiration Date V isits Requested Visits Authorized [id number] Closed Specialty Services Required 01/05/2025 07/07/2026 1 1 Encounter Details Date Type Department Care Team ([facility] st Contact Info) Description 03/24/2025 10:40 AM EDT Office Visit [facility] [place] [address], [address] [place] [address] Essential hypertension (Primary Dx) Social History Tobacco [...] aspirin. START fenofibrate 145 mg once daily documented in this encounter Plan of Treatment Upcoming Encounters Date Type Department Care Team (Late st Contact Info) Description 06/30/2025 10:40 AM EDT Office Visit [facility] [place] [address], [address] [place] [address] Scheduled Orders Name Type Priority Associated Diagnoses [...] documented as of this encounter Care Teams Tipping Machine Operator Relationship Specialty Start Date End Date Cindy Diaz APRN [address] [place] [address] PCP - General 01/27/21 documented as of this encounter
--- OUTSIDE RECORDS SUMMARY | 2025-03-26 15:17 | XMS_ITS | Clinical Summary ---
Author Organization [facility] Address [facility] [place] [address] Care Team Providers Care High School Principal Name Role Phone Unavailable Primary Care Provider [...]
--- OUTSIDE RECORDS SUMMARY | 2025-03-26 15:17 | XMS_ITS | Clinical Summary ---
Author Organization [facility] Address [address] [place] [address] Care Team Providers Care Environmental Analyst Name Role Phone Cindy Diaz Bhavana MCCRACKEN Primary Care Provider +1- [phone] Allergies Active Allergy Reactions Criticality Noted Date Comments Cholesterol Other - please docum ent in the comment field Low 03/16/2024 Unable to urinate Statins Other - please docum ent in the comment field Low 03/24/2025 Pt cannot urinate Medications albuterol 108 (90 Base) MCG/ACT inhaler Inhale [...] day. Do not crush or chew. Active metFORMIN (Glucophage) 500 MG tablet Take [...] Do not crush, chew, or split. Active warfarin (Coumadin) 7.5 MG tablet Take 1 tablet by mouth daily. Take as directed per After Visit Summary. Active warfarin (Coumadin) 10 MG tablet Take 1 tablet by mouth daily. Take as directed per After Visit Summary. Active sacubitril-vals jessica (Entresto) 24-26 MG tablet Take 1 tablet by mouth 2 times a day. Active fenofibrate (Tricor) 145 MG tabletIndicatio ns:Essential hypertension Take 1 tablet by mouth daily. 30 tablet 5 025 Active Aspirin Buf,CaCarb-MgCa rb-MgO, 81 MG tablet Take 1 tablet by mouth 1 (one) time each day. 020 2024 Discontinued losartan-hydroC HLOROthiazide (Hyzaar) 50-12.5 MG tablet Take 1 tablet by mouth 1 (one) time each day. 2024 Discontinued Jardiance 10 MG Take 1 tablet (10 mg) by mouth 1 (one) time each day. 024 2024 Discontinued(P er Patient Report) Active Problems Problem Noted Date Diagnosed Date Severe obesity (BMI 35.0-39.9) with comorbidity 03/25/2025 Encounters Date Type Department Care Team Description 03/24/2025 10:40 AM EDT Office Visit [facility] [place] [address] , [address] [place] [address] Essential hypertension (Primary Dx) 03/24/2025 Travel 03/23/2025 Telephone [facility] [address] , [address] [place] [address] Darlene Benitez 03/17/2025 Telephone [facility] [place] [address] [place] [address] Chapis Eubanks 01/05/2025 Orders Only [facility] [place] [address] [place] [address] Jaylene Santo RN Mixed hyperlipidemia (Primary Dx) [...] Description 06/30/2025 10:40 AM EDT Office Visit [facility] [place] [address], [address] [place] [address] Health Maintenance Due Date Last [...] (2 of 2 - PCV) 06/15/2021 06/15/2020 [id number] Vaccine (2023- season) 2024 09/12/2021, 02/25/2021, 02/04/2021 [facility]-Influenza Vaccine [...] <6.0% Children and Adolescents <7.5% . Source: [place] [employer]. Standards of medical care in diabetes, 2017. Diabetes Care.2017:40 (suppl 1):S1-S135. . HbA1c assay performed by an ion-exchange chromatography method that is certified traceable to the DCCT. 06/11/2020 12:3 1 AM EDT 06/11/2020 12:50 AM EDT us Leobardo Crow MD LAB BLOOD ORDERABLES Final R esult SUNQUEST from Last 3 Months or Most Recently Relevant to Health Maintenance Insurance [facility] DENTAL CLAIMS Care Teams Environmental Analyst Relationship Specialty Start Date End Date Cindy Diaz APRN [address] [place] [id number] PCP - General 01/27/21
--- OUTSIDE RECORDS SUMMARY | 2025-03-26 15:17 | XMS_ITS | Encounter Summary ---
Author Organization [facility] Address [address] [place] [address] Care Team Providers Care Code Official Name Role Phone Cindy Diaz NAWAF Primary Care Provider +1- [phone] Encounter Details Date Type Department Care Team ([facility] Contact Info) Description 03/23/2025 Telephone [facility] [place] [address], [address] [place] [address] Darlene Benitez Social History Tobacco [...] Upcoming Encounters Date Type Department Care Team ([facility] Contact Info) Description 06/30/2025 10:40 AM EDT Office Visit [facility] [place] [employer] [address], [address] [place] [address] documented as of this encounter Visit Diagnoses Not on filedocumented in this encounter Additional Health Concerns Assessment Noted Time A Body Mass Index follow-up plan has been documented for the patient 03/17/2024 2:50 PM EDT documented as of this encounter Care Teams Code Official Relationship Specialty Start Date End Date Cindy Diaz APRN [address] [place] [address] PCP - General 01/27/21 documented as of this encounter
--- OUTSIDE RECORDS SUMMARY | 2025-03-26 15:17 | XMS_ITS | Encounter Summary ---
Author Organization [facility] Address [address] [place] [address] Care Team Providers Care Integrity Consultant Name Role Phone Cindy Diaz NAWAF Primary Care Provider +1- [phone] Encounter Details Date Type Department Care Team [...] Description 06/30/2025 10:40 AM EDT Office Visit [facility] [place] [address], [address] [place] [address] documented as of this encounter [...] documented as of this encounter Care Teams Integrity Consultant Relationship Specialty Start Date End Date Cindy Diaz APRN [address] [place] [address] PCP - General 01/27/21 documented as of this encounter
--- OUTSIDE RECORDS SUMMARY | 2025-03-26 15:17 | XMS_ITS | Encounter Summary ---
Author Organization [facility] Address [address] [place] [address] Care Team Providers Care Assistant Office Manager Name Role Phone DiazCindy brooks NAWAF Primary Care Provider +1- [phone] Encounter Details Date Type Department Care Team (Late st Contact Info) Description 03/17/2025 Telephone [facility] [place] [address] [place] [address] [place] [address] Social History Tobacco Use Types Packs/Day Years [...] Patient Name: Rik Mcdowell :1960 Date:03/17/2025 Affiliate site:[place] Referring Physician:Bryce Michelle Education/ Information provided: This Nurse Liaison spoke with Rik Mcdowell prior to an appointment on 03/24/2025. Explained nurse liaison services offered through [facility]. Discussed appointment necessity, and subspecialty clinic the pt will be seeing. Patient verbalizes understanding. Patient denied any barriers to arriving to clinic visit. All questions answered. Provided patient with liaison contact information and encouraged patient to call with any questions, concerns or assistance needs. Will follow up with patient after appointment. Chapis Eubanks [facility] Nurse Liaison [phone] documented in this encounter Plan of Treatment Upcoming Encounters Date Type Department Care Team ([facility] st Contact Info) Description 06/30/2025 10:40 AM EDT Office Visit [facility] [place] [address], [address] [place] [address] documented as of this encounter Visit Diagnoses Not on filedocumented in this encounter Additional Health Concerns Assessment Noted Time A Body Mass Index follow-up plan has been documented for the patient 03/17/2024 2:50 PM EDT documented as of this encounter Care Teams Assistant Office Manager Relationship Specialty Start Date End Date Cindy Diaz APRN [address] [place] [address] PCP - General 01/27/21 documented as of this encounter
--- OUTSIDE RECORDS SUMMARY | 2025-03-26 15:17 | XMS_ITS | Referral Summary ---
Author Organization [facility] Address [address] [place] [address] [place] [address] Care Team Providers Care Home Hospice Rn Name Role Phone Unavailable Primary Care Provider [...]
[2025-03-26 15:56] LABS: PHA INR Fingerstick 1.6 (0.9-1.1)
== END 2025-03-26 16:00 ==
LOC: ACC 15:15
PROVIDERS: PCP Nurse Practitioner Family; Visit Provider Physician Assistant
DX: I48.91 Unspecified atrial fibrillation (principal)
CPT/HCPCS: 85610; 99211; G0463

== ENCOUNTER 2025-04-09 14:58 | Outpatient (CLI) | payer OTHER, SELFPAY ==
--- OUTSIDE RECORDS SUMMARY | 2025-03-24 10:40 | XMS_ITS | Encounter Summary ---
Author Organization Healthcare Address [address] [place] [address] Care Team Providers Care Business Development Assistant Name Role Phone Cindy Diaz Bhavana MCCRACKEN Primary Care Provider +1- [phone] Reason for Referral * Consultation (Routine) - Authorized Specialty Diagnoses / Procedures Referred By Colton romo Referred To Contact Diagnoses Essential hypertension Maximo Guzman MD [address] [place] [address] Phone: tel: fax: Referral ID Status Reason Start Date Expiration Date V isits Requested Visits Authorized [id number] Authorized 03/24/2025 09/23/2026 1 1 Reason for Visit * Consultation (Routine) - Closed Specialty Diagnoses / Procedures Referred By Colton romo Referred To Contact Cardiology Diagnoses Mixed hyperlipidemia Jeff Martinez MD [address] [place] [address] Phone: tel: fax: Referral ID Status Reason Start Date Expiration Date V isits Requested Visits Authorized [id number] Closed Specialty Services Required 01/05/2025 07/07/2026 1 1 Encounter Details Date Type Department Care Team ([facility] st Contact Info) Description 03/24/2025 10:40 AM EDT Office Visit [facility] [place] [address] [facility], [address] [place] [address] Maximo Guzman MD [address] [place] [phone] Essential hypertension (Primary Dx) Social History Tobacco [...] Not at all 03/24/2025 10:53 AM Cathleen Topeet Poor appetite or overeating Not at all [...] As far as lifestyle, 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 PCI in 12/2024 with - LVEF [...] warfarin and recommended he discuss with primary sewer system supervisor/ managing warfarin provider. - Was recently changed [...] patient and family/caregiver, communicating with other health child care teacher, and entering clinical information in the EHR. Greater than 50% of the time spent on the encounter was face to face providing direct patient care, counseling for the patient/caregiver, and care coordination. documented in this encounter Plan of Treatment Upcoming Encounters Date Type Department Care Team (Late st Contact Info) Description 06/30/2025 10:40 AM EDT Office Visit [facility] [place] [address] [facility], [address] [place] [address] Scheduled Orders Name Type Priority Associated Diagnoses [...] documented as of this encounter Care Teams Business Development Assistant Relationship Specialty Start Date End Date Cindy Diaz APRN [address] [phone] PCP - General 01/27/21 documented as of this encounter
--- OUTSIDE RECORDS SUMMARY | 2025-04-09 15:00 | XMS_ITS | Encounter Summary ---
Author Organization [facility] Address [address] [place] [address] Care Team Providers Care Tire Debeader Name Role Phone Cindy Diaz NAWAF Primary Care Provider +1- [phone] Encounter Details Date Type Department Care Team [...] Description 06/30/2025 10:40 AM EDT Office Visit [facility] [place] [address], [address] [place] [address] documented as of this encounter [...] documented as of this encounter Care Teams Tire Debeader Relationship Specialty Start Date End Date Cindy Diaz APRN [address] [place] [address] PCP - General 01/27/21 documented as of this encounter
--- OUTSIDE RECORDS SUMMARY | 2025-04-09 15:00 | XMS_ITS | Encounter Summary ---
Author Organization [facility] Address [address] [place] [address] Care Team Providers Care Insurance Customer Service Specialist Name Role Phone DiazCindy brooks NAWAF Primary Care Provider +1- [phone] Encounter Details Date Type Department Care Team (Late st Contact Info) Description 03/17/2025 Telephone [facility] [place] [address] [place] [address] [place] [address] Social History Tobacco Use Types Packs/Day Years [...] Patient Name: Rik Mcdowell :1960 Date:03/17/2025 Affiliate site:[place] Referring Physician:Bryce Michelle Education/ Information provided: This Nurse Liaison spoke with Rik Mcdowell prior to an appointment on 03/24/2025. Explained nurse liaison services offered through [facility]. Discussed appointment necessity, and subspecialty clinic the pt will be seeing. Patient verbalizes understanding. Patient denied any barriers to arriving to clinic visit. All questions answered. Provided patient with liaison contact information and encouraged patient to call with any questions, concerns or assistance needs. Will follow up with patient after appointment. Chapis Eubanks [facility] Nurse Liaison [phone] documented in this encounter Plan of Treatment Upcoming Encounters Date Type Department Care Team ([facility] st Contact Info) Description 06/30/2025 10:40 AM EDT Office Visit [facility] [place] [address], [address] [place] [address] documented as of this encounter Visit Diagnoses Not on filedocumented in this encounter Additional Health Concerns Assessment Noted Time A Body Mass Index follow-up plan has been documented for the patient 03/17/2024 2:50 PM EDT documented as of this encounter Care Teams Insurance Customer Service Specialist Relationship Specialty Start Date End Date Cindy Diaz APRN [address] [place] [address] PCP - General 01/27/21 documented as of this encounter
--- OUTSIDE RECORDS SUMMARY | 2025-04-09 15:00 | XMS_ITS | Clinical Summary ---
Author Organization [facility] Address [address] [place] [address] Care Team Providers Care Manager Hvac Name Role Phone Cindy Diaz Bhavana MCCRACKEN Primary Care Provider +1- [phone] Allergies Active Allergy Reactions Criticality Noted Date [...] Encounters Date Type Department Care Team Description 03/30/2025 Telephone [facility] [place] [address] [place] [address] Chapis Eubanks 03/24/2025 10:40 AM EDT Office Visit [facility] [place] [address], [address] [place] [address] Maximo Guzman MD Essential hypertension (Primary Dx) 03/24/2025 Travel 03/23/2025 Telephone [facility] [place] [address], [address] [place] [address] Darlene Benitez 03/17/2025 Telephone [facility] [place] [address] [place] [address] Chapis Eubanks from Last 3 Months Immunizations Immunization Administration [...] Upcoming Encounters Date Type Department Care Team ([facility] st Contact Info) Description 06/30/2025 10:40 AM EDT Office Visit [facility] [place] [address], [address] [place] [address] Health Maintenance Due Date Last Done Comments [facility]-HIV Screening 1960 [facility]-Hepatitis C Screening 1960 [facility]-/Child/Adol SDOH Screenings 1960 [facility]- SDOH Screenings 1978 [facility]-Adult SDOH Screenings 1978 [facility]-DTaP,Tdap,and Td Vaccine s (1 - Tdap) 11/19/1996 11/18/1996 CT Colonography 2005 Colonoscopy 2005 FIT-DNA 2005 FIT 2005 FOBT 2005 Sigmoidoscopy 2005 [facility]-Colorectal Cancer Screening 2005 [facility]-Zoster Vaccines (1 of 2) 2010 [facility]-Pneumococcal Vaccine: 50 + Years (2 of 2 - PCV) 06/15/2021 06/15/2020 [id number] Vaccine (2023- season) 2024 09/12/2021, 02/25/2021, 02/04/2021 [...] <6.0% Children and Adolescents <7.5% . Source: [place] [employer]. Standards of medical care in diabetes, 2017. Diabetes Care.2017:40 (suppl 1):S1-S135. . HbA1c assay performed by an ion-exchange chromatography method that is certified traceable to the DCCT. 06/11/2020 12:3 1 AM EDT 06/11/2020 12:50 AM EDT us Leobardo Crow MD LAB BLOOD ORDERABLES Final R esult SUNQUEST from Last 3 Months or Most Recently Relevant to Health Maintenance Insurance [facility] Care Teams Manager Hvac Relationship Specialty Start Date End Date Cindy Diaz APRN [address] [id number] PCP - General 01/27/21
--- OUTSIDE RECORDS SUMMARY | 2025-04-09 15:00 | XMS_ITS | Clinical Summary ---
Author Organization [facility] Address [facility] [address] [place] [place] [address] Care Team Providers Care Technical Engineer Name Role Phone Unavailable Primary Care Provider [...] PCV) 2010 Shingrix (#1) 2010 Influenza Vaccine (#1) 2025 RSV Vaccine (60+ or ) (1 [...]
--- OUTSIDE RECORDS SUMMARY | 2025-04-09 15:00 | XMS_ITS | Referral Summary ---
Author Organization [facility] Address [address] [place] [address] [place] [address] Care Team Providers Care Phys Assistant Name Role Phone Unavailable Primary Care Provider [...]
--- OUTSIDE RECORDS SUMMARY | 2025-04-09 15:01 | XMS_ITS | Encounter Summary ---
Author Organization [facility] Address [address] [place] [address] Care Team Providers Care Content Creation Manager Name Role Phone Cindy Diaz NAWAF Primary Care Provider +1- [phone] Encounter Details Date Type Department Care Team ([facility] Contact Info) Description 03/23/2025 Telephone [facility] [place] [address], [address] [place] [address] Darlene Benitez Social History Tobacco [...] Upcoming Encounters Date Type Department Care Team ([facility] Contact Info) Description 06/30/2025 10:40 AM EDT Office Visit [facility] [place] [address], [address] [place] [address] documented as of this encounter Visit Diagnoses Not on filedocumented in this encounter Additional Health Concerns Assessment Noted Time A Body Mass Index follow-up plan has been documented for the patient 03/17/2024 2:50 PM EDT documented as of this encounter Care Teams Content Creation Manager Relationship Specialty Start Date End Date Cindy Diaz APRN [address] [place] [address] PCP - General 01/27/21 documented as of this encounter
--- OUTSIDE RECORDS SUMMARY | 2025-04-09 15:02 | XMS_ITS | Encounter Summary ---
Author Organization [facility] Address [address] [place] [address] Care Team Providers Care Airbrush Artist Photography Name Role Phone Cindy Diaz Bhavana MCCRACKEN Primary Care Provider +1- [phone] Encounter Details Date Type Department Care Team (Late st Contact Info) Description 03/30/2025 Telephone [facility] [place] [address] [place] [address] [place] [address] Social History Tobacco Use Types Packs/Day Years Used Date Smoking Tobacco: Every Day Cigarettes Smokeless Tobacco: Former Snuff Alcohol Use [...] * Telephone Encounter - Chapis Eubanks - 03/30/2025 12:58 PM EDT Patient Name:Rik Mcdowell : 1960 Date:03/30/2025 Affiliate Site:[place] Referring Physician:Anali Hodges/ Seen:Dr. Guzman Future scheduling/testing needs: This [facility] Nurse Liaison left voicemail for Rik Mcdowell following their appointment on 03/24/2025. Liaison contact information provided. Will follow up in 3 months to ensure continuum of care. Chapis [place] [facility] Nurse Liaison [phone] documented in this encounter Plan of Treatment Upcoming Encounters Date Type Department Care Team ([facility] st Contact Info) Description 06/30/2025 10:40 AM EDT Office Visit [facility] [place] [address] [facility], [address] [place] [address] documented as of this encounter [...] documented as of this encounter Care Teams Airbrush Artist Photography Relationship Specialty Start Date End Date Cindy Diaz, RN NEONATAL [address] [place] [address] PCP - General 01/27/21 documented as of this encounter
[2025-04-09 15:43] LABS: PHA INR Fingerstick 2.4 (0.9-1.1)
== END 2025-04-09 15:47 ==
LOC: ACC 14:58
PROVIDERS: PCP Nurse Practitioner Family; Visit Provider Physician Assistant
DX: I48.91 Unspecified atrial fibrillation (principal)
CPT/HCPCS: 85610; 99211; G0463

== ENCOUNTER 2025-04-23 14:55 | Outpatient (CLI) | payer OTHER, SELFPAY ==
--- OUTSIDE RECORDS SUMMARY | 2025-03-24 10:40 | XMS_ITS | Encounter Summary ---
Author Organization Healthcare Address [address] [place] [address] Care Team Providers Care Managing Supervisor Name Role Phone Cindy Diaz Bhavana MCCRACKEN Primary Care Provider +1- [phone] Reason for Referral * Consultation (Routine) - Authorized Specialty Diagnoses / Procedures Referred By Colton romo Referred To Contact Diagnoses Essential hypertension Maximo Guzman MD [address] [place] [address] Phone: tel: fax: Referral ID Status Reason Start Date Expiration Date V isits Requested Visits Authorized [id number] Authorized 03/24/2025 09/23/2026 1 1 Reason for Visit * Consultation (Routine) - Closed Specialty Diagnoses / Procedures Referred By Colton romo Referred To Contact Cardiology Diagnoses Mixed hyperlipidemia Jeff Martinez MD [address] [place] [address] Phone: tel: fax: Referral ID Status Reason Start Date Expiration Date V isits Requested Visits Authorized [id number] Closed Specialty Services Required 01/05/2025 07/07/2026 1 1 Encounter Details Date Type Department Care Team ([facility] st Contact Info) Description 03/24/2025 10:40 AM EDT Office Visit [facility] [place] [address] [facility], [address] [place] [address] Maximo Guzman MD [address] [place] [phone] Essential hypertension (Primary Dx) Social History Tobacco [...] As far as lifestyle, 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 PCI in 12/2024 with - LVEF [...] warfarin and recommended he discuss with primary digital photo printer/ managing warfarin provider. - Was recently changed [...] family/caregiver, communicating with other health child care development specialist, and entering clinical information in the EHR. Greater than 50% of the time spent on the encounter was face to face providing direct patient care, counseling for the patient/caregiver, and care coordination. documented in this encounter Plan of Treatment Upcoming Encounters Date Type Department Care Team (Late st Contact Info) Description 06/30/2025 10:40 AM EDT Office Visit [facility] [place] [address] [facility] [place] [address] Scheduled Orders Name Type Priority Associated Diagnoses [...] documented as of this encounter Care Teams Managing Supervisor Relationship Specialty Start Date End Date Cindy Diaz APRN [address] [phone] PCP - General 01/27/21 documented as of this encounter
--- OUTSIDE RECORDS SUMMARY | 2025-04-23 14:57 | XMS_ITS | Clinical Summary ---
Author Organization [facility] Address [facility] [address] [place] [address] Care Team Providers Care [employer] Retailer Sales Consultant Name Role Phone Unavailable Primary Care Provider [...]
--- OUTSIDE RECORDS SUMMARY | 2025-04-23 14:58 | XMS_ITS | Clinical Summary ---
Author Organization [facility] Address [address] [place] [address] Care Team Providers Care Land Leasing Information Clerk Name Role Phone Cindy Diaz Bhavana MCCRACKEN Primary Care Provider +1- [phone] Allergies Active Allergy Reactions Criticality Noted Date [...] Encounters Date Type Department Care Team Description 04/20/2025 Telephone [facility] [place] [address], [address] [place] [address] Renetta Mahan, PharmD 03/30/2025 Telephone [facility] [place] [address] [place] [address] Chapis Eubanks 03/24/2025 10:40 AM EDT Office Visit [facility] [place] [address], [address] [place] [address] Maximo Guzman MD Essential hypertension (Primary Dx) 03/24/2025 Travel 03/23/2025 Telephone [facility] [place] [address], [address] [place] [address] Darlene Benitez 03/17/2025 Telephone [facility] [place] [address] [place] [address] Chapis Eubanks from Last 3 Months Immunizations [...] Upcoming Encounters Date Type Department Care Team ([facility] st Contact Info) Description 06/30/2025 10:40 AM EDT Office Visit [facility] [address] , [address] [place] [address] Health Maintenance Due Date Last Done Comments [...] (2 of 2 - PCV) 06/15/2021 06/15/2020 [id number] Vaccine ( season) 2024 09/12/2021, 02/25/2021, 02/04/2021 [facility]-Influenza Vaccine [...] <6.0% Children and Adolescents <7.5% . Source: [place] Diabetes Association. Standards of medical care in diabetes, 2017. Diabetes Care.2017:40 (suppl 1):S1-S135. . HbA1c assay performed by an ion-exchange chromatography method that is certified traceable to the DCCT. 06/11/2020 12:3 1 AM EDT 06/11/2020 12:50 AM EDT us Leobardo Crow MD LAB BLOOD ORDERABLES Final R esult SUNYANG from Last 3 Months or Most Recently Relevant to Health Maintenance Insurance [facility] DENTAL CLAIMS Care Teams Land Leasing Information Clerk Relationship Specialty Start Date End Date Cindy Diaz APRN [address] [place] [address] PCP - General 01/27/21
--- OUTSIDE RECORDS SUMMARY | 2025-04-23 14:58 | XMS_ITS | Encounter Summary ---
Author Organization [facility] Address [address] [place] [address] Care Team Providers Care Architecture Instructor Name Role Phone DiazCindy brooks NAWAF Primary Care Provider +1- [phone] Encounter Details Date Type Department Care Team (Late st Contact Info) Description 03/17/2025 Telephone [facility] [place] [address] [place] [address] [place] [address] Social History Tobacco Use Types Packs/Day Years [...] Patient Name: Rik Mcdowell :1960 Date:03/17/2025 Affiliate site:[place] Referring Physician:Bryce Michelle Education/ Information provided: This Nurse Liaison spoke with Rik Mcdowell prior to an appointment on 03/24/2025. Explained nurse liaison services offered through [facility]. Discussed appointment necessity, and subspecialty clinic the pt will be seeing. Patient verbalizes understanding. Patient denied any barriers to arriving to clinic visit. All questions answered. Provided patient with liaison contact information and encouraged patient to call with any questions, concerns or assistance needs. Will follow up with patient after appointment. Chapis Eubanks [facility] Nurse Liaison [phone] documented in this encounter Plan of Treatment Upcoming Encounters Date Type Department Care Team ([facility] st Contact Info) Description 06/30/2025 10:40 AM EDT Office Visit [facility] [place] [address], [address] [place] [address] documented as of this encounter Visit Diagnoses Not on filedocumented in this encounter Additional Health Concerns Assessment Noted Time A Body Mass Index follow-up plan has been documented for the patient 03/17/2024 2:50 PM EDT documented as of this encounter Care Teams Architecture Instructor Relationship Specialty Start Date End Date Cindy Diaz APRN [address] [place] [address] PCP - General 01/27/21 documented as of this encounter
--- OUTSIDE RECORDS SUMMARY | 2025-04-23 14:58 | XMS_ITS | Referral Summary ---
Author Organization [facility] Address [address] [place] [address] [place] [address] Care Team Providers Care Button Tacker Name Role Phone Unavailable Primary Care Provider [...]
--- OUTSIDE RECORDS SUMMARY | 2025-04-23 14:58 | XMS_ITS | Encounter Summary ---
Author Organization [facility] Address [address] [place] [address] Care Team Providers Care Courtroom Deputy Or Calendar Clerk Name Role Phone Cindy Diaz NAWAF Primary Care Provider +1- [phone] Encounter Details Date Type Department [facility] Team ([facility] Contact Info) Description 03/23/2025 Telephone [facility] [place] [address], [address] [place] [address] Darlene Benitez Social History Tobacco [...] Upcoming Encounters Date Type Department Care Team ([facility] Contact Info) Description 06/30/2025 10:40 AM EDT Office Visit [facility] [place] [address], [address] [place] [address] documented as of this encounter Visit Diagnoses Not on filedocumented in this encounter Additional Health Concerns Assessment Noted Time A Body Mass Index follow-up plan has been documented for the patient 03/17/2024 2:50 PM EDT documented as of this encounter Care Teams Courtroom Deputy Or Calendar Clerk Relationship Specialty Start Date End Date Cindy Diaz APRN [address] [place] [address] PCP - General 01/27/21 documented as of this encounter
--- OUTSIDE RECORDS SUMMARY | 2025-04-23 14:58 | XMS_ITS | Encounter Summary ---
Author Organization [facility] Address [address] [place] [address] Care Team Providers Care Boat Operator Name Role Phone Cindy Diaz NAWAF Primary Care Provider +1- [phone] Encounter Details Date Type Department Care Team (Late st Contact Info) Description 03/30/2025 Telephone [facility] [place] [address] [place] [address] [place] [address] Social History Tobacco Use Types Packs/Day Years [...] Hodges/ Seen:Dr. Guzman Future scheduling/testing needs: This [facility] Nurse Liaison left voicemail for Rik Mcdowell following their appointment on 03/24/2025. Liaison contact information provided. Will follow up in 3 months to ensure continuum of care. Chapis [place] [facility] Nurse Liaison [phone] documented in this encounter Plan of Treatment Upcoming Encounters Date Type Department Care Team ([facility] st Contact Info) Description 06/30/2025 10:40 AM EDT Office Visit [facility] [place] [address], [address] [place] [address] documented as of this encounter [...] documented as of this encounter Care Teams Boat Operator Relationship Specialty Start Date End Date Cindy Diaz, BARN BOSS [address] [place] [address] PCP - General 01/27/21 documented as of this encounter
--- OUTSIDE RECORDS SUMMARY | 2025-04-23 14:58 | XMS_ITS | Encounter Summary ---
Author Organization [facility] Address [address] [place] [address] Care Team Providers Care Sider Name Role Phone Cindy Diaz NAWAF Primary Care Provider +1- [phone] Encounter Details Date Type Department Care Team [...] Description 06/30/2025 10:40 AM EDT Office Visit [facility] [place] [address], [address] [place] [address] documented as of this encounter [...] documented as of this encounter Care Teams Sider Relationship Specialty Start Date End Date Cindy Diaz APRN [address] [place] [address] PCP - General 01/27/21 documented as of this encounter
--- OUTSIDE RECORDS SUMMARY | 2025-04-23 14:58 | XMS_ITS | Encounter Summary ---
Author Organization [facility] Address [address] [place] [address] Care Team Providers Care Tile Setter Name Role Phone Cindy Diaz NAWAF Primary Care Provider +1- [phone] Encounter Details Date Type Department Care Team ([facility] st Contact Info) Description 04/20/2025 Telephone [facility] [place] [address] [facility], [address] [place] [address] Renetta Mahan, PharmD [address] [place] [address] Social History Tobacco Use Types Packs/Day Years [...] encounter Miscellaneous Notes * Telephone Encounter - Renetta Mahan, PharmD - 04/20/2025 9:59 AM EDT Called patient today for HLD management at the request of Dr. Guzman. Patient did not answer so lefta voicemail asking for return call to [phone]. Renetta Mahan, JanesD, BCACP [facility] [address] [facility], [address] [facility] [address] documented in this encounter Plan of Treatment Upcoming Encounters Date Type Department Care Team (Late st Contact Info) Description 06/30/2025 10:40 AM EDT Office Visit [facility] [place] [address], [address] [place] [address] documented as of this encounter [...] documented as of this encounter Care Teams Tile Setter Relationship Specialty Start Date End Date Cindy Diaz APRN [address] [place] [address] PCP - General 01/27/21 documented as of this encounter
[2025-04-23 15:09] LABS: PHA INR Fingerstick 2.3 (0.9-1.1)
== END 2025-04-23 15:13 ==
LOC: ACC 14:55
PROVIDERS: Physician Assistant; PCP Nurse Practitioner Family; Visit Provider Nurse Practitioner Family
DX: I48.91 Unspecified atrial fibrillation (principal)
CPT/HCPCS: 85610; 99211; G0463

== ENCOUNTER 2025-05-03 11:45 | Outpatient (CLI) | payer OTHER, SELFPAY ==
--- OUTSIDE RECORDS SUMMARY | 2025-03-24 10:40 | XMS_ITS | Encounter Summary ---
Author Organization Healthcare Address [address] [place] [address] Care Team Providers Care Cold Roll Catcher Name Role Phone Cindy Diaz Bhavana MCCRACKEN Primary Care Provider +1- [phone] Reason for Referral * Consultation (Routine) - Authorized Specialty Diagnoses / Procedures Referred By Colton romo Referred To Contact Diagnoses Essential hypertension Maximo Guzman MD [address] [place] [address] Phone: tel: fax: Referral ID Status Reason Start Date Expiration Date V isits Requested Visits Authorized [id number] Authorized 03/24/2025 09/23/2026 1 1 Reason for Visit * Consultation (Routine) - Closed Specialty Diagnoses / Procedures Referred By Colton romo Referred To Contact Cardiology Diagnoses Mixed hyperlipidemia Jeff Martinez MD [address] [place] [address] Phone: tel: fax: Referral ID Status Reason Start Date Expiration Date V isits Requested Visits Authorized [id number] Closed Specialty Services Required 01/05/2025 07/07/2026 1 1 Encounter Details Date Type Department Care Team ([facility] st Contact Info) Description 03/24/2025 10:40 AM EDT Office Visit [facility] [place] [address] [facility], [address] [place] [address] Maximo Guzman MD [address] [place] [phone] Essential hypertension (Primary Dx) Social History Tobacco Use Types Packs/Day Years Used Date Smoking Tobacco: Every Day Cigarettes Smokeless Tobacco: Former Snuff Tobacco Cessation:Ready to Q uit: Not Asked Alcohol Use Standard Drinks/Week Comments Never 0 (1 standard drink = 0.6 oz pur e alcohol) PHQ-2 Answer Date Recorded Patient Health Questionnaire-2 Score 0 03/24/2025 PHQ-9 Answer Date Recorded Patient Health Questionnaire-9 Score 0 03/24/2025 Sex and Gender Information Value Date Recorded Sex Assigned at Not on file Legal Sex Male 7:56 PM EDT Gender Identity Not on file Sexual Orientation Not on file documented as of this encounter Last Filed Vital Signs Vital Sign Reading Time Taken Comments Blood Pressure 138/83 03/24/2025 10:54 AM EDT Pulse 62 03/24/2025 10:47 AM EDT Temperature - - Respiratory Rate - - Oxygen Saturation 97% 03/24/2025 10:47 AM EDT Inhaled Oxygen Concentration - - Weight 95.4 kg (210 lb 5.1 oz) 03/24/2025 10:47 AM EDT Height 162.6 cm (5' 4 ) 03/24/2025 10:47 AM EDT Body Mass Index 36.1 03/24/2025 10:47 AM EDT documented in this encounter Functional Status * Over the past 2 weeks, how often have you been bothered by any of the following problems? Question Answer Date of Assessment Author Little interest or pleasure in doing things Not at all 03/24/2025 10:53 AM Cathleen Topete Feeling down, depressed, or hopeless Not at all 03/24/2025 10:53 AM Cathleen Topete Patient Health Questionnaire -2 Score 0 03/24/2025 10:53 AM Cathleen Topete * Question Answer Date of Assessment Author Trouble falling or staying asleep, or sleeping too much Not at all 03/24/2025 10:53 AM Yenni Topete Feeling tired or having porsche le energy Not at all 03/24/2025 10:53 AM Cathleen Topete Poor appetite or overeating Not at all 03/24/2025 10 :53 AM Cathleen Topete Feeling bad about yourself - or that you are a failure or have let yourself or your family down Not at all 03/24/2025 10:53 AM Cathleen Watts Trouble concentrating on thi ngs, such as reading the newspaper or watching television Not at all 03/24/2025 10:53 AM Cathleen Topete Moving or speaking so slowly that other people could have noticed? Or the opposite - being so fidgety or restless that you have been moving around a lot more than usual. Not at all 03/24/2025 10:53 AM Cathleen Topete Thoughts that you would be better off or hurting yourself in some way Not at all 03/24/2025 10:53 AM Cathleen Topete Patient Health Questionnaire -9 Score 0 03/24/2025 10:53 AM Cathleen Topete * If you checked off any problems on this questionnaire so far, Question Answer Date of Assessment Author How difficult have these problems made it for you to do your work, take care of things at home, or get along with other people? Not difficult at all 03/24/2025 10:53 AM Cathleen Topete documented as of this encounter Miscellaneous Notes * Patient Instructions - Renetta Mahan, PharmD - 03/24/2025 10:40 AM EDT STOP aspirin. START fenofibrate 145 mg once daily * Progress Notes - Maximo Guzman MD - 03/24/2025 10:40 AM EDT Images from the original note were not included. Cardiology Complex Prevention Clinic Note Referring provider: Jeff Martinez MD PCP: Cindy Diaz APRN Reason for consult/visit: Hypertriglyceridemia History of Present Illness Rik Mcdowell is a 64 y.o. male with a past medical history notable for CAD s/p CABG in 2019, PCIin , renal artery stenosis s/p bilateral stenting, T2DM, HLD, CKD, and tobacco use, who presents for evaluation of hyperlipidemia. Pt says he is doing well today. He is currently managed on Leqvio injections for his CAD/ HLD and is tolerating well. Despite this, triglycerides have remained elevated with most recent level 1157 mg/dL in September. LDL was 34 at this time. A1c 7.4%. He denies any history of pancreatitis. 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 No routine exercise. Diet heavy in red meat and saturated fat. Was previously prescribed icosapent ethyl and took for 6 months but triglycerides were unchanged so he stopped the medication. He has never been on a fibrate that he is aware. In December, he had LHC for ongoing angina and received PCI x 4 to RCA and LAD. Since this, he continues to have chest pain every few days but has improved significantly overall. He was placed on isosorbide but felt like it made chest pain worse so he stopped taking. He says he was also diagnosed withA fib and placed on warfarin. Was never offered DOAC. He was also changed from losartan/hydrochlorothiazide to Entresto 24-26 mg BID after LHC in December and ECHO which showed HFmrEF. He was trailed onempagliflozin but unable to tolerate due to yeast infections. The following portions of the chart were reviewed this encounter and updated as appropriate: Tobacco Meds Med Hx Surg Hx Fam Hx Review of Systems 14 point review of systems performed, pertinent positives documented in the HPI, and remaining reviewed systems are negative. Objective Visit Vitals BP 138/83 (BP Location: Left arm, Patient Position: Sitting) Pulse 62 Ht 1.626 m (5' 4 ) Wt 95.4 kg (210 lb 5.1 oz) SpO2 97% BMI 36.10 kg/m?? Smoking Status Every Day BSA 2.08 m?? Physical Exam Physical Exam Constitutional: General: He is not in acute distress. Appearance: He is not ill-appearing, toxic-appearing or diaphoretic. HENT: Head: Normocephalic and atraumatic. Right Ear: External ear normal. Left Ear: External ear normal. Eyes: Extraocular Movements: Extraocular movements intact. Neck: Vascular: No carotid bruit. Cardiovascular: Rate and Rhythm: Normal rate and regular rhythm. Heart sounds: No murmur heard. No friction rub. No gallop. Pulmonary: Effort: Pulmonary effort is normal. No respiratory distress. Breath sounds: No wheezing, rhonchi or rales. Abdominal: General: Bowel sounds are normal. There is no distension. Tenderness: There is no abdominal tenderness. There is no guarding. Musculoskeletal: Cervical back: No rigidity or tenderness. Right lower leg: No edema. Left lower leg: No edema. Skin: General: Skin is warm and dry. Neurological: Mental Status: He is oriented to person, place, and time. Gait: Gait normal. Psychiatric: Mood and Affect: Mood normal. Behavior: Behavior normal. Primary Study Review: Dr. Guzman and I personally reviewed the the report of the following studies: echocardiogram, ECG, and heart cath ECHO (12/2024) LVEF 40-45% (lower compared with 2021 ECHO), MILD rv DILATION, MILD . Heart cath (01/12/25) Lab Review Dr. Guzman and I personally reviewed the pertinent labs and are notable for the following: BMP (10/16/24) - Na 138 - K 5.9 - Cr 2.3 - BUN 57 - Glucose- 253 - eGFR 29 - Hgb A1c 7.4% - Triglycerides- 1157 - LDL 34 - TC 240 - HDL 22 Assessment/Plan Assessment and Plan Problem List Items Addressed This Visit None Rik Mcdowell is a 64 y.o. male with a past medical history notable for CAD s/p CABG, COPD, T2DM,A fib, mixed hyperlipidemias, who presents for evaluation of HLD doing well today . 1) CAD - Remote CABG in 2019 (Anatomy: LARA-D1-LAD, [id number], rSVG-rPL). PCI in 12/2024 with - LVEF of 40-45% (12/2024)- decrease from 2021 ECHO - Mild chest pain but much improved following PCI. Unable to tolerate nitrates. - Patient currently on triple therapy with ASA, clopidogrel, and most recently started on warfarin 1 month ago for A fib. - Pt does not believe he was offered DOAC. Discussed benefits of DOAC vs. warfarin and recommended he discuss with primary field director/ managing warfarin provider. - Was recently changed from losartan/hydrochlorothiazide to Entresto 24-26 mg BID. BP slightly above goal today. Doesn't check regularly at home. - Lipid management as below. - Plan: STOP aspirin. Continue with clopidogrel 75 mg daily and warfarin. Discuss DOAC with primarycardiologist who manages A fib. - Per outside records, declined cardiac rehab. 2) Hyperlipidemia - Triglycerides 1157 mg/dL, LDL 34 mg/dL (09/2024) - A1c 9.3% --> 7.4% (12/2024) - Current regimen: inclisiran every 6 months - Previously on icosapent ethyl with no change in TG so he self-discontinued. - No history pancreatitis. - Will begin fenofibrate 145 mg once daily in setting of severely elevated TG. - Discussed lifestyle modifications in depth and the impact they can have on triglyceride levels and overall heart health. Pt eats very high fat diet at this time. Recommend diet with 10-15% of calories coming from fat, often meaning <20- 30 grams of fat per day. Recommend diet with focus on vegetables, fruit, whole grains, lean meats, and limiting artificial sugars. Encouraged increased physica l activity as tolerated. - PharmD to reach out in 1 month to assess tolerance. Will follow up in 3 months in clinic with repeat lipid panel. 3) Tobacco use disorder - Spent 4 minutes on counseling. - Strongly encouraged tobacco cessation. Patient has cut back significantly but not ready to decrease use further at this time. I spent 60 minutes performing the following components of the encounter (on the day of the encounter): reviewing History, examining the patient, reviewing imaging and/or labs, Independently interpreting echocardiogram, ECG and/or other imaging results, counseling the patient and family/caregiver, communicating with other health farm or ranch animal caretaker, and entering clinical information in the EHR. Greater than 50% of the time spent on the encounter was face to face providing direct patient care, counseling for the patient/caregiver, and care coordination. documented in this encounter Plan of Treatment Upcoming Encounters Date Type Department Care Team (Late st Contact Info) Description 06/30/2025 10:40 AM EDT Office Visit [facility] [place] [address] [facility], [address] [place] [address] Scheduled Orders Name Type Priority Associated Diagnoses Orde r Schedule Basic metabolic panel Lab Routine Essential hypertension Expected: 03/24/2025 (Approximate), Expires: 09/25/2026 Scheduled Referrals Name Type Priority Associated Diagnoses Orde r Schedule Follow Up Cardiology Outpatient Referral Routine Essential hypertension Expected: 06/24/2025, Expires: 09/24/2026 documented as of this encounter Visit Diagnoses Diagnosis Essential hypertension- Primary Unspecified essential hypertension documented in this encounter Additional Health Concerns Assessment Noted Time PHQ-9 Depression Total Score: 0 03/24/20 25 10:53 AM EDT A fall risk assessment has been complete d for the patient 03/24/2025 10:53 AM EDT A Body Mass Index follow-up plan has been documented for the patient 03/24/2025 11:40 AM EDT documented as of this encounter Care Teams Cold Roll Catcher Relationship Specialty Start Date End Date Cindy Diaz APRN [address] [id number] PCP - General 01/27/21 documented as of this encounter
[2025-05-03 20:29] LABS: Alanine Aminotransferase 23 U/L (12-78); Albumin Level 3.5 g/dl (3.5-5.0); Albumin/Globulin Ratio 1.5 (1.1-1.8); Alkaline Phosphatase 81 U/L (38-126); Anion Gap 16.1 mEq/L (5-15); Aspartate Amino Transferase 30 U/L (17-59); Blood Urea Nitrogen 38 mg/dl (9-20); Calcium 8.1 mg/dl (8.4-10.2); Carbon Dioxide 21 mmol/L (22.0-30.0); Chloride 105 mmol/L (98-107); Creatinine,Serum 2.30 mg/dl (0.66-1.25); Estimated Glomerular Filt Rate 29 ml/min (>60); GFR (African American) 35 ML/MIN (>60); Globulin 2.4 g/dL (1.3-3.2); Glucose 260 mg/dl (74-100); Magnesium 1.6 mg/dl (1.6-2.3); Potassium 5.1 mmoL/L (3.5-5.1); Sodium 137 mmol/L (136-145); Total Protein,Serum 5.9 g/dl (6.3-8.2)
[2025-05-03 20:46] LABS: Bilirubin,Total 0.1 mg/dl (0.2-1.3)
--- OUTSIDE RECORDS SUMMARY | 2025-05-05 10:16 | XMS_ITS | Encounter Summary ---
Author Organization [facility] Address [address] [place] [address] Care Team Providers Care Fusion Juncture Grinder Name Role Phone Cindy Diaz NAWAF Primary Care Provider +1- [phone] Encounter Details Date Type Department Care Team [...] Description 06/30/2025 10:40 AM EDT Office Visit [facility] [place] [address] [facility] [address] [facility] [address] [facility] [address] [place] [address] documented as of this encounter [...] documented as of this encounter Care Teams Fusion Juncture Grinder Relationship Specialty Start Date End Date Cindy Diaz APRN [address] [place] [address] PCP - General 01/27/21 documented as of this encounter
--- OUTSIDE RECORDS SUMMARY | 2025-05-05 10:16 | XMS_ITS | Encounter Summary ---
Author Organization [facility] Address [address] [place] [address] Care Team Providers Care Wire Coating Machine Operator Name Role Phone DiazCindy brooks NAWAF Primary Care Provider +1- [phone] Encounter Details Date Type Department Care Team (Late st Contact Info) Description 03/17/2025 Telephone [facility] [place] [address] [place] [address] [place] [address] Social History Tobacco Use Types Packs/Day Years [...] Patient Name: Rik Mcdowell :1960 Date:03/17/2025 Affiliate site:[place] Referring Physician:Bryce Michelle Education/ Information provided: This Nurse Liaison spoke with Rik Mcdowell prior to an appointment on 03/24/2025. Explained nurse liaison services offered through [facility]. Discussed appointment necessity, and subspecialty clinic the pt will be seeing. Patient verbalizes understanding. Patient denied any barriers to arriving to clinic visit. All questions answered. Provided patient with liaison contact information and encouraged patient to call with any questions, concerns or assistance needs. Will follow up with patient after appointment. Chapis Eubanks [facility] Nurse Liaison [phone] documented in this encounter Plan of Treatment Upcoming Encounters Date Type Department Care Team ([facility] st Contact Info) Description 06/30/2025 10:40 AM EDT Office Visit [facility] [place] [address] [facility] [address] [facility] [place] [address] documented as of this encounter Visit Diagnoses Not on filedocumented in this encounter Additional Health Concerns Assessment Noted Time A Body Mass Index follow-up plan has been documented for the patient 03/17/2024 2:50 PM EDT documented as of this encounter Care Teams Wire Coating Machine Operator Relationship Specialty Start Date End Date Cindy Diaz APRN [address] [place] [address] PCP - General 01/27/21 documented as of this encounter
--- OUTSIDE RECORDS SUMMARY | 2025-05-05 10:16 | XMS_ITS | Clinical Summary ---
Author Organization [facility] Address [address] [place] [address] Care Team Providers Care Engine Room Operator Name Role Phone DiazCindy brooks Bhavana MCCRACKEN Primary Care Provider +1- [phone] Allergies Active Allergy Reactions Criticality Noted Date Comments Cholesterol Other - please docum ent in the comment field Low 03/16/2024 Unable to urinate Statins Other - please docum ent in the comment field Low 03/24/2025 Pt cannot urinate Medications albuterol 108 (90 Base) MCG/ACT inhaler Inhale 2 puffs 4 (four) times a day. Active BUDESON-GLYCOPYR ROL-FORMOTEROL IN Inhale. Active clopidogrel (Plavix) 75 MG tablet Take 1 tablet (75 mg) by mouth 1 (one) time each day. Active insulin degludec (Tresiba) 100 UNIT/ML injection vial Inject 10 Units under the skin every night. Active ipratropium-albu terol (Duo-Neb) 0.5-2.5 mg/3 mL nebulizer solution Take [...] as directed per After Visit Summary. Active sacubitril-valsa rtan (Entresto) 24-26 MG tablet Take 1 tablet by mouth 2 times a day. Active fenofibrate (Tricor) 145 MG tabletIndication s:Essential hypertension Take 1 tablet by mouth daily. 30 tablet 5 Active Active Problems Problem Noted Date Diagnosed Date Severe obesity (BMI 35.0-39.9) with comorbidity 03/25/2025 Encounters Date Type Department Care Team Description 04/20/2025 Telephone [facility] [address] [facility], [address] [place] [address] Renetta Mahan, PharmD 03/30/2025 Telephone [facility] [address] [place] [address] Chapis Eubanks 03/24/2025 10:40 AM EDT Office Visit [facility] [address] [facility], [address] [place] [address] Maximo Guzman MD Essential hypertension (Primary Dx) 03/24/2025 Travel 03/23/2025 Telephone [facility] [address] [facility] [place] [address] Darlene Benitez 03/17/2025 Telephone [facility] [address] [place] [address] Chapis Eubanks from Last 3 Months Immunizations [...] Upcoming Encounters Date Type Department Care Team ([facility] st Contact Info) Description 06/30/2025 10:40 AM EDT Office Visit [facility] [place] [address] [facility] [place] [address] Health Maintenance Due Date Last [...] (2 of 2 - PCV) 06/15/2021 06/15/2020 [id number] Vaccine ( season) 2024 09/12/2021, 02/25/2021, 02/04/2021 [...] <6.0% Children and Adolescents <7.5% . Source: [place] [employer]. Standards of medical care in diabetes, 2017. Diabetes Care.2017:40 (suppl 1):S1-S135. . HbA1c assay performed by an ion-exchange chromatography method that is certified traceable to the DCCT. 06/11/2020 12:3 1 AM EDT 06/11/2020 12:50 AM EDT us Leobardo Crow MD LAB BLOOD ORDERABLES Final R esult SUNQUEST from Last 3 Months or Most Recently Relevant to Health Maintenance Insurance [facility] DENTAL CLAIMS Care Teams Engine Room Operator Relationship Specialty Start Date End Date Cindy Diaz APRN [address] [place] [id number] [facility] - General 01/27/21
--- OUTSIDE RECORDS SUMMARY | 2025-05-05 10:16 | XMS_ITS | Encounter Summary ---
Author Organization [facility] Address [address] [place] [address] Care Team Providers Care Bit Grinder Name Role Phone Cindy Diaz NAWAF Primary Care Provider +1- [phone] Encounter Details Date Type Department Care Team ([facility] Contact Info) Description 03/23/2025 Telephone [facility] [place] [address], [address] [place] [address] Darlene Benitez Social History Tobacco [...] Upcoming Encounters Date Type Department Care Team ([facility] Contact Info) Description 06/30/2025 10:40 AM EDT Office Visit [facility] [place] [address], [address] [place] [address] documented as of this encounter Visit Diagnoses Not on filedocumented in this encounter Additional Health Concerns Assessment Noted Time A Body Mass Index follow-up plan has been documented for the patient 03/17/2024 2:50 PM EDT documented as of this encounter Care Teams Bit Grinder Relationship Specialty Start Date End Date Cindy Diaz APRN [address] [place] [address] PCP - General 01/27/21 documented as of this encounter
--- OUTSIDE RECORDS SUMMARY | 2025-05-05 10:16 | XMS_ITS | Encounter Summary ---
Author Organization [facility] Address [address] [place] [address] Care Team Providers Care Petroleum Analyst Name Role Phone Cindy Diaz NAWAF Primary Care Provider +1- [phone] Encounter Details Date Type Department Care Team ([facility] st Contact Info) Description 04/20/2025 Telephone [facility] [place] [address] [facility], [address] [place] [address] Renetta Mahan, PharmD [address] [place] [address] Social History Tobacco Use Types [...] lefta voicemail asking for return call to [phone]. Renetta Mahan, JanesD, BCACP [facility] [address] [address], [address] [facility] [address] documented in this encounter Plan of Treatment Upcoming Encounters Date Type Department Care Team (Late st Contact Info) Description 06/30/2025 10:40 AM EDT Office Visit [facility] [place] [address] [facility], [address] [place] [address] documented as of this encounter [...] documented as of this encounter Care Teams Petroleum Analyst Relationship Specialty Start Date End Date Cindy Diaz APRN [address] [place] [address] PCP - General 01/27/21 documented as of this encounter
--- OUTSIDE RECORDS SUMMARY | 2025-05-05 10:16 | XMS_ITS | Encounter Summary ---
Author Organization [facility] Address [address] [place] [address] Care Team Providers Care Mobile Marketing Manager Name Role Phone Cindy Diaz NAWAF Primary Care Provider +1- [phone] Encounter Details Date Type Department Care Team (Late st Contact Info) Description 03/30/2025 Telephone [facility] [place] [address] [place] [address] [place] [address] Social History Tobacco Use Types Packs/Day Years [...] Hodges/ Seen:Dr. Guzman Future scheduling/testing needs: This [facility] Nurse Liaison left voicemail for Rik Mcdowell following their appointment on 03/24/2025. Liaison contact information provided. Will follow up in 3 months to ensure continuum of care. Chapis [facility] Nurse Liaison [phone] documented in this encounter Plan of Treatment Upcoming Encounters Date Type Department Care Team ([facility] st Contact Info) Description 06/30/2025 10:40 AM EDT Office Visit [facility] [place] [address] [facility], [address] [place] [address] documented as of this encounter [...] documented as of this encounter Care Teams Mobile Marketing Manager Relationship Specialty Start Date End Date Cindy Diaz, POSTIE [address] [place] [address] PCP - General 01/27/21 documented as of this encounter
--- OUTSIDE RECORDS SUMMARY | 2025-05-05 10:16 | XMS_ITS | Referral Summary ---
Author Organization [facility] Address [address] [place] [address] [place] [address] Care Team Providers Care Job Boss Name Role Phone Unavailable Primary Care Provider [...]
--- OUTSIDE RECORDS SUMMARY | 2025-05-05 10:16 | XMS_ITS | Clinical Summary ---
Author Organization [facility] Address [address] [place] [address] Care Team Providers Care Backup Engineer Name Role Phone Unavailable Primary Care [...]
== END 2025-05-03 23:59 | disposition home or self-care (01) ==
LOC: LAB.DROPOF 05-05 09:57
PROVIDERS: PCP Nurse Practitioner Family; Visit Provider Nurse Practitioner Family
DX: I10 Essential (primary) hypertension (principal)
CPT/HCPCS: 80053; 83735

== ENCOUNTER 2025-05-24 11:39 | Outpatient (CLI) | payer OTHER, SELFPAY ==
--- OUTSIDE RECORDS SUMMARY | 2025-05-24 11:42 | XMS_ITS | Encounter Summary ---
Author Organization [facility] Address [address] [place] [address] Care Team Providers Care Clinical Neuropsychologist Name Role Phone DiazCidny brooks Bhavana MCCRACKEN Primary Care Provider +1- [phone] Encounter Details Date Type Department Care Team ([facility] st Contact Info) Description 04/20/2025 Telephone [facility] [place] [address] [facility], [address] [place] [address] Renetta Mahan, PharmD [address] [place] [address] Social History Tobacco Use Types [...] Telephone Encounter - Renetta Mahan, PharmD - 05/14/2025 9:12 AM EDT Called patient today for HLD management at the request of Dr. Guzman. Patient did not answer so lefta voicemail asking for return call to [phone]. Unsuccessful attempts made on 04/20, 05/07, and 05/14. Will plan to follow up with patient at cardiology appt scheduled for 06/30/25. Renetta Mahan PharmD, [facility] [address], [address] [place] [address] * Telephone Encounter - Renetta Mahan PharmD - 05/07/2025 10:26 AM EDT Called patient today for HLD management at the request of Dr. Guzman. Patient did not answer so lefta voicemail asking for return call to [phone]. Renetta Mahan PharmD, [facility] [address], [address] [place] [address] * Telephone Encounter - Renetta Mahan PharmD - 04/20/2025 9:59 AM EDT Called patient today for HLD management at the request of Dr. Guzman. Patient did not answer so lefta voicemail asking for return call to [phone]. Renetta Mahan PharmD, [facility] [address], [address] [place] [address] documented in this encounter Plan of Treatment Upcoming Encounters Date Type Department Care Team (Late st Contact Info) Description 06/30/2025 10:40 AM EDT Office Visit [facility] [place] [address], [address] [place] [address] documented as of this encounter Visit Diagnoses Not on filedocumented in this encounter Additional Health Concerns Assessment Noted Time PHQ-9 Depression Total Score: 0 03/24/20 10:53 AM EDT A fall risk assessment has been complete d for the patient 03/24/2025 10:53 AM EDT A Body Mass Index follow-up plan has been documented for the patient 03/24/2025 11:40 AM EDT documented as of this encounter Care Teams Clinical Neuropsychologist Relationship Specialty Start Date End Date Cindy Diaz APRN [address] [place] [address] PCP - General 01/27/21 documented as of this encounter
--- OUTSIDE RECORDS SUMMARY | 2025-05-24 11:42 | XMS_ITS | Encounter Summary ---
Author Organization [facility] Address [address] [place] [address] Care Team Providers Care Fsr Name Role Phone Cindy Diaz Bhavana MCCRACKEN Primary Care Provider +1- [phone] Encounter Details Date Type Department Care Team (Late st Contact Info) Description 03/30/2025 Telephone [facility] [place] [address] [place] [address] [place] [address] Social History Tobacco Use Types Packs/Day Years [...] Hodges/ Seen:Dr. Guzman Future scheduling/testing needs: This [facility] Nurse Liaison left voicemail for Rik Mcdowell following their appointment on 03/24/2025. Liaison contact information provided. Will follow up in 3 months to ensure continuum of care. Chapis [facility] Nurse Liaison [phone] documented in this encounter Plan of Treatment Upcoming Encounters Date Type Department Care Team ([facility] st Contact Info) Description 06/30/2025 10:40 AM EDT Office Visit [facility] [place] [address] [facility] [address] [facility], [address] [place] [address] documented as of this [...] documented as of this encounter Care Teams Fsr Relationship Specialty Start Date End Date Cindy Diaz, CPC [address] [place] [address] PCP - General 01/27/21 documented as of this encounter
--- OUTSIDE RECORDS SUMMARY | 2025-05-24 11:42 | XMS_ITS | Clinical Summary ---
Author Organization [facility] Address [facility] [place] [address] Care Team Providers Care Novelty Twister Operator Name Role Phone Unavailable Primary Care [...]
--- OUTSIDE RECORDS SUMMARY | 2025-05-24 11:42 | XMS_ITS | Referral Summary ---
Author Organization [facility] Address [address] [place] [address] [place] [address] Care Team Providers Care Hire Car Driver Name Role Phone Unavailable Primary Care Provider [...]
--- OUTSIDE RECORDS SUMMARY | 2025-05-24 11:42 | XMS_ITS | Clinical Summary ---
Author Organization [facility] Address [address] [place] [address] Care Team Providers Care Director Hydrogen Storage Engineering Name Role Phone DiazCindy brooks Bhavana MCCRACKEN Primary Care Provider +1- [phone] Allergies Active Allergy Reactions Criticality Noted Date [...] Type Department Care Team Description 04/20/2025 Telephone [facility] [address], [address] [place] [address] Renetta Mahan, PharmD 03/30/2025 Telephone [facility] [address] [facility] [facility] [place] [address] Chapis Eubanks 03/24/2025 10:40 AM EDT Office Visit [facility] [address] [facility] [address], [address] [place] [address] Maximo Guzman MD Essential hypertension (Primary Dx) 03/24/2025 Travel 03/23/2025 Telephone [facility] [address], [address] [place] [address] Darlene Benitez 03/17/2025 Telephone [facility] [address] [facility] [place] [address] Chapis Eubanks from Last 3 Months Immunizations [...] Upcoming Encounters Date Type Department Care Team ([facility] st Contact Info) Description 06/30/2025 10:40 AM EDT Office Visit [facility] [place] [address] [place] [address] Health Maintenance Due Date Last Done Comments [facility]-Hepatitis C Screening 1960 [facility]-/Child/Adol SDOH Screenings 1960 [facility]- SDOH Screenings 1978 [facility]-Adult SDOH Screenings 1978 [facility]-DTaP,Tdap,and Td Vaccine s (1 - Tdap) 11/19/1996 11/18/1996 CT Colonography 2005 Colonoscopy 2005 FIT-DNA 2005 FIT 2005 FOBT 2005 Sigmoidoscopy 2005 [facility]-Colorectal Cancer Screening 2005 [facility]-Zoster Vaccines (1 of 2) 2010 [facility]-Pneumococcal Vaccine: 50 + Years (2 of 2 - PCV) 06/15/2021 06/15/2020 [facility]-Abdominal Aortic Aneurys m (AAA) Screening 2025 [id number] Vaccine (4 - season) 2025 09/12/2021, 02/25/2021, 02/04/2021 [facility]-Influenza Vaccine (#1) 2025 [...] Relevant to Health Maintenance Insurance [facility] DENTAL CLAIMS Care Teams Director Hydrogen Storage Engineering Relationship Specialty Start Date End Date Cindy Diaz APRN [address] [place], [place] [id number] [facility] - General 01/27/21
[2025-05-24 12:13] LABS: PHA INR Fingerstick 1.6 (0.9-1.1)
== END 2025-05-24 12:14 ==
LOC: ACC 11:39
PROVIDERS: PCP Nurse Practitioner Family; Visit Provider Physician Assistant
DX: I48.91 Unspecified atrial fibrillation (principal); Z79.01 Long term (current) use of anticoagulants
CPT/HCPCS: 85610; 99211; G0463

== ENCOUNTER 2025-06-21 14:54 | Outpatient (CLI) | payer OTHER, SELFPAY ==
--- OUTSIDE RECORDS SUMMARY | 2025-06-21 14:56 | XMS_ITS | Clinical Summary ---
Author Organization [facility] Address [address] [place] [address] Care Team Providers Care Community Health Director Name Role Phone DiazCindy brooks Bhavana MCCRACKEN Primary Care Provider +1- [phone] Allergies Active Allergy Reactions Criticality Noted Date [...] Type Department Care Team Description 04/20/2025 Telephone [facility] [address] [place] [address] Renetta Mahan, PharmD 03/30/2025 Telephone [facility] [address] [place] [address] Chapis Eubanks 03/24/2025 10:40 AM EDT Office Visit [facility] [address] [facility], [address] [place] [address] Maximo Guzman MD Essential hypertension (Primary Dx) 03/24/2025 Travel 03/23/2025 Telephone [facility] [address] [place] [address] Darlene Benitez from Last 3 Months Immunizations Immunization Administration [...] Upcoming Encounters Date Type Department Care Team ([facility] st Contact Info) Description 06/30/2025 10:40 AM EDT Office Visit [facility] [place] [address] [facility] [place] [address] Health Maintenance Due Date Last [...] [facility]-Abdominal Aortic Aneurys m (AAA) Screening 2025 [id number] Vaccine (4 - season) 2025 09/12/2021, 02/25/2021, [...] <6.0% Children and Adolescents <7.5% . Source: [place] [employer]. Standards of medical care in diabetes, 2017. Diabetes Care.2017:40 (suppl 1):S1-S135. . HbA1c assay performed by an ion-exchange chromatography method that is certified traceable to the DCCT. 06/11/2020 12:3 1 AM EDT 06/11/2020 12:50 AM EDT Leobardo Crow MD LAB BLOOD ORDERABLES Final R esult SUNQUEST from Last 3 Months or Most Recently Relevant to Health Maintenance Insurance [facility] DENTAL CLAIMS Care Teams Community Health Director Relationship Specialty Start Date End Date Cindy Diaz APRN [address] [place] [address] PCP - General 01/27/21
--- OUTSIDE RECORDS SUMMARY | 2025-06-21 14:56 | XMS_ITS | Clinical Summary ---
Author Organization [facility] Address [address] [place] [address] Care Team Providers Care Administrative Dietitian Name Role Phone Unavailable Primary Care Provider [...]
--- OUTSIDE RECORDS SUMMARY | 2025-06-21 14:56 | XMS_ITS | Encounter Summary ---
Author Organization [facility] Address [address] [place] [address] Care Team Providers Care Cripple Cutter Name Role Phone DiazCindy brooks Bhavana MCCRACKEN Primary Care Provider +1- [phone] Encounter Details Date Type Department Care Team ([facility] st Contact Info) Description 04/20/2025 Telephone [facility] [place] [address], [address] [place] [address] Renetta Mahan, PharmD [address] [place] [address] Social History Tobacco Use Types [...] lefta voicemail asking for return call to [phone]. Unsuccessful attempts made on 04/20, 05/07, and 05/14. Will plan to follow up with patient at cardiology appt scheduled for 06/30/25. Renetta Mahan PharmD, [facility] [address], [address] [place] [address] * Telephone Encounter - Renetta Mahan PharmD - 05/07/2025 10:26 AM EDT Called patient today for HLD management at the request of Dr. Guzman. Patient did not answer so lefta voicemail asking for return call to [phone]. Renetta Mahan PharmD, [facility] [address], [address] [place] [address] * Telephone Encounter - Renetta Mahan PharmD - 04/20/2025 9:59 AM EDT Called patient today for HLD management at the request of Dr. Guzman. Patient did not answer so lefta voicemail asking for return call to [phone]. Renetta Mahan PharmD, [facility] [address], [address] [place] [address] documented in this encounter Plan of Treatment Upcoming Encounters Date Type Department Care Team (Late st Contact Info) Description 06/30/2025 10:40 AM EDT Office Visit [facility] [place] [address], [address] [place] [address] documented as of this encounter Visit Diagnoses [...] documented as of this encounter Care Teams Cripple Cutter Relationship Specialty Start Date End Date Cindy Diaz APRN [address] [place] [address] PCP - General 01/27/21 documented as of this encounter
[2025-06-21 15:47] LABS: PHA INR Fingerstick 2.4 (0.9-1.1)
== END 2025-06-21 15:49 ==
LOC: ACC 14:54
PROVIDERS: PCP Nurse Practitioner Family; Visit Provider Physician Assistant
DX: I48.91 Unspecified atrial fibrillation (principal); Z79.01 Long term (current) use of anticoagulants
CPT/HCPCS: 85610; 99211; G0463

== ENCOUNTER 2025-07-09 10:01 | Outpatient (CLI) | payer OTHER, SELFPAY ==
--- OUTSIDE RECORDS SUMMARY | 2025-07-09 10:06 | XMS_ITS | Encounter Summary ---
Author Organization [facility] Address [address] [place] [address] Care Team Providers Care Medical Technicians Name Role Phone DiazCindy brooks Bhavana MCCRACKEN Primary Care Provider +1- [phone] Encounter Details Date Type Department Care Team ([facility] st Contact Info) Description 04/20/2025 Telephone [facility] [place] [address] [facility], [address] [place] [address] Renetta Mahan, PharmD [address] [place] [address] Social History Tobacco Use Types [...] lefta voicemail asking for return call to [phone]. Unsuccessful attempts made on 04/20, 05/07, and 05/14. Will plan to follow up with patient at cardiology appt scheduled for 06/30/25. Renetta Mahan PharmD, [facility] [address] [facility] [place] [address] * Telephone Encounter - Renetta Mahan PharmD - 05/07/2025 10:26 AM EDT Called patient today for HLD management at the request of Dr. Guzman. Patient did not answer so lefta voicemail asking for return call to [phone]. Renetta Mahan PharmD, [facility] [address] [facility] [place] [address] * Telephone Encounter - Renetta Mahan PharmD - 04/20/2025 9:59 AM EDT Called patient today for HLD management at the request of Dr. Guzman. Patient did not answer so lefta voicemail asking for return call to [phone]. Renetta Mahan PharmD, [facility] [address] [facility] [place] [address] documented in this encounter Plan of Treatment Not on file documented as of this encounter Visit Diagnoses [...] documented as of this encounter Care Teams Medical Technicians Relationship Specialty Start Date End Date Cindy Diaz APRN [address] [place] [address] PCP - General 01/27/21 documented as of this encounter
--- OUTSIDE RECORDS SUMMARY | 2025-07-09 10:06 | XMS_ITS | Clinical Summary ---
Author Organization [facility] Address [address] [place] [address] Care Team Providers Care Primary Care Provider Name Role Phone DiazCindy brooks Bhavana MCCRACKEN Primary Care Provider [phone]- [phone] Allergies Active Allergy Reactions Criticality Noted Date [...] tablet by mouth daily. 30 tablet 5 5 Active Aspirin Low Dose 81 MG EC tablet Take 1 tablet by mouth daily. 4 Active testosterone cypionate (Depo-Testostero ne) 200 MG/ML injection Inject 1 mL into the muscle every 14 days. 4 Active furosemide (Lasix) 20 MG tablet Take 1 tablet by mouth daily. 5 Active spironolactone (Aldactone) 25 MG tablet Take 1 tablet by mouth daily. 5 Active BD Pen Needle Philomena 2nd Gen 32G X 4 MM [facility] us directed 5 Active B-D 3CC LUER-DREA SYR 60QV6-1/2 23G X 1-1/2 3 ML misc 4 Active potassium chloride ER (Micro-K) 10 MEQ ER capsule Take 2 capsules by mouth daily. 5 Active isosorbide mononitrate ER (Imdur) 60 MG 24 hr tablet Take 1 tablet by mouth daily. 5 Active Farxiga 10 MG tablet Take 1 tablet by mouth daily. 5 Active Tresiba FlexTouch 100 UNIT/ML injection pen 4 Active Active Problems Problem Noted Date Diagnosed Date Severe obesity (BMI 35.0-39.9) with comorbidity 03/25/2025 Encounters Date Type Department Care Team Description 04/20/2025 Telephone [facility] [place] [address], [address] [place] [address] Renetta Mahan, PharmD from Last 3 Months Immunizations Immunization Administration [...] 03/24/2025 10:47 AM EDT Plan of Treatment Health Maintenance Due Date Last Done Comments [facility]-Hepatitis C Screening 1960 [facility]-Infant/Child/Adol SDOH Screenings [...] [facility]-Abdominal Aortic Aneurys m (AAA) Screening 2025 [id number] Vaccine (4 - season) 2025 09/12/2021, 02/25/2021, [...] <6.0% Children and Adolescents <7.5% . Source: [place] [employer]. Standards of medical care in diabetes, 2017. Diabetes Care.2017:40 (suppl 1):S1-S135. . HbA1c assay performed by an ion-exchange chromatography method that is certified traceable to the DCCT. 06/11/2020 12:3 1 AM EDT 06/11/2020 12:50 AM EDT us Leobardo Crow MD LAB BLOOD ORDERABLES Final R esult SUNQUEST from Last 3 Months or Most Recently Relevant to Health Maintenance [place] [address] [place] [address] [facility] DENTAL CLAIMS Care Teams Primary Care Provider Relationship Specialty Start Date End Date Cindy Diaz APRN [address] [place] [address] PCP - General 01/27/21
--- OUTSIDE RECORDS SUMMARY | 2025-07-09 10:06 | XMS_ITS | Clinical Summary ---
Author Organization [facility] Address [address] [place] [address] Care Team Providers Care Jumbo Operator Name Role Phone Unavailable Primary Care [...]
--- NOTE | 2025-07-09 10:15 | CA_ITS ---
APPROVED REPORT EXAM: Comprehensive 2D, Doppler, and color-flow Echocardiogram Electron Beam Welding Machine Operator: PATEL Cho, RVS Ht: 5 ft 4 in Wt: 212lbs BSA: 2.01 BP: 118/81 mmHg Indications: HFrEF, CAD, CABG, NICCI, CHF, CKD III, PAF, , COPD, Smoker, DM 2D Dimensions IVSd 1.13 cm M: 0.6-1.2 LVEF (Visual) 41.50 % PWd 1.21 cm M: 0.6 - 1.2 LA Volume 42.40 mL LVDd 4.68 cm M: 4.2 - 5.9 LA Volume Index 21.09 mL/m2 (M/F) 16-34 LVDs 3.73 cm M: 2.5 - 4.0 Left Atrium 3.36 cm M: 3.0 - 4.0 M-Mode Dimensions RVDd 2.54 cm (0.9-2.6) LA Diam 3.48 cm (1.9-4.0) LVDd 5.09 cm (3.5-5.7) LVDs 3.79 cm (3.5-5.7) IVSd 1.21 cm (0.6-1.1) PWd 1.25 cm (0.6-1.1) EF (Teich) 50.00% EPSs 1.09 cm FS 25.50% EDV (Teich) 123.20 mL TAPSE 1.26 (<1.7) ESV (Teich) 61.60 mL LV Diastology E Decel Time 247 (160-240 msec) E/A Ratio 0.67 MED A' 8.10 cm/s LAT A' 9.10 cm/s Aortic Valve ALISON Index 0.58 cm2/m2 AoV Peak Parveen. 234.0 (50-130 cm/s) AO Peak GR. 21.90 mmHg AO Mean GR. 10.70 (<5 mmHg) AO VTI 39.3 (18-25 cm) ALISON (VTI) 1.19 (2.5-4.5 cm2) Mitral Valve MV A Velocity 84.0 (40-130 cm/s) E/A Ratio 0.67 Pulmonary Valve PV Peak Velocity 112.0 (50-150 cm/s) UT End VMAX 169.0 cm/s Left Ventricle The left ventricle is normal size. Left ventricular systolic function is mildly reduced. There is increased left ventricular wall thickness. Mild global hypokinesis is present. Grade 1 diastolic dysfunction is present. LVEF is 45% Right Ventricle The right ventricle is mildly dilated. The right ventricular systolic function is mildly reduced. Atria The left atrium size is normal. The right atrium size is normal. There is no color Doppler evidence of interatrial shunt. Aortic Valve The aortic valve is mildly thickened. Mild aortic stenosis is present. ALISON by continuity equation is 1.6 cm2. Peak velocity 2.5 m/s. Mean AV gradient 11 mmHg. Max AV gradient 22 mmHg. No aortic regurgitation is present. Mitral Valve The mitral valve is normal in structure. No evidence of mitral valve stenosis. Trace mitral regurgitation is present. Tricuspid Valve The tricuspid valve leaflets are thin and pliable. Trace tricuspid regurgitation. There is insufficient TR jet to estimate RVSP. Pulmonic Valve The pulmonary valve is grossly normal in structure. Trace pulmonic valve regurgitation is present. Great Vessels The aortic root is normal in size. IVC is normal in size and collapses >50% with inspiration. Pericardium There is no pericardial effusion. Other Information Study Quality: Fair Conclusion Mildly reduced LV systolic function (LVEF 45%). Mild RV dilation with mild reduction in RV function. Mild (ALISON by continuity equation is 1.6 cm2. Peak velocity 2.5 m/s. Mean AV gradient 11 mmHg. Max AV gradient 22 mmHg). Electronically signed by : Tasha Rosario MD 07/17/2025 16:07:23
== END 2025-07-09 23:59 | disposition home or self-care (01) ==
LOC: RT 10:02
PROVIDERS: PCP Nurse Practitioner Family; Visit Provider Physician Assistant
DX: I35.0 Nonrheumatic aortic (valve) stenosis (principal); I50.20 Unspecified systolic (congestive) heart failure; I25.10 Atherosclerotic heart disease of native coronary artery without angina pectoris; I70.1 Atherosclerosis of renal artery; N18.30 Chronic kidney disease, stage 3 unspecified; I48.0 Paroxysmal atrial fibrillation; J44.9 Chronic obstructive pulmonary disease, unspecified; F17.200 Nicotine dependence, unspecified, uncomplicated; E11.9 Type 2 diabetes mellitus without complications
CPT/HCPCS: 93306

== ENCOUNTER 2025-08-02 14:03 | Outpatient (CLI) | payer OTHER, SELFPAY ==
[2025-08-02 18:08] LABS: Alanine Aminotransferase 23 U/L (12-78); Albumin Level 3.9 g/dl (3.5-5.0); Albumin/Globulin Ratio 1.2 (1.1-1.8); Alkaline Phosphatase 75 U/L (38-126); Anion Gap 15.5 mEq/L (5-15); Aspartate Amino Transferase 28 U/L (17-59); Bilirubin,Total 0.4 mg/dl (0.2-1.3); Blood Urea Nitrogen 39 mg/dl (9-20); Calcium 9.0 mg/dl (8.4-10.2); Carbon Dioxide 20 mmol/L (22.0-30.0); Chloride 102 mmol/L (98-107); Creatinine,Serum 2.30 mg/dl (0.66-1.25); Estimated Glomerular Filt Rate 29 ml/min (>60); GFR (African American) 35 ML/MIN (>60); Globulin 3.2 g/dL (1.3-3.2); Glucose 280 mg/dl (74-100); Sodium 131 mmol/L (136-145); Total Protein,Serum 7.1 g/dl (6.3-8.2)
[2025-08-02 18:33] LABS: Hemoglobin A1C 9.2 % (4.0-6.0)
[2025-08-02 20:23] LABS: Potassium 6.5 mmoL/L (3.5-5.1)
== END 2025-08-02 23:59 ==
LOC: LAB.DROPOF 08-03 11:15
PROVIDERS: PCP Nurse Practitioner Family; Visit Provider Nurse Practitioner Family
DX: E11.29 Type 2 diabetes mellitus with other diabetic kidney complication (principal); N28.9 Disorder of kidney and ureter, unspecified
CPT/HCPCS: 80053; 83036

== ENCOUNTER 2025-08-02 14:30 | Outpatient (CLI) | payer OTHER, SELFPAY ==
[2025-08-02] MEDS: INCLISIRAN SODIUM 284 MG/1.5 ML SYRINGE SUBCUT (14:49)
[2025-08-02 14:50] VITALS: BP 168/88; PULSE 87; RESP 18; O2SAT 96
[2025-08-02 14:50] LABS: PHA INR Fingerstick 1.8 (0.9-1.1)
--- OUTSIDE RECORDS SUMMARY | 2025-08-02 21:08 | XMS_ITS | Clinical Summary ---
Author Organization [facility] Address [address] [place] [address] Care Team Providers Care Line Maintainer Name Role Phone DiazCindy brooks Bhavana MCCRACKEN Primary Care Provider [phone]- [phone] Allergies Active Allergy Reactions Criticality Noted Date [...] Philomena 2nd Gen 32G X 4 MM misc us directed 5 Active B-D 3CC LUER-DREA SYR 72XK2-1/2 23G X 1-1/2 3 ML misc 4 [...] Severe obesity (BMI 35.0-39.9) with comorbidity 03/25/2025 Immunizations Immunization Administration Dates Next Due Influenza, [...] [facility]-Abdominal Aortic Aneurys m (AAA) Screening 2025 [id number] Vaccine ( - season) 2025 09/12/2021, 02/25/2021, 02/04/2021 [facility]-Influenza [...] <6.0% Children and Adolescents <7.5% . Source: [place] Diabetes Association. Standards of medical care in diabetes, 2017. Diabetes Care.2017:40 (suppl 1):S1-S135. . HbA1c assay performed by an ion-exchange chromatography method that is certified traceable to the DCCT. 06/11/2020 12:3 1 AM EDT 06/11/2020 12:50 AM EDT us Leobardo Crow MD LAB BLOOD ORDERABLES Final R esult SUNQUEST from Last 3 Months or Most Recently Relevant to Health Maintenance Insurance [facility] DENTAL CLAIMS Care Teams Line Maintainer Relationship Specialty Start Date End Date Cindy Diaz APRN [address] [place] [address] PCP - General 01/27/21
== END 2025-08-02 14:52 ==
LOC: ACC 14:30 → INF 14:43
PROVIDERS: PCP Nurse Practitioner Family; Visit Provider Physician Assistant
DX: I48.91 Unspecified atrial fibrillation (principal)
CPT/HCPCS: 85610; 96372; 99211; G0463; J1306

== ENCOUNTER 2025-08-03 17:52 | Emergency (ER) | payer OTHER, SELFPAY ==
--- NOTE | 2025-08-03 18:03 | ECG_ITS ---
APPROVED REPORT Exam: Resting ECG HR:85 bpm ECG Measurements Heart Rate 85 AXES MN 178 P 63 QRSd 147 QRS 267 QT 378 T 36 QTc 420 Conclusion SINUS RHYTHM RIGHT AXIS DEVIATION [QRS AXIS > 100] RIGHT BUNDLE BRANCH BLOCK [120+ ms QRS DURATION, UPRIGHT V1, 40+ ms S IN I/aVL/V4/V5/V6] ABNORMAL ECG Electronically signed by : SHOLA MARAVILLA, 08/08/2025 07:39:39
[2025-08-03 18:05] VITALS: BP 157/101; PULSE 91; RESP 18; TEMP 36.6; O2SAT 96; BMI 36.3
[2025-08-03 18:12] LABS: Lactate Venous 2.2 mmol/L (0.4-2.0); VBG HCO3 21.9 mmol/L (23-30); VBG PCO2 41.2 mmol/L (35-51); VBG PH 7.34 mmol/L (7.31-7.41); VBG PO2 83.4 mmol/L (28-40)
[2025-08-03 18:13] LABS: Hematocrit 40.3 % (42.0-52.0); Hemoglobin 13.3 g/dL (14.1-18.0); Immature Granulocytes % 0.7 %; Mean Corpuscular HGB Conc 33.0 g/dL (31.8-35.4); Mean Corpuscular Hemoglobin 27.4 pg (27.0-31.2); Mean Corpuscular Volume 82.9 fl (80-94); Nucleated Red Blood Cells % 0 %; Platelet Count 290 K/mm3 (142-424); Red Blood Count 4.86 M/mm3 (4.60-6.20); Red Cell Distribution Width-SD 43.8 fL; White Blood Count 8.6 K/mm3 (4.8-10.8)
--- NOTE | 2025-08-03 18:14 | ED_ITS ---
Discharge Plan Disposition Patient Disposition: Home, Self-Care Prescriptions Prescriptions: No Action (DME) Dexcom G7 Sensor Device See Rx Instructions .Route Qty: 9 3RF Rx Instructions: As directed (DME) Dexcom G7 Instructor Knitting Misc See Rx Instructions .Route Qty: 1 0RF Rx Instructions: As directed fenofibrate nanocrystallized 145 mg tablet 145 mg PO DAILY warfarin 5 mg tablet 10 mg PO DAILY Patient Comments: Pt states he's only taking 10 mg daily losartan 50 mg tablet 50 mg PO DAILY Qty: 30 2RF isosorbide mononitrate 60 mg tablet extended release 24 hr 60 mg PO DAILY Qty: 30 2RF (DME) syringe with needle [BD Luer-Doron Syringe] 3 mL 23 gauge x 1 1/2 syringe See Rx Instructions .ROUTE .MEDSUPPLY Qty: 100 Rx Instructions: As directed (DME) pen needle, diabetic 32 gauge x needle See Rx Instructions .ROUTE .COMPLEX Qty: 100 3RF Dose Instruction: USE DIRECTED Rx Instructions: USE DIRECTED furosemide 20 mg tablet 20 mg PO BID PRN (Reason: edema) Qty: 30 0RF potassium chloride 10 mEq capsule, extended release 10 meq PO DAILY PRN (Reason: take with furosemide as needed ) Qty: 30 0RF Tresiba FlexTouch U-100 100 unit/mL (3 mL) insulin pen 26 unit SQ HS 30 Days Qty: 7.8 6RF nitroglycerin 0.4 mg tablet, sublingual 0.4 mg sublingual Q5M PRN (Reason: chest pain) Qty: 25 0RF Rx Instructions: do not exceed 3 doses per episode clopidogrel 75 mg tablet 75 mg PO DAILY Qty: 30 11RF metoprolol tartrate 25 mg tablet See Rx Instructions .ROUTE .COMPLEX Qty: 90 3RF Dose Instruction: TAKE 1 & 1/2 TABLETS BY MOUTH 2 TIMES A DAY Rx Instructions: TAKE 1 & 1/2 TABLETS BY MOUTH 2 TIMES A DAY metformin 500 mg tablet See Rx Instructions .ROUTE .COMPLEX Qty: 60 2RF Dose Instruction: TAKE ONE TABLET BY MOUTH 2 TIMES A DAY WITH MEALS Rx Instructions: TAKE ONE TABLET BY MOUTH 2 TIMES A DAY WITH MEALS Leqvio 284 mg/1.5 mL syringe 284 mg SQ [id number] Qty: 1.5 2RF Rx Instructions: repeat 240 mg every 6 months dapagliflozin propanediol [Farxiga] 10 mg tablet 10 mg PO DAILY Qty: 30 5RF albuterol sulfate 90 mcg/actuation HFA aerosol inhaler 2 puff INHALATION Q6HP PRN (Reason: Shortness of breath and Wheezing) Referrals Follow up/Referrals: Cindy Diaz APRN [Primary Care Provider, Medical] - See instructions Activity Restrictions/Add. Instructions Additional Instructions/Restrictions: At this time it was felt you are safe to be discharged home. If new or worsening symptoms please do not hesitate to return the emergency department. Fortunately your potassium was at an acceptable level today that did not not require emergent intervention. It is very important that you follow-up within the next day or so to repeat your lab to make sure it is staying in acceptable range. Please continue to take your insulin to have good control of your blood sugar. Clinical Impressions Clinical Impression: Hyperglycemia, Encounter for medical assessment Print Language Print Language: German Discharge ED Provider: Skyler Siegel General Adult HPI General Chief complaint: Weakness Stated complaint: Per Joe Potassium Levels 6.5 Time Seen by Provider: 08/03/25 17:56 Mode of Arrival: Ambulatory Source of Information: Patient Description of Symptoms (Recalled from ER Triage Doc. by RN): Patient states he rec'd a phone call from his PCP stating that his Potassium was elevated. Denies any symptoms at this time. History of Present Illness HPI narrative: Patient is a 65-year-old male with past medical history of insulin-dependent diabetes, heart failure, smoker, CKD who presents emergency department for evaluation of elevated potassium level. Patient went for routine follow-up where hematologic labs were obtained and he reportedly had an elevated potassium of 6.5. Patient states he feels as if he is at his baseline and does not have any acute complaints. No vomiting, no diarrhea, is still urinating appropriately no chest pain no abdominal pain no shortness of breath reported. No other acute complaints at this time. Please note that above description of symptoms, in this electronic medical record under categorization of recalled from ER triage doctor by RN are reflective of an initial nursing assessment, however, is not reflective of my full history and physical exam that was personally taken and clarified. Consequentially, this preceding description of symptoms, which may include the patient's categorized chief complaint in the EMR, do not reflect my personal clinical impression, and the ultimate description of history of present illness and patient stated complaints should be deferred to this section of the note. Unless stated otherwise or congruent with this section of the note, additional signs, symptoms, or incongruence should be interpreted as inaccurate with my clinical impression. Related Data Home Medications ?Medication ?Instructions ?Recorded ?Confirmed albuterol sulfate 90 mcg/actuation 2 puff inhalation Q 6HP PRN 09/20/23 08/02/25 aerosol inhaler Shortness of breath and Whee zing syringe with needle 3 mL 23 gauge #100 ea 10/06/24 x 1 09/17 (BD Luer-Doron Syringe) fenofibrate nanocrystallized 145 145 mg PO DAILY 04/0208/02/25 mg tablet warfarin 5 mg tablet 10 mg PO DAILY 06/18/2507/17 Previous Rx's ?Medication ?Instructions ?Recorded nitroglycerin 0.4 mg sublingual 0.4 mg sublingual Q5M PRN chest 09/20/23 tablet pain #25 tabs clopidogrel 75 mg tablet 75 mg PO DAILY #30 tabs 12/08 isosorbide mononitrate 60 mg 60 mg PO DAILY #30 tabs 0 01/04/25 tablet,extended release 24 hr pen needle, diabetic 32 gauge x #100 ea 01/22/25 furosemide 20 mg tablet 20 mg PO BID PRN edema #30 t abs 01/26/25 potassium chloride 10 mEq 10 meq PO DAILY PRN take wit h 01/26/25 capsule,extended release furosemide as needed #30 ca ps blood-glucose sensor (Dexcom G7 #9 ea 03/11/25 Sensor device) blood-glucose,ammonia solution preparer,cont #1 ea 03/11/25 (Dexcom G7 Instructor Knitting) metoprolol tartrate 25 mg tablet See Rx Instructions . Route 04/05/25 .COMPLEX #90 tabs metformin 500 mg tablet See Rx Instructions .Route 0 04/16/25 .COMPLEX #60 tabs insulin degludec 100 unit/mL (3 26 unit (0.26 mL) SQ H S 30 days 05/03/25 mL) subcutaneous pen (Tresiba #7.8 mL FlexTouch U-100 insulin) losartan 50 mg tablet 50 mg PO DAILY #30 tabs 10/12/08 inclisiran 284 mg/1.5 mL 284 mg (1.5 mL) SQ [id number] #1.5 mL 06/23/25 subcutaneous syringe (Leqvio) dapagliflozin propanediol 10 mg 10 mg PO DAILY #30 tab s 08/03/25 tablet (Farxiga) Allergies Allergy/AdvReac Type Severity Reaction Status Date / Time [id number] Reductase AdvReac Severe Unknown Verified 08/02/25 15:12 Inhibitor allergy reaction PFSH [facility] Disclaimer: The information contained in this section may have been updated after the patient was seen, as this information can be updated by other users. Medical History Edema CHF (congestive heart failure) Renal artery stenosis Angina pectoris COPD (chronic obstructive pulmonary disease) Acute exacerbation of chronic obstructive pulmonary disease Diabetes mellitus type 2, controlled, without complications Acute bronchitis Iliotibial band syndrome, right leg Unstable angina Family history of heart disease Tobacco dependence syndrome Dyspnea Abnormal EKG Chest pain Right upper quadrant abdominal pain Surgical History History of open heart surgery History of coronary artery bypass graft Family History Mother CHF (congestive heart failure) Brother Lung nodules Other Chest pain Social History Smoking Status: Current every day smoker tobacco type: cigarettes packs per day: 1 pack-years: 200 years smoked: 43 quit status: considering quitting alcohol intake: never substance use type: denies use current occupational status: employed Travel in the last 8 weeks?: Inside the [place] household members: spouse housing: house caffeine: Yes Have you lived/traveled outside [place] in past 30 days?: No Contact w/someone who lives/traveled outside [place] past 30 days?: No Exposure to someone with infectious disease in past 14 days?: No Do you have a fever (greater than 100.4 F or 38 C)?: No Have you tested positive for COVID-19?: No Exposed to someone with COVID-19 in past 14 days?: No Do you have a sore throat?: No Do you have a cough?: No Do you have any weakness?: No Do you have any diarrhea?: No Are you experiencing any unusual bleeding?: No Do you have any muscle aches/pain?: No Do you have any abdominal pain?: No Are you experiencing loss of taste or smell?: No Other Medical History Have you received the Flu Vaccine for this season: No Have you received the Pneumonia Vaccine: Yes ROS Obtained: Yes Systems reviewed as appropriate & no additional complaints except as documented Physical Exam General General appearance: alert and in no apparent distress Head Head exam: atraumatic and normocephalic Eye Eye exam: Present PERRL and EOMI ENT ENT exam: Present mucous membranes moist Neck Neck exam: Present normal inspection Chest Chest inspection: Present normal inspection and symmetric chest wall rise Respiratory Respiratory exam: Present normal lung sounds bilaterally; Absent respiratory distress Cardiovascular Cardiovascular exam: Present regular rate and normal rhythm Abdominal Exam Abdominal exam: Present soft; Absent tenderness Extremities Exam Extremities exam: Present normal inspection Neurological Exam Neurological exam: Present alert and CN II-XII intact Psychiatric Psychiatric exam: Present normal affect Skin Skin exam: Present warm and dry Medical Decision Making Medical Records Screening: Per USPSTF and CDC recommendations, given the prevalence of disease in our region, it is our hospital?s policy to screen for HIV and viral Hepatitis for all patients aged 18 and over and those with ongoing risk factors. Scott Inquiry Pt receiving controlled substance: No Vital Signs: 08/03/25 18:05 Temperature 97.9 F Temperature Source Oral Pulse Rate [Radial] 91 H Respiratory Rate 18 Blood Pressure [Right Arm] 157/101 H Blood Pressure Mean [Right Arm] 119 Blood Pressure Source [Right Arm] Automatic Cuff Blood Pressure Position [Right Arm] Sitting 02 Sat by Pulse Oximetry 96 Oxygen Delivery Method Room Air Lab Data Lab Results 08/03/25 18:05: WBC 8.6, RBC 4.86, Hgb 13.3 L, Hct 40.3 L, MCV 82.9, MCH 27.4, MCHC 33.0, RDW 14.6, Plt Count 290, MPV 9.0, Neut % (Auto) 67.6, Lymph % (Auto) 22.6, [place] % (Auto) 5.8, Eos % (Auto) 2.7, Baso % (Auto) 0.6, Neut # (Auto) 5.8, Lymph # (Auto) 1.9, [place] # (Auto) 0.5, Eos # (Auto) 0.2, Baso # (Auto) 0.1, VBG pH 7.34, VBG pCO2 41.2, VBG pO2 83.4 H, VBG HCO3 21.9 L, VBG Total CO2 23.2, VBG O2 Saturation 96.3 H, VBG Base Excess -3.8 L, VBG Lactic Acid 2.2 H, Sodium 134 L, Potassium 5.3 H, Chloride 101, Carbon Dioxide 19 L, Anion Gap 19.3 H, BUN 41 H, Creatinine 2.30 H, Estimated Creat Clear 44, Estimated GFR 29 L, Est GFR ( Amer) 35 L, Glucose 307 H, Calcium 8.5, Magnesium 1.5 L, Total Bilirubin 0.3, AST 28, ALT 23, Alkaline Phosphatase 65, Total Protein 7.8, Albumin 3.9, Globulin 3.9 H, Albumin/Globulin Ratio 1.0 L 08/03/25 18:05 08/03/25 18:05 Orders (Tests/Meds): ED MEDICATIONS Discontinued Medications Generic Name Dose Route Start Last Admin Trade Name Freq PRN Reason Stop Dose Admin Sodium Chloride 500 mls @ 999 mls/hr 08/03/25 18:13 08/03/25 18:33 Sod Chlor 0.9% 1000ml Bag IV 08/03/25 18:43 999 mls/hr .Q31M ONE Administration ORDERS Category Date Time Status CBC w/Auto Diff [Complete Blood Count Auto Diff] Stat Lab 08/03/25 18:05 Completed CMP [Comprehensive Metabolic Panel] Stat Lab 08/03/25 18:05 Completed HIV Combo Stat Lab 08/03/25 18:13 Received Hepatitis C Ab Qual. W/ RFX Stat Lab 08/03/25 18:13 Received MG [Magnesium] Stat Lab 08/03/25 18:05 Completed VBG [Venous Blood Gas] Stat RT 08/03/25 18:05 Completed Medical Decision Narrative: In summary patient is a 65-year-old male with past medical history described above presents to the emergency department for evaluation of elevated potassium. Patient is hemodynamically stable nontoxic-appearing upon arrival, afebrile. EKG at bedside no peaked T waves, right bundle branch block which is stable compared to his previous EKGs. Patient will undergo continuous cardiac monitoring. Differential includes true elevated potassium, erroneous result, among others. Workup will be conducted with repeat hematologic labs. Initial inventions include gentle crystalloid resuscitation 500 cc for dilution effect but will not aggressively resuscitate given his history of heart failure. Initial workup reviewed by me no significant leukocytosis, no acidosis, there is hyperglycemia with a potassium of 5.3 but no evidence of DKA no critical electrolyte changes and his EKG does not show any changes consistent with hyperkalemia. Given this and the fact the patient is asymptomatic he is appropriate for outpatient management at this time especially given that taking his nighttime insulin should cause intravascular shift of his potassium to normal range. Patient was instructed to follow-up within the next 24 to 48 hours to repeat this lab to ensure it stays within acceptable limits and was given return precautions. Critical Care Critical Care Time Critical Care Time: No
[2025-08-03 18:25] LABS: Chloride 101 mmol/L (98-107)
[2025-08-03 18:26] LABS: Albumin Level 3.9 g/dl (3.5-5.0); Potassium 5.3 mmoL/L (3.5-5.1); Sodium 134 mmol/L (136-145)
[2025-08-03 18:28] LABS: Alanine Aminotransferase 23 U/L (12-78); Anion Gap 19.3 mEq/L (5-15); Aspartate Amino Transferase 28 U/L (17-59); Blood Urea Nitrogen 41 mg/dl (9-20); Carbon Dioxide 19 mmol/L (22.0-30.0); Creatinine Clearance Estimated 44 mL/min (50-200); Creatinine,Serum 2.30 mg/dl (0.66-1.25); Estimated Glomerular Filt Rate 29 ml/min (>60); GFR (African American) 35 ML/MIN (>60)
[2025-08-03 18:29] LABS: Albumin/Globulin Ratio 1.0 (1.1-1.8); Alkaline Phosphatase 65 U/L (38-126); Bilirubin,Total 0.3 mg/dl (0.2-1.3); Calcium 8.5 mg/dl (8.4-10.2); Globulin 3.9 g/dL (1.3-3.2); Glucose 307 mg/dl (74-100); Total Protein,Serum 7.8 g/dl (6.3-8.2)
[2025-08-03] MEDS: 0.9 % SODIUM CHLORIDE 1000ML 500 ML 999 ML IV (18:33)
[2025-08-03 18:34] LABS: Magnesium 1.5 mg/dl (1.6-2.3)
[2025-08-03 18:57] VITALS: BP 148/74; PULSE 87; RESP 16; TEMP 36.6; O2SAT 96
[2025-08-03 19:28] LABS: Hepatitis C Ab Qual. W/ RFX NEGATIVE (Negative)
[2025-08-03 22:13] LABS: Reflex Lactic Add Lactic Reflex
== END 2025-08-03 18:58 | disposition home or self-care (01) ==
PROVIDERS: Emergency Provider Emergency Medicine; PCP Nurse Practitioner Family
DX: E11.65 Type 2 diabetes mellitus with hyperglycemia (principal); E87.5 Hyperkalemia; I45.10 Unspecified right bundle-branch block; I11.0 Hypertensive heart disease with heart failure; I50.9 Heart failure, unspecified; Z79.4 Long term (current) use of insulin; F17.210 Nicotine dependence, cigarettes, uncomplicated
CPT/HCPCS: 80053; 82803; 83735; 85025; 86803; 87389; 93005; 99284; J7030

== ENCOUNTER 2025-08-23 10:29 | Outpatient (CLI) | payer OTHER, SELFPAY ==
[2025-08-23 14:54] LABS: Alanine Aminotransferase 21 U/L (12-78); Albumin Level 3.8 g/dl (3.5-5.0); Albumin/Globulin Ratio 1.1 (1.1-1.8); Alkaline Phosphatase 83 U/L (38-126); Anion Gap 18.5 mEq/L (5-15); Aspartate Amino Transferase 28 U/L (17-59); Bilirubin,Total 0.4 mg/dl (0.2-1.3); Blood Urea Nitrogen 40 mg/dl (9-20); Calcium 8.7 mg/dl (8.4-10.2); Carbon Dioxide 19 mmol/L (22.0-30.0); Chloride 105 mmol/L (98-107); Creatinine,Serum 2.60 mg/dl (0.66-1.25); Estimated Glomerular Filt Rate 25 ml/min (>60); GFR (African American) 30 ML/MIN (>60); Globulin 3.4 g/dL (1.3-3.2); Glucose 165 mg/dl (74-100); Potassium 5.5 mmoL/L (3.5-5.1); Sodium 137 mmol/L (136-145); Total Protein,Serum 7.2 g/dl (6.3-8.2)
== END 2025-08-23 23:59 ==
LOC: LAB.DROPOF 08-25 10:33
PROVIDERS: PCP Nurse Practitioner Family; Visit Provider Nurse Practitioner Family
DX: E87.5 Hyperkalemia (principal)
CPT/HCPCS: 80053